=== PATIENT | female | born 1995 | race Caucasian/White ===

== ENCOUNTER → 2020-01-20 | Outpatient (CLI) | payer MEDICAID, SELFPAY ==
[2020-01-24 12:31] LABS: HPV Reflexed? NOT INDICATED
--- OUTSIDE RECORDS SUMMARY | 2020-06-03 08:46 | XMS RPT_ITS | CCD ---
:1995 External Reference #:[id number] Author Organization [facility] Care Team Providers Name Role Phone FILMOENA MOTLEY DO Admitting Unavailable DIDUR, DO Attending Unavailable DIDUR, DO Primary Care Unavailable NO, ON Consulting Unavailable NO, ON Referring Unavailable Results Result Name Value Range Unit Interpretation Flag Date Location emergency report on 2019-04-23 EMERGENCY REPORT [facility] Normal 04-23 [facility] EMERGENCY ROOM REPORT ([id number]) NAME ACCOUNT SEX AGE ADMIT DISCHARGE PT MED. RECORD# NUMBER DATE DATE TYPE SUZANNE [id number] F 04/20/19 04/20/19 Sina CHAMBERLAIN [id number] ROOM: ER DATE OF : 1995 DICTATING PHYSICIAN: Filomena Motley CHIEF COMPLAINT/HISTORY OF PRESENT ILLNESS: This is a 24-yea r-old white female complaining of some p ain and swelling to her right upper eyelid. It started some time throughout the middle o f the night because she states she did not have it when she went to bed last night. She denies any discharge or mattering from the right eye. She does wear contact lenses, bu t she did not put them in this morning. She denies any trauma to the eye. Presently rates her right eye pain as a 3 on a severity scale of 1 to 10. Described it as sharp in nature. Not worse with movement. Denies any blurry or double vision. PAST MEDICAL HISTORY: Denied. PAST SURGICAL HISTORY: Denied. ALLERGIES: No known drug allergies. SOCIAL HISTORY: The patient is not a smoker. She denies any illicit drug use. Does admit to occasoinal alcohol use. REVIEW OF SYSTEMS: Denies any chest pain, shortn ess of breath, cough, sputum, wheezing, abdominal pain, nausea, vomiting, diarrhea, cons tipation, melena, hematochezia, headache, numb ness, unsteady gait, weakness, neck or back pain, joint pain, skin rash, but does co mplain of pain and swelling to the right upper eyelid. Further review of systems negative. PHYSICAL EXAMINATION: Vital signs: Blood pressure 128/90, pulse 97, respiration rate is 12, temperature 98.6 , pulse oximetry 100%. Weight 150 pounds. She does not have a primary care provider . The patient is alert and oriented x3. She presently appears in no acute distress . She is pleasant and cooperative. HEENT: Head appears atraumatic. Pupils are equal and reactive to light. Red reflex intact bilaterally. Extraocular muscles intact. No conjunctival injection. The patient does have some swelling to the right upper eyelid. When I young the eyelid I do see a hordeolum forming along the leading edge of th e upper eyelid laterally. I do not see any discharge or mattering from the right eye and there is no subconjunctival hemorrhage. No hyphema. Globe is intact. Ears: TMs i ntact bilaterally. No erythema noted. No external auditory canal edema or bleeding. Nos e exhibits no rhinorrhea or epistaxis. Mouth: Mucous membranes are moist. I do no t some mild diffuse pharyngeal erythema. No exudates Page 1 of 2 [facility] Emergency Room Report Uvula is midline and elevate s. Neck is supple. Trachea is midline. She does have some mild left anterior cervical lymphadenopathy. No posterior cervical lymphadenopathy. No posterior cervical tendernes s. Lungs are clear to auscultation in all lung bull. No adventitious sounds are note d. No accessory muscle use noted. CVS: Heart rate and rhythm is regular without mu rmur. Abdomen is soft and nontender with normoactive bowel sounds x4 quadrants. No guarding or rigidity. No aida ound. No palpable abdominal masses. No hepatosplenomegaly. Extremities: No e paco or cyanosis. Peripheral pulses are intact . No motor or sensory deficits are noted. Hand internet retailer are strong and symmetric. Skin is warm and d ry. No diaphoresis or rash. Neurologic examination shows the patien t to be alert and oriented x4. No motor or sensory deficits are noted. Normal speech. EMERGENCY DEPARTMENT COURSE AND TREATMENT: Patient was place d on Keflex 500 mg 1 p.o. every 6 hours, dispense number 40 with no refill and Bleph-10 ophthalmic drops, 2 drops to the right eye every 2 to 3 hours while awake. Dispense 15 mL with no refill. The patie nt is to rest, encourage fluids, take the medication as prescribed. She does not hav e a primary care provider so I am going to refer her to [facility] f or followup in 3 to 5 days. If her symptoms become worse or any other problems jules pulido, return here to the emergency department. The patient was discharged in a clinically stable condition. Nurse notes reviewed. DIAGNOSIS: Hordeolum right eye. Dictated By: Filomena Motley DO 04/20/19 05:43 JOB #: [id number] Transcribed By: aleida 04/20/19 12:53 Electronically signed by: E-Sign: Dr. Filomena Motley D.O. 04/23/19 06:38 Page 2 of 2 [facility] PALACIOS Emergency Room Report Encounters Date Type Reason Provider Location 04-20-2019 - Emergency department FILOMENA Byrne [place] 04-20-2019 patient visit DO MOTLEY [facility] PURVI DOCTOR ON NO ([id number]) DOCTOR ON NO Payers Payer Name Policy Number Location [facility] [id number] [facility] ([id number]) [id number] [facility] ([id number]) Summary Purpose Family History No Family History Records Found Advance Directives No Advanced Directives Records Found Additional Source Comments FOR RECORDS PERTAINING TO PATIENTS WHO ARE OR HAVE BEEN ENROLLED IN A CHEMICAL DEPENDENCY/SUBSTANCE ABUSE PROGRAM, SOME INFORMATION MAY BE OMITTED. This clinical summary was aggregated from multiple sources. Caution should be exercised in using it in the provision of clinical care. This summary normalizes information from multiple sources, and as a consequence, information in this document may materially changethe coding, format and clinical context of patient data. In addition, data may be omittedin some cases. CLINICAL DECISIONS SHOULD BE BASED ON THE PRIMARY CLINICAL RECORDS. [facility] provides no warranty or guarantee of the accuracy or completeness of information in this document. UNRECOGNIZED CONTENT PROVIDED BELOW FOR UNRECOGNIZED SECTION INFORMATION SOURCE DATE CREATED AUTHOR AUTHOR'S LORE Garcia 05/21/[address] [facility]
== END | disposition home or self-care (01) ==
PROVIDERS: Referring Provider Obstetrics & Gynecology; Visit Provider Obstetrics & Gynecology
DX: R87.810 Cervical high risk human papillomavirus (HPV) DNA test positive (principal); R87.612 Low grade squamous intraepithelial lesion on cytologic smear of cervix (LGSIL)
CPT/HCPCS: 88175; G0145

== ENCOUNTER 2020-01-23 05:15 | Day surgery (SDC) | payer MEDICAID, SELFPAY ==
[2020-01-21 12:13] LABS: Probe Check PASS; Specimen Processing Control PASS
[2020-01-23] VITALS (7 sets, daily range): BP systolic 90–126; BP diastolic 63–85; PULSE 44–73; RESP 16–18; TEMP 36.4–36.9; O2SAT 99–100; BMI 26.6
--- NOTE | 2020-01-23 05:51 | PCM.HPOB.BLA ---
- Problem List (1) Mechanical complication of intrauterine contraceptive device Status: Acute Qualifiers: Mechanical complication type: mechanical breakdown Encounter type: subsequent encounter Qualified Code(s): T83.31XD - Breakdown (mechanical) of intrauterine contraceptive device, subsequent encounter Comment: mechanical and displacement History and Physical Date of Admission: 01/23/20 Surgical History and Physical Date: 01/22/2020 Name: ROCÍO PALACIOS Age: 25 Date of : 1995 Rocío Palacios, a 25 year old female 2 0 0 0 2, presents for Hysteroscopic IUD removal on Thursday01/23/20 at 7 :30. -- Has partially expulsed, fractured and embedded Mirena IUD. She had frequent vaginal bleeding and presented for IUD removal on 01/20/20 and office IUD removal failed due to embeddment despite US guidance. [facility] MEDICATIONS HISTORY: Current medications prescribed by our practice are: 1. doxycycline monohydrate 100 mg capsule, One capsule by mouth 2 x daily for 10 days ALLERGIES: No Known Allergies Infections - Vaccine Illnesses - no serious past illnesses Accidents - None Hospitalizations - see surgery Review of Systems: GENERAL - Denies fever, or chills SKIN - Denies skin changes EYES - Denies visual changes EARS - Denies difficulty hearing NOSE - Denies nasal congestion or bleeding MOUTH - Denies sore throat or difficulty swallowing NECK - Denies pain or swelling RESPIRATORY - Denies shortness of breath or wheezing CARDIOVASCULAR - Denies palpitations or chest pain GASTROINTESTINAL - Denies nausea, vomiting, diarrhea, constipation GENITOURINARY - Denies dysuria, frequency of urination, incontinence of urine MUSCULOSKELETAL - Denies joint or muscle pain NEUROLOGICAL - Denies localized numbness or weakness PSYCHIATRIC - Denies depression or anxiety ENDOCRINE - Denies heat or cold intolerance, weight loss or gain HEMATO-IMMUNOLOGIC - Denies excesive bleeding with cuts SOCIAL HISTORY: Alcohol Use - drinks occasionally not while Smoking - used to smoke but quit Diet - no special diet Lifestyle - moderate stress lifestyle and single Exercise - active Seat Belt Use - always Employer - [employer] 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 none ; - PHYSICAL EXAM BP- 140/70 Sitting, Right arm, regular cuff Weight- 167.76372 lbs Height- 66.00 inch BMI:27.01 CONSTITUTIONAL - NAD, well nourished, and well developed SKIN - No rash, lesions, or ulcers HEENT - normocephalic, atraumatic, sclerae anicteric LUNGS - normal respiratory rate and rhythm NEUROLOGICAL - normal gait, normal balance, normal motor PSYCHIATRIC - A and O to time, place, person, mood and affect External Genitial Vagina - non-tender without lesions Urethra/Urethral Meatus - non-tender Bladder - non-tender Vagina - vaginal hinson are pink and moist without loss of rugae and no evidence of atropy Cervix - inflammation with IUD stem partially expulsed Uterus - 5-6 cm in size, mobile and nontender Adnexa - clear without massess or tenderness ASSESSMENT/PLAN: 1. Breakdown (mechanical) Of Intrauterine Contraceptive Device, Initial Encounter and Surveillance Of Intrauterine Contraceptive Device Plan for hysteroscopic IUD removal. Procedural r/b/i reviewed US shows intrauterine embeddment NPO @ MN prior to procedure [id number] Procedure Criteria Procedure Type: Essential Procedure Essential: Yes Criteria Statement: On 11/01/2019 the [place] Department of Health ([facility]) Public Order signed by [facility] Director Mindi Nava M.D., regarding the Management of Non-Essential Surgeries and Procedures for the purpose of preserving Personal Protective Equipment (PPE) and critical hospital capacity and resources within [place] went into effect as of 11/02/2019 at 5:00PM. According to the [facility] Public Order: This action will remain in full force and effect until the State of Emergency declared by the Governor no longer exists or the Director of the [facility] rescinds or modifies this Order. This [facility] order stated all non-essential or elective surgeries and procedures that utilize PPE should be delayed unless there is undue risk to the current or future health of a patient. After reviewing the aforementioned [facility] Public Order and the patient's clinical case, I have determined that the scheduled procedure meets the criteria to go forward. Risk to Patient if Procedure Delayed: Threat of permanent dysfunction of an extremity or organ if delayed
[2020-01-23 06:51] LABS: Hematocrit 39.2 % (37-47); Hemoglobin 12.2 g/dL (12.0-15.0); Mean Corp Hgb Conc 31.1 g/dL (32-36); Mean Corpuscular Hgb 29.7 pg (27.0-32.0); Mean Corpuscular Volume 95.4 fL (81-99); Mean Platelet Vol. 11.4 fl (6.2-12.0); Platelet Count 172 K/mm3 (150-450); RBC Distribution Width CV 12.9 % (11.6-14.6); RBC Distribution Width SD 45.4 fl (35.1-43.9); Red Blood Count 4.11 M/mm3 (4.2-5.4); White Blood Count 5.5 K/mm3 (4.4-11.0)
[2020-01-23] MEDS: Lactated Ringers 1,000 ML 125 ML IV (07:00)
--- NOTE | 2020-01-23 08:27 | DCINST_ITS ---
- Discharge Diagnoses Current Active Problems: Current Active and Chronic Problems Mechanical complication of intrauterine contraceptive device (Acute) mechanical and displacement Reason(s) for Visit for Discharge Instructions: Hysteroscopy, IUD removal You will use the following diet at home:: No restrictions Your food should be the consistency of: Regular Discharge Activity: Return to Normal Activity, May Shower, - - No tub bath for 1-2 weeks, No driving for 24 hours, do not operate heavy machinery for 24 hours May resume sexual activity in: - - 2-4 weeks Call your doctor if you observe: Fever of 101 or Higher, Inability to urinate, Inability to have a bowel movement, Using more than one pad per hour, Shortness of breath, Chest pain, Calf discomfort, Uncontrolled pain Allergies/Adverse Reactions: Allergies No Known Allergies Allergy (Verified 01/23/20 06:51) Medications to take at Discharge Cider Vinegar [Apple Cider Vinegar] 600 mg PO DAILY 01/23/20 Doxycycline 100 mg PO BID 01/23/20 Primary Care Physician: Care Physician,No Primary [Primary Care Provider] - Test Results: Test results from this visit will be discussed in further detail at your follow- up appointment, if applicable. Please Follow Up With: Leandra Sellers MD When: 4 weeks
--- NOTE | 2020-01-23 08:28 | PCM.OPRPT ---
Problem List (1) Mechanical complication of intrauterine contraceptive device Status: Acute Qualifiers: Mechanical complication type: mechanical breakdown Encounter type: subsequent encounter Qualified Code(s): T83.31XD - Breakdown (mechanical) of intrauterine contraceptive device, subsequent encounter Comment: mechanical and displacement Report of Operation Date of Procedure: 01/23/20 Pre-Operative Diagnosis: 1. Retained IUD with uterine embeddment Post-Operative Diagnosis: 1. Retained IUD with cervical embeddment Surgery/Procedure Performed:: Hysteroscopy. Partial IUD removal Description of Surgical Findings:: IUD stem protruding through cervix with single arm embedded into left cervix, other IUD arm missing Type of Anesthesia:: Local MAC Anesthesiologist: Nirav Durant Specimen's removed: iud Estimated Blood Loss (mL): 10 Description of Procedure: 25-year-old 2 para 2-0-0-2 presents for scheduled hysteroscopic IUD removal for uterine embedment. The patient had presented last week after more than 3 weeks of abnormal bleeding and requested IUD removal. During attempted removal the IUD was already partially exposed. On attempt a single arm of the IUD fractured. A second arm appeared to be in bedded within the uterus. Bedside ultrasound suggested intrauterine embedment. The patient was advised to proceed with hysteroscopic IUD removal. Procedural risks, benefits, indications and alternatives were reviewed. Informed consent was obtained. Procedure: Patient was brought to the operating room and signed was performed. She is placed in the dorsal supine position and induced under anesthetic with MAC. She was repositioned to dorsolithotomy and examination under anesthesia was performed. The perineum was prepped and draped in sterile fashion. Straight catheterization of the bladder was performed. A bivalve speculum was placed into the vagina and the cervix grasped at the anterior cervical lip using a Singh tenaculum. A paracervical block was placed for a total of 20 cc of 1% lidocaine without epinephrine. The cervix was subsequently dilated and hysteroscopy performed demonstrating a normal-appearing uterine cavity and the single armed IUD appeared to be embedded in the distal cervix. Hysteroscopic removal was attempted using hysteroscopic grasper however unsuccessful. This portion of the procedure was aborted and thus I grasped the IUD using a Jessica clamp and perform gentle rotation however there was fracture of the IUD stem from the embedded arm. As the patient desired fertility I opted to leave the remaining arm of the IUD to prevent further complication. The procedure was complete. The tenaculum was removed from the cervix and speculum was removed from the vagina. The patient was placed into dorsal supine position, awakened and transferred to the recovery room without complication. Sponge counts were correct. - Complications Retained cervical IUD arm - Admit VTE Documentation VTE Present on Admission: No VTE Mechan Device Prophylaxis: SCD's VTE Pharm Prophylaxis ordered?: No
--- OUTSIDE RECORDS SUMMARY | 2020-06-03 09:23 | XMS RPT_ITS | CCD ---
:1995 External Reference #:[id number] Author Organization [facility] Care Team Providers Name Role Phone FILOMENA MOTLEY DO Admitting Unavailable DIDUR, DO Attending Unavailable DIDUR, DO Primary Care Unavailable NO, ON Consulting Unavailable NO, ON Referring Unavailable Results Result Name Value Range Unit Interpretation Flag Date Location emergency report on 2019-04-23 EMERGENCY REPORT [facility] Normal 04-23 [facility] EMERGENCY ROOM REPORT ([id number]) NAME ACCOUNT SEX AGE ADMIT DISCHARGE PT MED. RECORD# NUMBER DATE DATE TYPE SUZANNE [id number] F 04/20/19 04/20/19 Sina CHAMBERLAIN [id number] ROOM: ER DATE OF : 1995 DICTATING [...] erythema. No exudates Page 1 of 2 [facility] Emergency Room Report Uvula is [...] motor or sensory deficits are noted. Hand terrazzo finisher helper are strong and symmetric. Skin is warm [...] I am going to refer her to [facility] f or followup in 3 to 5 days. If her symptoms become worse or any other problems jules pulido, return here to the emergency department. The patient was discharged in a clinically stable condition. Nurse notes reviewed. DIAGNOSIS: Hordeolum right eye. Dictated By: Filomena Motley DO 04/20/19 05:43 JOB #: [id number] Transcribed By: aleida 04/20/19 12:53 Electronically signed by: E-Sign: Dr. Filomena Motley D.O. 04/23/19 06:38 Page 2 of 2 [facility] PALACI[facility] Emergency Room Report Encounters Date Type Reason Provider Location 04-20-2019 - Emergency department FILOMENA Byrne [place] 04-20-2019 patient visit DO MOTLEY [facility] PURVI DOCTOR ON NO ([id number]) DOCTOR ON NO Payers Payer Name Policy Number Location [facility] [id number] [facility] ([id number]) [id number] [facility] ([id number]) Summary Purpose Family History No Family History [...] BE BASED ON THE PRIMARY CLINICAL RECORDS. [employer] [facility] provides no warranty or guarantee of the accuracy or completeness of information in this document. UNRECOGNIZED CONTENT PROVIDED BELOW FOR UNRECOGNIZED SECTION INFORMATION SOURCE DATE CREATED AUTHOR AUTHOR'S LORE Garcia 05/21/2019 [facility]
== END 2020-01-23 09:24 | disposition home or self-care (01) ==
LOC: SDC 05:17 → AC 05:17
PROVIDERS: Referring Provider Obstetrics & Gynecology; Visit Provider Obstetrics & Gynecology
PROC: 0UDB8ZZ Extraction of Endometrium, Via Natural or Artificial Opening Endoscopic (ICD-10-PCS; CPT 58558; principal; 2020-01-23 07:20)
DX: Z30.432 Encounter for removal of intrauterine contraceptive device (principal); T83.31XA Breakdown (mechanical) of intrauterine contraceptive device, initial encounter; Z11.59 Encounter for screening for other viral diseases; Z87.891 Personal history of nicotine dependence
CPT/HCPCS: 58301; 36415; 85027; 86850; 86900; 86901; 87635; G2023; J7120; J2405; U0003

== ENCOUNTER → 2020-09-07 10:42 | Outpatient (CLI) | payer MEDICAID, SELFPAY ==
[2020-09-07 10:04] VITALS: BMI 24.1
[2020-09-07 11:03] LABS: Absolute Lymphocyte Count 1.34 X10^3/uL (0.83-4.51); Absolute Neutrophil Count 4.1 X10^3/uL (2.0-7.7); Basophil# 0.01 X10^3/uL; Basophil% 0.2 % (0-1); Eosinophil# 0.02 X10^3/uL; Eosinophils% 0.3 % (0-5); Hematocrit 39.6 % (37-47); Hemoglobin 12.7 g/dL (12.0-15.0); Lymphocyte # 1.34 X10^3/ul (4.0); Lymphocyte % 22.8 % (19-41); Mean Corp Hgb Conc 32.1 g/dL (32-36); Mean Corpuscular Hgb 29.3 pg (27.0-32.0); Mean Corpuscular Volume 91.5 fL (81-99); Monocyte# 0.46 X10^3/uL; Monocyte% 7.8 % (0-10); NRBC Flagged by Analyzer 0 % (0-5); Neutrophil # 4.05 X10^3/uL (2.7-7.7); Neutrophil % 68.7 % (47-70); Platelet Count 192 K/mm3 (150-450); RBC Distribution Width CV 12.6 % (11.6-14.6); RBC Distribution Width SD 42.4 fl (35.1-43.9); Red Blood Count 4.33 M/mm3 (4.2-5.4); White Blood Count 5.9 K/mm3 (4.4-11.0)
[2020-09-07 11:46] LABS: NATERA MAILED SPECIMEN
[2020-09-07 12:11] LABS: HIV - WCH Non-Reactive (Nonreactive); Hepatitis B Surface Antigen Non-Reactive (Nonreactive); Hepatitis C Antibody Non-Reactive (Nonreactive); Rubella IgG Reactive (Nonreactive)
[2020-09-07 13:31] LABS: Amphetamine Urine VISTA NEGATIVE (<1000 ng/mL); Barbiturate Urine VISTA NEGATIVE (< 200 ng/mL); Benzodiazepine Urine VISTA NEGATIVE (< 200 ng/mL); Cocaine Urine VISTA NEGATIVE (< 300 ng/mL); Ecstacy Urine VISTA NEGATIVE (< 500 ng/mL); Methadone Urine VISTA NEGATIVE (< 300 ng/mL); PCP Urine VISTA NEGATIVE (< 25 ng/mL); THC Urine VISTA POSITIVE (< 50 ng/mL); Vista UDS pH Range 6
[2020-09-13 01:40] LABS: Rapid Plasmin Reagin (RPR) NONREACTIVE (NONREACTIVE)
== END ==
PROVIDERS: Referring Provider Obstetrics & Gynecology; Visit Provider Obstetrics & Gynecology
DX: Z34.81 Encounter for supervision of other normal pregnancy, first trimester (principal); Z31.430 Encounter of female for testing for genetic disease carrier status for procreative management
CPT/HCPCS: 36415; 80307; 85025; 86592; 86703; 86762; 86803; 86850; 86900; 86901; 87086; 87088; 87340

== ENCOUNTER → 2020-11-08 | Outpatient (CLI) | payer MEDICAID, SELFPAY ==
[2020-11-08 09:52] VITALS: BMI 26.5
[2020-11-08 15:34] LABS: Amphetamine Urine VISTA NEGATIVE (<1000 ng/mL); Barbiturate Urine VISTA NEGATIVE (< 200 ng/mL); Benzodiazepine Urine VISTA NEGATIVE (< 200 ng/mL); Cocaine Urine VISTA NEGATIVE (< 300 ng/mL); Ecstacy Urine VISTA NEGATIVE (< 500 ng/mL); Methadone Urine VISTA NEGATIVE (< 300 ng/mL); PCP Urine VISTA NEGATIVE (< 25 ng/mL); THC Urine VISTA NEGATIVE (< 50 ng/mL); Vista UDS pH Range 7
== END | disposition home or self-care (01) ==
LOC: LABSPEC 13:26
PROVIDERS: Referring Provider Nurse Practitioner Women's Health; Visit Provider Nurse Practitioner Women's Health
DX: Z34.80 Encounter for supervision of other normal pregnancy, unspecified trimester (principal); F12.10 Cannabis abuse, uncomplicated
CPT/HCPCS: 80307

== ENCOUNTER → 2020-12-27 13:01 | Outpatient (CLI) | payer MEDICAID, SELFPAY ==
[2020-12-06 14:57] VITALS: BMI 28.2
[2020-12-27 13:13] LABS: Absolute Lymphocyte Count 1.75 X10^3/uL (0.83-4.51); Absolute Neutrophil Count 5.5 X10^3/uL (2.0-7.7); Basophil# 0.01 X10^3/uL; Basophil% 0.1 % (0-1); Eosinophil# 0.11 X10^3/uL; Eosinophils% 1.4 % (0-5); Hematocrit 36.8 % (37-47); Hemoglobin 11.6 g/dL (12.0-15.0); Lymphocyte # 1.75 X10^3/ul (0.83-4.51); Lymphocyte % 21.5 % (19-41); Mean Corp Hgb Conc 31.5 g/dL (32-36); Mean Corpuscular Hgb 29.9 pg (27.0-32.0); Mean Corpuscular Volume 94.8 fL (81-99); Mean Platelet Vol. 10.4 fl (6.2-12.0); Monocyte# 0.74 X10^3/uL; Monocyte% 9.1 % (0-10); NRBC Flagged by Analyzer 0 % (0-5); Neutrophil # 5.49 X10^3/uL (2.7-7.7); Neutrophil % 67.4 % (47-70); Platelet Count 276 K/mm3 (150-450); RBC Distribution Width CV 12.8 % (11.6-14.6); RBC Distribution Width SD 43.7 fl (35.1-43.9); Red Blood Count 3.88 M/mm3 (4.2-5.4); White Blood Count 8.1 K/mm3 (4.4-11.0)
[2020-12-27 13:31] LABS: Glucose Challenge Gest 1H 50g 90 mg/dL (70-140)
== END ==
PROVIDERS: Referring Provider Obstetrics & Gynecology; Visit Provider Obstetrics & Gynecology
DX: Z34.80 Encounter for supervision of other normal pregnancy, unspecified trimester (principal)
CPT/HCPCS: 36415; 82950; 85025

== ENCOUNTER → 2021-02-21 12:20 | Outpatient (CLI) | payer MEDICAID, SELFPAY ==
[2021-01-24 14:33] VITALS: BMI 29.3
[2021-02-07 15:47] VITALS: BMI 30.7
--- NOTE | 2021-02-21 12:22 | US_ITS ---
STUDY: SECOND AND THIRD TRIMESTER OBSTETRICAL ULTRASOUND - LIMITED REASON FOR EXAM: Female, 26 years old growth @ 36 weeks LMP: 06/14/2020 PRIOR ULTRASOUND: None. TECHNIQUE: Transabdominal TECHNICAL QUALITY: Adequate. FINDINGS: There is a single intrauterine fetus. The fetus is in a cephalic presentation. There is demonstrated cardiac activity with a heart rate of 157 bpm. There is a normal amniotic fluid volume. The largest amniotic fluid pocket measures 4.3 cm. The amniotic fluid index (SULEMAN) is 10.4 cm. The placenta is anterior in location and is not low lying. There are Grade 2 placental changes. The cervix measures 4.1 cm in length. BIOMETRY: BPD: 8.9 cm: 35 weeks, 5 days HC: 31.8 cm: 35 weeks, 5 days AC: 32.9 cm: 36 weeks, 5 days FL: 7.0 cm: 35 weeks, 6 days Age by LMP: 36 weeks, 0 days. GORDY by LMP: 03/21/2021. age by current US: 35 weeks, 6 days. GORDY by current US: 03/22/2021. Estimated weight: 2966 grams, +/- 445 grams, 66 percentile. US/OB Limited With Biometrics IMPRESSION: Single live intrauterine of 35 weeks, 6 days by current ultrasound with GORDY of 03/22/2021. Heart rate 157 bpm. No suspicious sonographic findings. Electronically Signed: Miguel Upton MD at 14:22 EDT , Service support ,
== END ==
PROVIDERS: Referring Provider Obstetrics & Gynecology; Visit Provider Obstetrics & Gynecology
DX: O09.299 Supervision of pregnancy with other poor reproductive or obstetric history, unspecified trimester (principal); Z3A.00 Weeks of gestation of pregnancy not specified
CPT/HCPCS: 76816; 87081

== ENCOUNTER 2021-03-14 13:15 | Inpatient (IN) | payer MEDICAID, SELFPAY ==
[2021-03-13 13:19] VITALS: BMI 31.5
[2021-03-14] VITALS (40 sets, daily range): BP systolic 101–146; BP diastolic 52–91; PULSE 68–123; TEMP 36.1–36.8; O2SAT 98–100; BMI 31.0
[2021-03-14 13:10] LABS: ROM Internal Control Test YES-OK TO RESULT pt. (Internal QC)
[2021-03-14 13:11] LABS: ROM Patient Test POSITIVE (Negative)
[2021-03-14] MEDS: Lactated Ringers 1,000 ML 50 ML IV (14:30)
[2021-03-14] MEDS: Oxytocin 30 units/NS 500 ml 30 UNITS/500 ML IV.SOLN IV (14:38)
[2021-03-14 14:54] LABS: Absolute Lymphocyte Count 1.55 X10^3/uL (0.83-4.51); Absolute Neutrophil Count 7.3 X10^3/uL (2.0-7.7); Basophil# 0.02 X10^3/uL; Basophil% 0.2 % (0-1); Eosinophil# 0.02 X10^3/uL; Eosinophils% 0.2 % (0-5); Hematocrit 34.3 % (37-47); Hemoglobin 10.8 g/dL (12.0-15.0); Lymphocyte # 1.55 X10^3/ul (0.83-4.51); Mean Corp Hgb Conc 31.5 g/dL (32-36); Mean Corpuscular Hgb 28.6 pg (27.0-32.0); Mean Platelet Vol. 10.8 fl (6.2-12.0); Monocyte# 0.74 X10^3/uL; Monocyte% 7.7 % (0-10); NRBC Flagged by Analyzer 0 % (0-5); Neutrophil # 7.29 X10^3/uL (2.7-7.7); Neutrophil % 75.4 % (47-70); Platelet Count 290 K/mm3 (150-450); RBC Distribution Width CV 13.8 % (11.6-14.6); RBC Distribution Width SD 45.2 fl (35.1-43.9); Red Blood Count 3.77 M/mm3 (4.2-5.4); White Blood Count 9.7 K/mm3 (4.4-11.0)
--- NOTE | 2021-03-14 15:37 | HP.PCM.OB_ITS ---
HPI - General General Date of Admission: 03/14/21 HPI Narrative BULMARO PALACIOS, is a 26 F at 39 weeks who presents for rupture of membranes Maternal Data Information GORDY Calculator Estimated Delivery Date Method Current WG Current Estimate 03/21/21 LMP (Certain) 39w 0d Other Estimates 03/22/21 Ultrasound #1 38w 6d PFSH PFSH Home Medications ondansetron HCl 8 mg tablet 8 mg PO Q8H #30 tab 09/07/20 [Rx Last Taken Unknown] famotidine [Pepcid] 20 mg PO QHS 03/14/21 [History Last Taken 03/12/21 20:00 20 mg] pediatric multivitamin no.49 [Flintstones Gummies] 2 tab PO DAILY 03/14/21 [History Last Taken 03/12/21 08:00 2 tabs] sennosides [Senokot] 8.6 mg PO DAILY 03/14/21 [History Last Taken Unknown] Allergy/AdvReac Type Severity Reaction Status Date / Time No Known Allergies Allergy Verified 03/14/21 12:39 Family History Grandfather Cancer Lung Surgical History H/O dilation and curettage Social History adopted: No household members: family housing: house current occupational status: employed current occupation: [employer] Smoking Status: Former smoker second hand exposure: Yes alcohol intake: never substance use type: does not use seatbelt use: always do you feel safe at home: Yes additional social history: BF: Kaz History 3 Elective abortions Hx Para 2 Spontaneous abortions Hx # Term Pregnancies Ectopic pregnancies Hx # Pregnancies Multiple births # of living children 2 Past Pregnancies Del. Date Name GA/Weeks Outcome Route Bth Weight Infant Gen Labor Lgth Anesthesia Del Locatn Provider FOB 02/14/12 Ginna 40 live - full term 7lbs 4oz Female 10 hours epidural WC SM 03/16/17 Manju 40 live - full term 7lbs 4oz Female 11 hours epidural [facility] Carleen Delivery Date: 02/14/12 IoL due to oligo Steffi Cortez Delivery Date: 03/16/17 elective IoL; normal 3V cord with True Knot; 1st degree laceration Steffi Cortez Visit Details Expected Delivery Route/Plan plan PPTL Labor Preferences- labor support person: Kaz labor intervention preferences: open to standard interventions pain management options preferred: epidural cut cord/dad catch: yes : yes PP control planned: PPTL discussed possible routes of delivery and associated risks: [] special requests: [] Plans flu vaccine: no tdap vaccine: declined rhogam: na LARC form signed: declined. title 19 signed movement and labor precautions reviewed. Problem list reviewed and updated with the most current plan of care details and appropriate orders placed. Relevant counseling for the gestational age provided. Continue routine care and follow up unless otherwise noted in visit notes/problem list details OB Flowsheet Initial Weight: 154 lb Date -?-?-?-?-?-?-?-?-?-?-?-?- EGA Weight BP Urine Prot -?-?-?-?-?-?-?-?-?-?-?-?- Glucose FHR FuHt Pres Dilation -?-?-?-?-?-?-?-?-?-?-?-?- Effaced St Visit Note 09/07/20 -?-?-?-?-?-?-?-?-?-?-?-?- 12w 1d 154 lb 4 oz (+4 oz) 110/84 -?-?-?-?-?-?-?-?-?-?-?-?- 168 -?-?-?-?-?-?-?-?-?-?-?-?- GP - CRL 53mm co nsistent with LMP. 10/04/20 -?-?-?-?-?-?-?-?-?-?-?-?- 16w 0d 160 lb (+6 lb) 124/86 Negative -?-?-?-?-?-?-?--?-?-?-?-?- Negative 152 -?-?-?-?-?-?-?-?-?-?-?-?- MH-No VB. Nause a improved. Order MFM US. 11/08/20 -?-?-?-?-?-?-?-?-?-?-?-?- 21w 0d 169 lb 6 oz (+15 lb 6 oz) 120/76 Negative -?-?-?-?-?-?-?-?-?-?-?-?- Negative 151 -?-?-?-?-?-?-?-?-?-?-?-?- MH-No VB, LOF. G ood FM. MFM US rpt today to complete views. 12/06/20 -?-?-?-?-?-?-?-?-?-?-?-?- 25w 0d 180 lb 6 oz (+26 lb 6 oz) 128/82 Negative -?-?--?-?-?-?-?-?-?-?-?-?- Negative 159 -?-?-?-?-?-?-?-?-?-?-?-?- MH- NO VB, LOF. Good [facility]. [facility] 12/27/20 -?-?-?-?-?-?-?-?-?-?-?-?- 28w 0d 187 lb 4 oz (+33 lb 4 oz) 120/80 Negative -?-?-?-?-?-?-?-?-?-?-?-?- Negative 155 28 -?-?-?-?-?-?-?-?-?-?-?-?- GP - no LOF, VB, DFM, ctx. 28w labs nl. 01/10/21 -?-?-?-?-?-?-?-?-?-?-?-?- 30w 0d 188 lb (+34 lb) 102/80 Negative -?-?-?-?-?-?-?-?-?-?-?-?- Negative 145 30 -?-?-?-?-?-?-?-?-?-?-?-?- SM- no vb lof go od fm no reuglar ctx SM- no vb lof good fm no reu glar ctx title 19 signed 01/24/21 -?-?-?-?-?-?-?-?-?-?-?-?- 32w 0d 193 lb (+39 lb) 120/82 Negative -?-?-?-?-?-?-?-?-?-?-?-?- Negative 145 32 -?-?-?-?-?-?-?-?-?-?-?-?- Sm- no vb lof go od fm no reuglar ctx check growth at 36 02/07/21 -?-?-?-?-?-?-?-?-?-?-?-?- 34w 0d 196 lb (+42 lb) 130/88 Negative -?-?-?-?-?-?-?-?-?-?-?-?- Negative 155 34 Cephalic -?-?-?-?-?-?-?-?-?-?-?-?- GP - no LOF, VB, DFM, ctx. Having severe leg pain due to varicose veins. Has failed thigh-high compression stockings. Plans to remain off of work until after delivery. LARC form signed. 02/21/21 -?-?-?-?-?-?-?-?-?-?-?-?- 36w 0d 196 lb 4 oz (+42 lb 4 oz) 120/80 Negative -?-?-?-?-?-?-?-?-?-?-?-?- Negative 150 36 Cephalic 1 -?-?-?-?-?-?-?-?-?-?-?-?- 50 -3 GP - no LO F, VB, DFM, ctx. Denies complaints. GBS today. 03/01/21 -?-?-?-?-?-?-?-?-?-?-?-?- 37w 1d 196 lb (+42 lb) 102/86 Negative -?-?-?-?-?-?-?-?-?-?-?-?- Negative 140 37 Cephalic 1 -?-?-?-?-?-?-?-?-?-?-?-?- SM- SM- no vb lof good fm no reg ular ctx 03/07/21 -?-?-?-?-?-?-?-?-?-?-?-?- 38w 0d 199 lb (+45 lb) 126/80 Negative -?-?-?-?-?-?-?-?-?-?-?-?- Negative 145 38 Cephalic 2 -?-?-?-?-?-?-?-?-?-?-?-?- 50 -2 GP - no LO F, VB, DFM, ctx. Membranes swept today. 03/13/21 -?-?-?-?-?-?-?-?-?-?-?-?- 38w 6d 201 lb 8 oz (+47 lb 8 oz) 128/88 Negative -?-?-?-?-?-?-?-?-?-?-?--?- Negative 150 39 Cephalic 3 -?-?-?-?-?-?-?-?-?-?-?-?- 70 -2 GP - no LO F, VB, DFM, regular ctx. Discussed severe leg and pelvic pain. Cervix favorable. Plan IOL. 03/14/21 -?-?-?-?-?-?-?-?-?-?-?-?- 39w 0d 197 lb 15.602 oz (+43 lb 15.602 oz) 113/76 127/76 -?-?-?-?-?-?-?-?-?-?-?-?- -?-?-?-?-?-?-?-?-?-?-?-?- NST FHR Rate Baby A Baseline: 140 Variability:: Moderate Accelerations:: 15 x 15 Decelerations:: None NST Reactive:: Yes FHR Category:: Category I Uterine Activity:: irregular ROS Eyes Eyes: Reports systems reviewed and no addt'l complaints, except as documented ENT HEENT: Reports systems reviewed and no addt'l complaints, except as documented Cardiovascular Cardiovascular: Reports systems reviewed and no addt'l complaints, except as documented Respiratory/Chest Respiratory/Chest: Reports systems reviewed and no addt'l complaints, except as documented Gastrointestinal Gastrointestinal: Reports systems reviewed and no addt'l complaints, except as documented Genitourinary Genitourinary: Reports systems reviewed and no addt'l complaints, except as documented Musculoskeletal Musculoskeletal: Reports systems reviewed and no addt'l complaints, except as documented Integumentary Integumentary: Reports systems reviewed and no addt'l complaints, except as documented Neurologic Neurologic: Reports systems reviewed and no addt'l complaints, except as documented Psychiatric Psychiatric: Reports systems reviewed and no addt'l complaints, except as documented Endocrine Endocrinology: Reports systems reviewed and no addt'l complaints, except as documented Hematologic/Lymphatic Hematologic/Lymphatic: Reports systems reviewed and no addt'l complaints, except as documented Allergic/Immunologic Allergic/Immunologic: Reports systems reviewed and no addt'l complaints, except as documented Vital Signs Vital Signs Vital Signs: 03/14/21 12:30 03/14/21 14:39 03/14/21 14:43 Temperature 97.5 F L 97.4 F L 97.3 F L Temperature Source Temporal Pulse Rate 89 82 Blood Pressure 113/76 127/76 H BP Systolic 113 127 BP Diastolic 76 76 Weight Weight: 197 lb 15.602 oz Body Mass Index (BMI) 31.0 Physical Exam Const alert, oriented x3, no apparent distress, average body habitus, healthy appearing and well nourished HEENT normocephalic and moist oral mucous membranes Head and Scalp: atraumatic Eyes PERRL and EOMs intact bilaterally Neck full ROM Resp normal respiratory effort, no retractions and no use of accessory muscles Cardio regular rate and regular rhythm GI soft to palpation, non-tender and non-distended Extremity normal to inspection and full ROM Skin no rashes or lesions noted Neuro no focal motor deficits and no sensory deficits noted Psych mental status grossly normal, affect normal, speech normal and activity/motor behavior normal Labs Labs Labs: Blood Type O POSITIVE Antibody Screen NEGATIVE Hct 34.3 % (37-47) L Hgb 10.8 g/dL (12.0-15.0) L Obstetrics US Rubella IgG Antibody Reactive (Nonreactive) Hep Bs Antigen Non-Reactive (Nonreactive) HIV 1&2 Antibody Non-Reactive (Nonreactive) C.trachomatis DNA (PCR) Negative (Negative) Glucose 1 Hr 50 gm 90 mg/dL (70-140) Group B Strep DNA Negative (Negative) Rhogam given: No Assessment & Plan (1) Marijuana abuse: COMMENT: needs random tox; 11/08 neg (2) History of oligohydramnios in prior , currently : (3) Supervision of other normal : COMMENT: PRR GORDY 03/21/2021 girl Sandie PC: Manju Chacko BF: Kaz (4) : QUALIFIERS: Weeks of gestation: 38 weeks Qualified Code(s): Z3A.38 - 38 weeks gestation of COMMENT: genetic- low risk, and carrier testing- neg ;neg ntd. NL anatomy, 02/21 nl growth. GBS neg (5) Full-term premature rupture of membranes: QUALIFIERS: PROM onset of labor timing: unspecified duration between rupture of membranes and onset of labor Qualified Code(s): O42.92 - Full-term premature rupture of membranes, unspecified as to length of time between rupture and onset of labor PLAN: Patient presents for augmentation of labor for ROM, plan management for with pitocin Pain management: plans epidural. GBS negative. Management of any complications: none I have reviewed the [facility] and made any clinically relevant updates.
[2021-03-14] MEDS: Lactated Ringers 500 ML 999 ML IV (16:54)
[2021-03-14 16:55] LABS: Chlamydia Trachomatis by PCR Negative (Negative); Neisserai gonorrhoeae by PCR Negative (Negative); Probe Check PASS; Sample Adequacy Control PASS; Specimen Processing Control PASS
[2021-03-14 17:19] LABS: Amphetamine Urine VISTA NEGATIVE (<1000 ng/mL); Barbiturate Urine VISTA NEGATIVE (< 200 ng/mL); Benzodiazepine Urine VISTA NEGATIVE (< 200 ng/mL); Cocaine Urine VISTA NEGATIVE (< 300 ng/mL); Ecstacy Urine VISTA NEGATIVE (< 500 ng/mL); Methadone Urine VISTA NEGATIVE (< 300 ng/mL); PCP Urine VISTA NEGATIVE (< 25 ng/mL); THC Urine VISTA NEGATIVE (< 50 ng/mL); Vista UDS pH Range 7
[2021-03-14] MEDS: fentaNYL-bupivacaine (epidural) 100 ML BAG EPIDURAL (17:45)
[2021-03-14] MEDS: Lactated Ringers 1,000 ML 200 ML IV (18:42)
[2021-03-14] MEDS: Ondansetron 4 MG/2 ML Vial IV (21:20)
[2021-03-14] MEDS: Oxytocin 30 units/NS 500 ml 30 UNITS/500 ML IV.SOLN 334 UNITS IV (21:44)
[2021-03-14] MEDS: Methylergonovine 0.2 MG/ML Ampul IM (21:46)
--- NOTE | 2021-03-14 21:49 | EX.PCM.OBRPT ---
Assessment & Plan (1) Full-term premature rupture of membranes: QUALIFIERS: PROM onset of labor timing: unspecified duration between rupture of membranes and onset of labor Qualified Code(s): O42.92 - Full-term premature rupture of membranes, unspecified as to length of time between rupture and onset of labor (2) Marijuana abuse: COMMENT: needs random tox; 11/08 neg (3) History of oligohydramnios in prior , currently : (4) Supervision of other normal : COMMENT: PRR OGRDY 03/21/2021 girl Sandie PC: Manju Chacko BF: Kaz (5) : QUALIFIERS: Weeks of gestation: 38 weeks Qualified Code(s): Z3A.38 - 38 weeks gestation of COMMENT: genetic- low risk, and carrier testing- neg ;neg ntd. NL anatomy, 02/21 nl growth. GBS neg Maternal Data Information GORDY Calculator Estimated Delivery Date Method Current WG Current Estimate 03/21/21 LMP (Certain) 39w 0d Other Estimates 03/22/21 Ultrasound #1 38w 6d Vaginal Delivery Maternal Presentation Maternal Presentation: Spontaneous Rupture of Membranes Maternal Presentation: 18-year-old G3, P2 at 39 weeks admitted for augmentation of labor for PROM. She was augmented with Pitocin. Type of Induction: Pitocin Medical Reason for Induction: Premature Rupture of Membranes Operative Information Date of Procedure: 03/14/21 Pre-Operative Diagnosis: Term , spontaneous rupture of membranes Post-Operative Diagnosis: Same Surgery / Procedure Performed: Spontaneous Vaginal Delivery Type of Anesthesia: Epidural Drain: Shen to straight drain Estimated Blood Loss: 150 Findings Description of Procedure: Patient began pushing and delivered the head in the COSTA presentation. The head was delivered atraumatically and a loose cord was noted around the body and delivered through. The anterior and posterior shoulders delivered without complication followed by the rest of the infant and the was placed on the maternal abdomen. Delayed cord clamping was employed for approximately 60 seconds. Cord was clamped and cut and gentle traction was applied to the cord and the placenta delivered spontaneously immediately following it was noted to be intact with three-vessel cord. The perineum and vagina were inspected and noted to have no laceration. EBL was 150 cc. Patient and infant tolerated delivery well. Presentation: Vertex and COSTA Amniotic Membrane Rupture Type: Spontaneous Amniotic Fluid Description: Clear Placental Delivery Description: Spontaneous Placenta Disposition: [facility] Cord Vessel Description: 3 Vessels Cord Entanglement: - (Around the body) A Gender: Female Delayed Cord Clamping: Yes Post Vaginal Delivery Medications Given After Delivery: IV Pitocin and IM Methergin Episiotomy Description: None Laceration: None Complication Complications: None Procedures Urinary/Genital 52xxx-59xxx: 30784 Vaginal Delivery+PP Care([facility])
--- NOTE | 2021-03-14 21:55 | PCM.DC ---
Discharge Instructions Diet Discharge Diet: No restrictions Activity Discharge Activity: Return to Normal Activity, May Not Drive (while taking narcotic pain medications.) and May Shower May resume sexual activity in: 4-6 weeks Dressing / Incision Call your doctor if your incision/area has: Continuous Slow Oozing, Sudden Increased Bleeding, Increased Pain/ Swelling, Increased Redness and Foul Smelling Discharge Follow Up Care When: Call to make an appointment with your doctor in 6 weeks. If you had elevated Blood Pressure or 4th degree laceration you will need to be seen in 2 weeks. Test Results: Test results from this visit will be discussed in further detail at your follow-up appointment, if applicable. Discharge Plan Admission Admit Date/Time: 03/14/21 13:15 Attending Provider: Maru Smith Primary Care Provider: Care Physician,Nieves Primary Discharge Orders/Prescriptions Prescriptions: New ibuprofen 800 mg tablet 800 mg PO Q8H PRN (Reason: pain) Qty: 30 RF: 1 Continued ondansetron HCl 8 mg tablet 8 mg PO Q8H Qty: 30 RF: 3 Flintstones Gummies Tablet,Chewable 2 tab PO DAILY RF: 0 sennosides [Senokot] 8.6 mg tablet 8.6 mg PO DAILY RF: 0 famotidine [Pepcid] 20 mg tablet 20 mg PO QHS RF: 0 Referrals / Follow Up: Care Physician,No Primary [Primary Care Provider] -
[2021-03-14] MEDS: Acetaminophen 500 MG Tablet 1000 MG PO (23:50)
[2021-03-15] VITALS (14 sets, daily range): BP systolic 101–136; BP diastolic 59–82; PULSE 62–106; RESP 16; TEMP 36.2–36.9; O2SAT 97–100
[2021-03-15] MEDS: 0.9% Saline Lock 10 ML Syringe IV (08:03)
--- NOTE | 2021-03-15 08:56 | PCM.PN.OB ---
Subjective Subjective Patient doing well without complaints. Tolerating PO. Ambulating and voiding without difficulty. Breast feeding well. Denies chest pain, shortness of breath, calf pain/swelling, fevers, chills, lightheadedness. Objective Data Objective Data Vital Signs: Vital Signs Temp Pulse Resp BP Pulse Ox 97.9 F 69 16 110/64 100 03/15/21 08:31 03/15/21 08:31 03/15/21 08:31 03/15/21 08:31 03/15/21 08:31 Oxygen Delivery Method Room Air Weight: 197 lb 15.602 oz Body Mass Index (BMI) 31.0 Intake & Output: Intake and Output for Last 24 Hours 03/13/21 03/14/21 03/15/21 23:59 23:59 23:59 Intake Total 1780.83 / 1780.83 333 / 333 Output Total 1600 / 1600 Balance 1780.83 / 1780.83 -1267 / -1267 Lab / Micro Data Result Diagrams: 03/14/21 14:31 Labs: Laboratory Results - last 24 hr 03/14/21 12:50: Vag Amniotic Fld Detect POSITIVE H 03/14/21 14:31: WBC 9.7, RBC 3.77 L, Hgb 10.8 L, Hct 34.3 L, MCV 91.0, MCH 28.6, MCHC 31.5 L, RDW Std Deviation 45.2 H, RDW Coeff of Yolanda 13.8, Plt Count 290, MPV 10.8, Immature Gran % (Auto) 0.500, Neut % (Auto) 75.4 H, Lymph % (Auto) 16.0 L, Kleberg % (Auto) 7.7, Eos % (Auto) 0.2, Baso % (Auto) 0.2, Absolute Neuts (auto) 7.3, Absolute Lymphs (auto) 1.55, Nucleated RBC % 0 03/14/21 14:31: Blood Type O POSITIVE, Antibody Screen NEGATIVE 03/14/21 14:45: Chlam trachomat DNA PCR Negative, N.gonorrhoeae DNA (PCR) Negative 03/14/21 16:40: Urine Opiates Screen NEGATIVE, Urine Methadone Screen NEGATIVE, Ur Barbiturates Screen NEGATIVE, Ur Phencyclidine Scrn NEGATIVE, Ur Amphetamines Screen NEGATIVE, U Methamphetamin-MDMA NEGATIVE, U Benzodiazepines Scrn NEGATIVE, Urine Cocaine Screen NEGATIVE, U Cannabinoids Screen NEGATIVE, Ur Drug Screen Comment Micro: Microbiology 03/14/21 14:00 Mucosa - Nose SARS-CoV-2 Antigen (Rapid) - Final ROS Constitutional Constitutional: Denies fever(s) Cardiovascular Cardiovascular: Denies chest pain, dyspnea or lightheadedness Gastrointestinal Gastrointestinal: Reports abdominal pain; Denies constipation or diarrhea Neurologic Neurologic: Denies dizziness or headache(s) Physical Exam Const alert, oriented x3, no apparent distress, average body habitus, healthy appearing and well nourished HEENT normocephalic Head and Scalp: atraumatic Eyes PERRL and EOMs intact bilaterally Neck full ROM Lymph Lymphatic: no lymphadenopathy noted Resp normal respiratory effort, no retractions and no use of accessory muscles Cardio regular rate GI soft to palpation, non-tender and non-distended Palpation: other Other Details: fundus firm Extremity normal to inspection and no clubbing, cyanosis or edema Skin no rashes or lesions noted Neuro no focal motor deficits and no sensory deficits noted Psych mental status grossly normal, affect normal and speech normal Assessment & Plan (1) Spontaneous vaginal delivery: PLAN: s/p PPD #1 1. routine post delivery care 2. breast feeding- support given 3. rh positive 4. rubella immune 5. PPBTL - scheduled this am. Risks, benefits, indications and alternatives to the procedure were discussed with the patient including bleeding, infections, and visceral or vascular injury. Patient voices understanding and agrees to proceed. Consent signed and witnessed.
[2021-03-15] MEDS: Lactated Ringers 1,000 ML 100 ML IV (09:15)
--- NOTE | 2021-03-15 09:40 | FALS_PTH ---
PATIENT: BULMARO PALACIOS LOC: [facility] U#:[id number] AGE/SX: 26/F ROOM: WP008 RE03/14/[address]: Dr. Maru Smith MD : 1995 BED: 1 DIS: 03/16/2021 SPEC #: [id number] RECD: 03/15/21 12:30 STATUS: DUKE KABAJules #: [id number] CHRISTOPHER: 03/15/21 09:[address]: Maru Smith DEPT: SURGICAL PATHOLOGY RECD BY: Anupama Gupta ENTERED: 03/18/21 08:42 SP TYPE: FALL TUBES OTHR DR: No Primary Care Phys Tissues: Fallopian tube Procedures: Surgery Specimen Level II HEADER OPERATION: bilateral tubal occlusion PRE-OP DIAGNOSIS: Sterilization TISSUE SUBMITTED: Bilateral fallopian tubes MICROSCOPIC DIAGNOSIS Bilateral fallopian tubes, salpingectomy: Bilateral fallopian tubes, no pathologic diagnosis. SJ:alan 03/19/2021 MICROSCOPIC DESCRIPTION Slides are reviewed. GROSS DESCRIPTION Received in fixative is one container labeled with the patient's name and designated bilateral fallopian tubes. The specimen consists of bilateral fallopian tubes including fimbrial ends measuring 6 cm in length and 1 cm in diameter and 6.5 cm in length and 0.5 cm in diameter. The fallopian tubes are not identified as right or left. Sections reveal unremarkable cut surfaces. Brewing Director sections are submitted in two cassettes with each cassette containing one fallopian tube. / HALIMA:alan 03/18/21 TC:4 CPT: 43484 x2
[2021-03-15] MEDS: Bupivacaine 0.25% 30 ML Vial (10:33)
--- NOTE | 2021-03-15 11:01 | OP.PCM_ITS ---
Problems Associated Problem List Diagnoses (1) Encounter for sterilization: Report of Operation Date of Procedure: 03/15/21 Pre-Operative Diagnosis: Multiparity, desires permanent sterilization Post-Operative Diagnosis: same Surgery/Procedure Performed:: bilateral salpingectomy Description of Surgical Findings:: Uterus hemorrhage consistent with state. Normal-appearing tubes and ovaries bilaterally Surgeon: Maru Smith library circulation assistant: Dianne Oneill Type of Anesthesia: General Estimated Blood Loss (mL): 10 Description of Procedure: Patient was seen in the operating room where general anesthesia was obtained without difficulty. She was prepped and draped in the supine position. 10 cc of 0.25% Marcaine were instilled directly inferior to the umbilicus. A 3 cm incision was made directly inferior to the umbilicus. Incision was carried down to the level of the fascia with the Bovie. The fascia was grasped and elevated. The fascia was incised using Joseph scissors. The incision was extended laterally with Joseph scissors. The peritoneum was grasped and elevated with special care taken to avoid any underlying bowel. The patient the peritoneum was entered sharply using Joseph scissors. [employer] retractors were used to visualize the uterus. The patient was air planed to the right. The bowel was packed out of the operative field. The left fallopian tube was grasped and elevated with a Noah clamp and visualized all the way to the fimbriae. The LigaSure device was used to grasp, cauterize, and transect the mesosalpinx to remove the entire fallopian tube. The tube was amputated using the LigaSure device. The operative field was inspected and hemostasis was noted. The procedure was repeated on the patient's right side in a similar fashion. All instruments were removed from the abdominal cavity. The fascia was closed in a running fashion using 0 Vicryl suture. The subcutaneous space was reapproximated in a running fashion using 3-0 Vicryl suture. The skin was closed in a running subcuticular fashion using 4-0 Monocryl suture. All counts were correct x2. The patient was awakened from anesthesia and taken to recovery in stable condition. Complications None apparent Admit VTE Documentation VTE Present on Admission: No VTE Mechan Device Prophylaxis: SCD's VTE Pharm Prophylaxis ordered?: No Procedures Urinary/Genital 52xxx-59xxx: 83123 PPTL
[2021-03-15] MEDS: Ibuprofen 600 MG Tablet PO ×2 (12:42→21:05)
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
[2021-03-16 03:11] VITALS: BP 108/59; PULSE 62; RESP 16; TEMP 36.6
[2021-03-16 07:43] VITALS: BP 113/71; PULSE 73; RESP 16; TEMP 36.9
--- NOTE | 2021-03-16 09:46 | PCM.PN.OB ---
Subjective Subjective Patient doing well without complaints. Tolerating PO. Ambulating and voiding without difficulty. feeding well. Denies chest pain, shortness of breath, calf pain/swelling, fevers, chills, lightheadedness. Objective Data Objective Data Vital Signs: Vital Signs Temp Pulse Resp BP Pulse Ox 98.5 F 73 16 113/71 97 03/16/21 07:43 03/16/21 07:43 03/16/21 07:43 03/16/21 07:43 03/15/21 16:20 Oxygen Delivery Method Room Air Weight: 197 lb 15.602 oz Body Mass Index (BMI) 31.0 Intake & Output: Intake and Output for Last 24 Hours 03/14/21 03/15/21 03/16/21 23:59 23:59 23:59 Intake Total 1780.83 / 1780.83 658 / 658 Output Total 2600 / 2600 Balance 1780.83 / 1780.83 -1942 / -1942 Lab / Micro Data Result Diagrams: 03/14/21 14:31 Micro: Microbiology 03/14/21 14:00 Mucosa - Nose SARS-CoV-2 Antigen (Rapid) - Final ROS Constitutional Constitutional: Reports systems reviewed and no addt'l complaints, except as documented Cardiovascular Cardiovascular: Reports systems reviewed and no addt'l complaints, except as documented Respiratory/Chest Respiratory/Chest: Reports systems reviewed and no addt'l complaints, except as documented Gastrointestinal Gastrointestinal: Reports systems reviewed and no addt'l complaints, except as documented Physical Exam Const alert, oriented x3 and no apparent distress HEENT Head and Scalp: atraumatic Resp normal respiratory effort GI soft to palpation and non-tender Bimanual Exam - Vag & Uterus: uterus non-tender Uterus Palpation: uterus fundus firm (below Umbilicus) Assessment & Plan (1) Vaginal delivery: PLAN: dc home fu in 6 weeks
--- NOTE | 2021-04-29 12:40 | CASEMGMT ---
Social Work Labor and Delivery 's meconium drug screen results are back and negative for drugs of abuse. No further interventions are required or indicated. -JEANE Eng, TAX CONSULTANT
== END 2021-03-16 09:50 | disposition home or self-care (01) | DRG 541 ==
LOC: WPOUT 13:17 → WP 13:17
PROVIDERS: Admitting Provider Obstetrics & Gynecology; Visit Provider Obstetrics & Gynecology
PROC: 0UL70ZZ Occlusion of Bilateral Fallopian Tubes, Open Approach (ICD-10-PCS; principal; 2021-03-15 09:25)
DX: O42.92 Full-term premature rupture of membranes, unspecified as to length of time between rupture and onset of labor (principal); Z3A.39 39 weeks gestation of pregnancy; Z37.0 Single live birth; Z87.891 Personal history of nicotine dependence; F12.10 Cannabis abuse, uncomplicated; Z30.2 Encounter for sterilization; O99.324 Drug use complicating childbirth; O69.82X0 Labor and delivery complicated by other cord entanglement, without compression, not applicable or unspecified
CPT/HCPCS: 59025; 59050; 80307; 84112; 85025; 86850; 86900; 86901; 87426; 87491; 87591; 88302; 99218; J7120; A4216; G0378; J2405

== ENCOUNTER → 2021-03-18 14:20 | Outpatient (CLI) | payer MEDICAID, SELFPAY ==
[2021-03-14 12:39] VITALS: BMI 31.0
--- NOTE | 2021-03-18 14:21 | VDLE_ITS ---
Reason For Study: PAIN RIGHT LEFT GSV is normal. GSV is normal. CFV is compressible, spontaneous, phasic, CFV is compressible, spontaneous, phasic, competent and demonstrates normal competent, and demonstrates normal augmentation. augmentation. FV is compressible, spontaneous, phasic, FV is compressible, spontaneous, phasic, competent and demonstrates normal competent and demonstrates normal augmentation. augmentation. POP V is compressible, spontaneous, phasic, POP V is compressible, spontaneous, phasic, competent and demonstrates normal competent and demonstrates normal augmentation. augmentation. T/P Trunk is compressible. T/P Trunk is compressible. PTV is compressible. PTV is compressible. RT PerV is compressible. LT PerV is compressible. Procedure Small segment of Varicose Vein just above This is a venous duplex using B-mode, color medial knee area is DILATED & NON- flow and spectral Doppler. COMPRESSIBLE. Exam performed in department. The exam was diagnostic. A preliminary report was called and/or faxed to Marielena @ Dr. Downs's office @ 2:45 pm. VL/Venous Duplex US - Bra[place]en Extrem Interpretation Summary No evidence for acute deep venous thrombosis bilateral lower extremities. Patent and compressible bilateral great saphenous veins Superficial thrombophlebitis varicose vein proximal left medial knee area Ordering Physician: Kristi Downs Referring Physician: NO PCP Performed By: Deann Reno, RDCS, RVT
== END ==
PROVIDERS: Referring Provider Obstetrics & Gynecology; Visit Provider Obstetrics & Gynecology
DX: M79.606 Pain in leg, unspecified (principal)
CPT/HCPCS: 93970

== ENCOUNTER 2024-05-18 09:14 | Emergency (ER) | payer MEDICAID, SELFPAY ==
[2024-05-18 09:15] VITALS: BP 136/86; PULSE 104; RESP 18; TEMP 36.9; O2SAT 100; BMI 23.1
--- NOTE | 2024-05-18 09:53 | EDS_ITS ---
HPI History of Present Illness Chief Complaint: General Illness Informant: patient Narrative Narrative: Patient is a 29-year-old female presenting with generalized malaise. She also is having increased anxiety. She states that her legs have been hurting her more recently. She states she has been having leg pains for years and her doctor recently did blood work. She was told she had high rheumatoid levels and another lab that was elevated. She was referred to a vascular surgeon as well as but sounds a rheumatoid specialist. She has not followed up yet. She states over the past few days her pain has been worse. She is also just been having some generalized abdominal discomfort and not feeling good. She has had decreased oral intake. She has had chills but denies any fever. Had a headache last night. Has had some very mild nausea but no vomiting. She tried have a bowel movement this morning and only small amount of stool came out. Denies any blood in her stool. Did take 200 mg of ibuprofen around 6 AM this morning with no relief of her symptoms. Denies any urinary symptoms. Her last menstrual period was 1 week ago and she is not concerned for . Has a history of a tubal ligation. Notes at 1 point she did have a complication of her Mirena and they did a surgery and remove part of it. Chart review shows that patient had retained IUD with cervical embedment with one of the arms missing. She underwent hysteroscopy for removal and one of the arms was left embedded in the distal cervix. [facility] Medical History Vaginal delivery Home Medications ?Medication ?Instructions ?Recorded ?Last Taken ?Type ondansetron 4 mg disintegrating 4 mg PO Q8H PRN PRN Nausea #10 tabs 05/18/24 Unknown Rx tablet promethazine 25 mg tablet 25 mg PO Q6H PRN nausea and 05/18/24 Unknown Rx vomiting #20 tabs Allergy/AdvReac Type Severity Reaction Status Date / Time No Known Allergies Allergy Verified 05/18/24 09:14 Family History Grandfather Cancer Lung Surgical History S/P tubal ligation H/O dilation and curettage Social History adopted: No household members: family housing: house current occupational status: employed current occupation: [employer] Smoking Status: Former smoker second hand exposure: Yes alcohol intake: never substance use type: does not use seatbelt use: always do you feel safe at home: Yes additional social history: BF: Kaz WHITNEY ROS ED Constitutional Constitutional ED: Reports chills and sweats; Denies fever(s) ENT ENT ED: Denies ear pain, rhinorrhea or sore throat Cardiovascular Cardiovascular: Denies chest pain or palpitations Respiratory/Chest Respiratory/Chest: Denies cough or dyspnea Gastrointestinal Gastrointestinal: Reports abdominal pain and nausea; Denies constipation, diarrhea or vomiting Musculoskeletal Musculoskeletal: Reports arthralgias and myalgias; Denies back pain Integumentary Denies rash Neurologic Neurologic: Reports headache(s); Denies paresthesias or weakness Psychiatric Psychiatric: Reports anxiety EXAM Physical Exam Const Vital Signs: 05/18/24 09:15 05/18/24 11:14 05/18/24 13:00 Temperature 98.5 F Temperature Source Oral Pulse Rate 104 H 81 64 Respiratory Rate 18 16 18 Blood Pressure 136/86 H 124/66 H 124/76 H Blood Pressure Mean 102 85 92 Pulse Ox 100 98 98 Oxygen Delivery Method Room Air Room Air Room Air 05/18/24 15:00 Temperature Temperature Source Pulse Rate 52 L Respiratory Rate 22 H Blood Pressure 131/85 H Blood Pressure Mean 100 Pulse Ox 99 Oxygen Delivery Method Room Air Positive well nourished and well developed Constitutional Narrative: mildly ill appearing General Appearance ED: well developed and NAD HEENT Reports TM's clear and moist mucous membranes HEENT Narrative: Normal oropharynx Tympanic Membrane ED: Yes TM's clear Eyes PERRL and EOMs intact bilaterally Neck supple Chest Wall inspection of chest normal and palpation of chest normal Resp normal respiratory effort and clear to auscultation bilaterally Cardio regular rate, regular rhythm and no murmurs GI normal to inspection, nondistended, normoactive bowel sounds and non-tender Auscultation: normoactive bowel sounds Palpation: soft; Negative for tender or guarding Back/Spine no CVA tenderness Extremity normal to inspection Extremity Narrative: No significant edema of the extremities appreciated. Mild diffuse tenderness of the lower extremities. Neuro oriented x3 Sensorium / Orientation: alert Motor Exam: general weakness Psych mental status grossly normal Mood & Affect: anxious Skin no rashes or lesions noted and no wounds MDM MDM MDM Narrative Medical decision making narrative: Patient's evaluated for generalized malaise and worsening leg pain. Vital signs significant for mild tachycardia however patient overall is well-appearing. Patient looks like she does not feel good but does not appear toxic by any means. Differential includes viral syndrome, COVID, rhabdomyolysis, dehydration and urinary tract infection. Will obtain labs including CBC, CMP, CPK, urinalysis and COVID/flu swab. Patient given IV fluids, Toradol and Zofran will reevaluate for symptoms Patient reevaluated. She continues to feel uncomfortable. Abdominal exam is still benign. Lab work largely normal. She does have 150 ketones in her urine. She is given a second liter of fluids. Attempted to p.o. challenge her however patient then started dry heaving. Repeat abdominal exam is still benign. She is questionable tender in her suprapubic region. She is deafly not distended. Added on a CT of the abdomen and pelvis. CT of the abdomen and pelvis given her continued nausea and vomiting after 8 of Zofran shows small amount of fluid in the right side of the cul-de-sac as well as questionable minimal fluid around the gallbladder. Right upper quadrant ultrasound as well as pelvic ultrasound is obtained. While there is some physiologic free fluid in the pelvis, and ultrasounds are normal. Patient is reevaluated. She is more anxious and feels like she is going to throw up again. test is negative and will suspicion for ectopic . I did ask her at this point if she uses any marijuana products as possibly cyclic vomiting syndrome/cannabis hyperemesis syndrome could be the cause of her symptoms. She tells me she has been using more lately because of her leg pain she is with dealing with. Will trial a dose of Haldol. Anticipate if she feels better with this can be discharged home with a prescription for Phenergan. Patient is agreeable with this plan of care. Discussed that at this time I do not see an obvious cause of her symptoms at this time I feel it is safe for her to continue outpatient follow-up. She has verbalized understanding of this. Lab Data Attestation: I reviewed the patient's lab results. Labs: Laboratory Results - last 24 hr 05/18/24 05/18/24 10:28 11:10 WBC 6.0 RBC 4.63 Hgb 13.4 Hct 42.9 MCV 92.7 MCH 28.9 MCHC 31.2 L RDW Std Deviation 43.2 RDW Coeff of Yolanda 12.7 Plt Count 197 MPV 11.8 Immature Gran % (Auto) 0.300 Neut % (Auto) 71.5 H Lymph % (Auto) 21.5 Grayson % (Auto) 6.5 Eos % (Auto) 0.0 Baso % (Auto) 0.2 Absolute Neuts (auto) 4.3 Absolute Lymphs (auto) 1.29 Nucleated RBC % 0 Sodium 141 Potassium 3.6 Chloride 111 H Carbon Dioxide 22.0 Anion Gap 8 BUN 12 Creatinine 0.74 Estim Creat Clear Calc 107.12 Est GFR (MDRD) Af Amer 118 Est GFR (MDRD) Non-Af 97 BUN/Creatinine Ratio 16.2 Glucose 97 Calcium 9.7 Total Bilirubin 0.80 AST 11 L ALT 16 Alkaline Phosphatase 36 L Total Creatine Kinase 50 Total Protein 8.6 H Albumin 4.5 Globulin 4.1 Albumin/Globulin Ratio 1.1 Urine Color Yellow Urine Clarity Clear Urine pH 7.0 Ur Specific [place] 1.015 Urine Protein 15 H Urine Glucose (UA) Normal Urine Ketones 150 A* Urine Occult Blood Negative Urine Nitrite Negative Urine Bilirubin Negative Urine Urobilinogen Normal Ur Leukocyte Esterase Negative Urine RBC 0 SEEN Urine WBC 0 SEEN Ur Squamous Epith Cells 0-5 SEEN Urine Bacteria 1+ Urine Mucus 1+ Radiography Diagnostic Testing: Clinical Impression(s) from Imaging Studies Abdomen/Pelvis CT 05/18/24 14:14 IMPRESSION: Small amount of fluid seen in the right side of the cul-de-sac. Small follicles are seen in the right ovary. Questionable minimal pericholecystic fluid. Electronically Signed: Jason Goldstein MD at 14:40 EDT , Gallbladder Ultrasound 05/18/24 15:19 IMPRESSION: Normal right upper quadrant ultrasound examination. Electronically Signed: Kenny Ware MD at 16:42 EDT , Transvaginal US 05/18/24 15:19 IMPRESSION: No definite acute or significant abnormality seen. Mild fluid in the cul-de-sac is likely physiologic. Electronically Signed: Kenny Ware MD at 16:47 EDT , Discharge Plan Triage Chief Complaint: General Illness ED Provider: Sharon Haji Dx/Rx/DC Orders Clinical Impression: Abdominal pain, Nausea & vomiting, Myalgia Instructions: ED Abdominal Pain Unkn Cause Fem, ED Pain, Acute, Uncertain Cause, ED Vomiting (Adult) Prescriptions: New promethazine 25 mg tablet 25 mg PO Q6H PRN (Reason: nausea and vomiting) Qty: 20 0RF ondansetron 4 mg tablet,disintegrating 4 mg PO Q8H PRN PRN (Reason: Nausea) Qty: 10 0RF Primary Care Provider: Yaneli Prince Referrals: Yaneli Prince NP-C [Primary Care Provider] - Activity Restrictions/Additional Instructions: Your workup was very reassuring today. There does not appear to be any acute intra-abdominal or pelvic process going on to explain her symptoms. At this time I would like you to continue to follow-up outpatient with your primary care team as well as rheumatology and vascular surgery which she was referred to. Try to eat a bland diet, push fluids. As we discussed is try taking a daily antiacid. You been prescribed 2 different types of nausea medicine. Return if you have a progression or worsening your symptoms. Print Language: Thai
[2024-05-18] MEDS: 0.9% Normal Saline (1000mL) 1,000 ML 1000 ML IV (10:30)
[2024-05-18 10:37] LABS: Absolute Lymphocyte Count 1.29 X10^3/uL (0.83-4.51); Absolute Neutrophil Count 4.3 X10^3/uL (2.0-7.7); Basophil# 0.01 X10^3/uL; Basophil% 0.2 % (0-1); Hematocrit 42.9 % (37-47); Hemoglobin 13.4 g/dL (12.0-15.0); Lymphocyte # 1.29 X10^3/ul (0.83-4.51); Lymphocyte % 21.5 % (19-41); Mean Corp Hgb Conc 31.2 g/dL (32-36); Mean Corpuscular Hgb 28.9 pg (27.0-32.0); Mean Corpuscular Volume 92.7 fL (81-99); Mean Platelet Vol. 11.8 fl (6.2-12.0); Monocyte# 0.39 X10^3/uL; Monocyte% 6.5 % (0-10); NRBC Flagged by Analyzer 0 % (0-5); Neutrophil % 71.5 % (47-70); Platelet Count 197 K/mm3 (150-450); RBC Distribution Width CV 12.7 % (11.6-14.6); RBC Distribution Width SD 43.2 fl (35.1-43.9); Red Blood Count 4.63 M/mm3 (4.2-5.4)
[2024-05-18] MEDS: Ketorolac 15 MG/ML Vial IV (10:51)
[2024-05-18] MEDS: Ondansetron 4 MG/2 ML Vial IV ×2 (10:51→13:42)
[2024-05-18 10:59] LABS: CPK Total, Creatine Kinase 50 U/L (26-192)
[2024-05-18 11:14] VITALS: BP 124/66; PULSE 81; RESP 16; O2SAT 98
[2024-05-18 11:16] LABS: Red Blood Cells-Urine 0 SEEN /hpf (0-5); White Blood Cells 0 SEEN /hpf (0-5)
[2024-05-18 11:43] LABS: Color, Urine Yellow (Yellow); Glucose, Dipstick Normal (Normal); Leukocyte Esterase-Dipstick Negative /ul (Negative); Nitrite-Dipstick Negative (Negative); Occult Blood-Urine Negative /ul (Negative); Protein-Dipstick 15 mg/dl (Negative); Specific Gravity, Urine 1.015 (1.002-1.030); Urine Bilirubin Dipstick Negative (Negative); Urine Clarity Clear (Clear); Urine Urobilinogen Normal (Normal)
[2024-05-18 11:44] LABS: Ketone-Dipstick 150 mg/dl (Negative)
[2024-05-18 11:56] LABS: Mucous, Urine 1+ /hpf (<or=2+); Squamous Epithelial Cells - UA 0-5 SEEN /hpf (5-10)
[2024-05-18 11:57] LABS: Bacteria 1+ /hpf (None Seen)
[2024-05-18] MEDS: 0.9% Normal Saline (1000mL) 1,000 ML 999 ML IV (12:22)
[2024-05-18 12:40] LABS: ALB/GLOB Ratio 1.1 RATIO (0.9-2.4); AST(SGOT) 11 U/L (15-37); Alanine Aminotransfer ALT/SGPT 16 U/L (13-56); Albumin, Serum 4.5 g/dL (3.2-5.0); Alkaline Phosphatase 36 U/L (45-117); Anion Gap 8 (5-15); BUN 12 mg/dL (7-18); BUN/Creat Ratio 16.2 RATIO (10-20); Calcium,Total 9.7 mg/dL (8.5-10.1); Chloride 111 mmol/L (98-107); Creatinine, Serum 0.74 mg/dL (0.55-1.02); EST Glomerular Filtration Rate 97 mL/min (>60); Est Glom Filt Rate - Afr Amer 118 mL/min (>60); Estimated Creatinine Clearance 107.12 ml/min; Globulin 4.1 g/dL (2.2-4.2); Glucose 97 mg/dL (74-106); Potassium 3.6 mmol/L (3.5-5.1); Protein, Total 8.6 g/dL (6.4-8.2); Sodium Level 141 mmol/L (136-145)
[2024-05-18 13:00] VITALS: BP 124/76; PULSE 64; RESP 18; O2SAT 98
--- NOTE | 2024-05-18 14:14 | CT_ITS ---
STUDY: CT ABDOMEN AND PELVIS WITH CONTRAST REASON FOR EXAM: Female, 29 years old. Nausea, vomting , abd pain diffuse RADIATION DOSAGE (If Supplied By Facility): CTDIvol = ( 10.87 ) mGy, DLP = ( 439.23 ) mGycm TECHNIQUE: Transaxial images were obtained from the dome of the diaphragm to the symphysis pubis without oral contrast. IV 75mL Isovue-300 was administered. Sagittal and coronal images were reconstructed. Individualized dose optimization techniques were used for this CT. COMPARISON: None. FINDINGS: The visualized lung bases are unremarkable. The visualized portions of the heart are within normal limits. Normal liver. Normal gallbladder and extrahepatic biliary system. Questionable minimal pericholecystic fluid. Normal spleen. Normal pancreas. Normal bilateral adrenal glands. Normal right kidney. Normal left kidney. Normal visualized stomach. Normal small intestine. There are scattered colonic diverticula consistent with diverticulosis. The appendix is visualized and appears normal. Normal abdominal aorta. Normal inferior vena cava. Normal retroperitoneum. Normal urinary bladder. Small amount of fluid is seen in the right cul-de-sac. Follicles are seen in the right ovary. Normal abdominal wall. Normal osseous structures. CT/Abdomen/Pelvis W IV Cont ONLY IMPRESSION: Small amount of fluid seen in the right side of the cul-de-sac. Small follicles are seen in the right ovary. Questionable minimal pericholecystic fluid. Electronically Signed: Jason Goldstein MD at 14:40 EDT ,
[2024-05-18 15:00] VITALS: BP 131/85; PULSE 52; RESP 22; O2SAT 99
--- NOTE | 2024-05-18 15:19 | US_ITS ---
STUDY: ABDOMINAL ULTRASOUND - RIGHT UPPER QUADRANT REASON FOR VISIT: Female, 29 years old Pain, n/v, free fluid on CT TECHNIQUE: Ultrasound evaluation of the right upper quadrant was performed with real-time and static rutledge-scale imaging. TECHNICAL QUALITY: Adequate. COMPARISON: CT scan of the same date. FINDINGS: Liver: The liver measures 17.5 cm. There is normal echogenicity of the liver. The bile ducts are within normal limits. There is hepatic color flow. The direction of portal flow is hepatopetal. There is no demonstrated mass lesion. Gallbladder: Normal distended gallbladder. The gallbladder wall measures 1.4 mm. There is a negative sonographic Calles''s sign. There is no pericholecystic fluid. There are no gallstones. Common Bile Duct (C.B.D.): The common bile duct measures 3 mm. Pancreas: Normal size of the head, body and tail of the pancreas. There is normal echogenicity of the pancreas. There is no demonstrated pancreatic mass or cyst. Right Kidney: Normal size of the right kidney. The right kidney measures 10.8 cm. Normal renal cortex. The right cortex measures 1.8 cm. There is no demonstrated renal mass or cyst. There is no right hydronephrosis. US/Gallbladder IMPRESSION: Normal right upper quadrant ultrasound examination. Electronically Signed: Kenny Ware MD at 16:42 EDT ,
--- NOTE | 2024-05-18 15:19 | US_ITS ---
STUDY: ULTRASOUND TRANSVAGINAL CLINICAL: Female, 29 years old. pelvic pain, + free fluid on CT TECHNIQUE: Transvaginal COMPARISON: CT scan of the same day. FINDINGS: Normal uterine size measuring 8.8 x 5.5 x 4.3 cm in maximal craniocaudal dimension. There are no myometrial masses. Normal endometrial thickness measuring 6 mm. There are no endometrial masses, and there is no fluid in the endometrial cavity. There is a nabothian cyst on the uterine cervix. Normal right ovary, measuring 2.9 x 2.4 x 1.9 cm. There are multiple follicles without a dominant cyst. Normal blood flow. Normal left ovary, measuring 3.2 x 2.2 x 1.9 cm. There are multiple follicles without a dominant cyst. Normal blood flow. There is mild free fluid in the pelvis. Polycystic ovary disease: No. US/Transvaginal Non- IMPRESSION: No definite acute or significant abnormality seen. Mild fluid in the cul-de-sac is likely physiologic. Electronically Signed: Kenny Ware MD at 16:47 EDT ,
[2024-05-18 17:00] VITALS: BP 151/90; PULSE 54; RESP 24; O2SAT 97
[2024-05-18 17:10] LABS: Internal QC Validated? YES +Cl - CLEAR BKGD; Pregnancy, Urine Negative Negative
[2024-05-18 17:11] LABS: Record Kit Lot#,Urine Preg 772476
[2024-05-18] MEDS: Haloperidol Lactate 5 MG/ML Vial 1 MG IV (17:21)
[2024-05-18 17:59] VITALS: BP 144/82; PULSE 56; RESP 18; TEMP 36.6; O2SAT 99
== END 2024-05-18 17:59 | disposition home or self-care (01) ==
LOC: ED 09:51
PROVIDERS: Emergency Provider Emergency Medicine; PCP Nurse Practitioner Family; Visit Provider Emergency Medicine
DX: R11.2 Nausea with vomiting, unspecified (principal); M79.10 Myalgia, unspecified site; Z87.891 Personal history of nicotine dependence; Z98.51 Tubal ligation status; R10.9 Unspecified abdominal pain
CPT/HCPCS: 74177; 76705; 76830; 80053; 81001; 81025; 82550; 85025; 87631; 96361; 96374; 96375; 96376; 99283; J7030; Q9967; A4216; J2405

== ENCOUNTER → 2024-11-16 | Outpatient (CLI) | payer MEDICAID, SELFPAY ==
[2024-11-18 07:07] LABS: Calprotectin, Stool 35 ug/g (0-120)
== END | disposition home or self-care (01) ==
LOC: LABSPEC 10:13
PROVIDERS: PCP Nurse Practitioner Family; Referring Provider Student in an Organized Health Care Education/Training Program; Visit Provider Student in an Organized Health Care Education/Training Program
DX: R19.15 Other abnormal bowel sounds (principal)
CPT/HCPCS: 36415; 83993

== ENCOUNTER → 2025-01-19 | Outpatient (CLI) | payer MEDICAID, SELFPAY | END | disposition home or self-care (01) | LOC: VSLAB 14:19 | PROVIDERS: PCP Nurse Practitioner Family; Visit Provider Nurse Practitioner Family | DX: Z12.4 Encounter for screening for malignant neoplasm of cervix (principal) | CPT/HCPCS: 88175; G0145 ==

== ENCOUNTER → 2025-02-10 | Outpatient (CLI) | payer MEDICAID, SELFPAY ==
--- NOTE | 2025-02-10 12:57 | VDLE_ITS ---
Reason For Study Reason For Study: Pain BLE RIGHT LEFT CFV is compressible, spontaneous, phasic, competent CFV is compressible, spontaneous, phasic, competent, and demonstrates normal augmentation. and demonstrates normal augmentation. FV is compressible, spontaneous, phasic, competent FV is compressible, spontaneous, phasic, competent and demonstrates normal augmentation. and demonstrates normal augmentation. POP V is compressible, spontaneous, phasic, competent POP V is compressible, spontaneous, phasic, competent and demonstrates normal augmentation. and demonstrates normal augmentation. T/P Trunk is compressible. T/P Trunk is compressible. PTV is compressible. PTV is compressible. RT PerV is compressible. LT PerV is compressible. SFJ is INCOMPETENT and measures 0.83cm x 1.10 cm. SFJ is competent and measures 0.44cm x 0.47 cm. GSV proximal thigh measures 0.52cm x 0.50 cm. GSV proximal thigh measures 0.50cm x 0.47 cm. GSV at knee measures 0.37cm x 0.38 cm. GSV at knee measures 0.49cm x 0.49 cm. GSV INCOMPETENT throughout for greater than 0.5 GSV INCOMPETENT throughout for greater than 0.5 seconds. seconds. SSV mid calf is INCOMPETENT for greater than 0.5 SSV mid calf is competent and measures 0.25cm x 0.25 seconds and measures 0.20cm x 0.20 cm. cm. ASV mid thigh is INCOMPETENT for greater than 0.5 ASV distal thigh is INCOMPETENT for greater than 0.5 seconds and measures 0.79cm x 0.98 cm. seconds and measures 0.46cm x 0.54 cm. ASV distal thigh is INCOMPETENT for greater than 0.5 ASV distal thigh 2 is INCOMPETENT for greater than seconds and measures 0.62cm x 0.65 cm. 0.5 seconds and measures 0.23cm x 0.26cm. ASV proximal calf is INCOMPETENT for greater than 0.5 seconds and measures 0.45cm x 0.54 cm. ASV mid calf is INCOMPETENT for greater than 0.5 seconds and measures 0.22cm x 0.25 cm. Procedure This is a venous duplex using B-mode, color flow and spectral Doppler. Exam performed in department. A preliminary report was called and/or faxed to [facility]. VL/Venous Duplex US - [place] Extrem Interpretation Summary Deep veins of the bilateral lower extremities are patent and compressible segme ntally. There is no evidence of bilateral lower extremity deep vein thrombosis. The bilateral great saphenous veins appea r patent and compressible segmentally. Positive for reflux in the right saphenofemoral junction, great saphenous vein throughout, small saphenous vein, accessory saphenous veins in the thigh, accessory saphenous veins in the calf. Positive for reflux in the left great saphenous vein throughout, accessory saph enous veins in the thigh. Ordering Physician: Noreen Cordova Referring Physician: So Reed Performed By: Josette Back, MARK, RVT
== END | disposition home or self-care (01) ==
LOC: CVS 12:53
PROVIDERS: PCP Nurse Practitioner Family; Referring Provider Physician Assistant; Visit Provider Physician Assistant
DX: I83.899 Varicose veins of unspecified lower extremity with other complications (principal); I87.2 Venous insufficiency (chronic) (peripheral)
CPT/HCPCS: 93970

== ENCOUNTER 2025-05-11 09:56 | Day surgery (SDC) | payer MEDICAID, SELFPAY ==
[2025-05-11] VITALS (10 sets, daily range): BP systolic 118–146; BP diastolic 75–88; PULSE 60–83; RESP 16–18; TEMP 36.6–37.2; O2SAT 99–100; BMI 25.0
[2025-05-11] MEDS: Lactated Ringers 1,000 ML 15 ML IV (10:34)
[2025-05-11 10:35] LABS: Hematocrit 39.4 % (37-47); Hemoglobin 13.3 g/dL (12.0-15.0); Mean Corp Hgb Conc 33.8 g/dL (32-36); Mean Corpuscular Volume 90.8 fL (81-99); Mean Platelet Vol. 10.7 fl (6.2-12.0); Platelet Count 203 K/mm3 (150-450); RBC Distribution Width CV 12.3 % (11.6-14.6); RBC Distribution Width SD 40.5 fl (35.1-43.9); Red Blood Count 4.34 M/mm3 (4.2-5.4); White Blood Count 3.6 K/mm3 (4.4-11.0)
--- NOTE | 2025-05-11 10:49 | PCM.PRE.AN2 ---
ASA Classification* ASA Classification ASA Classification: 1 Assessment & Plan Anesthesia* Anesthesia Assessment Anesthesia Assessment: Discussed sedation and/or anesthesia options, risks, benefits, and alternatives with patient/parents/legal guardian/POA. Questions invited. The patient/parents/legal guardian/POA seems to understand and agrees to proceed with anesthesia plan. Reviewed the physical assessment, medical history, allergy history and patient home medications list prior to surgery/procedure/anesthetic and documented any changes. Performed airway and anesthesia risk assessments. Anesthesia Type Anesthesia Type: General History Source History Obtained from:: Patient and Chart Anesthesia Focused Assessment* Temperature: 98.6 F Pulse Rate: 83 Blood Pressure: 123/87 Respiratory Rate: 18 Pulse Ox: 100 Oxygen Delivery Method: Room Air Airway Assessment Mouth opens: >3 cm Mallampati Score: III Teeth Condition: Missing (Patient has a couple missing teeth. Rest are tight.) Neck Range of motion (ROM): Full ROM Labs Anesthesia Preop lab: CBC WBC, (4.4-11.0) 3.6 K/mm3 L Today, 10:25 RBC, (4.2-5.4) 4.34 M/mm3 Today, 10:25 Hgb, (12.0-15.0) 13.3 g/dL Today, 10:25 Hct, (37-47) 39.4 % Today, 10:25 Plt Count, (150-450) 203 K/mm3 Today, 10:25 CHEMISTRY Potassium, (3.5-5.1) 3.6 mmol/L 05/18/24, 10: Sodium, (136-145) 141 mmol/L 05/18/24, 10: BUN, (7-18) 12 mg/dL 05/18/24, 10:28 Creatinine, (0.55-1.02) 0.74 mg/dL 05/18/24, 10: Glucose, (74-106) 97 mg/dL 05/18/24, 10: TSH, (0.358-3.74) 1.11 uIU/mL 09/24/16, 16:57 COAG Urine Test Negative Negative 05/18/24, 11:10 Pre-Assessment Diagnosis/Proposed Procedure Planned Operative Procedure(s): RIGHT SFJ LIGATION AND RIGHT SAPHENOUS VEIN ABLATION Anesthesia History Anesthesia History - desk interviewer: Anesthesia History - desk interviewer Hx Hospitalization No 05/02/25 09:14 Any Problems With Anesthesia No 05/02/25 09:14 Cholinesterase deficiency No 05/02/25 09:14 You/Your Family Experience No 05/02/25 09:14 fever (hyperthermia) with Relationship Recent Exposure to Contagious No 05/11/25 10:31 Disease Does patient have nerve No 05/02/25 09:14 stimulator Patient instructed to have device shut off --Does patient have Pacemaker No 05/11/25 10:31 or ICD? When Was Last Pacemaker Check QUESTION #4 FULL TEXT: You/Your Family Experience fever (hyperthermia) with Anesthesia Last Oral Intake Last Oral intake: Last Oral Intake NPO since 04:30 05/11/25 10:31 Meds taken in AM with sips of water? Meds patient instructed to take am of surgery Any additional information?: Yes NPO since: 05:30 (Patient water at 5:30 AM.) Meds taken in AM with sips of water?: No PONV PONV - desk interviewer: PONV - desk interviewer Female Yes 05/02/25 09:14 HX of Motion Sickness No 05/02/25 09:14 HX of N/V After Surgery No 05/02/25 09:14 Non-Smoker Yes 05/02/25 09:14 Duration of Surgery greater Yes 05/02/25 09:14 than 60 minutes Number of Risk Factors 3 05/02/25 09:14 PONV Score Moderate Risk 05/02/25 09:14 Height & Weight Height & Weight: Anesthesia: Height & Weight Height 5 ft 7 in 05/11/25 10:31 Weight: 72.6 kg 05/11/25 10:31 Body Mass Index (BMI) 25.0 05/11/25 10:31 Respiratory Assessment Respiratory Assessment - desk interviewer: Respiratory Tract Infection Hx - desk interviewer Hx Respiratory Tract Infection No 05/02/25 09:14 STOP Sleep Apnea STOP Sleep Apnea - desk interviewer: STOP Sleep Apnea - desk interviewer Hx Hypertension No 05/02/25 09:14 Hx Sleep Apnea No 05/02/25 09:14 CPAP BIPAP Do you snore loudly (louder Yes 05/02/25 09:14 than talking or can be heard Do you often feel tired/ No 05/02/25 09:14 fatigued/ sleepy during daytime? Has anyone observed you stop No 05/02/25 09:14 breathing during sleep? STOP Results Negative 05/02/25 09:14 QUESTION #5 FULL TEXT : Do you snore loudly (louder than talking or can be heard through closed doors)? 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 Specify any problems Hx of Preganancy in last 3 No 05/02/25 09:14 Months Nurse Filling Out Transfusion DSCHRIBER 05/02/25 09:14 & Questions: Date: 05/02/25 05/02/25 09:14 Time: 09:14 05/02/25 09:14 Patient unable to answer at this time (ie. confused, unrespo /Reproduction History /Reproductive History - desk interviewer: /Reproductive Hx- desk interviewer Hx Now No 05/02/25 09:14 Gestational Age (in weeks): EDC: Hx Hx Para Hx Section SAB No 05/02/25 09:14 Active Medications Active Medications: Current Medications Generic Name Dose Route Start Last Admin Trade Name Freq PRN Reason Stop Dose Admin Cefazolin Sodium 2 gm/ Sodium 110 mls @ 200 mls/hr 05/11/25 12:00 Chloride IV 05/11/25 12:32 INTRAOP ONE Lactated Ringer's 1,000 mls @ 15 mls/hr 05/11/25 10:15 05/11/25 10:34 IV 15 mls/hr .Q48H RUSSEL Administration PFSH Medical History Wears glasses Wears contact lenses Anxiety Alcohol use Former smoker Leg cramps Vaginal delivery Home Medications ?Medication ?Instructions ?Recorded ?Last Taken ?Type NK 02/01/25 Unknown History Allergy/AdvReac Type Severity Reaction Status Date / Time No Known Allergies Allergy Verified 05/11/25 10:30 Family History Grandfather Cancer Lung Other Heart disease Myocardial infarction Surgical History Hx of wisdom tooth extraction S/P tubal ligation H/O dilation and curettage Social History adopted: No household members: family housing: house current occupational status: employed current occupation: [employer] Smoking Status: Former smoker Tobacco: How many years used: 5 second hand exposure: Yes alcohol intake: never substance use type: does not use seatbelt use: always do you feel safe at home: Yes additional social history: BF: Kaz Review of Systems (Anesthesia) ROS Narrative System reviewed and no additional complaints, except as documented.
--- NOTE | 2025-05-11 10:49 | PCM.PRE.AN2 ---
ASA Classification* ASA Classification ASA Classification: 1 Assessment & Plan Anesthesia* Anesthesia Assessment Anesthesia Assessment: Discussed sedation and/or anesthesia options, risks, benefits, and alternatives with patient/parents/legal guardian/POA. Questions invited. The patient/parents/legal guardian/POA seems to understand and agrees to proceed with anesthesia plan. Reviewed the physical assessment, medical history, allergy history and patient home medications list prior to surgery/procedure/anesthetic and documented any changes. Performed airway and anesthesia risk assessments. Anesthesia Type Anesthesia Type: General History Source History Obtained from:: Patient and Chart Anesthesia Focused Assessment* Temperature: 98.6 F Pulse Rate: 83 Blood Pressure: 123/87 Respiratory Rate: 18 Pulse Ox: 100 Oxygen Delivery Method: Room Air Airway Assessment Mouth opens: >3 cm Mallampati Score: III Teeth Condition: Missing (Patient has a couple missing teeth. Rest are tight.) Neck Range of motion (ROM): Full ROM Labs Anesthesia Preop lab: CBC WBC, (4.4-11.0) 3.6 K/mm3 L Today, 10:25 RBC, (4.2-5.4) 4.34 M/mm3 Today, 10:25 Hgb, (12.0-15.0) 13.3 g/dL Today, 10:25 Hct, (37-47) 39.4 % Today, 10:25 Plt Count, (150-450) 203 K/mm3 Today, 10:25 CHEMISTRY Potassium, (3.5-5.1) 3.6 mmol/L 05/18/24, 10: Sodium, (136-145) 141 mmol/L 05/18/24, 10: BUN, (7-18) 12 mg/dL 05/18/24, 10:28 Creatinine, (0.55-1.02) 0.74 mg/dL 05/18/24, 10: Glucose, (74-106) 97 mg/dL 05/18/24, 10: TSH, (0.358-3.74) 1.11 uIU/mL 09/24/16, 16:57 COAG Urine Test Negative Negative 05/18/24, 11:10 Pre-Assessment Diagnosis/Proposed Procedure Planned Operative Procedure(s): RIGHT SFJ LIGATION AND RIGHT SAPHENOUS VEIN ABLATION Anesthesia History Anesthesia History - chain builder loom control: Anesthesia History - chain builder loom control Hx Hospitalization No 05/02/25 09:14 Any Problems With Anesthesia No 05/02/25 09:14 Cholinesterase deficiency No 05/02/25 09:14 You/Your Family Experience No 05/02/25 09:14 fever (hyperthermia) with Relationship Recent Exposure to Contagious No 05/11/25 10:31 Disease Does patient have nerve No 05/02/25 09:14 stimulator Patient instructed to have device shut off --Does patient have Pacemaker No 05/11/25 10:31 or ICD? When Was Last Pacemaker Check QUESTION #4 FULL TEXT: You/Your Family Experience fever (hyperthermia) with Anesthesia Last Oral Intake Last Oral intake: Last Oral Intake NPO since 04:30 05/11/25 10:31 Meds taken in AM with sips of water? Meds patient instructed to take am of surgery Any additional information?: Yes NPO since: 05:30 (Patient water at 5:30 AM.) Meds taken in AM with sips of water?: No PONV PONV - chain builder loom control: PONV - chain builder loom control Female Yes 05/02/25 09:14 HX of Motion Sickness No 05/02/25 09:14 HX of N/V After Surgery No 05/02/25 09:14 Non-Smoker Yes 05/02/25 09:14 Duration of Surgery greater Yes 05/02/25 09:14 than 60 minutes Number of Risk Factors 3 05/02/25 09:14 PONV Score Moderate Risk 05/02/25 09:14 Height & Weight Height & Weight: Anesthesia: Height & Weight Height 5 ft 7 in 05/11/25 10:31 Weight: 72.6 kg 05/11/25 10:31 Body Mass Index (BMI) 25.0 05/11/25 10:31 Respiratory Assessment Respiratory Assessment - chain builder loom control: Respiratory Tract Infection Hx - chain builder loom control Hx Respiratory Tract Infection No 05/02/25 09:14 STOP Sleep Apnea STOP Sleep Apnea - chain builder loom control: STOP Sleep Apnea - chain builder loom control Hx Hypertension No 05/02/25 09:14 Hx Sleep Apnea No 05/02/25 09:14 CPAP BIPAP Do you snore loudly (louder Yes 05/02/25 09:14 than talking or can be heard Do you often feel tired/ No 05/02/25 09:14 fatigued/ sleepy during daytime? Has anyone observed you stop No 05/02/25 09:14 breathing during sleep? STOP Results Negative 05/02/25 09:14 QUESTION #5 FULL TEXT : Do you snore loudly (louder than talking or can be heard through closed doors)? 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 Specify any problems Hx of Preganancy in last 3 No 05/02/25 09:14 Months Nurse Filling Out Transfusion DSCHRIBER 05/02/25 09:14 & Questions: Date: 05/02/25 05/02/25 09:14 Time: 09:14 05/02/25 09:14 Patient unable to answer at this time (ie. confused, unrespo /Reproduction History /Reproductive History - chain builder loom control: /Reproductive Hx- chain builder loom control Hx Now No 05/02/25 09:14 Gestational Age (in weeks): EDC: Hx Hx Para Hx Section SAB No 05/02/25 09:14 Active Medications Active Medications: Current Medications Generic Name Dose Route Start Last Admin Trade Name Freq PRN Reason Stop Dose Admin Cefazolin Sodium 2 gm/ Sodium 110 mls @ 200 mls/hr 05/11/25 12:00 Chloride IV 05/11/25 12:32 INTRAOP ONE Lactated Ringer's 1,000 mls @ 15 mls/hr 05/11/25 10:15 05/11/25 10:34 IV 15 mls/hr .Q48H RUSSEL Administration PFSH Medical History Wears glasses Wears contact lenses Anxiety Alcohol use Former smoker Leg cramps Vaginal delivery Home Medications ?Medication ?Instructions ?Recorded ?Last Taken ?Type NK 02/01/25 Unknown History Allergy/AdvReac Type Severity Reaction Status Date / Time No Known Allergies Allergy Verified 05/11/25 10:30 Family History Grandfather Cancer Lung Other Heart disease Myocardial infarction Surgical History Hx of wisdom tooth extraction S/P tubal ligation H/O dilation and curettage Social History adopted: No household members: family housing: house current occupational status: employed current occupation: [employer] Smoking Status: Former smoker Tobacco: How many years used: 5 second hand exposure: Yes alcohol intake: never substance use type: does not use seatbelt use: always do you feel safe at home: Yes additional social history: BF: Kaz Review of Systems (Anesthesia) ROS Narrative System reviewed and no additional complaints, except as documented.
[2025-05-11 10:57] LABS: Anion Gap 12 (5-15); BUN 9 mg/dL (4-19); BUN/Creat Ratio 11.8 RATIO (10-20); Calcium,Total 9.4 mg/dL (7.6-11.0); Carbon Dioxide 22.5 mmol/L (21.0-32.0); Chloride 107 mmol/L (98-108); Estimated Creatinine Clearance 104.72 ml/min (50-250); Glucose 88 mg/dL (70-99); Potassium 3.8 mmol/L (3.3-5.1)
[2025-05-11] MEDS: Midazolam 2 MG/2 ML Syringe IV (13:09)
[2025-05-11] MEDS: Cefazolin 1 GM/5 ML Vial 2 GM IV (13:09)
[2025-05-11] MEDS: Lidocaine 1% (5 ml sdv) 5 ML Vial 8 ML IV (13:14)
[2025-05-11] MEDS: fentaNYL 100 MCG/2 ML Ampul IV (13:35)
--- NOTE | 2025-05-11 13:59 | CHAPLAIN ---
Type of Pastoral Visit ___ Initial Visit ___ Follow-up Visit ___ On-call Visit ___ General Patient Visit ___ Spiritual Assessment ___ Family Conference ___ Bereavement ___ Rapid Response ___ Code Blue ___ Other (describe below) Pastoral Care Referral From ___ Patient ___ Family ___ Nurse ___ Physician ___ Director Educational Radio ___ Hotel Superintendent ___ Other (describe below) Sacrament/Intervention ___ Active listening ___ Anointing ___ Muslim ___ Bereavement ___ Communion ___ Joi exploration ___ ___ Life review ___ Prayer ___ Reconciliation ___ Sacrament of Sick ___ Supportive presence ___ Wedding ___ Other (describe below) Pastoral Comments patient was already in surgery when visit was attempted
--- NOTE | 2025-05-11 14:24 | EX.PCM.DISCH ---
Discharge Instructions Diet Discharge Diet: No restrictions Activity May shower in (days): 2 Lifting Restrictions: do not lift > 20 lbs for 14 days Additional Activity Instructions:: do not submerge incision for 14 days Dressing / Incision Call your doctor if your incision/area has: Sudden Increased Bleeding, Increased Pain/ Swelling, Increased Redness and Foul Smelling Discharge Remove Dressing in: 2 days Cleanse incision/area with: Soap & Water Additional Dressing/Incision Instructions:: re-apply karyn wrap during the day for 14 days Follow Up Care Test Results: Test results from this visit will be discussed in further detail at your follow-up appointment, if applicable. Discharge Plan Admission Attending Provider: Andres Valentin Primary Care Provider: So Reed Instructions Print Language: Citizen Of [place] Discharge Orders/Prescriptions Prescriptions: New oxycodone 5 mg tablet 5 mg PO Q8H PRN (Reason: pain) 1 Days Qty: 3 0RF Referrals / Follow Up: So Reed, ZANE-C [Primary Care Provider, Family Practice] Disposition Disposition (needs filled in before D/C Order can be placed): Home, Self Care
--- NOTE | 2025-05-11 14:27 | HP.PCM_ITS ---
HPI - General HPI Narrative BULMARO PALACIOS, is a 30 F who presents with painful varicose veins of the right lower extremity refractory to compression tx. She has GSV reflux throughout and a dilated SFJ. PFSH Medical History Wears glasses Wears contact lenses Anxiety Alcohol use Former smoker Leg cramps Vaginal delivery Home Medications ?Medication ?Instructions ?Recorded ?Last Taken ?Type oxycodone 5 mg tablet 5 mg PO Q8H PRN pain 1 day # 3 tabs 05/11/25 Unknown Rx Allergy/AdvReac Type Severity Reaction Status Date / Time No Known Allergies Allergy Verified 05/11/25 10:30 Family History Grandfather Cancer Lung Other Heart disease Myocardial infarction Surgical History Hx of wisdom tooth extraction S/P tubal ligation H/O dilation and curettage Social History adopted: No household members: family housing: house current occupational status: employed current occupation: [employer] Smoking Status: Former smoker Tobacco: How many years used: 5 second hand exposure: Yes alcohol intake: never substance use type: does not use seatbelt use: always do you feel safe at home: Yes additional social history: BF: Kaz ROS Constitutional Constitutional: Denies chills, fever(s), frequent falls, lethargy or weakness Eyes Eyes: Denies blind spots, change in vision or loss of vision ENT HEENT: Denies bleeding gums, hoarseness or sore throat Cardiovascular Cardiovascular: Denies abdominal pain, bluish discoloration of hand/feet, chest pain with activity, claudication, cold extremities, cyanosis, dyspnea on exertion, erythema on extremities, irregular heart rhythm, leg edema, leg ulcers, numbness in extremities or weakness in extremities Respiratory/Chest Respiratory/Chest: Denies cough, excessive phlegm production, shortness of breath at rest, shortness of breath with exertion or wheezing Gastrointestinal Gastrointestinal: Denies anorexia, change in stool character, constipation, diarrhea, melena or rectal bleeding Genitourinary Genitourinary: Denies dysuria or hematuria Musculoskeletal Musculoskeletal: Denies abnormal gait Integumentary Integumentary: Reports other Details: ; Denies erythema, non-healing lesions or wounds Neurologic Neurologic: Denies abnormal speech, focal weakness, headache(s), loss of vision, numbness, paresthesias or sensory deficit Hematologic/Lymphatic Hematologic/Lymphatic: Denies easy bleeding, easy bruising or lymphadenopathy Vital Signs Vital Signs Vital Signs: 05/11/25 10:31 05/11/25 10:31 05/11/25 10:55 Temperature 98.6 F 98.6 F Temperature Source Temporal Pulse Rate 83 83 Respiratory Rate 18 18 Respiratory Pattern Normal Blood Pressure 123/87 H 123/87 H Blood Pressure Mean 99 Blood Pressure Source Monitor Blood Pressure Position Semi-Fowlers Blood Pressure Location Left Arm Pulse Ox 100 100 Oxygen Delivery Method Room Air Room Air Weight Weight: 160 lb 0.889 oz Body Mass Index (BMI) 25.0 Physical Exam Const alert, oriented x3, no apparent distress and healthy appearing General Appearance: cooperative; Negative for combative or lethargic Orientation / Consciousness: awake Exam Limitations: no limitations HEENT Head and Scalp: normocephalic and atraumatic Eyes EOMs intact bilaterally General Eye: normal appearance of both eyes Neck full ROM General: trachea midline Resp normal respiratory effort and no use of accessory muscles Effort and Inspection: Negative for labored, stridor or audible wheezes Cardio regular rate and regular rhythm Back/Spine Cervical Spine: cervical ROM normal Extremity full ROM, normal capillary refill and no clubbing, cyanosis or edema Skin no rashes or lesions noted and no wounds Neuro oriented x3, CN's II-XII intact bilaterally, no focal motor deficits and no sensory deficits noted Psych thought process normal, cooperative, affect normal, speech normal and activity/motor behavior normal Results Lab / Micro Data 05/11/25 10:25 05/11/25 10:25 Labs: Laboratory Results - last 24 hr 05/11/25 10:25: WBC 3.6 L, RBC 4.34, Hgb 13.3, Hct 39.4, MCV 90.8, MCH 30.6, MCHC 33.8, RDW Std Deviation 40.5, RDW Coeff of Yolanda 12.3, Plt Count 203, MPV 10.7, Sodium 141, Potassium 3.8, Chloride 107, Carbon Dioxide 22.5, Anion Gap 12, BUN 9, Creatinine 0.75, Estim Creat Clear Calc 104.72, Est GFR (MDRD) Non-Af 108, BUN/Creatinine Ratio 11.8, Glucose 88, Calcium 9.4 Assessment & Plan Assessment/Plan (1) Symptomatic varicose veins: QUALIFIERS: Laterality: right Qualified Code(s): I83.891 - Varicose veins of right lower extremity with other complications PLAN: -with pain -SFJ ligation, GSV thermal ablation
--- NOTE | 2025-05-11 14:49 | PCM.POST.ANE ---
Anesthesia: Postop Eval I Current Vital Signs Temperature: 98.3 F Pulse Rate: 74 Blood Pressure: 134/88 Respiratory Rate: 16 Pulse Ox: 100 Assessment Airway patent: Yes Spontaneous unlabored respirations: Yes nausea: No Vomiting: No Anesthesia Complication: No Fluid Hydration Crystalloid volume administer (ml): 1,200 Total IV fluid infused: 1,200 Progress Note Anesthesia document: Postop Eval 1 completed: Yes
--- NOTE | 2025-05-11 16:08 | OP.PCM_ITS ---
Operative Report (Standard) Operative Information Date of Procedure: 05/11/25 Pre-Operative Diagnosis: Varicose veins with pain of the right lower extremity Post-Operative Diagnosis: Same Surgery/Procedure Performed: Ligation right saphenofemoral junction Radiofrequency ablation right great saphenous vein drafter directional survey: Yes Autism Motor Specialist: Adenike Bucio Tasks completed by waiter/waitress first class: Opening, Closing, Opening & closing and Retracting Type of Anesthesia: General RN Documented Start/Stop Times: Operation Date: 05/11/25 12:00 Case Time Into Pre-Op 05/11/25 10:06 Out of Pre-Op 05/11/25 12:39 Into Recovery 05/11/25 14:44 Into Phase II Recovery 05/11/25 15:48 Out of Recovery 05/11/25 15:48
--- NOTE | 2025-05-11 16:08 | OP.PCM_ITS ---
Operative Report (Standard) Operative Information Date of Procedure: 05/11/25 Pre-Operative Diagnosis: Varicose veins with pain of the right lower extremity Post-Operative Diagnosis: Same Surgery/Procedure Performed: Ligation right saphenofemoral junction Radiofrequency ablation right great saphenous vein buggy ladle tender: Yes Lead Accountant: Adenike Bucio Tasks completed by first aid trainer: Opening, Closing, Opening & closing and Retracting Type of Anesthesia: General RN Documented Start/Stop Times: Operation Date: 05/11/25 12:00 Case Time Into Pre-Op 05/11/25 10:06 Out of Pre-Op 05/11/25 12:39 Into Recovery 05/11/25 14:44 Into Phase II Recovery 05/11/25 15:48 Out of Recovery 05/11/25 15:48
--- NOTE | 2025-05-11 16:08 | PCM.OPRPT ---
Operative Report (Standard) Operative Information Date of Procedure: 05/11/25 Pre-Operative Diagnosis: Varicose veins with pain of the right lower extremity Post-Operative Diagnosis: Same Surgery/Procedure Performed: Ligation right saphenofemoral junction Radiofrequency ablation right great saphenous vein lead inspector: Yes Supervisor Beater Room: Adenike Bucio Tasks completed by welder first class: Opening, Closing, Opening & closing and Retracting Type of Anesthesia: General RN Documented Start/Stop Times: Operation Date: 05/11/25 12:00 Case Time Into Pre-Op 05/11/25 10:06 Out of Pre-Op 05/11/25 12:39 Into Recovery 05/11/25 14:44 Into Phase II Recovery 05/11/25 15:48 Out of Recovery 05/11/25 15:48 Procedure Start Time: 13:30 Procedure Stop Time: 14:15 Select all DRAINS/GRAFTS/IMPLANTS that apply: None Estimated Blood Loss: 4 Specimen collected: No Description of surgery: HPI: Patient is a 30-year-old female with painful varicose veins of the right lower extremity. These are refractory to compression garments and venous duplex revealed reflux throughout the great saphenous vein in addition to an enlarged saphenofemoral junction. She presents now for saphenofemoral ligation with radiofrequency ablation of the great saphenous vein to the knee. Description of procedure: Upon obtaining informed consent and verification correct patient procedure site the patient was taken to the Driver'S License Examiner where she was placed under general anesthesia. She was then positioned prepped and draped in usual sterile fashion time was performed. Ultrasound was used to evaluate the great saphenous vein from the proximal calf to the saphenofemoral junction. The vessel observed to be small caliber from the distal thigh to the proximal calf but with no significant tortuosity. There were 2 large caliber accessory saphenous veins that were dilated in the mid and distal thigh. Oblique incision was then made over the saphenofemoral junction and Bovie used to dissect down to the subcutaneous tissue then self-retaining retractors put in position. Further dissection was carried down to the foot the great saphenous vein was visualized and sharp dissection was then used to dissect free the vessel and adjacent branches. Sidebranches were ligated with silk ties and divided and a right angle used to this vessel loop around the saphenofemoral junction. Next under ultrasound guidance the great saphenous vein in the distal thigh was accessed with a micropuncture needle wire. This then exchanged for the 7 [place] ablation sheath which was advanced without resistance. The radiofrequency ablation probe was then advanced through the sheath under ultrasound guidance to the saphenofemoral junction. The saphenofemoral junction was then clamped at the confluence with the common femoral vein with an atraumatic clamp and distally with a vessel loop. The vessel was then divided and each and oversewn with 5-0 Prolene in running fashion. After pulling the suture line clamps were released and satisfactory hemostasis was observed. Next tumescent solution was infused in the soft tissue surrounding the great saphenous vein from the access site to the saphenofemoral junction. The ablation probe was then activated sequentially along the length of the treatment zone down to the access site. The sheath and ablation probe were then withdrawn manage pressure held at the access site until hemostasis was observed. Within the incision the tissue was inspected for hemostasis and then closed with 2-0 Vicryl, 3-0 Vicryl, 4 Monocryl and Dermabond for the skin. Dry sterile dressing and Kendall wrap were then applied the patient was taken to the recovery room with anticipated discharge to home. Surgical Findings: See above Complications Complications: No
--- NOTE | 2025-05-11 16:15 | POSTOPAN2_ITS ---
Anesthesia Postop Eval I Sum Postop Eval Completion status Anesthesia document: Postop Eval 1 completed: Yes Anesthesia Postop Eval I Summary Anesthesia Postop Eval I Summary: Anesthesia Postop Eval I: Assessment Summary Airway patent Yes 05/11/25 14:49 PROCESS IMPROVEMENT [email or web address].[email or web address] Spontaneous unlabored Yes 05/11/25 14:49 PROCESS IMPROVEMENT SPECIALIST.[email or web address] respirations Mental status nausea No 05/11/25 14:49 PROCESS IMPROVEMENT SPECIALIST.TNES Vomiting No 05/11/25 14:49 PROCESS IMPROVEMENT SPECIALIST.[email or web address] Anesthesia Postop Eval I: Fluid Summary Crystalloid volume administer 1,200 05/11/25 14:49 PROCESS IMPROVEMENT SPECIALIST.TNES (ml) Colloids volume administered ( ml) Blood Product volume administered (ml) Total IV fluid infused 1,200 05/11/25 14:49 PROCESS IMPROVEMENT SPECIALIST.TNES Anesthesia Postop Eval I: Summary Notes Anesthesia Complication No 05/11/25 14:49 PROCESS [email or web address] [email or web address].[email or web address] Anesthesia Complication Comment: Post-operative progress note Anesthesia: Postop Eval II Evaluation Mental status: Awake and Calm Pain Level: 0 nausea: No Vomiting: No Complications Anesthesia Complication: No
--- NOTE | 2025-05-11 16:15 | POSTOPAN2_ITS ---
Anesthesia Postop Eval I Sum Postop Eval Completion status Anesthesia document: Postop Eval 1 completed: Yes Anesthesia Postop Eval I Summary Anesthesia Postop Eval I Summary: Anesthesia Postop Eval I: Assessment Summary Airway patent Yes 05/11/25 14:49 DIRECTOR [email or web address] Spontaneous unlabored Yes 05/11/25 14:49 DIRECTOR [email or web address] respirations Mental status nausea No 05/11/25 14:49 DIRECTOR [email or web address] Vomiting No 05/11/25 14:49 DIRECTOR [email or web address] Anesthesia Postop Eval I: Fluid Summary Crystalloid volume administer 1,200 05/11/25 14:49 DIRECTOR [email or web address] (ml) Colloids volume administered ( ml) Blood Product volume administered (ml) Total IV fluid infused 1,200 05/11/25 14:49 DIRECTOR [email or web address] Anesthesia Postop Eval I: Summary Notes Anesthesia Complication No 05/11/25 14:49 DIRECTOR [email or web address] Anesthesia Complication Comment: Post-operative progress note Anesthesia: Postop Eval II Evaluation Mental status: Awake and Calm Pain Level: 0 nausea: No Vomiting: No Complications Anesthesia Complication: No
--- NOTE | 2025-05-11 16:15 | PCM.POSTANE2 ---
Anesthesia Postop Eval I Sum Postop Eval Completion status Anesthesia document: Postop Eval 1 completed: Yes Anesthesia Postop Eval I Summary Anesthesia Postop Eval I Summary: Anesthesia Postop Eval I: Assessment Summary Airway patent Yes 05/11/25 14:49 [email or web address] Spontaneous unlabored Yes 05/11/25 14:49 [email or web address] [email or web address] respirations Mental status nausea No 05/11/25 14:49 [email or web address] [email or web address] Vomiting No 05/11/25 14:49 [email or web address] [email or web address] Anesthesia Postop Eval I: Fluid Summary Crystalloid volume administer 1,200 05/11/25 14:49 [email or web address] [email or web address] (ml) Colloids volume administered ( ml) Blood Product volume administered (ml) Total IV fluid infused 1,200 05/11/25 14:49 [email or web address] [email or web address] Anesthesia Postop Eval I: Summary Notes Anesthesia Complication No 05/11/25 14:49 [email or web address] [email or web address] Anesthesia Complication Comment: Post-operative progress note Anesthesia: Postop Eval II Evaluation Mental status: Awake and Calm Pain Level: 0 nausea: No Vomiting: No Complications Anesthesia Complication: No
--- NOTE | 2025-05-11 16:15 | PCM.POSTANE2 ---
Anesthesia Postop Eval I Sum Postop Eval Completion status Anesthesia document: Postop Eval 1 completed: Yes Anesthesia Postop Eval I Summary Anesthesia Postop Eval I Summary: Anesthesia Postop Eval I: Assessment Summary Airway patent Yes 05/11/25 14:49 SYSTEM ADMINISTRATION [email or web address].[email or web address] Spontaneous unlabored Yes 05/11/25 14:49 SYSTEM ADMINISTRATION ADVISOR.TNES respirations Mental status nausea No 05/11/25 14:49 SYSTEM ADMINISTRATION ADVISOR.[email or web address] Vomiting No 05/11/25 14:49 SYSTEM ADMINISTRATION ADVISOR.[email or web address] Anesthesia Postop Eval I: Fluid Summary Crystalloid volume administer 1,200 05/11/25 14:49 SYSTEM ADMINISTRATION ADVISOR.TNES (ml) Colloids volume administered ( ml) Blood Product volume administered (ml) Total IV fluid infused 1,200 05/11/25 14:49 SYSTEM ADMINISTRATION ADVISOR.[email or web address] Anesthesia Postop Eval I: Summary Notes Anesthesia Complication No 05/11/25 14:49 SYSTEM ADMINISTRATION ADVISOR.[email or web address] Anesthesia Complication Comment: Post-operative progress note Anesthesia: Postop Eval II Evaluation Mental status: Awake and Calm Pain Level: 0 nausea: No Vomiting: No Complications Anesthesia Complication: No
== END 2025-05-11 16:51 | disposition home or self-care (01) ==
LOC: SDC 09:56 → AC 09:58
PROVIDERS: PCP Nurse Practitioner Family; Referring Provider Surgery Trauma Surgery; Visit Provider Surgery Trauma Surgery
PROC: (CPT 36478; principal; 2025-05-11 11:45)
DX: I83.811 Varicose veins of right lower extremity with pain (principal); Z87.891 Personal history of nicotine dependence
CPT/HCPCS: 36475; 37700; 80048; 85027; A4648; C1888; C1894; J2405

== ENCOUNTER → 2025-05-15 | Outpatient (CLI) | payer MEDICAID, SELFPAY ==
--- OUTSIDE RECORDS SUMMARY | 2024-12-15 07:43 | XMS RPT_ITS ---
Author Name Auto Generated Organization OH[facility] Care Team Providers Care Analytical Laboratory Technician Name Role Phone NJ HODGE Attending Unavailable UNGERER, RHINA DATA WAREHOUSE MANAGER Consulting Unavailable UNGERER, RHINA DATA WAREHOUSE MANAGER Referring Unavailable NJ HODGE Admitting Unavailable NJ HODGE Primary Care Unavailable PROVIDER, UNKNOWN Consulting Unavailable UNGERER, RHINA DATA WAREHOUSE MANAGER Admitting Unavailable UNGERER, RHINA DATA WAREHOUSE MANAGER Primary Care Unavailable UNGERER, RHINA DATA WAREHOUSE MANAGER Consulting Unavailable UNGERER, RHINA DATA WAREHOUSE MANAGER Attending Unavailable PROVIDER, UNKNOWN Consulting Unavailable UNGERER, RHINA Primary Care Unavailable UNGERER, RHINA Referring Unavailable FALLS, MELISA PERES Attending Unavailabl e UNGERER, RHINA Admitting Unavailable FALLS, MELISA PERES Attending Unavailabl e UNGERER, RHINA Primary Care Unavailable UNGERER, RHINA D Primary Care Unavailable UNGERER, RHINA D Primary Care Unavailable PROBLEMS DATE TYPE CONDITION / CODE ATTENDING STATUS [facility] 10/05/2024 Admitting diagnosis Other specified abnormal immunological findings in serum / R76.8(ICD-10) [facility], [facility] Active [facility] 10/05/2024 Admitting diagnosis Raynaud's syndrome without gangrene / I73.00(ICD-10) [facility], [facility] Active [facility] 10/05/2024 Admitting diagnosis Decreased white blood cell count, unspecified / D72.819(ICD-10) [facility], [facility] Active [facility] 05/24/2024 Principle Diagnosis Nausea with vomiting, unspecified / R112(ICD-10) RHINA PRINCE DATA WAREHOUSE MANAGER Active [facility] 05/24/2024 Secondary Diagnosis Diarrhea, unspecified / R197(ICD-10) RHINA PRINCE DATA WAREHOUSE MANAGER Active [facility] PROCEDURES No Procedure Records Found RESULTS PROGRESS Observed: 12/15/2024 8:01 AM Status: COMPLETED Source: [facility] HNO ID: [id number] Author: LILLIAN SANDERS APRN.BLANCA Service: ? Author Type: Nurse Practitioner Type: Progress Notes Filed: 12/15/2024 08:06 Note Text: [facility] Subjective Rocío Blair is a 29 year old female. Patient presents with: Eye Problem: Left eye issue, pain and drainage, x last night R eye starting HPI Nontoxic-appearing 29-year-old female presents urgent care chief complaint left eye redness and drainage. Duration of symptoms upon arising. Associated symptoms listed above. OTC medications none. Risk factors contact lens use. No foreign body sensation eye trauma flashlight floaters visual acuity changes. No fevers. Overall feels well. Past medical history prescription medications allergies reviewed Review of Systems Constitutional: Negative for chills, diaphoresis, fatigue and fever. HENT: Negative for congestion, drooling, ear discharge, ear pain, rhinorrhea, sinus pressure, sinus pain, sneezing, sore throat and trouble swallowing. Eyes: Positive for discharge, redness and itching. Negative for photophobia, pain and visual disturbance. Respiratory: Negative for cough, chest tightness, shortness of breath and wheezing. Cardiovascular: Negative for chest pain. Gastrointestinal: Negative for abdominal distention, abdominal pain, blood in stool, constipation, diarrhea, nausea and vomiting. Genitourinary: Negative for difficulty urinating and dysuria. Musculoskeletal: Negative for arthralgias, joint swelling, neck pain and neck stiffness. Skin: Negative for rash. Neurological: Negative for dizziness, weakness, numbness and headaches. Objective BP 129/86 Pulse 74 Temp 36.3 ?C (97.3 ?F) Resp 18 Wt 69 kg (152 lb 1.9 oz) LMP 12/07/2024 (Approximate) SpO2 100% No BMI 24.74 kg/m? Physical Exam Constitutional: Appearance: Normal appearance. HENT: Head: Normocephalic. Jaw: No trismus, tenderness, swelling or pain on movement. Nose: No congestion. Mouth/Throat: Mouth: Mucous membranes are moist. Pharynx: Oropharynx is clear. Uvula midline. No oropharyngeal exudate or posterior oropharyngeal erythema. Eyes: General: Lids are normal. Vision grossly intact. Left eye: Discharge present.No foreign body or hordeolum. Conjunctiva/sclera: Left eye: Left conjunctiva is injected. No chemosis, exudate or hemorrhage. Comments: Visual acuity unchanged. Limbus clear. No evidence of orbital periorbital cellulitis. Cardiovascular: Rate and Rhythm: Normal rate. Pulmonary: Effort: Pulmonary effort is normal. Breath sounds: Normal breath sounds. No wheezing, rhonchi or rales. Abdominal: Palpations: Abdomen is soft. Tenderness: There is no abdominal tenderness. There is no guarding or rebound. Musculoskeletal: General: Normal range of motion. Cervical back: Normal range of motion and neck supple. No edema or erythema. No pain with movement. Normal range of motion. Lymphadenopathy: Cervical: No cervical adenopathy. Skin: General: Skin is warm. Findings: No rash. Neurological: General: No focal deficit present. Mental Status: She is alert and oriented to person, place, and time. Mental status is at baseline. {ASSESSMENT/PLAN: 1. Bacterial conjunctivitis - ICD9: 372.39, 041.9, ICD10: H10.9 - see medication orders - course and contagiousness issues discussed, including hand washing. - Instructed to call if high fever, development of periorbital redness or swelling, eye pain, visual changes, concerns or if symptoms persist. We discussed viral versus bacterial conjunctivitis versus allergy induced conjunctivitis. We discussed possible contact lens acute red eye syndrome. Will treat with her with some lidocaine ophthalmic. If symptoms are not improving or red flag symptoms to develop will contact ophthalmology. Patient was educated on supportive therapies. Patient will follow up with primary care provider as needed. Patient was instructed to immediately proceed to emergency room for any new, worsening, or symptoms lasting longer than anticipated. The patient's clinical presentation is otherwise unremarkable at this time. Based on exam and clinical finding, the patient is stable for discharge. Plan of care was discussed with patient. Patient verbalizes understanding and agrees to plan of care. This note was generated using [employer] software. It may contain errors in wording, punctuation, or spelling. Lillian Sanders APRN.AIRBRUSH ARTIST History and Record Review Clinical information obtained from an independent historian. History obtained from or confirmed by: parent. External record(s) reviewed: prior outpatient record. Disposition The patient was discharged. OTC Medications were advised: Procedures CNOV Observed: 12/15/2024 7:45 AM Status: COMPLETED Source: [facility] Office Visit (WSTR) ROCÍO BLAIR ([id number]) 1995 F Date Time Provider Department 12/15/24 7:[address] [facility] [facility] During your visit today, we recorded the following information about you: Temperature Pulse Respiration Blood pressure 97.3 degrees 74/minute 18/minute 129/86 Weight Last Period 69 kg 12/07/24 Lillian Sanders, THANH.AIRBRUSH ARTIST 12/15/2024 8:06 AM Signed [facility] Subjective Rocío Blair is a 29 year old female. Patient presents with: Eye Problem: Left eye issue, pain and drainage, x last night R eye starting HPI Nontoxic-appearing 29-year-old female presents urgent care chief complaint left eye redness and drainage. Duration of symptoms upon arising. Associated symptoms listed above. OTC medications none. Risk factors contact lens use. No foreign body sensation eye trauma flashlight floaters visual acuity changes. No fevers. Overall feels well. Past medical history prescription medications allergies reviewed Review of Systems Constitutional: Negative for chills, diaphoresis, fatigue and fever. HENT: Negative for congestion, drooling, ear discharge, ear pain, rhinorrhea, sinus pressure, sinus pain, sneezing, sore throat and trouble swallowing. Eyes: Positive for discharge, redness and itching. Negative for photophobia, pain and visual disturbance. Respiratory: Negative for cough, chest tightness, shortness of breath and wheezing. Cardiovascular: Negative for chest pain. Gastrointestinal: Negative for abdominal distention, abdominal pain, blood in stool, constipation, diarrhea, nausea and vomiting. Genitourinary: Negative for difficulty urinating and dysuria. Musculoskeletal: Negative for arthralgias, joint swelling, neck pain and neck stiffness. Skin: Negative for rash. Neurological: Negative for dizziness, weakness, numbness and headaches. Objective BP 129/86 Pulse 74 Temp 36.3 ?C (97.3 ?F) Resp 18 Wt 69 kg (152 lb 1.9 oz) LMP 12/07/2024 (Approximate) SpO2 100% No BMI 24.74 kg/m? Physical Exam Constitutional: Appearance: Normal appearance. HENT: Head: Normocephalic. Jaw: No trismus, tenderness, swelling or pain on movement. Nose: No congestion. Mouth/Throat: Mouth: Mucous membranes are moist. Pharynx: Oropharynx is clear. Uvula midline. No oropharyngeal exudate or posterior oropharyngeal erythema. Eyes: General: Lids are normal. Vision grossly intact. Left eye: Discharge present.No foreign body or hordeolum. Conjunctiva/sclera: Left eye: Left conjunctiva is injected. No chemosis, exudate or hemorrhage. Comments: Visual acuity unchanged. Limbus clear. No evidence of orbital periorbital cellulitis. Cardiovascular: Rate and Rhythm: Normal rate. Pulmonary: Effort: Pulmonary effort is normal. Breath sounds: Normal breath sounds. No wheezing, rhonchi or rales. Abdominal: Palpations: Abdomen is soft. Tenderness: There is no abdominal tenderness. There is no guarding or rebound. Musculoskeletal: General: Normal range of motion. Cervical back: Normal range of motion and neck supple. No edema or erythema. No pain with movement. Normal range of motion. Lymphadenopathy: Cervical: No cervical adenopathy. Skin: General: Skin is warm. Findings: No rash. Neurological: General: No focal deficit present. Mental Status: She is alert and oriented to person, place, and time. Mental status is at baseline. {ASSESSMENT/PLAN: 1. Bacterial conjunctivitis - ICD9: 372.39, 041.9, ICD10: H10.9 - see medication orders - course and contagiousness issues discussed, including hand washing. - Instructed to call if high fever, development of periorbital redness or swelling, eye pain, visual changes, concerns or if symptoms persist. We discussed viral versus bacterial conjunctivitis versus allergy induced conjunctivitis. We discussed possible contact lens acute red eye syndrome. Will treat with her with some lidocaine ophthalmic. If symptoms are not improving or red flag symptoms to develop will contact ophthalmology. Patient was educated on supportive therapies. Patient will follow up with primary care provider as needed. Patient was instructed to immediately proceed to emergency room for any new, worsening, or symptoms lasting longer than anticipated. The patient's clinical presentation is otherwise unremarkable at this time. Based on exam and clinical finding, the patient is stable for discharge. Plan of care was discussed with patient. Patient verbalizes understanding and agrees to plan of care. This note was generated using [employer] software. It may contain errors in wording, punctuation, or spelling. Lillian Sanders APRN.AIRBRUSH ARTIST History and Record Review Clinical information obtained from an independent historian. History obtained from or confirmed by: parent. External record(s) reviewed: prior outpatient record. Disposition The patient was discharged. OTC Medications were advised: Procedures Allergies As of Date: 12/15/2024 (No Known Allergies) Date Reviewed: 12/15/2024 Reviewed by: Lillian Sanders APRN.AIRBRUSH ARTIST - Fully Assessed Reason for Visit: Eye Problem [43] Cmt: Left eye issue, pain and drainage, x last night R eye starting Primary Visit Diagnosis:Bacterial conjunctivitis [H10.9] Order(s):erythromycin (ROMYCIN) 5 mg/gram (0.5 %) ophthalmic ointmentUse 1 application in the right eye four times daily for 7 days.Disp: 3.5 gRfl: 0 Prescriptions as of 12/15/2024 - erythromycin (ROMYCIN) 5 mg/gram (0.5 %) ophthalmic ointment Use 1 application in the right eye four times daily for 7 days. - busPIRone (BUSPAR) 5 mg tablet Take 5 mg by mouth three times a day as needed. - NIFEdipine ER (PROCARDIA XL) 30 mg 24 hr tablet Take 1 tablet by mouth every afternoon. - pantoprazole DR (PROTONIX) 40 mg tablet Take 1 tablet by mouth every afternoon. - KLOR-CON 20 mEq packet DISSOLVE CONTENTS OF 1 PACKET WITH 4 OUNCES OF WATER OR OTHER BEVERAGE TWO TIMES DAILY - albuterol HFA (PROVENTIL HFA, VENTOLIN HFA) 90 mcg/actuation inhaler Inhale 2 Puffs as instructed every 4 hours as needed for wheezing/shortness of breath. - metoclopramide HCl (REGLAN) 10 mg tablet Take 1 tablet by mouth four times daily as needed (nausea). - promethazine (PHENERGAN) 12.5 mg tablet Take 1 tablet by mouth every 6 hours as needed for Nausea/Vomiting. - norgestimate 0.25 mg-ethinyl estradiol 35 mcg (SPRINTEC) 0.25-35 mg-mcg per tablet Take 1 tablet by mouth once daily. 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] 10/15/2009 Raynaud's Phenomenon [I73.00] 10/15/2009 Teen [IJE7094] 09/26/2011 08/13/2015 Supervision of other high-risk (V23.89*10/24/2011 08/13/2015 Anemia in [O99.019] 12/15/2011 08/13/2015 Marijuana use [F12.90] 12/15/2011 SGA (small for gestational age) [P05.10] 01/29/2012 08/13/2015 Encounter for supervision of normal first pregn*08/06/2015 11/06/2016 Moderate smoker (20 or less per day) [F17.210] 08/06/2015 UTI (urinary tract infection) in , ant*08/13/2015 11/06/2016 Prescriptions ordered this encounter Disp Refills Start End ERYTHROMYCIN 5 MG/GRAM (0.5 %) EYE O* 3.5 g 0 12/15/2024 12/22/2024 Route: RIGHT EYE Sig: Use 1 application in the right eye four times daily for 7 days. Level of Service: OFFICE/OUTPATIENT ESTABLISHED MOD MDM 30 MIN [28979] Encounter Status:Closed by LILLIAN SANDERS on 12/15/24 URINALYSIS, COMPLETE Collected: 025 2:42 PM Status: F Source: [email or web address] Order Comment: FASTING:NO FASTING: NO TYPE CODE TESTS RESULT OUT OF RANGE REFERENCE UNITS LAB [id number] COLOR YELLOW Normal YELLOW LAB [id number] APPEARANCE CLEAR Normal CLEAR LAB [id number] SPECIFIC GRAVITY 1.016 Normal 1.001-1.035 LAB [id number] PH 7.0 Normal 5.0-8.0 LAB [id number] GLUCOSE NEGATIVE Normal NEGATIVE LAB [id number] BILIRUBIN NEGATIVE Normal NEGATIVE LAB [id number] KETONES NEGATIVE Normal NEGATIVE LAB [id number] OCCULT BLOOD 3+ Abnormal NEGATIVE LAB [id number] PROTEIN TRACE Abnormal NEGATIVE LAB [id number] NITRITE NEGATIVE Normal NEGATIVE LAB [id number] LEUKOCYTE ESTERASE TRACE Abnormal NEGATIVE LAB [id number] WBC 0-5 Normal < OR = 5 /HPF LAB [id number] RBC > OR = 60 Abnormal < OR = 2 /HPF LAB [id number] SQUAMOUS EPITHELIAL CELLS 0-5 < OR = 5 /HPF LAB [id number] BACTERIA NONE SEEN Normal NONE SEEN /HPF LAB [id number] HYALINE CAST NONE SEEN Normal NONE SEEN /LPF LAB [id number] NOTE Result Comment: This urine w as analyzed for the presence of WBC, RBC, bacteria, casts, and other formed elements. Only those elements seen were reported. Performed By: #### 5463, 171 5 #### [facility] [address], [address] [place] [address] Wool Washer Feeder: Earnest Russell MD PROTEIN, TOTAL W/CREAT, RANDOM URINE Collected: 10/05/2024 2:42 PM Status: F Source: [facility] TYPE CODE TESTS RESULT OUT OF RANGE REFERENCE UNITS LAB [id number] CREATININE, RANDOM URINE 76 Normal 20-275 mg/dL LAB [id number] PROTEIN/CRE ATININE RATIO 145 Normal 24-184 mg/g creat LAB [id number] PROTEIN/CRE ATININE RATIO 0.145 Normal 0.024-0.184 mg/mg creat LAB [id number] PROTEIN, TOTAL, RANDOM UR 11 Normal 5-24 mg/dL Performed By: #### 5463, 171 5 #### [email or web address] [address], [address] [place] [address] Wool Washer Feeder: Earnest Russell MD SYSTEMIC SCLEROSIS 12 AB PANEL 2 Collected: 2:41 PM Status: F Source: [email or web address] Order Comment: FASTING:NO FASTING: NO TYPE CODE TESTS RESULT OUT OF RANGE REFERENCE UNITS LAB [id number] SCL 70 <11 <11 SI LAB [id number] CENP A <11 <11 SI LAB [id number] CENP B <11 <11 SI LAB [id number] RP11 <11 <11 SI LAB [id number] RP155 <11 <11 SI LAB [id number] U1 SNRNP SPRINKLER FITTER HELPER A <11 <11 SI LAB [id number] U1 SNRNP SPRINKLER FITTER HELPER C <11 <11 SI LAB [id number] U1 SNRNP SPRINKLER FITTER HELPER 70KD <11 <11 SI LAB [id number] FIBRILLARIN <11 <11 SI LAB [id number] TH/TO <11 <11 SI LAB [id number] PM/SCL 100 <11 <11 SI LAB [id number] PM/SCL 75 <11 <11 SI Result Comment: The [place] [employer] (ACR) considers anti-Scl-70 (also known as anti-topoisomerase I), anti-centromere and/or anti-RNA polymerase III antibodies part of the classification criteria for Systemic Sclerosis(SSc) given that the antibodies are present in 30%-60% of patients with SSc. Centromere protein B (CENP B) antibody positivity is found in 64-95% of patients with a limited form of cutaneous systemic sclerosis i.e. CREST syndrome. The addition of centromere protein A (CENP A) antibody to CENP B antibody improves specificity for diagnosis of SSc. Patients presenting with diffuse cutaneous systemic sclerosis (dcSSc) and features of CREST may have both centromere (A & B) antibodies and Scl-70 antibodies. RNA polymerase III antibodies target RNAP III epitopes 11 (RP11) and 155 (RP155). Anti-RP11 antibody occurs in about 10% of scleroderma patients and anti-RP155 antibodies in about 8%. Zzyr-H5-bcCAW antibodies are associated with SSc and inflammatory myopathy overlap syndromes. Three major components of U1-snRNP are tested: U1-snRNP SPRINKLER FITTER HELPER A, U1-snRNP SPRINKLER FITTER HELPER C, U1-snRNP [id number]. The presence of U1-snRNP antibodies occur in 14% and 26% of Caucasians and Americans, respectively, in [place]. Anti-fibrillarin (anti-U3RNP) antibodies are specific for SSc, but are mutually exclusive from Scl-70, CENP, and RNAP III antibodies. Anti-U3RNP antibodies are detected in 4-10% of SSc patients, and when present are associated with dcSSc and frequently visceral renal and cardiac involvement. Fibrillarin antibodies are found more frequently in -[place] patients and when seen in this population, the antibodies are associated with severe pulmonary disease, pulmonary hypertension, severe small bowel involvement, and a poorer prognosis. Anti-Th/To antibodies are present in 1-13% of SSc patients, and are rarely found in other autoimmune diseases. Anti-Th/To antibodies are primarily associated with localized cutaneous systemic sclerosis (lcSSc). Anti-Th/To antibodies are also associated with pericarditis, interstitial lung disease and a high frequency of intrinsic pulmonary hypertension, and hence, a poorer prognosis. Autoantibodies to PM/Scl, the human exosome complex, are found in 4-11% of patients with SSc. PM/Scl antibodies have also been observed in polymyositis/SSc overlap syndromes and other autoimmune diseases. The majority of anti-PM/Scl reactivity is directed to one of two proteins: PM/Fim346 and/or PM/Scl75. More information can be found at [email or web address] [email or web address] This test was developed and its analytical performance characteristics have been determined by [facility]. It has not been cleared or approved by FDA. This assay has been validated pursuant to the CLIA regulations and is used for clinical purposes. Performed By: #### 33532, 44 18, 5810, 37366, 7832, 4420, 35131, 351, 6399, 353, 809 #### [email or web address] [address], [address] [place] [address] Wool Washer Feeder: Earnest Russell MD #### [id number] #### [email or web address], [address] [place] [address] Wool Washer Feeder: Mindy Krueger MD,PhD,NAPOLEON SED RATE BY MODIFIED WESTERGREN Collected: 10/05/2024 2:41 PM Status: F Source: [facility] TYPE CODE TESTS RESULT OUT OF RANGE REFERENCE UNITS LAB [id number] SED RATE BY MODIFIED WESTERGREN 11 Normal < OR = 20 mm/h Performed By: #### 07265, 44 18, 5810, 99449, 7832, 4420, 19999, 351, 6399, 353, 809 #### [facility] [address], [address] [place], [place] [address] Wool Washer Feeder: Earnest Russell MD #### [id number] #### [facility], [address] [place] [address] Wool Washer Feeder: Mindy Krueger MD,PhD,NAPOLEON CBC (INCLUDES DIFF/PLT) Collected: 09/17 2:41 PM Status: F Source: [facility] TYPE CODE TESTS RESULT OUT OF RANGE REFERENCE UNITS LAB [id number] WHITE BLOOD CELL COUNT 4.2 Normal 3.8-10.8 Thousand /uL LAB [id number] RED BLOOD CELL COUNT 4.29 Normal 3.80-5.10 Million/ uL LAB [id number] HEMOGLOBIN 12.8 Normal 11.7-15.5 g/dL LAB [id number] HEMATOCRIT 38.3 Normal 35.0-45.0 % LAB [id number] MCV 89.3 Normal 80.0-100.0 fL LAB [id number] MCH 29.8 Normal 27.0-33.0 pg LAB [id number] MCHC 33.4 Normal 32.0-36.0 g/dL Result Comment: For adults, a slight decrease in the calculated MCHC value (in the range of 30 to 32 g/dL) is most likely not clinically significant; however, it should be interpreted with caution in correlation with other red cell parameters and the patient's clinical condition. LAB [id number] RDW 12.7 Normal 11.0-15.0 % LAB [id number] PLATELET COUNT 202 Normal 140-400 Thousand /uL LAB 73150583 MPV 12.5 Normal 7.5-12.5 fL LAB [id number] ABSOLUTE NEUTROPHILS 2083 Normal 0590-6169 cells/uL LAB [id number] ABSOLUTE LYMPHOCYTES 1684 Normal 850-3900 cells/uL LAB [id number] ABSOLUTE MONOCYTES 403 Normal 200-950 cells/uL LAB [id number] ABSOLUTE EOSINOPHILS 8 Low 15-500 cells/uL LAB [id number] ABSOLUTE BASOPHILS 21 Normal 0-200 cells/uL LAB [id number] NEUTROPHILS 49.6 Normal % LAB [id number] LYMPHOCYTES 40.1 Normal % LAB [id number] MONOCYTES 9.6 Normal % LAB [id number] EOSINOPHILS 0.2 Normal % LAB [id number] BASOPHILS 0.5 Normal % Performed By: #### 65674, 44 18, 5810, 73735, 7832, 4420, 11763, 351, 7882, 487, 805 #### [facility] [address] [facility], [address] [place] [address] Wool Washer Feeder: Earnest Russell MD #### [id number] #### [facility], [address] [place] [address] Wool Washer Feeder: Mindy Krueger MD,PhD,NAPOLEON COMPLEMENT COMPONENT C3C Collected: 2:41 PM Status: F Source: [facility] TYPE CODE TESTS RESULT OUT OF RANGE REFERENCE UNITS LAB [id number] COMPLEMENT COMPONENT C3C 104 Normal 83-193 mg/dL Performed By: #### 20420, 44 18, 5810, 94456, 7832, 4420, 77606, 351, 6399, 353, 809 #### [facility] [address], [address] [place] [address] Wool Washer Feeder: Earnest Russell MD #### [id number] #### [facility], [address] [place] [address] Wool Washer Feeder: Mindy Krueger MD,PhD,NAPOLEON COMPLEMENT COMPONENT C4C Collected: 2:41 PM Status: F Source: [facility] TYPE CODE TESTS RESULT OUT OF RANGE REFERENCE UNITS LAB [id number] COMPLEMENT COMPONENT C4C 17 Normal 15-57 mg/dL Performed By: #### 55096, 44 18, 5810, 62431, 7832, 4420, 12185, 351, 6399, 353, 809 #### [facility] [address], [address] [place] [address] Wool Washer Feeder: Earnest Russell MD #### [id number] #### [facility], [address] [place] [address] Wool Washer Feeder: Mindy Krueger MD,PhD,NAPOLEON RHEUMATOID FACTOR Collected: 10/05/2024 2:41 PM Stat us: F Source: [facility] TYPE CODE TESTS RESULT OUT OF RANGE REFERENCE UNITS LAB [id number] RHEUMATOID FACTOR 50 High <14 IU/mL Performed By: #### 56090, 44 18, 5810, 82677, 7832, 4420, 29477, 351, 6399, 353, 809 #### [facility] [address], [address] [place] [address] Wool Washer Feeder: Earnest Russell MD #### [id number] #### [facility], [address] [place] [address] Wool Washer Feeder: Mindy Krueger MD,PhD,NAPOLEON C-REACTIVE PROTEIN Collected: 2:41 PM Status: F Source: [facility] TYPE CODE TESTS RESULT OUT OF RANGE REFERENCE UNITS LAB [id number] C-REACTIVE PROTEIN <3.0 Normal <8.0 mg/L Performed By: #### 94186, 44 18, 5810, 35380, 7832, 4420, 04723, 351, 6399, 353, 809 #### [facility] [address], [address] [place] [address] Wool Washer Feeder: Earnest Russell MD #### [id number] #### [facility], [address] [place] [address] Wool Washer Feeder: Mindy Krueger MD,PhD,NAPOLEON DEBRA-1 ANTIBODY Collected: 2:41 PM Status: F Source: [facility] TYPE CODE TESTS RESULT OUT OF RANGE REFERENCE UNITS LAB [id number] DEBRA-1 ANTIBODY <1.0 NEG Normal <1.0 NEG AI Performed By: #### 06606, 44 18, 5810, 59115, 7832, 4420, 46705, 351, 6399, 353, 809 #### [facility] [address], [address] [place] [address] Wool Washer Feeder: Earnest Russell MD #### [id number] #### [facility], [address] [place] [address] Wool Washer Feeder: Mindy Krueger MD,PhD,NAPOLEON SJOGREN'S ANTIBODIES (SS-A,SS-B) Collected: 10/05/2024 2:41 PM Status: F Source: [facility] TYPE CODE TESTS RESULT OUT OF RANGE REFERENCE UNITS LAB [id number] SJOGREN'S ANTIBODY (SS-A) >8.0 POS Abnormal <1.0 NEG AI LAB [id number] SJOGREN'S ANTIBODY (SS-B) <1.0 NEG Normal <1.0 NEG AI Performed By: #### 47169, 44 18, 5810, 93044, 7832, 4420, 03644, 351, 6399, 353, 809 #### [facility] [address], [address] [place] [address] Wool Washer Feeder: Earnest Russell MD #### [id number] #### [email or web address], [address] [place] [address] Wool Washer Feeder: Mindy Krueger MD,PhD,NAPOLEON CYCLIC CITRULLINATED PEPTIDE (CCP) AB (IGG) Collected: 10/05/2024 2:41 PM Status: F Source: [facility] TYPE CODE TESTS RESULT OUT OF RANGE REFERENCE UNITS LAB [id number] CYCLIC CITRULLINATED PEPTIDE (CCP) AB (IGG) <16 Normal UNITS Result Comment: Reference Ra nge Negative: <20 Weak Positive: 20-39 Moderate Positive: 40-59 Strong Positive: >59 Performed By: #### 17844, 44 18, 5810, 41084, 7832, 4420, 38197, 351, 6399, 353, 809 #### [email or web address] [address], [address] [place] [address] Wool Washer Feeder: Earnest Russell MD #### [id number] #### [email or web address], [address] [place] [address] Wool Washer Feeder: Mindy Krueger MD,PhD,NAPOLEON CHROMATIN (NUCLEOSOMAL) ANTIBODY Collected: 10/05/2024 2:41 PM Status: F Source: [email or web address] TYPE CODE TESTS RESULT OUT OF RANGE REFERENCE UNITS LAB [id number] CHROMATIN (NUCLEOSOMAL) ANTIBODY <1.0 NEG Normal <1.0 NEG AI Performed By: #### 34242, 44 18, 5810, 32882, 7832, 4420, 49385, 351, 6399, 353, 809 #### [facility] [address], [address] [place] [address] Wool Washer Feeder: Earnest Russell MD #### [id number] #### [facility], [address] [place] [address] Wool Washer Feeder: Mindy Krueger MD,PhD,NAPOLEON SM/SPRINKLER FITTER HELPER ANTIBODY Collected: 2:41 PM Status: F Source: [employer] TYPE CODE TESTS RESULT OUT OF RANGE REFERENCE UNITS LAB [id number] SM/SPRINKLER FITTER HELPER ANTIBODY <1.0 NEG Normal <1.0 NEG AI Performed By: #### 80974, 44 18, 5810, 50051, 7832, 4420, 39933, 351, 6399, 353, 809 #### [facility] [address], [address] [place] [address] Wool Washer Feeder: Earnest Russell MD #### [id number] #### [facility], [address] [place] [address] Wool Washer Feeder: Mindy Krueger MD,PhD,NAPOLEON PROGRESS Observed: 10/05/2024 2:00 PM Status: COMPLETED Source: [facility] RHEUMATOLOGY NEW PATIENT [facility] Patient Name: Rocío Blair : 1995 Medical Record: [id number] PCP: Rhina Prince, AIRBRUSH ARTIST Referring provider: Rhina Prince REASON FOR REFERRAL Raynaud's, positive ANAHI, positive rheumatoid factor ASSESSMENT AND PLAN Rocío Blair is a 29 y.o. female who is being seen for evaluation of Raynaud's, positive ANAHI, positive rheumatoid factor. Raynaud's Positive ANAHI (1: 640-no pattern reported) Positive rheumatoid factor I suspect that her Raynaud's is likely primary as a started when she was a teenager. Aside from Raynaud's, she is relatively asymptomatic. She has very mild leukopenia noted on her referral labs. She denies recurrent rashes, denies arthralgias, denies history of psoriasis, denies dry eye, dry mouth, no history of miscarriages, no history of blood clots. On exam, she has no evidence of sclerodactyly or synovitis. Discussed positive ANAHI with patient as well as positive rheumatoid factor. Discussed that there is a chance that these are positive in the absence of underlying connective tissue disease, but we can continue to monitor over time. Will complete workup given that she did have leukopenia present. Repeat CBC, check YARI panel, C3/C4, chromatin antibodies, UA, UPC (creatinine was within normal limits on referral labs, so we will hold off on rechecking this), ESR, CRP, and scleroderma panel. Will also repeat rheumatoid factor and check CCP antibodies. Further plan pending results, but if overall unrevealing, will continue to monitor for patient development of underlying connective tissue disease or inflammatory arthritis. She will continue conservative measures for Raynaud's at this time. We did discuss the possibility of pharmacologic treatment in the future if needed. Return to clinic in 3 to 4 months. Will contact patient with lab results in the interim and schedule sooner follow-up if needed. Please do not hesitate to contact me with any questions or concerns. Melisa Steward DO [facility] Rheumatology [address] [place] [address] O: [phone] F: [phone] The above recommendations were discussed with the patient who understands and agrees with the plan. Portions of this note were created with [employer]. Every effort was made to proofread, but sound-alike errors may occasionally occur. Please contact me for any clarification of note contents. My ongoing relationship with Rocío Blair requires continued responsibility and cognitive effort of being the focal point for all services related to chronic condition(s). HPI/ROS Rocío Blair is a 29 y.o. female with who was referred by Rhina Prince for evaluation of Raynaud's, positive ANAHI, positive rheumatoid factor. I reviewed the nursing intake form. Any corrections needed have been updated in the HPI. Initial visit: Patient referred by primary care provider for Raynaud's, elevated rheumatoid factor, positive ANAHI. Patient reports that she developed color changes in her fingers at least in middle school. Is been going on since that time. She notes that because she had Raynaud's, her PCP checked additional blood work. She denies any joint pain. She denies any recurrent rashes. She does not have history of psoriasis. She denies blood clots. She denies recurrent miscarriages. Had 3 healthy pregnancies. Does have history of varicose veins, but otherwise no major vascular issues. No cardiac issues and kids after pregnancies. Feels well overall. No dry eyes/dry mouth. Has not particularly noticed issues with Raynaud's and air conditioning. Serologies/pertinent imaging and pathology Rheumatoid factor positive at 43. ANAHI positive at 1: 640. Mild leukopenia to 4.2 (reference range 4.5-10.8 (May 2024) PHYSICAL EXAM Vitals: 10/05/24 1347 BP: 134/88 BP Location: Left arm Patient Position: Sitting Pulse: 78 Weight: 66.9 kg (147 lb 6.4 oz) Constitutional: ?No acute distress. Normal appearance. Not?ill-appearing. HENT: Head normocephalic?and atraumatic. No oral ulcers detected. Good salivary pooling. Eyes: No discharge.??? Pulmonary: Pulmonary effort is normal. No?respiratory distress. CTAB. CV: RRR. Skin: Warm?and dry. No rash over exposed surfaces. Neurological: Alert. Psychiatric: ???Mood, affect, thought content normal. Musculoskeletal: No synovitis detected in hands. Dusky appearance to finger digits/active Raynaud's AUTHENTICATED BY MELISA STEWARD ON 10/05/2024 15:05:58 PROGRESS Observed: 07/07/2024 12:15 PM Status: COMPLETED Source: [facility] HNO ID: [id number] Author: RHINA WINTER APRN.AIRBRUSH ARTIST Service: ? Author Type: Nurse Practitioner Type: Progress Notes Filed: 07/07/2024 15:24 Note Text: This note was created using [employer]. Dickson Rocío Blair is a 29 year old female. 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 No language translator was used. Cough This is a new problem. The current episode started more than 2 days ago. The problem occurs constantly. The problem has been gradually worsening. The cough is Productive of sputum. There has been no fever. Associated symptoms include chills, ear congestion, headaches, shortness of breath and wheezing. Pertinent negatives include no chest pain, no sweats, no weight loss, no ear pain, no rhinorrhea, no sore throat, no myalgias and no eye redness. Treatments tried: OTC medicines. The treatment provided no relief. She is not a smoker. Her past medical history does not include bronchitis, pneumonia, bronchiectasis, COPD, emphysema or asthma. PAST MEDICAL HISTORY Diagnosis Date Acrocyanosis (HCC) Anemia Raynaud's phenomenon Tobacco abuse PAST SURGICAL HISTORY Procedure Laterality Date NONE ALLERGIES Patient has no known allergies. MEDICATIONS busPIRone (BUSPAR) 5 mg tablet Take 5 mg by mouth three times a day as needed. pantoprazole DR (PROTONIX) 40 mg tablet Take 1 tablet by mouth every afternoon. NIFEdipine ER (PROCARDIA XL) 30 mg 24 hr tablet Take 1 tablet by mouth every afternoon. (Patient not taking: Reported on 07/07/2024) KLOR-CON 20 mEq packet DISSOLVE CONTENTS OF 1 PACKET WITH 4 OUNCES OF WATER OR OTHER BEVERAGE TWO TIMES DAILY (Patient not taking: Reported on 07/07/2024) azithromycin (ZITHROMAX Z-GABBY) 250 mg tablet Take 2 tablets day one, then, 1 tablet daily until gone. albuterol HFA (PROVENTIL HFA, VENTOLIN HFA) 90 mcg/actuation inhaler Inhale 2 Puffs as instructed every 4 hours as needed for wheezing/shortness of breath. Inhalational Spacing Device 1 Device one time only for 1 dose. metoclopramide HCl (REGLAN) 10 mg tablet Take 1 tablet by mouth four times daily as needed (nausea). (Patient not taking: Reported on 07/07/2024) promethazine (PHENERGAN) 12.5 mg tablet Take 1 tablet by mouth every 6 hours as needed for Nausea/Vomiting. (Patient not taking: Reported on 07/07/2024) norgestimate 0.25 mg-ethinyl estradiol 35 mcg (SPRINTEC) 0.25-35 mg-mcg per tablet Take 1 tablet by mouth once daily. (Patient not taking: Reported on 07/07/2024) FAMILY HISTORY Problem Relation Age of Onset Stroke Maternal Grandmother age 60 Hypertension Maternal Grandmother Diabetes Paternal Grandfather Heart Maternal Aunt AR at 33 Social History Tobacco Use Smoking status: Every Day Current packs/day: 0.00 Types: Cigarettes Start date: 06/12/2010 Last attempt to quit: 06/12/2011 Years since quittin.0 Smokeless tobacco: Never Substance Use Topics Alcohol use: No Drug use: Yes Types: Marijuana Review of Systems Constitutional: Positive for chills. Negative for fatigue, fever and weight loss. HENT: Positive for congestion. Negative for ear pain, rhinorrhea and sore throat. Eyes: Negative for discharge, redness and itching. Respiratory: Positive for cough, shortness of breath and wheezing. Negative for apnea, choking and chest tightness. Cardiovascular: Negative for chest pain. Gastrointestinal: Negative for abdominal pain, diarrhea, nausea and vomiting. Musculoskeletal: Negative for myalgias. Skin: Negative for color change, pallor, rash and wound. Allergic/Immunologic: Negative for environmental allergies, food allergies and immunocompromised state. Neurological: Positive for headaches. Negative for dizziness and facial asymmetry. Hematological: Negative for adenopathy. Does not bruise/bleed easily. Psychiatric/Behavioral: Negative for agitation and behavioral problems. Objective BP 147/97 Pulse 77 Temp 36.7 ?C (98.1 ?F) Resp 18 Wt 64.7 kg (142 lb 10.2 oz) LMP 05/30/2015 SpO2 98% BMI 23.20 kg/m? Physical Exam Vitals and nursing note reviewed. Constitutional: General: She is not in acute distress. Appearance: Normal appearance. She is normal weight. She is not ill-appearing, toxic-appearing or diaphoretic. HENT: Head: Normocephalic and atraumatic. Right Ear: Ear canal and external ear normal. Left Ear: Ear canal and external ear normal. Nose: Nose normal. No congestion or rhinorrhea. Mouth/Throat: Mouth: Mucous membranes are moist. Pharynx: No oropharyngeal exudate or posterior oropharyngeal erythema. Eyes: General: Right eye: No discharge. Left eye: No discharge. Extraocular Movements: Extraocular movements intact. Conjunctiva/sclera: Conjunctivae normal. Pupils: Pupils are equal, round, and reactive to light. Cardiovascular: Rate and Rhythm: Normal rate and regular rhythm. Pulses: Normal pulses. Heart sounds: Normal heart sounds. No murmur heard. No friction rub. Pulmonary: Effort: Pulmonary effort is normal. No respiratory distress. Breath sounds: Normal breath sounds. No stridor. No wheezing, rhonchi or rales. Chest: Chest wall: No tenderness. Abdominal: General: Abdomen is flat. There is no distension. Palpations: Abdomen is soft. There is no mass. Tenderness: There is no abdominal tenderness. There is no right CVA tenderness, left CVA tenderness, guarding or rebound. Hernia: No hernia is present. Musculoskeletal: General: No swelling, tenderness, deformity or signs of injury. Normal range of motion. Cervical back: Normal range of motion and neck supple. No rigidity. Right lower leg: No edema. Left lower leg: No edema. Lymphadenopathy: Cervical: No cervical adenopathy. Skin: General: Skin is warm and dry. Coloration: Skin is not jaundiced or pale. Findings: No bruising, erythema, lesion or rash. Neurological: General: No focal deficit present. Mental Status: She is alert and oriented to person, place, and time. Cranial Nerves: No cranial nerve deficit. Sensory: No sensory deficit. Motor: No weakness. Coordination: Coordination normal. Gait: Gait normal. Psychiatric: Mood and Affect: Mood normal. Behavior: Behavior normal. Thought Content: Thought content normal. Judgment: Judgment normal. Assessment and Plan ASSESSMENT/PLAN: 1. URI, acute - ICD9: 465.9, ICD10: J06.9 (primary diagnosis) X 3 days - Symptomatic treatment with prn analgesia - Supportive care with fluids and rest - The patient may also use OTC cough and cold meds as needed, warm salt water gargles, throat lozenges and/or OTC throat spray as needed, and nasal saline gtts and suction prn. - Follow up in 3-5 days if symptoms persist or sooner if worsening of symptoms 2. Exposure to pneumonia - ICD9: V01.89, ICD10: Z20.89 Daughter tested POSITIVE for pneumonia Declines CXR Will cover with Zithromax 3. Acute cough - ICD9: 786.2, ICD10: R05.1 X 3 days Continuously worsening Discussed CXR, declines at this time Will cover with Zithromax F/u with PCP for continued sx Rhina Winter APRN.BLANCA CNOV Observed: 07/07/2024 11:45 AM Status: COMPLETED Source: [facility] Office Visit (WSTR) ROCÍO BLAIR ([id number]) 1995 F Date Time Provider Department 07/07/24 11:45 AM [facility] During your visit today, we recorded the following information about you: Temperature Pulse Respiration Blood pressure 98.1 degrees 77/minute 18/minute 147/97 Weight 64.7 kg Rhina Winter APRN.CNP 07/07/2024 3:24 PM Signed This note was created using [employer]. Subjective Rocío Blair is a 29 year old female. 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 No language translator was used. Cough This is a new problem. The current episode started more than 2 days ago. The problem occurs constantly. The problem has been gradually worsening. The cough is Productive of sputum. There has been no fever. Associated symptoms include chills, ear congestion, headaches, shortness of breath and wheezing. Pertinent negatives include no chest pain, no sweats, no weight loss, no ear pain, no rhinorrhea, no sore throat, no myalgias and no eye redness. Treatments tried: OTC medicines. The treatment provided no relief. She is not a smoker. Her past medical history does not include bronchitis, pneumonia, bronchiectasis, COPD, emphysema or asthma. PAST MEDICAL HISTORY Diagnosis Date Acrocyanosis (HCC) Anemia Raynaud's phenomenon Tobacco abuse PAST SURGICAL HISTORY Procedure Laterality Date NONE ALLERGIES Patient has no known allergies. MEDICATIONS busPIRone (BUSPAR) 5 mg tablet Take 5 mg by mouth three times a day as needed. pantoprazole DR (PROTONIX) 40 mg tablet Take 1 tablet by mouth every afternoon. NIFEdipine ER (PROCARDIA XL) 30 mg 24 hr tablet Take 1 tablet by mouth every afternoon. (Patient not taking: Reported on 07/07/2024) KLOR-CON 20 mEq packet DISSOLVE CONTENTS OF 1 PACKET WITH 4 OUNCES OF WATER OR OTHER BEVERAGE TWO TIMES DAILY (Patient not taking: Reported on 07/07/2024) azithromycin (ZITHROMAX Z-GABBY) 250 mg tablet Take 2 tablets day one, then, 1 tablet daily until gone. albuterol HFA (PROVENTIL HFA, VENTOLIN HFA) 90 mcg/actuation inhaler Inhale 2 Puffs as instructed every 4 hours as needed for wheezing/shortness of breath. Inhalational Spacing Device 1 Device one time only for 1 dose. metoclopramide HCl (REGLAN) 10 mg tablet Take 1 tablet by mouth four times daily as needed (nausea). (Patient not taking: Reported on 07/07/2024) promethazine (PHENERGAN) 12.5 mg tablet Take 1 tablet by mouth every 6 hours as needed for Nausea/Vomiting. (Patient not taking: Reported on 07/07/2024) norgestimate 0.25 mg-ethinyl estradiol 35 mcg (SPRINTEC) 0.25-35 mg-mcg per tablet Take 1 tablet by mouth once daily. (Patient not taking: Reported on 07/07/2024) FAMILY HISTORY Problem Relation Age of Onset Stroke Maternal Grandmother age 60 Hypertension Maternal Grandmother Diabetes Paternal Grandfather Heart Maternal Aunt AR at 33 Social History Tobacco Use Smoking status: Every Day Current packs/day: 0.00 Types: Cigarettes Start date: 06/12/2010 Last attempt to quit: 06/12/2011 Years since quittin.0 Smokeless tobacco: Never Substance Use Topics Alcohol use: No Drug use: Yes Types: Marijuana Review of Systems Constitutional: Positive for chills. Negative for fatigue, fever and weight loss. HENT: Positive for congestion. Negative for ear pain, rhinorrhea and sore throat. Eyes: Negative for discharge, redness and itching. Respiratory: Positive for cough, shortness of breath and wheezing. Negative for apnea, choking and chest tightness. Cardiovascular: Negative for chest pain. Gastrointestinal: Negative for abdominal pain, diarrhea, nausea and vomiting. Musculoskeletal: Negative for myalgias. Skin: Negative for color change, pallor, rash and wound. Allergic/Immunologic: Negative for environmental allergies, food allergies and immunocompromised state. Neurological: Positive for headaches. Negative for dizziness and facial asymmetry. Hematological: Negative for adenopathy. Does not bruise/bleed easily. Psychiatric/Behavioral: Negative for agitation and behavioral problems. Objective BP 147/97 Pulse 77 Temp 36.7 ?C (98.1 ?F) Resp 18 Wt 64.7 kg (142 lb 10.2 oz) LMP 05/30/2015 SpO2 98% BMI 23.20 kg/m? Physical Exam Vitals and nursing note reviewed. Constitutional: General: She is not in acute distress. Appearance: Normal appearance. She is normal weight. She is not ill-appearing, toxic-appearing or diaphoretic. HENT: Head: Normocephalic and atraumatic. Right Ear: Ear canal and external ear normal. Left Ear: Ear canal and external ear normal. Nose: Nose normal. No congestion or rhinorrhea. Mouth/Throat: Mouth: Mucous membranes are moist. Pharynx: No oropharyngeal exudate or posterior oropharyngeal erythema. Eyes: General: Right eye: No discharge. Left eye: No discharge. Extraocular Movements: Extraocular movements intact. Conjunctiva/sclera: Conjunctivae normal. Pupils: Pupils are equal, round, and reactive to light. Cardiovascular: Rate and Rhythm: Normal rate and regular rhythm. Pulses: Normal pulses. Heart sounds: Normal heart sounds. No murmur heard. No friction rub. Pulmonary: Effort: Pulmonary effort is normal. No respiratory distress. Breath sounds: Normal breath sounds. No stridor. No wheezing, rhonchi or rales. Chest: Chest wall: No tenderness. Abdominal: General: Abdomen is flat. There is no distension. Palpations: Abdomen is soft. There is no mass. Tenderness: There is no abdominal tenderness. There is no right CVA tenderness, left CVA tenderness, guarding or rebound. Hernia: No hernia is present. Musculoskeletal: General: No swelling, tenderness, deformity or signs of injury. Normal range of motion. Cervical back: Normal range of motion and neck supple. No rigidity. Right lower leg: No edema. Left lower leg: No edema. Lymphadenopathy: Cervical: No cervical adenopathy. Skin: General: Skin is warm and dry. Coloration: Skin is not jaundiced or pale. Findings: No bruising, erythema, lesion or rash. Neurological: General: No focal deficit present. Mental Status: She is alert and oriented to person, place, and time. Cranial Nerves: No cranial nerve deficit. Sensory: No sensory deficit. Motor: No weakness. Coordination: Coordination normal. Gait: Gait normal. Psychiatric: Mood and Affect: Mood normal. Behavior: Behavior normal. Thought Content: Thought content normal. Judgment: Judgment normal. Assessment and Plan ASSESSMENT/PLAN: 1. URI, acute - ICD9: 465.9, ICD10: J06.9 (primary diagnosis) X 3 days - Symptomatic treatment with prn analgesia - Supportive care with fluids and rest - The patient may also use OTC cough and cold meds as needed, warm salt water gargles, throat lozenges and/or OTC throat spray as needed, and nasal saline gtts and suction prn. - Follow up in 3-5 days if symptoms persist or sooner if worsening of symptoms 2. Exposure to pneumonia - ICD9: V01.89, ICD10: Z20.89 Daughter tested POSITIVE for pneumonia Declines CXR Will cover with Zithromax 3. Acute cough - ICD9: 786.2, ICD10: R05.1 X 3 days Continuously worsening Discussed CXR, declines at this time Will cover with Zithromax F/u with PCP for continued sx Rhina Winter APRN.AIRBRUSH ARTIST Allergies As of Date: 07/07/2024 (No Known Allergies) Date Reviewed: 07/07/2024 Reviewed by: Niharika Hussein MA - Fully Assessed Reason for Visit: Cough [28] Cmt: Chest congestion, bodyaches, fatigue x3 days, pneumonia exposure Primary Visit Diagnosis:URI, acute [J06.9] Other Visit Diagnoses:Exposure to pneumonia [Z20.89] Acute cough [R05.1] Order(s):azithromycin (ZITHROMAX Z-GABBY) 250 mg tabletTake 2 tablets day one, then, 1 tablet daily until gone.Disp: 6 tabletRfl: 0 albuterol HFA (PROVENTIL HFA, VENTOLIN HFA) 90 mcg/actuation inhalerInhale 2 Puffs as instructed every 4 hours as needed for wheezing/shortness of breath.Disp: 8 gRfl: 0 Inhalational Spacing Device1 Device one time only for 1 dose.Disp: 1 EachRfl: 0 Prescriptions as of 07/07/2024 - busPIRone (BUSPAR) 5 mg tablet Take 5 mg by mouth three times a day as needed. - NIFEdipine ER (PROCARDIA XL) 30 mg 24 hr tablet Take 1 tablet by mouth every afternoon. - pantoprazole DR (PROTONIX) 40 mg tablet Take 1 tablet by mouth every afternoon. - KLOR-CON 20 mEq packet DISSOLVE CONTENTS OF 1 PACKET WITH 4 OUNCES OF WATER OR OTHER BEVERAGE TWO TIMES DAILY - azithromycin (ZITHROMAX Z-GABBY) 250 mg tablet Take 2 tablets day one, then, 1 tablet daily until gone. - albuterol HFA (PROVENTIL HFA, VENTOLIN HFA) 90 mcg/actuation inhaler Inhale 2 Puffs as instructed every 4 hours as needed for wheezing/shortness of breath. - Inhalational Spacing Device 1 Device one time only for 1 dose. - metoclopramide HCl (REGLAN) 10 mg tablet Take 1 tablet by mouth four times daily as needed (nausea). - promethazine (PHENERGAN) 12.5 mg tablet Take 1 tablet by mouth every 6 hours as needed for Nausea/Vomiting. - norgestimate 0.25 mg-ethinyl estradiol 35 mcg (SPRINTEC) 0.25-35 mg-mcg per tablet Take 1 tablet by mouth once daily. Medication notes this encounter NORGESTIMATE 0.25 MG-ETHINYL ESTRADIOL 35 MCG TABLET >> Niharika Hussein MA 07/07/2024 12:11 PM >> NIHARIKA HUSSEIN [facility] Jul 07, 2024 12:11 PM Problem List As Of Date 07/07/2024 Noted Resolved Acrocyanosis [I73.89] 10/15/2009 Raynaud's Phenomenon [I73.00] 10/15/2009 Teen [HIC2332] 09/26/2011 08/13/2015 Supervision of other high-risk (V23.89*10/24/2011 08/13/2015 Anemia in [O99.019] 12/15/2011 08/13/2015 Marijuana use [F12.90] 12/15/2011 SGA (small for gestational age) [P05.10] 01/29/2012 08/13/2015 Encounter for supervision of normal first pregn*08/06/2015 11/06/2016 Moderate smoker (20 or less per day) [F17.210] 08/06/2015 UTI (urinary tract infection) in , ant*08/13/2015 11/06/2016 Prescriptions ordered this encounter Disp Refills Start End AZITHROMYCIN 250 MG TABLET 6 ta* 0 07/07/2024 07/12/2024 Sig: Take 2 tablets day one, then, 1 tablet daily until gone. ALBUTEROL SULFATE HFA 90 MCG/ACTUATI* 8 g 0 07/07/2024 Cmt: Generic or brand: dispense inhaler preferred by patient/insurance unless SHER flag is selected. Route: INHALATION Sig: Inhale 2 Puffs as instructed every 4 hours as needed for wheezing/shortness of breath. INHALATIONAL SPACING DEVICE 1 Ea* 0 07/07/2024 07/07/2024 Route: Misc Si Device one time only for 1 dose. Encounter Status:Closed by RHINA WINTER on 07/07/24 CT ABDOMEN/PELVIS W Observed: 06/06/2024 11:20 AM Status: F Source: [place] [id number] Patient: ROCÍO BLAIR Phone#: : 1995 Age: 29 Gender: F Pt. Type: ER Account: [id number] Location: 052 Ordering: [place] HODGE Exam Date: 06/06/2024/10:46 Family Phys: RHINA PRINCE Charge Code: [id number] Physician: [place] Order #: [id number] Dose#: [id number] PROCEDURE: CT ABDOMEN/PELVIS WITH CONTRAST COMPARISON: None. INDICATIONS: Diarrhea. TECHNIQUE: After obtaining the patient's consent, CT images were created with non-ionic intravenous contrast material. All CT scans at this facility use dose modulation, iterative reconstruction, and/or weight based dosing when appropriate to reduce radiation dose to as low as reasonably achievable. IV CONTRAST: Omnipaque 350,80ml TOTAL DOSE: 9.6 CTDIvol(mGy) FINDINGS: LIVER: Normal. No enlargement, atrophy, abnormal density, or significant focal lesion. BILIARY: Gallbladder is present PANCREAS: Normal. No lesion, fluid collection, ductal dilatation, or atrophy. SPLEEN: Normal. No enlargement or focal lesion. KIDNEYS: Kidneys enhance and excrete contrast symmetrically. No hydronephrosis. ADRENALS: Normal. No mass or enlargement. AORTA/VASCULAR: No aortic aneurysm. RETROPERITONEUM: Normal. No mass or adenopathy. BOWEL/MESENTERY: No bowel obstruction or dilatation. No significant stool burden. Appendix is unremarkable in size and contains air. ABDOMINAL WALL: Small fat containing umbilical hernia URINARY BLADDER: Normal. No visible focal wall thickening, lesion, or calculus. PELVIC NODES: Normal. No adenopathy. PELVIC ORGANS: Uterus is present. No adnexal mass. Corpus luteal cyst in the left ovary. Nonspecific calcification in the right hemipelvis, appears to medial to be within the ureter. Likely representing a phlebolith. BONES: Normal. No bony lesion or fracture. Continued Report - Page 2 of 2 Patient: ROCÍO BLAIR Phone#: : 1995 Age: 29 Gender: F Pt. Type: ER Account: [id number] Location: 052 Ordering: [place] HODGE Exam Date: 06/06/2024/10:46 Family Phys: RHINA ESCALONAPhoenix Charge Code: [id number] Physician: [place] Order #: [id number] Dose#: 9.6 LUNG BASES: Visualized portion of the lower thorax demonstrates decreased AP to mediolateral ratio, a Taran index of 3.8, this would indicate severe pectus excavatum; however partially imaged. OTHER: Negative. CONCLUSION: 1. Limited visualization of the lower thorax appears to show pectus excavatum, however partially imaged. 2. No acute intra-abdominal or pelvic abnormality. Dictated by: Concepcion Driver MD on 06/06/2024 at 11:04 Approved by: Concepcion Driver MD on 06/06/2024 at 11:20 C-REACTIVE PROTEIN Collected: 10:34 AM Status: F Source: [facility] TYPE CODE TESTS RESULT OUT OF RANGE REFERENCE UNITS LAB CRP(LOINC) CRP <0.50 0.00 - 0.90 mg/dl Performed By: #### [id number] ## ## [facility],[address] [place], [place] [id number] CMP WITH EGFR Collected: 4 10:34 AM Status: F Source: [facility] TYPE CODE TESTS RESULT OUT OF RANGE REFERENCE UNITS LAB CMP with eGFR(LOINC) CMP with eGFR Result Comment: COMPREHENSIV E METABOLIC PANEL LAB SODIUM(LOINC) SODIUM 143 136 - 145 mmol/l LAB POTASSIUM(LOIN C) POTASSIUM 4.2 3.5 - 5.1 mmol/L LAB CHLORIDE(LOINC ) CHLORIDE 106 98 - 107 mmol/L LAB CO2(LOINC) CO2 27.3 21.0 - 32.0 mmol/L LAB GLUCOSE(LOINC) GLUCOSE 97 74 - 106 mg/dl LAB BUN(LOINC) BUN 13 7 - 18 mg/dl LAB CREATININE(MARILEE NC) CREATININE 0.77 0.55 - 1.02 mg/dl LAB AST/SGOT(LOINC ) AST/SGOT 11 Low 13 - 39 U/L LAB ALK PHOS(LOINC) ALK PHOS 49 46 - 116 U/L LAB CALCIUM(LOINC) CALCIUM 9.5 8.5 - 10.1 mg/dl LAB TOTAL PROTEIN(LOINC) TOTAL PROTEIN 7.8 6.4 - 8.2 g/dl LAB ALBUMIN(LOINC) ALBUMIN 4.4 3.4 - 5.0 g/dL LAB GLOBULIN(LOINC ) GLOBULIN 3.4 1.5 - 3.8 G/DL LAB A/G RATIO(LOINC) A/G RATIO 1.3 0.9 - 1.6 LAB TOTAL BILI(LOINC) TOTAL BILI 1.0 0.2 - 1.0 mg/dl LAB B/C RATIO(LOINC) B/C RATIO 17 0 - 30 ratio LAB ALT/SGPT(LOINC ) ALT/SGPT 19 16 - 63 U/L LAB ANION GAP(LOINC) ANION GAP 14 10 - 20 mmol/L LAB AGE(LOINC) AGE 29 years LAB eGFR(LOINC) eGFR >60 60 - 999 ML/MINUT E LAB eGFR(AA)(LOINC ) eGFR(AA) >60 60 - 999 ML/MINUT E Result Comment: ACCORDING TO THE NATIONAL KIDNEY DISEASE EDUCATION PROGRAM(NKDE), A NORMAL eGFR IS A VALUE GREATER THAN OR EQUAL TO 60 ML/MIN/1.73 SQ METERS. CHRONIC KIDNEY DISEASE: <60mL/MIN/1.73 SQ METERS KIDNEY FAILURE: <15mL/MIN/1.73 SQ METERS THIS TEST SHOULD ONLY BE USED FOR PATIENTS 18 YEARS OF AGE AND OLDER. Performed By: #### [id number] ## ## [place] [id number] URINALYSIS Collected: 10:34 AM Status: F Source: [facility] TYPE CODE TESTS RESULT OUT OF RANGE REFERENCE UNITS LAB URINALYSIS(MARILEE NC) URINALYSIS Result Comment: URINALYSIS LAB Specimen Type(LOINC) Specimen Type R LAB Color(LOINC) Color yellow NORMAL: YELLOW LAB Clarity(LOINC) Clarity sl.cloudy RISSA L: CLEAR LAB ph(LOINC) ph 7 NORMAL: 5.0-8.0 LAB Protein(LOINC) Protein 15 Abnormal RISSA L: NEGATIVE LAB Glucose(LOINC) Glucose NORM RISSA L: NORMAL LAB Ketone(LOINC) Ketone NEG NORMAL : NEGATIVE LAB Bilirubin(LOIN C) Bilirubin NEG NORMAL: NEGATIVE LAB Blood(LOINC) Blood NEG NORMAL: NEGATIVE LAB Urobilinog(MARILEE NC) Urobilinog 1 Abnormal NORMAL: NORMAL LAB Sp [place](LOINC) Sp [place] 1.015 NORMAL: 1.010-1.030 LAB Nitrite(LOINC) Nitrite NEG RISSA L: NEGATIVE LAB Leukocytes(MARILEE NC) Leukocytes NEG NORMAL: NEGATIVE LAB Microscopic(LO INC) Microscopic NOT INDICATED Performed By: #### [id number] ## ## [place] [id number] LACTATE Collected: 10:34 AM Status: F Source: [facility] TYPE CODE TESTS RESULT OUT OF RANGE REFERENCE UNITS LAB LACTATE(LOINC) LACTATE 1.0 0.4 - 2.0 mmol/L Performed By: #### [id number] ## ## [place] [id number] CBC + DIFF Collected: 10/21/202 4 10:34 AM Status: F Source: [facility] TYPE CODE TESTS RESULT OUT OF RANGE REFERENCE UNITS LAB CBC + DIFF(LOINC) CBC + DIFF Result Comment: CBC-COMPLETE BLOOD COUNT LAB WBC(LOINC) WBC 4.8 4.5 - 10.8 x 10EE3/UL LAB RBC(LOINC) RBC 4.63 4.10 - 5.30 x 10EE6/UL LAB HEMOGLOBIN(MARILEE NC) HEMOGLOBIN 13.6 12.0 - 16.0 g/dl LAB HEMATOCRIT(MARILEE NC) HEMATOCRIT 42.0 34.0 - 46.0 % LAB MCV(LOINC) MCV 91 80 - 99 fl LAB MCH(LOINC) MCH 29 27 - 33 pg LAB MCHC(LOINC) MCHC 33 32 - 36 X10 3 LAB RDW/CV(LOINC) RDW/CV 14.0 12.0 - 15.6 % LAB PLATELET(LOINC ) PLATELET 155 150 - 450 x10EE3/UL LAB MPV(LOINC) MPV 9.2 6.6 - 10.5 fl Result Comment: AUTOMATED DI FFERENTIAL LAB NEUT %(LOINC) NEUT % 69.0 46.0 - 76.0 % LAB LYMPH %(LOINC) LYMPH % 21.9 20.0 - 45.0 % LAB MONOS %(LOINC) MONOS % 8.4 0.0 - 10.0 % LAB EO %(LOINC) EO % 0.6 0.0 - 7.0 % LAB BASO %(LOINC) BASO % 0.2 0.0 - 2.0 % LAB Lymph #(LOINC) Lymph # 1.04 0.80 - 2.80 x10EE 3/UL LAB Neut #(LOINC) Neut # 3.29 1.50 - 7.10 x10EE3 /UL LAB [place] #(LOINC) [place] # 0.40 0.20 - 1.00 x10EE3 /UL LAB EO #(LOINC) EO # 0.03 0.00 - 0.50 x10EE3/U L LAB Baso #(LOINC) Baso # 0.01 0.00 - 0.10 x10EE3 /UL LAB MANUAL DIFF(LOINC) MANUAL DIFF N/A LAB MORPHOLOGY(MARILEE NC) MORPHOLOGY N/A Performed By: #### [id number] ## ## [facility],[address] [place] [id number] ED PHYSICIAN DISCHARGE REPORT Observed: 06/06/2024 9:54 AM Status: F Source: [facility] Discharge Instructions Discharge Summary [address] [address] [id number] 06/06/2024 Patient: ROCÍO BLAIR Sex: Female : 1995 Age: 29y Thank you for visiting . You have been evaluated today by Nj Hodge M.D. for the following condition(s): Principal Diagnosis Vomiting with nausea. Diarrhea INSTRUCTIONS Prescription Medications: Medications prescribed: Protonix, Ondansetron ODT. OTC Medications: Take Imodium AD according to label instructions. Available over the counter. Follow-up: Follow up with your healthcare provider in two days. Call for an appointment. Sabi Prince. You have been given the following additional information: Diarrhea with Uncertain Cause (Adult) Patient Signature 1 of 7 Discharge Instructions Facility Jewel Lathe Operator Date/Time General Instructions with ExitWriter [address] [address] [phone] 06/06/2024 Patient: ROCÍO BLAIR Sex: Female : 1995 Age: 29y Thank you for visiting . You have been evaluated today by Nj Hodge M.D. for the following condition(s): Principal Diagnosis Vomiting with nausea. Diarrhea INSTRUCTIONS Prescription Medications: Medications prescribed: Protonix, Ondansetron ODT. OTC Medications: Take Imodium AD according to label instructions. Available over the counter. Follow-up: Follow up with your healthcare provider in two days. Call for an appointment. Sabi Landis ADDITIONAL INFORMATION 2 of 7 Discharge Instructions Diarrhea with Uncertain Cause (Adult) Diarrhea is when stools are loose and watery. This can be caused by: Viral infections Bacterial infections Food poisoning Parasites Irritable bowel syndrome (IBS) Inflammatory bowel diseases such as ulcerative colitis, Crohn's disease, and celiac disease Food intolerance, such as to lactose, the sugar found in milk and milk products Reaction to medicines like antibiotics, laxatives, cancer drugs, and antacids Along with diarrhea, you may also have: Abdominal pain and cramping Nausea and vomiting Loss of bowel control Fever and chills Bloody stools 3 of 7 Discharge Instructions In some cases, antibiotics may help to treat diarrhea. You may have a stool sample test. This is done to see what is causing your diarrhea, and if antibiotics will help treat it. The results of a stool sample test may take up to 2 days. The healthcare provider may not give you antibiotics until he or she has the stool test results. Diarrhea can cause dehydration. This is the loss of too much water and other fluids from the body. When this occurs, body fluid must be replaced. This can be done with oral rehydration solutions. Oral rehydration solutions are available at drugstores and grocery stores without a prescription. Sports drinks are not the best choice if you are very dehydrated. They have too much sugar and not enough electrolytes. Home care Follow all instructions given by your healthcare provider. Rest at home for the next 24 hours, or until you feel better. Avoid caffeine, tobacco, and alcohol. These can make diarrhea, cramping, and pain worse. If taking medicines: Gvav-arq-mpcntbz nausea and diarrhea medicines are generally OK unless you experience fever or blood stool. Check with your doctor first in those circumstances. You may use acetaminophen or NSAID medicines like ibuprofen or naproxen to reduce pain and fever. Don't use these if you have chronic liver or kidney disease, or ever had a stomach ulcer or gastrointestinal bleeding. Don't use NSAID medicines if you are already taking one for another condition (like arthritis) or are on daily aspirin therapy (such as for heart disease or after a stroke). Talk with your healthcare provider first. If antibiotics were prescribed, be sure you take them until they are finished. Don't stop taking them even when you feel better. Antibiotics must be taken as a full course. To prevent the spread of illness: Remember that washing with soap and water and using alcohol-based tennis ball coverer hand is the best way to prevent the spread of infection. Dry your hands with a single use towel (like a paper towel). Clean the toilet after each use. Wash your hands before eating. Wash your hands before and after preparing food. Keep in mind that people with diarrhea or vomiting should not prepare food for others. Wash your hands after using cutting boards, countertops, and knives that have been in contact with raw foods. Wash and then peel fruits and vegetables. Keep uncooked meats away from cooked and okewf-qv-koz foods. 4 of 7 Discharge Instructions Use a food thermometer when cooking. Cook poultry to at least 165F (74C). Cook ground meat (beef, veal, pork, snyder) to at least 160F (71C). Cook fresh beef, veal, snyder, and pork to at least 145F (63C). Don't eat raw or undercooked eggs (poached or alea side up), poultry, meat, or unpasteurized milk and juices. Food and drinks The main goal while treating vomiting or diarrhea is to prevent dehydration. This is done by taking small amounts of liquids often. Keep in mind that liquids are more important than food right now. Drink only small amounts of liquids at a time. Don't force yourself to eat, especially if you are having cramping, vomiting, or diarrhea. Don't eat large amounts at a time, even if you are hungry. If you eat, avoid fatty, greasy, spicy, or fried foods. Don't eat dairy foods or drink milk if you have diarrhea. These can make diarrhea worse. During the first 24 hours you can try: Oral rehydration solutions. Sports drinks may be used if you are not too dehydrated and are otherwise healthy. Soft drinks without caffeine Jayleen jorge Water (plain or flavored) Decaf tea or coffee Clear broth, consomm, or bouillon Gelatin, popsicles, or frozen fruit juice bars The second 24 hours, if you are feeling better, you can add: Hot cereal, plain toast, bread, rolls, or crackers Plain noodles, rice, mashed potatoes, chicken noodle soup, or rice soup Unsweetened canned fruit (no pineapple) Bananas As you recover: Limit fat intake to less than 15 grams per day. Don't eat margarine, butter, oils, mayonnaise, sauces, gravies, fried foods, peanut butter, meat, poultry, or fish. 5 of 7 Discharge Instructions Limit fiber. Don't eat raw or cooked vegetables, fresh fruits except bananas, or bran cereals. Limit caffeine and chocolate. Limit dairy. Don't use spices or seasonings except salt. Go back to your normal diet over time, as you feel better and your symptoms improve. If the symptoms come back, go back to a simple diet or clear liquids. Follow-up care Follow up with your healthcare provider, or as advised. If a stool sample was taken or cultures were done, call the healthcare provider for the results as instructed. Call 911 Call 911 if you have any of these symptoms: Trouble breathing Confusion Extreme drowsiness or trouble walking Loss of consciousness Rapid heart rate Chest pain Stiff neck Seizure When to seek medical advice Call your healthcare provider right away if any of these occur: Abdominal pain that gets worse Constant lower right abdominal pain Continued vomiting and inability to keep liquids down Diarrhea more than 5 times a day Blood in vomit or stool Dark urine or no urine for 8 hours, dry mouth and tongue, tiredness, weakness, or dizziness Drowsiness New rash 6 of 7 Discharge Instructions You don't get better in 2 to 3 days Fever of 100.4F (38C) or higher, or as directed by your healthcare provider 7 of 7 ED SUPER BILL Observed: 06/06/2024 9:54 AM Status: F Source: [address] [place] [address] [phone] 06/06/2024 Patient: ROCÍO BLAIR Sex: Female : 1995 Age: 29y Facility Professional Category Item Description Code Code Quantity Fee Total Nurse/E/M EMERGENCY 450966 1 $0.00 $0.00 DEPT VISIT HIGH SEVERITYFUNCJ (26907-40) Nurse/IV/IM/Infusions Hydration 571855 1 $0.00 $0.00 additional hour (59486) Nurse/IV/IM/Infusions IVP additional 769321 1 $0.00 $0.00 push (68741) Nurse/IV/IM/Infusions IVP initial (71586) 987111 1 $0.00 $0.00 Grand $0.00 Total Providers Nj Hodge M.D. Chief Complaint VOMITING and DIARRHEA. 1 of 2 [facility] Principal Diagnosis Vomiting with nausea. Diarrhea ICD-10 Codes R19.7: Diarrhea, unspecified R11.2: Nausea with vomiting, unspecified 2 of 2 ED VISIT SUMMARY Observed: 06/06/2024 9:54 AM Status: F Source: [facility] Visit Overview Visit Overview [place] [address] [place] [address] [phone] 06/06/2024 Patient: ROCÍO BLAIR Sex: Female : 1995 Age: 29y 06/06/2024 03:59 PM EDT ED Arrival:09:54 06/06/2024 EDT Status:not Recent Travel:no Language:eng Adv Directive: Isolation Status: Ethnicity:N Fall Risk:no risk Infectious Disease Exposure:no Measurements:5'7 / 170.2 Self-Harm Status:risk Sepsis Screen:negative cm 140.0 lb / 63.5 kg Chief Complaint:ABDOMINAL PAIN, DIARRHEA, NAUSEA, VOMITING, and (3 weeks) ALLERGIES No Known Drug Allergies HOME MEDICATIONS busPIRone 5 mg tablet: 5 mg once a day . PAST MEDICAL HISTORY / PROBLEMS Anxiety disorder Last normal menstrual period was 3 weeks ago 1 of 3 Visit Overview See nurses notes PAST SURGICAL HISTORY Tubal Ligation SOCIAL HISTORY Smoking status: No Alcohol use: Yes Drug use: No ED COURSE MEDICATIONS GIVEN IN EMERGENCY DEPARTMENT 10:37 06/06/24 IV NS 0.9 % 1000 mL 999 mL/hr 11:09 06/06/24 Ondansetron IVP 4 mg 11:09 06/06/24 Protonix (Pantoprazole) IVP 40 mg over 4 minute(s) IV SITE INFORMATION INTAKE OUTPUT REASSESMENT (most recent) 10:04 06/06/24. Ambulatory to room. GENERAL / NEURO / PSYCH: Alert. Oriented X 4. Appears anxious. RESPIRATORY: Respirations not labored. GI / : The patient has had nausea. Abdomen soft. Guarding present in the epigastric area and left upper quadrant. Hyperactive bowel sounds in all quadrants. SKIN: Skin is warm and dry. VITAL SIGNS First Vitals Last Vitals Temp 10:04 06/06/24 98.4 F Temp 13:21 06/06/24 97.9 F BP 10:04 06/06/24 151/108 BP 13:06/06/24 136/79 HR 10:04 06/06/24 95 HR 13:21 06/06/24 71 RR 10:04 06/06/24 16 RR 13:21 06/06/24 16 O2 Sat 10:04 06/06/24 100% RA O2 Sat 13:21 06/06/24 100% 2 of 3 Visit Overview First Vitals Last Vitals Pain 10:04 06/06/24 4 Pain 13:21 06/06/24 0 ETCO2 10:04 06/06/24 ETCO2 13:21 06/06/24 GCS 10:04 06/06/24 GCS 13:21 06/06/24 RTS 10:04 06/06/24 RTS 13:21 06/06/24 PROCEDURES NURSING INTERVENTIONS LABS / STUDIES LABS / STUDIES ORDERED CBC w Diff CMP CRP CT ABD/PEL w IV Cont Lactate, Serum Urinalysis CLINICAL IMPRESSION DIARRHEA VOMITING WITH NAUSEA 3 of 3 ED ORDER SHEET (CPOE ONLY) Observed: 9:54 AM Status: F Source: [facility] Order Sheet Order Sheet [address] [address] [id number] 06/06/2024 Patient: ROCÍO BLAIR Sex: Female : 1995 Age: 29y MEASUREMENTS: Wt: 63.5 kg, Ht/Stevan: 67.0 in, BMI: 21.93 ALLERGIES: No known drug allergies MEDICATION/IV/DRIP/FLUID ORDERS Order Description Priority Entered Acknowledged Completed IV NS 0.9 %1000 mL at 999 10:23 06/06/2024 10:37 10:39 mL/hr (warm saline) Nj Hodge M.D. 06/06/2024 06/06/2024 Gómez Leyva, R.N. R.N. Ondansetron IVP4 mg (NOW x1) 10:55 06/06/2024 11:05 11:14 Nj Hodge M.D. 06/06/2024 06/06/2024 Gómez Leyva R.N. R.N. Protonix (Pantoprazole) IVP40 10:55 06/06/2024 11:05 11:13 mg (NOW x1) Nj Hodge M.D. 06/06/2024 06/06/2024 Gómez Leyva R.N. RGiovannaNGiovanna LAB ORDERS Order Description Priority Entered Acknowledged Collected Completed CBC w Diff Stat Stat 10:23 06/06/2024 10:32 06/06/2024 10:43 06/06/2024 Rylan Jacobs R.N. Nathan Hall, R.N. 1 of 2 Order Sheet CMP Stat Stat 10:23 06/06/2024 10:32 06/06/2024 10:43 06/06/2024 Rylan Jacobs R.N. Nathan Hall, R.N. Lactate, Serum Stat Stat 10:23 06/06/2024 10:32 06/06/2024 10:43 06/06/2024 Rylan Jacobs R.N. Nathan Hall, R.N. Urinalysis Stat Stat 10:23 06/06/2024 10:32 06/06/2024 10:43 06/06/2024 Rylan Jacobs R.N. Nathan Hall, R.N. CRP Stat Stat 10:23 06/06/2024 10:32 06/06/2024 10:43 06/06/2024 Rylan aJcobs R.N. Nathan Hall, R.N. DIAGNOSTIC STUDY ORDERS Order Description Priority Entered Acknowledged Completed CT ABD/PEL w IV Cont Stat Stat 10:23 06/06/2024 10:32 10:43 Nj Hodge M.D. 06/06/2024 06/06/2024 Gómez Leyva R.N. R.N. Reason for Study: Diarrhea STAFF ORDERS Order Description Priority Entered Acknowledged Collected Completed [Electronically signed by Nj Hodge M.D. (06/06/2024 15:15 EDT)] 2 of 2 ED NURSES CLINICAL NOTE Observed: 2023 9:54 AM Status: F Source: [facility] Nurse Narrative Nurse Clinical [address] [address] [phone] 06/06/2024 [id number] Sex: Female : 1995 Age: 29y Disposition: Discharge to Home Disposition Decision Time: 13:19 06/06/2024 Departure Time: 13:30 06/06/2024 TRIAGE Arrived by private vehicle. Historian: patient. Triage time: 09:57 06/06/2024. Chief Complaint: ABDOMINAL PAIN, NAUSEA, VOMITING and DIARRHEA. 09:57 06/06/24. Onset. (3 weeks). 09:57 06/06/24. SEPSIS SCREEN: NEGATIVE. SIRS criteria negative. No possible sources of infection. -- 10:06 06/06/24 EDT Gómez Holland R.N. 10:04 06/06/24. BP: 151/108 taken on left arm, while sitting. MAP: 122. HR: 95. RR: 16. O2 saturation: 100% on room air. Temperature: 98.4 F. Pain level now 4/10. -- 10:04 06/06/24 ABEBA Holland R.N. Acuity: LEVEL 3. 10:08 06/06/24. -- 10:08 06/06/24 EDGuy Holland R.N. Measurements: 10:10 06/06/24 Wt: 63.5 kg, Ht/Stevan: 67.0 in, BMI: 21.93 -- 10:10 06/06/24 ABEBA Holland R.N. Medications: 1 of 4 Nurse Narrative busPIRone 5 mg tablet: 5 mg once a day . -- 10:00 06/06/24 ABEBA Holland R.N. Allergies: no known drug allergies -- 10:01 06/06/24 ABEBA Holland R.N. Problems: Anxiety disorder -- 10:01 06/06/24 ABEBA Holland R.N. ADDITIONAL SURGERIES: Tubal Ligation -- 10:06/06/24 ABEBA Holland R.N. History 09:57 06/06/24. PAST MEDICAL HX: Last normal menstrual period was 3 weeks ago. Denies current . SOCIAL HX: Never smoker. Occasional alcohol use. No drug use. The patient has not traveled outside the [place] Infectious disease exposure: No infectious disease exposure. ABUSE ASSESSMENT: The patient answered yes to the question(s) Do you feel safe in your home? and no to the question(s) Are you afraid to go home?. SELF HARM ASSESSMENT: Self harm assessment was performed. The patient answered no to the question(s) Have you recently felt down, depressed, or hopeless? and Do you have thoughts of harming or killing yourself?. FALL RISK ASSESSMENT: Fall risk assessment completed. No risk factors identified. -- 10:06 06/06/24 ABEBA Holland R.N. Interventions 09:57 06/06/24. Identification band on patient. -- 10:06 06/06/24 ABEBA Holland R.N. PHYSICAL ASSESSMENT 2 of 4 Nurse Narrative 10:04 06/06/24. Ambulatory to room. GENERAL / NEURO / PSYCH: Alert. Oriented X 4. Appears anxious. RESPIRATORY: Respirations not labored. GI / : The patient has had nausea. Abdomen soft. Guarding present in the epigastric area and left upper quadrant. Hyperactive bowel sounds in all quadrants. SKIN: Skin is warm and dry. -- 10:09 06/06/24 ABEBA Holland R.N. NURSING PROGRESS NOTES 10:34 06/06/24. Site #1 started via IV in the right antecubital space with a 20g angiocath; 1 attempt. Blood drawn: rainbow set and rutledge tube(s). Sent to the lab. Saline lock flushed with 5 mL saline. -- 10:39 06/06/24 ABEBA Holland R.N. 10:37 06/06/24. IV NS 0.9 % 1000 mL started in bag#1 1000 mL at 999 mL/hr via Site# 1. IV patency established. IV site checked: no pain, redness, or swelling. IV flushed thoroughly pre-medication administration. -- 10:39 06/06/24 ABEBA Holland R.N. 10:43 06/06/24. Patient transported to [place] by stretcher with tech. -- 10:43 06/06/24 ABEBA Holland R.N. 11:09 06/06/24. Ondansetron IVP 4 mg given via Site# 1. Confirmed 5 rights. IV patency established. IV site checked: no pain, redness, or swelling. IV flushed thoroughly pre-medication administration. IVP given by nurse. -- 11:14 06/06/24 ABEBA Holland R.N. 11:09 06/06/24. Protonix (Pantoprazole) IVP 40 mg given over 4 minute(s) via Site# 1. Confirmed 5 rights. IV patency established. IV site checked: no pain, redness, or swelling. IV flushed thoroughly pre-medication administration. IVP given by nurse. -- 11:13 06/06/24 ABEBA Holland R.N. 11:15 06/06/24. Care transferred and report given (Breanna WINSTON). -- 11:15 06/06/24 ABEBA Holland R.N. 11:58 06/06/24. IV NS 0.9 %: Medication Discontinued. bag #1 completed. Total amount infused: 1000 mL. IV patency established. IV site checked: no pain, redness, or swelling. IV flushed thoroughly post-medication administration. -- 11:58 06/06/24 ABEBA Pool R.N. 11:58 06/06/24. Ondansetron IVP: Medication Response. No adverse reaction. The patient feels better. -- 11:58 06/06/24 ABEBA Pool R.N. DISPOSITION / DISCHARGE 13:06/06/24. BP: 136/79 MAP: 98. HR: 71. RR: 16. O2 saturation: 100% Temperature: 97.9 F. Pain level now 0/10. -- 13:31 06/06/24 ABEBA Pool R.N. 13:29 06/06/24. Site #1 removed upon discharge. Bandage applied. -- 13:29 06/06/24 ABEBA Pool R.N. 13:30 06/06/24. Condition at departure: stable. No learning barriers present. Discharge instructions provided and reviewed with the patient. Reviewed referral to a primary care physician for followup. Patient verbalized understanding. Written instructions provided in Cymraes. The patient was discharged home. The patient left ambulatory and via private vehicle. Patient driving. -- 13:30 06/06/24 ABEBA Pool R.N. Departure time: 13:30 06/06/2024. -- 13:30 06/06/24 EDT Breanna Pool R.N. 3 of 4 Nurse Narrative (Electronically signed by Breanna Pool R.N. 06/06/24 15:59:49 EDT) Generated by [facility] 4 of 4 ED FACILITY CODING SUMMARY Observed: 9:54 AM Status: F Source: [facility] Facility Coding Facility Coding Summary [address] [place] [address] [id number] 06/06/2024 Patient: ROCÍO BLAIR Sex: Female : 1995 Age: 29y Providers: Nj Hodge M.D. DIAGNOSTIC WORKUP Chief Complaint VOMITING and DIARRHEA. -- Nj Hodge M.D. Principal Diagnosis Diarrhea -- Nj Hodge M.D. Vomiting with nausea. -- Nj Hodge M.D. ICD-10 Codes R11.2: Nausea with vomiting, unspecified R19.7: Diarrhea, unspecified PROCEDURES Procedures from Providers: Procedures from Nurses/Facility: IV Hydration (CPT: 94571) IV Push Protonix (Pantoprazole) IVP (CPT: 33573) IV Push Ondansetron IVP (CPT: 70699) SUPPLIES 1 of 2 Facility Coding ELEVEL 46855-00 This is a partial abstract of information documented in the full record. [employer] must use independent judgment in selecting codes. CPT copyright 2022 [employer]. All Rights Reserved. 2 of 2 ED PHYS CODING ABST SUMMARY Observed: 9:54 AM Status: F Source: [facility] Coding Summary Coding Summary [address] [address] [place] [address] [id number] 06/06/2024 Patient: ROCÍO BLAIR Sex: Female : 1995 Age: 29y ICD-10 Codes R19.7: Diarrhea, unspecified R11.2: Nausea with vomiting, unspecified This is a partial abstract of information documented in the full record. [employer] must use independent judgment in selecting codes. CPT copyright 2022 [employer]. All Rights Reserved. 1 of 1 ED PHYSICIAN CLINICAL REPORT Observed: 1 9:54 AM Status: F Source: [facility] Narrative Physician Clinical Narrative [address] [place] [address] [phone] 06/06/2024 Patient: ROCÍO BLAIR Sex: Female : 1995 Age: 29y Disposition: Discharge to Home Disposition Decision Time: 13:19 06/06/2024 Departure Time: 13:30 06/06/2024 Measurements Wt: 63.5 kg, Ht/Stevan: 67.0 in, BMI: 21.93 Initial Vital Sign Measured Time BP MAP HR RR O2Sat ETCO2 Temp Pain GCS RTS 10:04 06/06/2024 151/108 122 95 16 100% RA 98.4 F 4 Time Seen: 10:05 06/06/2024. Arrived- By private vehicle. Historian- patient. HISTORY OF PRESENT ILLNESS Chief Complaint: VOMITING and DIARRHEA. No recent travel. The patient has had nausea, bloody stools. They have occurred only once and have been associated with bright red blood on the paper and mild, intermittent abdominal pain. The pain is described as located in the upper abdomen and associated with nausea. The patient has had moderate diarrhea (worse in morning). It has been watery and blood- tinged. No black stools, flank pain, history of possible bad food exposure or known contact with a sick individual. Has not recently been camping or on antibiotics. This started about 3 weeks ago and is still present. The illness is described as moderate. Similar symptoms previously. None. 1 of 11 Narrative Recent medical care: The patient was seen recently in the office. ( seen by primary provider last week. She was given medications for anxiety which she states has not helped). REVIEW OF SYSTEMS CVS: No chest pain. NEUROLOGICAL: No headache or dizziness. : No difficulty with urination, dark urine or excessive urination. Denies current . CONSTITUTIONAL: No fever or muscle aches. RESPIRATORY: No cough or difficulty breathing. PAST HISTORY See nurses notes. has had tubes tied. Anxiety disorder Surgeries: Tubal Ligation Medications: busPIRone 5 mg tablet: 5 mg once a day . Allergies: no known drug allergies ADDITIONAL NOTES The nursing notes have been reviewed. PHYSICAL EXAM Vital Signs: Have been reviewed. Appearance: Alert. Oriented X3. No acute distress. Eyes: Pupils equal, round and reactive to light. Eyes normal inspection. ENT: Ears normal. Nose normal. Neck: Normal inspection. Neck supple. CVS: Normal heart rate. Heart sounds normal. Pulses normal. Respiratory: No respiratory distress. Painless inspiration. Breath sounds normal. Abdomen: Soft and nontender. Mild tenderness in the upper abdomen. Bowel sounds normal. No organomegaly. No mass. No rebound tenderness or guarding. 2 of 11 Narrative Skin: Normal skin color. No rash. Slightly cool skin (peripherally). Extremities: Extremities exhibit normal ROM. No lower extremity edema. Neuro: Oriented X 3. LABS, X-RAYS, AND EKG Laboratory Tests: C-REACTIVE PROTEIN Final CHRISTOPHER: 06/06/2024 10:34:00 EDT MsgRcvd: 06/06/2024 11:26 EDT Lab Test Result Reference Status Received Comments 06/06/2024 11:26 CRP <0.50 mg/dl 0.00 - 0.90 Final EDT CBC + DIFF Final CHRISTOPHER: 06/06/2024 10:34:00 EDT MsgRcvd: 06/06/2024 11:19 EDT Lab Test Result Reference Status Received Comments 06/06/2024 11:19 CBC-COMPLETE CBC + DIFF Final EDT BLOOD COUNT 06/06/2024 11:19 WBC 4.8 x 10/UL 4.5 - 10.8 Final EDT 06/06/2024 11:19 RBC 4.63 x 10/UL 4.10 - 5.30 Final EDT 06/06/2024 11:19 HEMOGLOBIN 13.6 g/dl 12.0 - 16.0 Final EDT 06/06/2024 11:19 HEMATOCRIT 42.0 % 34.0 - 46.0 Final EDT 06/06/2024 11:19 MCV 91 fl 80 - 99 Final EDT 3 of 11 Narrative 06/06/2024 11:19 MCH 29 pg 27 - 33 Final EDT 06/06/2024 11:19 MCHC 33 X10 3 32 - 36 Final EDT 06/06/2024 11:19 RDW/CV 14.0 % 12.0 - 15.6 Final EDT 06/06/2024 11:19 PLATELET 155 x10/UL 150 - 450 Final EDT 06/06/2024 11:19 AUTOMATED MPV 9.2 fl 6.6 - 10.5 Final EDT DIFFERENTIAL 06/06/2024 11:19 NEUT % 69.0 % 46.0 - 76.0 Final EDT 06/06/2024 11:19 LYMPH % 21.9 % 20.0 - 45.0 Final EDT 06/06/2024 11:19 MONOS % 8.4 % 0.0 - 10.0 Final EDT 06/06/2024 11:19 EO % 0.6 % 0.0 - 7.0 Final EDT 06/06/2024 11:19 BASO % 0.2 % 0.0 - 2.0 Final EDT 06/06/2024 11:19 Lymph # 1.04 x10/UL 0.80 - 2.80 Final EDT 06/06/2024 11:19 Neut # 3.29 x10/UL 1.50 - 7.10 Final EDT 06/06/2024 11:19 [place] # 0.40 x10/UL 0.20 - 1.00 Final EDT 06/06/2024 11:19 EO # 0.03 x10/UL 0.00 - 0.50 Final EDT 4 of 11 Narrative 06/06/2024 11:19 Baso # 0.01 x10/UL 0.00 - 0.10 Final EDT 06/06/2024 11:19 MANUAL DIFF N/A New Order EDT 06/06/2024 11:19 MORPHOLOGY N/A New Order EDT CMP with eGFR Final CHRISTOPHER: 06/06/2024 10:34:00 EDT MsgRcvd: 06/06/2024 11:17 EDT Lab Test Result Reference Status Received Comments COMPREHENSIVE 06/06/2024 CMP with eGFR Final METABOLIC 11:17 EDT PANEL 06/06/2024 SODIUM 143 mmol/l 136 - 145 Final 11:17 EDT 06/06/2024 POTASSIUM 4.2 mmol/L 3.5 - 5.1 Final 11:17 EDT 06/06/2024 CHLORIDE 106 mmol/L 98 - 107 Final 11:17 EDT 06/06/2024 CO2 27.3 mmol/L 21.0 - 32.0 Final 11:17 EDT 06/06/2024 GLUCOSE 97 mg/dl 74 - 106 Final 11:17 EDT 06/06/2024 BUN 13 mg/dl 7 - 18 Final 11:17 EDT 06/06/2024 CREATININE 0.77 mg/dl 0.55 - 1.02 Final 11:17 EDT 5 of 11 Narrative 11 U/L 06/06/2024 AST/SGOT 13 - 39 Final Below low normal 11:17 EDT 06/06/2024 ALK PHOS 49 U/L 46 - 116 Final 11:17 EDT 06/06/2024 CALCIUM 9.5 mg/dl 8.5 - 10.1 Final 11:17 EDT TOTAL 06/06/2024 7.8 g/dl 6.4 - 8.2 Final PROTEIN 11:17 EDT 06/06/2024 ALBUMIN 4.4 g/dL 3.4 - 5.0 Final 11:17 EDT 06/06/2024 GLOBULIN 3.4 G/DL 1.5 - 3.8 Final 11:17 EDT 06/06/2024 A/G RATIO 1.3 0.9 - 1.6 Final 11:17 EDT 06/06/2024 TOTAL BILI 1.0 mg/dl 0.2 - 1.0 Final 11:17 EDT 06/06/2024 B/C RATIO 17 ratio 0 - 30 Final 11:17 EDT 06/06/2024 ALT/SGPT 19 U/L 16 - 63 Final 11:17 EDT 06/06/2024 ANION GAP 14 mmol/L 10 - 20 Final 11:17 EDT 06/06/2024 AGE 29 years Final 11:17 EDT 06/06/2024 eGFR >60 ML/MINUTE 60 - 999 Final 11:17 EDT 6 of 11 Narrative ACCORDING TO THE NATIONAL KIDNEY DISEASE EDUCATION PROGRAM(NKDE), A NORMAL eGFR IS A VALUE GREATER THAN OR EQUAL TO 60 ML/MIN/1.73 SQ METERS. 06/06/2024 CHRONIC KIDNEY eGFR(AA) >60 ML/MINUTE 60 - 999 Final 11:17 EDT DISEASE: <60mL/MIN/1.73 SQ METERS KIDNEY FAILURE: <15mL/MIN/1.73 SQ METERS THIS TEST SHOULD ONLY BE USED FOR PATIENTS 18 YEARS OF AGE AND OLDER. LACTATE Final CHRISTOPHER: 06/06/2024 10:34:00 EDT MsgRcvd: 06/06/2024 11:24 EDT Lab Test Result Reference Status Received Comments 06/06/2024 11:24 LACTATE 1.0 mmol/L 0.4 - 2.0 Final EDT URINALYSIS 7 of 11 Narrative Final CHRISTOPHER: 06/06/2024 10:34:00 EDT MsgRcvd: 06/06/2024 11:09 EDT Lab Test Result Reference Status Received Comments 06/06/2024 11:09 URINALYSIS Final URINALYSIS EDT 06/06/2024 11:09 Specimen Type R New Order EDT NORMAL: 06/06/2024 11:09 Color yellow Final YELLOW EDT NORMAL: 06/06/2024 11:09 Clarity [email or web address] Final CLEAR EDT NORMAL: 06/06/2024 11:09 ph 7 Final 5.0-8.0 EDT 15 NORMAL: 06/06/2024 11:09 Protein Final Abnormal NEGATIVE EDT NORMAL: 06/06/2024 11:09 Glucose NORM Final NORMAL EDT NORMAL: 06/06/2024 11:09 Ketone NEG Final NEGATIVE EDT NORMAL: 06/06/2024 11:09 Bilirubin NEG Final NEGATIVE EDT NORMAL: 06/06/2024 11:09 Blood NEG Final NEGATIVE EDT 1 NORMAL: 06/06/2024 11:09 Urobilinog Final Abnormal NORMAL EDT NORMAL: 06/06/2024 11:09 Sp [place] 1.015 Final 1.010-1.030 EDT 8 Narrative NORMAL: 06/06/2024 11:09 Nitrite NEG Final NEGATIVE EDT NORMAL: 06/06/2024 11:09 Leukocytes NEG Final NEGATIVE EDT 06/06/2024 11:09 Microscopic NOT INDICATED Final EDT Diagnostic Study Tests: CT ABDOMEN/PELVIS W Final EXAM Date: 06/06/2024 11:20:00 EDT MsgRcvd: 06/06/2024 11:23 EDT [address] [address] Patient: ROCÍO BLAIR Phone#: : 1995 Age: 29 Gender: F Pt. Type: ER Account: [id number] Location: 052 Ordering: [place] HODGE Exam Date: 06/06/2024/10:46 Family Phys: RHINA ESCALONAR Charge Code: 300220 Physician: [place] Order #: [id number] Dose#: [id number] PROCEDURE: CT ABDOMEN/PELVIS WITH CONTRAST COMPARISON: None. INDICATIONS: Diarrhea. TECHNIQUE: After obtaining the patient's consent, CT images were created with non-ionic intravenous contrast material. All CT scans at this facility use dose modulation, iterative reconstruction, and/or weight based dosing when appropriate to reduce radiation dose to as low as reasonably achievable. IV CONTRAST: Omnipaque 350,80ml TOTAL DOSE: 9.6 CTDIvol(mGy) FINDINGS: LIVER: Normal. No enlargement, atrophy, abnormal density, or significant focal 9 of 11 Narrative lesion. BILIARY: Gallbladder is present PANCREAS: Normal. No lesion, fluid collection, ductal dilatation, or atrophy. SPLEEN: Normal. No enlargement or focal lesion. KIDNEYS: Kidneys enhance and excrete contrast symmetrically. No hydronephrosis. ADRENALS: Normal. No mass or enlargement. AORTA/VASCULAR: No aortic aneurysm. RETROPERITONEUM: Normal. No mass or adenopathy. BOWEL/MESENTERY: No bowel obstruction or dilatation. No significant stool burden. Appendix is unremarkable in size and contains air. ABDOMINAL WALL: Small fat containing umbilical hernia URINARY BLADDER: Normal. No visible focal wall thickening, lesion, or calculus. PELVIC NODES: Normal. No adenopathy. PELVIC ORGANS: Uterus is present. No adnexal mass. Corpus luteal cyst in the left ovary. Nonspecific calcification in the right hemipelvis, appears to medial to be within the ureter. Likely representing a phlebolith. BONES: Normal. No bony lesion or fracture. Continued Report - Page 2 of 2 Patient: ROCÍO BLAIR Phone#: : 1995 Age: 29 Gender: F Pt. Type: ER Account: [id number] Location: 052 Ordering: [place] HODGE Exam Date: 06/06/2024/10:46 Family Phys: RHINA PRINCE Charge Code: 946325 Physician: [place] Order #: [id number] Dose#: [id number] LUNG BASES: Visualized portion of the lower thorax demonstrates decreased AP to mediolateral ratio, a Taran index of 3.8, this would indicate severe pectus excavatum; however partially imaged. OTHER: Negative. CONCLUSION: 1. Limited visualization of the lower thorax appears to show pectus excavatum, however partially imaged. 2. No acute intra-abdominal or pelvic abnormality. Dictated by: Concepcion Driver MD on 06/06/2024 at 11:04 Approved by: Concepcion Driver MD on 06/06/2024 at 11:20 PROGRESS AND PROCEDURES 10 of 11 Narrative Differential Diagnosis: I considered gastritis and gastroenteritis as a possible cause of vomiting in this patient. This is a partial list of diagnoses considered. I considered viral gastroenteritis, parasitic infection and irritable bowel syndrome as a possible cause of diarrhea in this patient. This is a partial list of diagnoses considered. MEDICAL DECISION MAKING: Pertinent clinical findings include the acute presentation. The exam revealed no vital signs that were significantly abnormal. Serious conditions are unlikely to be a cause for the patient's findings. The diagnosis appears to be benign. Disposition: Condition: good. Discharged in fair condition. Discharge decision based on the following: patient's condition is stable; patient's exam is stable; no seriously abnormal test results. CLINICAL IMPRESSION Vomiting with nausea. Diarrhea DISCHARGE INSTRUCTIONS Prescription Medications: Medications prescribed: Protonix, Ondansetron ODT. OTC Medications: Take Imodium AD according to label instructions. Available over the counter. Follow-up: Follow up with your healthcare provider in two days. Call for an appointment. Sabi Landis (Electronically signed by Nj Hodge M.D. 06/06/24 15:15:14 EDT) Generated by [facility] of ED MED ADMINISTRATION DETAIL Observed: 1 9:54 AM Status: F Source: [facility] Poultry Raiser Medication Administration Record [address] [address] [id number] 06/06/2024 Patient: ROCÍO BLAIR Sex: Female : 1995 Age: 29y MEASUREMENTS: Wt: 63.5 kg, Ht/Stevan: 67.0 in, BMI: 21.93 ALLERGIES: No known drug allergies Medication Ordered Medication Administration Date/Time IV NS 0.9 % 1000 10:37 06/06 IV NS 0.9 % 1000 mL started in bag#1 1000 mL at Started mL at 999 mL/hr 999 mL/hr via Site# 1. IV patency established. IV site checked: no 10:37 06/06/2024 (warm saline) pain, redness, or swelling. IV flushed thoroughly pre-medication Gómez Holland R.N. administration. - 10:39 Gómez Holland R.N. Stopped 11:58 06/06/2024 11:58 06/06 Medication Discontinued: bag #1 completed. Total Breanna Pool R.N. amount infused: 1000 mL. IV patency established. IV site checked: Scanned no pain, redness, or swelling. IV flushed thoroughly post-medication administration. - 11:58 Breanna Pool R.N. Ondansetron IVP 4 11:09 06/06 Ondansetron IVP 4 mg given via Site# 1. Confirmed 5 Given mg (NOW x1) rights. IV patency established. IV site checked: no pain, redness, or 11:09 06/06/2024 swelling. IV flushed thoroughly pre-medication administration. IVP Gómez Holland R.N. given by nurse. - 11:14 Gómez Holland R.N. Scanned 11:58 06/06 Medication Response: No adverse reaction. The patient feels better. - 11:58 Breanna Pool R.N. Protonix 11:09 06/06 Protonix (Pantoprazole) IVP 40 mg given over 4 Given (Pantoprazole) IVP minute(s) via Site# 1. Confirmed 5 rights. IV patency established. IV 11:09 06/06/2024 40 mg (NOW x1) site checked: no pain, redness, or swelling. IV flushed thoroughly Gómez Holland R.N. pre-medication administration. IVP given by nurse. - 11:13 Gómez Holland R.N. 1 of 2 Poultry Raiser 2 of 2 CMP WITH EGFR Collected: 4 7:15 PM Status: F Source: [facility] TYPE CODE TESTS RESULT OUT OF RANGE REFERENCE UNITS LAB CMP with eGFR(LOINC) CMP with eGFR Result Comment: COMPREHENSIV E METABOLIC PANEL LAB SODIUM(LOINC) SODIUM 143 136 - 145 mmol/l LAB POTASSIUM(LOIN C) POTASSIUM 2.8 Low Alert 3.5 - 5.1 mmol/L Result Comment: REPEATED FOR VERIFICATION { CALLED TO PAGED DR. PRINCE { READ BACK BY DR. PRINCE TO AE 2027 LAB CHLORIDE(LOINC ) CHLORIDE 103 98 - 107 mmol/L LAB CO2(LOINC) CO2 28.6 21.0 - 32.0 mmol/L LAB GLUCOSE(LOINC) GLUCOSE 101 74 - 106 mg/dl LAB BUN(LOINC) BUN 6 Low 7 - 18 mg/dl LAB CREATININE(MARILEE NC) CREATININE 0.74 0.55 - 1.02 mg/dl LAB AST/SGOT(LOINC ) AST/SGOT 15 13 - 39 U/L LAB ALK PHOS(LOINC) ALK PHOS 39 Low 46 - 116 U/L LAB CALCIUM(LOINC) CALCIUM 9.3 8.5 - 10.1 mg/dl LAB TOTAL PROTEIN(LOINC) TOTAL PROTEIN 8.4 High 6.4 - 8.2 g/dl LAB ALBUMIN(LOINC) ALBUMIN 4.4 3.4 - 5.0 g/dL LAB GLOBULIN(LOINC ) GLOBULIN 4.0 High 1.5 - 3.8 G/DL LAB A/G RATIO(LOINC) A/G RATIO 1.1 0.9 - 1.6 LAB TOTAL BILI(LOINC) TOTAL BILI 0.9 0.2 - 1.0 mg/dl LAB B/C RATIO(LOINC) B/C RATIO 8 0 - 30 ratio LAB ALT/SGPT(LOINC ) ALT/SGPT 21 16 - 63 U/L LAB ANION GAP(LOINC) ANION GAP 14 10 - 20 mmol/L LAB AGE(LOINC) AGE 29 years LAB eGFR(LOINC) eGFR 92 60 - 999 ML/MINUT E LAB eGFR(AA)(LOINC ) eGFR(AA) 111 60 - 999 ML/MINUT E Result Comment: ACCORDING TO THE NATIONAL KIDNEY DISEASE EDUCATION PROGRAM(NKDE), A NORMAL eGFR IS A VALUE GREATER THAN OR EQUAL TO 60 ML/MIN/1.73 SQ METERS. CHRONIC KIDNEY DISEASE: <60mL/MIN/1.73 SQ METERS KIDNEY FAILURE: <15mL/MIN/1.73 SQ METERS THIS TEST SHOULD ONLY BE USED FOR PATIENTS 18 YEARS OF AGE AND OLDER. Performed By: #### [id number] ## ## [facility] [place] [address] CBC + DIFF Collected: 4 7:15 PM Status: F Source: [facility] TYPE CODE TESTS RESULT OUT OF RANGE REFERENCE UNITS LAB CBC + DIFF(LOINC) CBC + DIFF Result Comment: CBC-COMPLETE BLOOD COUNT LAB WBC(LOINC) WBC 6.4 4.5 - 10.8 x 10EE3/UL LAB RBC(LOINC) RBC 4.43 4.10 - 5.30 x 10EE6/UL LAB HEMOGLOBIN(MARILEE NC) HEMOGLOBIN 13.0 12.0 - 16.0 g/dl LAB HEMATOCRIT(MARILEE NC) HEMATOCRIT 40.1 34.0 - 46.0 % LAB MCV(LOINC) MCV 91 80 - 99 fl LAB MCH(LOINC) MCH 29 27 - 33 pg LAB MCHC(LOINC) MCHC 32 32 - 36 X10 3 LAB RDW/CV(LOINC) RDW/CV 14.1 12.0 - 15.6 % LAB PLATELET(LOINC ) PLATELET 186 150 - 450 x10EE3/UL LAB MPV(LOINC) MPV 9.8 6.6 - 10.5 fl Result Comment: AUTOMATED DI FFERENTIAL LAB NEUT %(LOINC) NEUT % 58.2 46.0 - 76.0 % LAB LYMPH %(LOINC) LYMPH % 33.0 20.0 - 45.0 % LAB MONOS %(LOINC) MONOS % 8.1 0.0 - 10.0 % LAB EO %(LOINC) EO % 0.3 0.0 - 7.0 % LAB BASO %(LOINC) BASO % 0.4 0.0 - 2.0 % LAB Lymph #(LOINC) Lymph # 2.10 0.80 - 2.80 x10EE 3/UL LAB Neut #(LOINC) Neut # 3.70 1.50 - 7.10 x10EE3 /UL LAB [place] #(LOINC) [place] # 0.51 0.20 - 1.00 x10EE3 /UL LAB EO #(LOINC) EO # 0.02 0.00 - 0.50 x10EE3/U L LAB Baso #(LOINC) Baso # 0.02 0.00 - 0.10 x10EE3 /UL LAB MANUAL DIFF(LOINC) MANUAL DIFF N/A LAB MORPHOLOGY(MARILEE NC) MORPHOLOGY N/A Performed By: #### [id number] ## ## [facility],[address] [place] [address] ALLERGIES DATE TYPE / CODE NAME / CODE REACTION SEVERITY SOURCE Miscellaneous Allergy/[id number](SNO MED CT) NO KNOWN ALLERGIES [facility] Drug Class/669257265(SNOME D CT) NO KNOWN ALLERGIES [facility] Miscellaneous Allergy/[id number](SNO MED CT) No Known Drug Allergies Moderate (Severity Modifier) (Qualifier Value) [facility] ENCOUNTERS ADMIT/DISCHARGE ACCOUNT NUMBER ADMITTING ENCOUNTER CLASS LOCATION SOURCE 12/15/2024 [id number] Ambulatory [facility] ding:[facility] 10/10/2024 [id number] [facility]10/05/19 [id number] RHINA PRINCE Ambulatory Building:[facility] 07/07/2024/07/07/20 [id number] Ambulatory [facility] ding:[facility] 06/06/2024/06/06/20 [id number] [place] HODGE Emergency Buildin Room: ERBed: [address] [place] [address] 05/24/2024/05/24/20 [id number] RHINA PRINCE NP Ambulatory Building:[facility] PAYERS ENCOUNTER GUARANTOR PAYER SUBSCRIBER SOURCE 12/15/2024 Primary Insurance:[facility] MEDICAIDPolicy Number: [id number] Date:1974-13-36Gwkm Name:Kevin CUELLAR: [id number] [place] [address] [facility] 10/10/2024 ROCÍO LEYB: [id number] [place], [place] [address]Wku: () Primary Insurance:[employer] MEDICAIDPolicy Number: [id number] Date:[id number] [address] [place] [address]WR: ROCÍO BENAVIDEZ SUZANNEDOB: [id number] [place] [address]Sri: (HP) [facility] 10/05/2024 ROCÍO BENAVIDEZ SUZANNEDOB: [place] [address]Bzh: (HP) Primary Insurance:[facility] MEDICAIDPolicy Number: [id number] Date:[id number] [address] [address]YX: ROCÍO BENAVIDEZ TOMTHOMASDOB: [id number] [place] [address]Mfc: () [facility] 07/07/2024 Primary Insurance:[facility] MEDICAIDPolicy Number: [id number] Date:4851-02-96Atem Name:X ROCÍO SUZANNEDOB: [id number] [place] [address] [facility] 06/06/2024 ROCÍO Garcia TOMShivamKINSDOB: [place] [address]Jas: () Primary Insurance:[facility] OUTPATIENTPolicy Number: [id number] Date:Plan Name:X3 ROCÍO N SUZANNEDOB: [id number] [place] [address] [facility] 05/24/2024 ROCÍO N NICOLEKINSDOB: [place] [address]Jhr: (HP) [facility]Policy Number: [id number] Date:Plan Name:X3 ROCÍO BLAIRDOB: [id number] [place] [address] [facility]
--- NOTE | 2025-05-15 09:23 | VDLE_ITS ---
Reason For Study Reason For Study: S/P Ablation RIGHT LEFT S/P Rt GSV Ligation and RF Ablation. CFV is compressible, spontaneous, phasic, competent, No flow visualized in GSV at SFJ to Knee. Vessel and demonstrates normal augmentation. appears dilated and NONCOMPRESSIBLE. Finding is consistent with ablation procedure. GSV prox calf to ankle appears compressible. CFV is compressible, spontaneous, phasic, competent and demonstrates normal augmentation. FV is compressible, spontaneous, phasic, competent and demonstrates normal augmentation. POP V is compressible, spontaneous, phasic, competent and demonstrates normal augmentation. T/P Trunk is compressible. PTV is compressible. RT PerV is compressible. Procedure This is a venous duplex using B-mode, color flow and spectral Doppler. Exam performed in department. The exam was diagnostic. VL/Venous Duplex US, Unilateral Interpretation Summary Deep veins of the right lower extremity are patent and compressible segmentally . There is no evidence of right lower extremity deep vein thrombosis. Right great saphenous vein occluded consistent with recent ablation. Ordering Physician: Noreen Cordova Referring Physician: So Reed Performed By: Jakob Leonard RVT
== END | disposition home or self-care (01) ==
LOC: CVS 09:21
PROVIDERS: PCP Nurse Practitioner Family; Referring Provider Physician Assistant; Visit Provider Physician Assistant
DX: Z48.812 Encounter for surgical aftercare following surgery on the circulatory system (principal); I87.2 Venous insufficiency (chronic) (peripheral)
CPT/HCPCS: 93971

== ENCOUNTER → 2025-06-08 | Outpatient (CLI) | payer MEDICAID, SELFPAY ==
--- NOTE | 2025-06-08 14:26 | VDLE_ITS ---
Reason For Study Reason For Study: RLE Pain RIGHT LEFT S/P Rt GSV Ligation and RF Ablation. CFV is compressible, spontaneous, phasic, competent, No flow visualized in GSV at SFJ to Knee. Vessel and demonstrates normal augmentation. appears dilated and NONCOMPRESSIBLE. Finding is consistent with ablation procedure. Vessel is compressible knee to ankle. CFV is compressible, spontaneous, phasic, competent and demonstrates normal augmentation. FV is compressible, spontaneous, phasic, competent and demonstrates normal augmentation. POP V is compressible, spontaneous, phasic, competent and demonstrates normal augmentation. T/P Trunk is compressible. PTV is compressible. RT PerV is compressible. Procedure This is a venous duplex using B-mode, color flow and spectral Doppler. Exam performed in department. The exam was diagnostic. VL/Venous Duplex US, Unilateral Interpretation Summary Deep veins of the right lower extremity are patent and compressible segmentally . There is no evidence of right lower extremity deep vein thrombosis. Right great saphenous vein occluded consistent with recent ablation. Ordering Physician: Andres Valentin Referring Physician: So Reed Performed By: Jakob Leonard RVT and Student
--- OUTSIDE RECORDS SUMMARY | 2025-06-08 17:09 | XMS RPT_ITS | CCD ---
Author Organization [facility] Care Team Providers Care Canadian Bacon Tier Name Role Phone NJ HODGE Attending Unavailable UNGERER, YANELI PRODUCTION GEAR CUTTER Referring Unavailable NJ HODGE Admitting Unavailable NJ HODGE Primary Care Unavailable UNGERER, YANELI PRODUCTION GEAR CUTTER Consulting Unavailable PROVIDER, UNKNOWN Consulting Unavailable UNGERER, YANELI PRODUCTION GEAR CUTTER Attending Unavailable UNGERER, YANELI PRODUCTION GEAR CUTTER Admitting Unavailable UNGERER, YANELI PRODUCTION GEAR CUTTER Primary Care Unavailable UNGERER, YANELI PRODUCTION GEAR CUTTER Consulting Unavailable PROVIDER, UNKNOWN Consulting Unavailable UNGERER, YANELI PRODUCTION GEAR CUTTER Admitting Unavailable UNGERER, YANELI PRODUCTION GEAR CUTTER Primary Care Unavailable UNGERER, YANELI PRODUCTION GEAR CUTTER Consulting Unavailable UNGERER, YANELI PRODUCTION GEAR CUTTER Attending Unavailable PROVIDER, UNKNOWN Consulting Unavailable Ungerer LINEN FOLDER, Yaneli D Primary Care Provider [phone] Ungerer Shelbie RIOSica Primary Care Provider [phone] UNGERER, YANELI Referring Unavailable UNGERER, YANELI Primary Care Unavailable UNGERER, YANELI Admitting Unavailable FALLS, MELISA PERES Attending Unavailabl e FALLS, MELISA PERES Attending Unavailabl e UNGERER, YANELI Primary Care Unavailable Ungerer PRODUCTION GEAR CUTTER-C, PRODUCTION GEAR CUTTER. Yaneli Primary Care Provider Ungerer PRODUCTION GEAR CUTTER-C, PRODUCTION GEAR CUTTER. Yaneli Referring Provider Noreen Glynn Attending Provider Erna Bess Attending Provider Erna Bess Referring Provider UNGERER, YANELI D Primary Care Unavailable UNGERER, YANELI D Primary Care Unavailable Ungerer PRODUCTION GEAR CUTTER-C, Yaneli Primary Care Provider Ungerer PRODUCTION GEAR CUTTER-C, Yaneli Referring Provider Tannhof PRODUCTION GEAR CUTTER-C, So Attending Provider Tannhof PRODUCTION GEAR CUTTER-C, So Primary Care Provider Tannhof PRODUCTION GEAR CUTTER-C, So Referring Provider Cordova PA, Noreen Referring Provider Homero MONREAL, Dr. Campos Attending Provider Ungerer PRODUCTION GEAR CUTTER-C, Yaneli Primary Care Physician Tannhof PRODUCTION GEAR CUTTER-C, So Attending Physician Cordova PA, Noreen Attending Physician Tannhof PRODUCTION GEAR CUTTER-C, [place]art Primary Care Physician Homero MONREAL, Dr. Campos Attending Physician Homero MONREAL, Dr. Campos Referring Provider Homero MONREAL, Dr. Campos Nurse Practitioner Cordova, Noreen Referring Unavailable Tannhof, So Primary Care Unavailable Cordova, Noreen Attending Unavailable Ungerer, Yaneli Primary Care Unavailable Atanasov, Erna Referring Unavailable Atanasov, Erna Attending Unavailable Tannhof, So Attending Unavailable Ungerer, Yaneli Primary Care Unavailable Tannhof, So Primary Care Unavailable Cordova, Noreen Attending Unavailable Cordova, Noreen Referring Unavailable Homero, Andres Attending Unavailable Cordova, Noreen Referring Unavailable Tannhof, So Primary Care Unavailable Cordova, Noreen Referring Unavailable Tannhof, So Primary Care Unavailable [place], Andres Attending Unavailable Ungerer, Yaneli Referring Unavailable Ungerer, Yaneli Primary Care Unavailable Cordova, Noreen Attending Unavailable Ungerer, Yaneli Primary Care Unavailable Ungerer, Yaneli Referring Unavailable Cordova, Noreen Attending Unavailable Tannhof, So Primary Care Unavailable Cordova, Noreen Attending Unavailable Tannhof, So Referring Unavailable Ungerer, Yaneli Primary Care Unavailable Ungerer, Yaneli Referring Unavailable Atanasov, Erna Attending Unavailable Tannhof, So Referring Unavailable Tannhof, So Primary Care Unavailable Noreen Cordova Attending Unavailable [facility] Referring Unavailable [facility] Primary Care Unavailable Noreen Cordova Attending Unavailable Andres Valentin Referring Unavailable Andres Valentin Attending Unavailable [facility] Care Unavailable Homero, Andres Consulting Unavailable Ungerer, Yaneli Referring Unavailable Ungerer, Yaneli Primary Care Unavailable Katia Spencer Attending Unavailable [facility] Care Unavailable Ungerer, Yaneli Referring Unavailable Erna Garcia Attending Unavailable [place], Andres Referring Unavailable Andres Valentin Attending Unavailable [facility] Unavailable Medications Current Medications Medication Drug Class(es) Dates Sig (Normalized) Sig (Original) [id number] 200 actuat albuterol 0.09 mg/actuat metered dose inhaler (2 sources) beta2-Adrenergic Agonist Start: 07-07-2024 take 2 puff(s) by inhalation every four hours as needed for wheezing albuterol HFA (PROVENTIL HFA, VENTOLIN HFA) 90 mcg/actuation inhaler Inhale 2 Puffs as instructed every 4 hours as needed for wheezing/shortness of breath. 8 g 07/07/2024 Active azithromycin 250 mg oral tablet (1 source) Macrolide Antimicrobial Start: 07-07-2024 End: 07-12-2024 azithromycin (ZITHROMAX Z-GABBY) 250 mg tablet Take 2 tablets day one, then, 1 tablet daily until gone. 6 tablet 07/07/2024 07/12/2024 Active busPIRone hydrochloride 5 mg oral tablet (2 sources) Start: 05-25-2024 take 1 tablet by mouth every eight hours as needed busPIRone (BUSPAR) 5 mg tablet Take 5 mg by mouth three times a day as needed. 05/25/2024 Active erythromycin 0.005 mg/mg ophthalmic ointment (1 source) Macrolide, Macrolide Antimicrobial Start: 12-15-2024 End: 12-22-2024 erythromycin (ROMYCIN) 5 mg/gram (0.5 %) ophthalmic ointment Use 1 application in the right eye four times daily for 7 days. 3.5 g 12/15/2024 12/22/2024 Active Ethinyl Estradiol / norgestimate (2 sources) Progestin, Estrogen Start: 11-29-2012 take 1 tablet by mouth once daily norgestimate 0.25 mg-ethinyl estradiol 35 mcg (SPRINTEC) 0.25-35 mg-mcg per tablet Indications: General counseling for prescription of oral contraceptives Take 1 tablet by mouth once daily. 1 Package 5 11/29/2012 Active Inhalational Spacing Device (1 source) Start: 07-07-2024 End: 07-07-2024 Inhalational Spacing Device 1 Device one time only for 1 dose. 1 Each 07/07/2024 07/07/2024 Active metoclopramide 10 mg oral tablet (2 sources) Dopamine-2 Receptor Antagonist Start: 08-06-2015 take 1 tablet by mouth every six hours as needed metoclopramide HCl (REGLAN) 10 mg tablet Take 1 tablet by mouth four times daily as needed (nausea). 60 tablet 2 08/06/2015 Active NIFEdipine 30 mg osmotic 24 hr extended release oral tablet (2 sources) Dihydropyridine Calcium Channel Elia Start: 05-12-2024 take 1 tablet by mouth every hour NIFEdipine ER (PROCARDIA XL) 30 mg 24 hr tablet Take 1 tablet by mouth every afternoon. 05/12/2024 Active Carrizo Hill (Nk) (3 sources) Start: 02-01-2025 Carrizo [place] (Nk) Active February 01, 2025 12:00am Start: 02-01-2025 Car[place]zo [place] (Nk) D iscontinued February 01, 2025 12:00am oxyCODONE hydrochloride 5 mg oral tablet (7 sources) Opioid Agonist Start: 05-11-2025 take 1 tablet by mouth every eight hours as needed for pain Start: 03-15-2021 End: 04-24-2021 take 1 capsule by mouth every six hours as needed for pain Oxycodone 5 mg capsule Discontinued 5 mg PO EVERY 6 HOURS as needed for pain 10 4 0 March 15, 2021 April 24, 2021 10:12am Postoperative pain Other acute postprocedural pain pantoprazole 40 mg delayed release oral tablet (2 sources) Proton Pump Inhibitor Start: 06-06-2024 take 1 tablet by mouth once pantoprazole DR (PROTONIX) 40 mg tablet Take 1 tablet by mouth every afternoon. 06/06/2024 Active potassium chloride 20 meq powder for oral solution (2 sources) Start: 05-25-2024 KLOR-CON 20 mE q packet DISSOLVE CONTENTS OF 1 PACKET WITH 4 OUNCES OF WATER OR OTHER BEVERAGE TWO TIMES DAILY 05/25/2024 Active Completed/Discontinued Medications Medication Drug Class(es) Dates Sig (Normalized) Sig (Original) amoxicillin 500 mg oral capsule (6 sources) Penicillin-class Antibacterial Start: 07-27-2022 End: 10-12-2022 take 1 capsule by mouth three times daily Amoxicillin 500 mg capsule Discontinued 500 mg PO THREE TIMES A DAY 21 0 July 27, 2022 1:00am October 12, 2022 11:31am Upper respiratory tract infection Acute upper respiratory infection, unspecified amoxicillin 500 mg / clavulanate 125 mg oral tablet (6 sources) Penicillin-class Antibacterial Start: 10-12-2022 End: 10-22-2022 Amoxicillin-Pot Clavulanate (Augmentin) 500-125 mg tablet Discontinued 1 {tbl} PO TWICE A DAY 20 10 0 October 12, 2022 1:00am October 21, 2022 1:00am October 22, 2022 1:04am apple cider vinegar 600 mg oral capsule (6 sources) Start: 01-23-2020 End: 08-27-2020 take 1 capsule by mouth once daily Apple Cider Vinegar 600 MG capsule Discontinued 600 mg PO DAILY January 23, 2020 12:00am August 27, 2020 3:03pm doxycycline monohydrate 100 mg oral capsule (6 sources) Tetracycline-class Drug Start: 01-23-2020 End: 08-27-2020 take 1 capsule by mouth twice daily Doxycycline Monohydrate 100 MG capsule Discontinued 100 mg PO TWICE A DAY January 23, 2020 12:00am August 27, 2020 3:03pm FOR 10 DAYS, STARTED 01/20/2020 famotidine 20 mg oral tablet (12 sources) Histamine-2 Receptor Antagonist Start: 02-07-2021 End: 04-24-2021 take 1 tablet by mouth at bedtime Famotidine (Pepcid) 20 mg tablet Discontinued 20 mg PO AT BEDTIME March 14, 2021 12:42pm April 24, 2021 10:11am heartburn fluticasone propionate 0.05 mg/actuat metered dose nasal spray (6 sources) Corticosteroid Start: 10-12-2022 End: 05-18-2024 take 50 ug nasal route every twelve hours Fluticasone Propionate (Flonase Allergy Relief) 50 mcg/actuation spray,suspension Discontinued 1 NMA INTRANASAL Q12H 16 October 12, 2022 1:00am May 18, 2024 9:20am administer into each nostril ibuprofen 800 mg oral tablet (6 sources) Nonsteroidal Anti-inflammatory Drug Start: 03-14-2021 End: 04-24-2021 take 1 tablet by mouth every eight hours as needed for pain Ibuprofen 800 mg tablet Discontinued 800 mg PO Q8H as needed for pain 30 1 March 14, 2021 12:00am April 24, 2021 10:11am ondansetron 4 mg disintegrating oral tablet (18 sources) Serotonin-3 Receptor Antagonist Start: 05-18-2024 End: 11-09-2024 take 1 tablet by mouth every eight hours as needed for nausea Ondansetron 4 mg tablet,disintegra ting Discontinued 4 mg PO EVERY 8 HOURS NEEDED as needed for Nausea 10 0 May 18, 2024 12:00am November 09, 2024 10:14am Start: 08-27-2020 End: 04-24-2021 take 1 tablet by mouth every eight hours Ondansetron Hcl 8 mg tablet Discontinued 8 mg PO Q8H 30 3 September 07, 2020 11:31am April 24, 2021 10:12am Pediatric Multivitamin No.49 (Flintstones Gummies) Tablet,Chewable (6 sources) Start: 03-14-2021 End: 04-24-2021 Pediatric Multivitamin No.49 (Flintstones Gummies) Tablet,Chewable Discontinued 2 {tbl} PO DAILY March 14, 2021 12:00am April 24, 2021 10:12am supplement Start: 03-14-2021 End: 04-24-2021 Pediatric Multivitamin No.49 (Flintstones Gummies) Tablet,Chewable Discontinued 2 {tbl} PO DAILY March 14, 2021 12:00am April 24, 2021 10:12am predniSONE 10 mg oral tablet (6 sources) Start: 10-12-2022 End: 05-18-2024 Prednisone 10 mg tablet Discontinued 10 mg PO .COMPLEX 30 0 October 12, 2022 1:00am May 18, 2024 9:20am Take 4 pills for 3 days, 3 pills for 3 days, 2 pills for 3 days, take 1 pill for 3 days promethazine hydrochloride 25 mg oral tablet (8 sources) Phenothiazine Start: 05-18-2024 End: 11-09-2024 take 1 tablet by mouth every six hours as needed for nausea and vomiting Promethazine 25 mg tablet Discontinued 25 mg PO EVERY 6 HOURS as needed for nausea and vomiting 20 0 May 18, 2024 12:00am November 09, 2024 10:14am Start: 08-06-2015 take 1 tablet by lissa th every six hours as needed promethazine (PHENERGAN) 12.5 mg tablet Take 1 tablet by mouth every 6 hours as needed for Nausea/Vomiting. 30 tablet 3 08/06/2015 Active sennosides, alf 8.6 mg oral tablet (20 sources) Start: 08-27-2020 End: 10-12-2022 take 1 tablet by mouth once daily Sennosides (Senokot) 8.6 mg tablet Discontinued 8.6 mg PO DAILY 13 02May 13, 2022 12:30pm October 12, 2022 11:42am stool softener Problems Active Problems Problem Classification Problem Date Documented Da te Episodic/Chronic Abdominal pain (6 sources) Abdominal pain; Translations: [Unspecified abdominal pain] 05-26-2024 Episodic Complication of device; implant or graft (6 sources) Disorder of intrauterine contraceptive device; Translations: [Other mechanical complication of intrauterine contraceptive device, initial encounter] 08-27-2020 Episodic Comment on above: mechanical and displ acement Diseases of white blood cells (3 sources) Leukopenia; Translations: [Decreased white blood cell count, unspecified] Onset: 10-05-2024 10-05-2024 Chronic Immunizations and screening for infectious disease (5 sources) Contact with and (suspected) exposure to other communicable diseases; Translations: [Contact with or exposure to other communicable diseases] Onset: 10-05-2024 07-07-2024 Episodic Inflammation; infection of eye (except that caused by tuberculosis or sexually transmitteddisease) (1 source) Bacterial conjunctivitis; Translations: [Unspecified conjunctivitis] 12-15-2024 Episodic Nausea and vomiting (7 sources) Nausea with vomiting, unspecified; Translations: [Nausea and vomiting] Onset: 05-24-2024 05-26-2024 Episodic Other aftercare (1 source) Encounter for surgical aftercare following surgery on the circulatory system; Translations: [Encounter for surgical aftercare following surgery on the circulatory system] Onset: 05-28-2025 Episodic Other circulatory disease (5 sources) Raynaud's syndrome without gangrene; Translations: [Raynaud's syndrome without gangrene] Onset: 05-12-2024 Chronic Other circulatory disease (2 sources) Acrocyanosis; Translations: [Other specified peripheral vascular diseases] Onset: 10-15-2009 10-15-2009 Chronic Other circulatory disease (2 sources) Raynaud's phenomenon; Translations: [Raynaud's syndrome without gangrene] Onset: 10-15-2009 10-15-2009 Chronic Other circulatory disease (7 sources) Raynaud's disease; Translations: [Raynaud's syndrome without gangrene] 10-05-2024 Chronic Other complications of (6 sources) H/O: ; Translations: [Supervision of with other poor reproductive or obstetric history, unspecified trimester] 03-15-2021 Episodic Other connective tissue disease (6 sources) Muscle pain; Translations: [Myalgia, unspecified site] 05-26-2024 Episodic Other diseases of veins and lymphatics (4 sources) Vascular insufficiency; Translations: [Venous insufficiency (chronic) (peripheral)] 02-01-2025 Episodic Other gastrointestinal disorders (1 source) Diarrhea, unspecified; Translations: [Diarrhea, unspecified] Onset: 05-24-2024 Episodic Other gastrointestinal disorders (11 sources) Abnormal bowel sounds; Translations: [Other abnormal bowel sounds] 11-16-2024 Episodic Other lower respiratory disease (1 source) Cough; Translations: [Acute cough] 07-07-2024 Episodic Other and delivery including normal (20 sources) Normal ; Translations: [Encounter for supervision of normal first , first trimester] Onset: 08-06-2015 Resolved: 11-06-2016 11-06-2016 Episodic Comment on above: PRR GORDY 1 girl Sandie PC: Manju Chacko BF: Kaz genetic- low risk, a nd carrier testing- neg ;neg ntd. NL anatomy, 02/21 nl growth. GBS neg Other upper respiratory infections (13 sources) Acute upper respiratory infection; Translations: [Acute upper respiratory infection, unspecified] 07-07-2024 Episodic Polyhydramnios and other problems of amniotic cavity (6 sources) Premature rupture of membranes; Translations: [Full-term premature rupture of membranes, unspecified as to length of time between rupture and onset of labor] 03-15-2021 Episodic Substance-related disorders (8 sources) Moderate smoker (20 or less per day) ; Translations: [Nicotine dependence, cigarettes, uncomplicated] Onset: 08-06-2015 08-06-2015 Chronic Comment on above: needs random tox; neg Urinary tract infections (6 sources) Acute lower urinary tract infection; Translations: [Urinary tract infection, site not specified] 07-27-2022 Episodic Varicose veins of lower extremity (20 sources) Venous varices; Translations: [Varicose veins of unspecified lower extremity with other complications] Onset: 02-15-2025 06-22-2024 Episodic Past or Other Problems Problem Classification Problem Date Documented Da te Episodic/Chronic Other complications of ; puerperium affecting management of mother (2 sources) Teenage ; Translations: [Teen ] Onset: 09-26-2011 Resolved: 08-13-2015 08-13-2015 Episodic Other complications of (2 sources) Anemia of ; Translations: [Anemia complicating , unspecified trimester] Onset: 12-15-2011 Resolved: 08-13-2015 08-13-2015 Chronic Other complications of (2 sources) Supervision of other high risk pregnancies, unspecified trimester; Translations: [Supervision of other high-risk ] Onset: 10-24-2011 Resolved: 08-13-2015 08-12-2021 Episodic Other complications of (2 sources) Urinary tract infection in ; Translations: [Unspecified infection of urinary tract in , unspecified trimester] Onset: 08-13-2015 Resolved: 11-06-2016 11-06-2016 Episodic Other gastrointestinal disorders (1 source) Other abnormal bowel sounds; Translations: [Other abnormal bowel sounds] Onset: 11-22-2024 Episodic Other screening for suspected conditions (not mental disorders or infectious disease) (1 source) Encounter for screening for malignant neoplasm of cervix; Translations: [Encounter for screening for malignant neoplasm of cervix] Onset: 06-17-2025 Episodic Short gestation; low weight; and growth retardation (2 sources) [id number] baby; Translations: [ small for gestational age, unspecified weight] Onset: 01-29-2012 Resolved: 08-13-2015 08-12-2021 Episodic Substance-related disorders (2 sources) Marijuana user; Translations: [Cannabis use, unspecified, uncomplicated] Onset: 12-15-2011 08-12-2021 Episodic Results Test Name Value Interpretation Reference Range Facility MR/Juan Manuel 06-01-2025 [facility] [address] [place] [address] OFFICE VISIT Date of Service: 06/01/25 MR#: [id number] Acct: [id number] Name: BULMARO BLAIR Rep #: [id number] : 1995 Provider: LAURYN Whatley Age/Sex: 30/F Location: [facility] Status: Signed Intake Vital Signs 05/18/24 09:15 05/11/25 10:31 06/01/25 09:38 Height 5 ft 7 in 5 ft 7 in Weight: 163 lb BP 122/59 H Blood Pressure Location Lt brachial Position Sitting Respiration 14 Pulse 60 Pulse Source Monitor Temp 98 F Temp Source Temporal Pulse Oximetry (%) 100 Oxygen Delivery Method room air Intake Visit Reasons: 2-4 WK F/U - R SFJ Ligation R Saphenous Is patient in pain?: No Allergies No Known Allergies Allergy (Verified 06/01/25 09:39) Medications ???Medication ???Instructions ???Recorded ???Confirmed ???Type oxycodone 5 mg tablet 5 mg PO Q8H PRN pain 1 day #3 tabs 05/11/25 06/01/25 Rx Is last menstrual period known: Yes Post menopausal: No Patient : No Have you fallen in the past year?: No PFSH Medical History Wears glasses Wears contact lenses Anxiety Alcohol use Former smoker Leg cramps Vaginal delivery Surgical History Hx of wisdom tooth extraction S/P tubal ligation H/O dilation and curettage Family History Grandfather Cancer Lung Other Heart disease Myocardial infarction Social History adopted: No household members: family housing: house current occupational status: employed current occupation: [employer] Smoking Status: Former smoker Tobacco: How many years used: 5 second hand exposure: Yes alcohol intake: never substance use type: does not use seatbelt use: always do you feel safe at home: Yes additional social history: BF: Kaz HPI HPI HPI: BULMARO BLAIR, is a 30 F who presents to the office today for follow-up s/p R SFJ ligation and R GSV RFA on 05/11/25. She still has some tenderness along the RF course but this is improving. She has noticed overall reduce tenderness along her R medial leg, she used to not be able to lie on her side and have her legs touching and now she can. She reports the R proximal thigh incision site has healed well. ROS General General: No weight change, appetite, fatigue, colon cancer, breast cancer or weakness HEENT HEENT: No difficulty swallowing, eye injury, eye surgery, swollen glands or hoarseness Endo Endocrine: No thyroid disease, diabetes mellitus, thyroid cancer, Hair loss, heat intolerance or cold intolerance Skin Skin: No rash or changing moles Musc Musculoskeletal: Yes back problems; No arthritis, rheumatoid arthritis, gout or joint pain Cardio Cardiovascular: No murmur, pacemaker, heart disease, atrial fibrillation, high blood pressure, heart attack, heart stent, palpitations, shortness of breath with exertion or chest pain Psych Psychiatric: Yes anxiety; No depression or hearing voices Resp Respiratory: No shortness of breath, No sleep apnea, No cough, No COPD, No asthma, No emphysema and No wheezing Gastro Gastrointestinal: No abdominal pain, No nausea or vomiting, No diarrhea, No constipation, No blood in stool, No acid reflux, No hemorrhoids, No ulcers, No gallbladder problem and No black,tarry stools Nick Hematologic: No blood thinners, No blood disorders, No bleeding, No anemia and No blood clots Neuro Neurologic: No system reviewed and no additional complaints, except as documented, No as per HPI, No abnormal gait, No abnormal hearing, No abnormal movements, No abnormal speech, No behavioral almonte ges, No burning sensations, No confusion, No convulsions, No disequilibrium, No dizziness, No localized weakness, No frequent falls, No headache(s), No lack of coordination, No loss of vision, No memory loss, No numbness, No other visual disturbances, No radicular pain, No restless legs, No sensory deficit, No syncope, No tingling, No tremor(s), No weakness and No other Exam Const General: cooperative, comfortable and no acute distress Orientation: alert, awake and oriented x3 HENMT Head: normal to inspection and normocephalic Ears: hearing grossly normal bilaterally and external ears normal Nose: external nose normal Eyes General: appearance normal, both eyes and all related structures EOM: EOM intact bilaterally Neck Neck: normal visual inspection and trachea midline Resp Effort Inspection: normal respiratory effort, able to speak in complete sentences, no grunting, not labored, no respiratory distress and no retractions Auscultation: clear to auscultati (more content not included)... Normal [facility] Venous Duplex US, Unilateral on 05-15-2025 Venous Duplex US, Unilateral [facility] [address] [place] [address] Venous Duplex US, Unilateral 05/15/25 0954 MR#: [id number] Acct: [id number] Name: BULMARO BLAIR Rep #: [id number] : 1995 30 From: Andres Valentin MD Attending Dr: LAURYN Whatley Status: REG CLI Ordering Dr: Noreen Cordova Date: 05/15/25 Location: [facility] Sex: F C Admitted: Reason For Study Reason For Study: S/P Ablation RIGHT LEFT S/P Rt GSV Ligation and RF Ablation. CFV is compressible, spontaneous, phasic, competent, No flow visualized in GSV at SFJ to Knee. Vessel and demonstrates normal augmentation. appears dilated and NONCOMPRESSIBLE. Finding is consistent with ablation procedure. GSV prox calf to ankle appears compressible. CFV is compressible, spontaneous, phasic, competent and demonstrates normal augmentation. FV is compressible, spontaneous, phasic, competent and demonstrates normal augmentation. POP V is compressible, spontaneous, phasic, competent and demonstrates normal augmentation. T/P Trunk is compressible. PTV is compressible. RT PerV is compressible. Procedure This is a venous duplex using B-mode, color flow and spectral Doppler. Exam performed in department. The exam was diagnostic. VL/Venous Duplex US, Unilateral Interpretation Summary Deep veins of the right lower extremity are patent and compressible segmentally. There is no evidence of right lower extremity deep vein thrombosis. Right great saphenous vein occluded consistent with recent ablation. Ordering Physician: Noreen Cordova Referring Physician: So Reed Performed By: Jakob Leonard, RICKY 05/15/251712 Date Andres Valentin MD CC: SHANKAR Reed; LAURYN Whatley Date Dictated: 05/15/[id number] Date Transcribed: 05/15/251712 Research Technician: Signed Normal [facility] Anion gap in Serum or Plasma Ordered By: Andres Valentin on 05-11-2025 Anion gap [Moles/Vol] 12 mmol/L - [facility] BUN/creatinine ratioOrdered By: Andres Valentin on 05-11-2025 Urea nitrogen/Creatinine [Mass ratio] 11.8 mg/mg - [facility] Basic Metabolic Profile (BMP )on 05-11-2025 BUN/CRE 11.8 RATIO Normal 06-05 [facility] Comment on above: Performed By: #### L 7400.0290, L3410.9992 #### [facility] [address] [place], [address] Calcium [Mass/Vol] 9.4 mg/dL Normal 7.6-11.0 [facility] Comment on above: Performed By: #### L 7400.0290, L3410.9992 #### [facility] [address] [place], [address] Chloride [Moles/Vol] 107 mmol/L Normal 98-108 [facility] Comment on above: Performed By: #### L 7400.0290, L3410.9992 #### [facility] [address] [place], [address] CO2 [Moles/Vol] 22.5 mmol/L Normal 21.0-32.0 [facility] Comment on above: Performed By: #### L 7400.0290, L3410.9992 #### [facility] [address] [place], [address] Creatinine [Mass/Vol] 0.75 mg/dL Normal 0.70-1.20 [facility] Comment on above: Performed By: #### L 7400.0290, L3410.9992 #### [facility] [address] [place], [address] ECRCL 104.72 ml/min Normal 50-250 [facility] Comment on above: Performed By: #### L 7400.0290, L3410.9992 #### [facility] [address] [place], [address] GAP 12 Normal 5-15 [facility] Comment on above: Performed By: #### L 7400.0290, L3410.9992 #### [facility] [address] [place], [address] GFR/1.73 sq M.predicted among non-blacks MDRD (S/P/Bld) [Vol rate/Area] 108 mL/min/{1.73_m2} Normal >60 [facility] Comment on above: Result Comment: mL/m in/1.73m2 CKD-EPI Creatinine Equation (2020) Performed By: #### L 7400.0290, L3410.9992 #### [facility] [address] [place], [address] Glucose [Mass/Vol] 88 mg/dL Normal 70-99 [facility] Comment on above: Performed By: #### L 7400.0290, L3410.9992 #### [facility] [address] [place], [address] Potassium [Moles/Vol] 3.8 mmol/L Normal 3.3-5.1 [facility] Comment on above: Performed By: #### L 7400.0290, L3410.9992 #### [facility] [address] [place], [address] Sodium [Moles/Vol] 141 mmol/L Normal 133-145 [facility] Comment on above: Performed By: #### L 7400.0290, L3410.9992 #### [facility] [address] [place], [address] Urea nitrogen [Mass/Vol] 9 mg/dL Normal 4-19 [facility] Comment on above: Performed By: #### L 7400.0290, L3410.9992 #### [facility] [address] [place], [address] CBC-Complete Blood Cnt No Di ffon 05-11-2025 Erythrocyte distribution width (RBC) [Ratio] 12.3 % Normal 11.6-14.6 [facility] Comment on above: Performed By: #### L 7400.0290, L3410.9992 #### [facility] [address] [place], [address] Hematocrit (Bld) [Volume fraction] 39.4 % Normal 37-47 [facility] Comment on above: Performed By: #### L 7400.0290, L3410.9992 #### [facility] [address] [place], [address] Hemoglobin (Bld) [Mass/Vol] 13.3 g/dL Normal 12.0-15.0 [facility] Comment on above: Performed By: #### L 7400.0290, L3410.9992 #### [facility] [address] [place], [address] MCH (RBC) [Entitic mass] 30.6 pg Normal 27.0-32.0 [facility] Comment on above: Performed By: #### L 7400.0290, L3410.9992 #### [facility] [address] [place], [address] MCHC (RBC) [Mass/Vol] 33.8 g/dL Normal 32-36 [facility] Comment on above: Performed By: #### L 7400.0290, L3410.9992 #### [facility] [address] [place], [address] MCV (RBC) [Entitic vol] 90.8 fL Normal 81-99 [facility] Comment on above: Performed By: #### L 7400.0290, L3410.9992 #### [facility] [address] [place], [address] Platelet mean volume (Bld) [Entitic vol] 10.7 fL Normal 6.2-12.0 [facility] Comment on above: Performed By: #### L 7400.0290, L3410.9992 #### [facility] [address] [place], [address] Platelets (Bld) [#/Vol] 203 10*3/uL Normal 150-450 [facility] Comment on above: Performed By: #### L 7400.0290, L3410.9992 #### [facility] [address] [place], [address] RBC (Bld) [#/Vol] 4.34 10*6/uL Normal 4.2-5.4 [facility] Comment on above: Performed By: #### L 7400.0290, L3410.9992 #### [facility] [address] [place], [address] RDW SD 40.5 fl Normal 35.1-43.9 [facility] Comment on above: Performed By: #### L 7400.0290, L3410.9992 #### [facility] [address] [place], [address] WBC (Bld) [#/Vol] 3.6 10*3/uL Low 4.4-11.0 [facility] Comment on above: Performed By: #### L 7400.0290, L3410.9992 #### [facility] [address] [place], [address] Carbon dioxide, total [Moles /volume] in Central venous bloodOrdered By: Andres Valentin on 05-11-2025 CO2 [Moles/Vol] 22.5 mmol/L 21.0-32.0 [facility] Chloride assayOrdered By: Raza Valentin on 05-11-2025 Chloride [Moles/Vol] 107 mmol/L 98-108 [facility] Discharge Instructionon 04-18 Discharge Instruction [facility] Medical Records Department [address] [place] [address] Instructions for Home/Discharge Instructions 05/11/25 1424 MR#: [id number] Acct: [id number] Name: BULMARO BLAIR Rep #: [id number] : 1995 30 From: Andres Valentin MD PCP: SHANKAR Plummer Status:REG [facility] Discharge Instructions Diet Discharge Diet: No restrictions Activity May shower in (days): 2 Lifting Restrictions: do not lift > 20 lbs for 14 days Additional Activity Instructions:: do not submerge incision for 14 days Dressing / Incision Call your doctor if your incision/area has: Sudden Increased Bleeding, Increased Pain/ Swelling, Increased Redness and Foul Smelling Discharge Remove Dressing in: 2 days Cleanse incision/area with: Soap Water Additional Dressing/Incision Instructions:: re-apply karyn wrap during the day for 14 days Follow Up Care Test Results: Test results from this visit will be discussed in further detail at your follow-up appointment, if applicable. Discharge Plan Admission Attending Provider: Andres Valentin Primary Care Provider: So Reed Instructions Print Language: Citizen Of [place] Discharge Orders/Prescriptions Prescriptions: New oxycodone 5 mg tablet 5 mg PO Q8H PRN (Reason: pain) 1 Days Qty: 3 0RF Referrals / Follow Up: So Reed NP-C [Primary Care Provider, Family Practice] Disposition Disposition (needs filled in before D/C Order can be placed): Home, Self Care 05/11/25 3877 Andres Valentin MD CC: [employer]ODUCTION [employer] CUTTER-C So Reed Signed Normal [facility] Erythrocyte distribution wid th ratioOrdered By: Andres Valentin on 05-11-2025 Erythrocyte distribution width (RBC) [Ratio] 12.3 % 11.6-14.6 [facility] Erythrocyte distribution wid th standard deviationOrdered By: Andres Valentin on 05-11-2025 Erythrocyte distribution width (RBC) [Ratio] 40.5 fl 35.1-43.9 [facility] Glomerular filtration rate ( GFR) estimation/1.73 sq m using serum, plasma, or whole bOrdered By: Andres Valentin on 05-11-2025 GFR/1.73 sq M.predicted among non-blacks MDRD (S/P/Bld) [Vol rate/Area] 108 mL/min/{1.73_m2} >60 [facility] Comment on above: mL/min/1.73m2 CKD-EP I Creatinine Equation (2020) Hematocrit Auto (Bld) [Volum e fraction]Ordered By: Andres Valentin on 05-11-2025 Hematocrit (Bld) [Volume fraction] 39.4 % 37-47 [facility] Hemoglobin measurementOrdere d By: Andres Valentin on 09-25-2025 Hemoglobin (Bld) [Mass/Vol] 13.3 g/dL 12.0-15.0 [facility] MCV (mean corpuscular volume ) determinationOrdered By: Andres Valentin on 05-11-2025 MCV (RBC) [Entitic vol] 90.8 fL 81-99 [facility] MR/POSTOP.ANEon 05-11-2025 MR/POSTOP.ANE [facility] Medical Records Department [address] [place] [address] Anesthesia Postop Eval I 05/11/25 1449 MR#: [id number] Acct: [id number] Name: BULMARO BLAIR Rep #: [id number] : 1995 30 From: Rubén Cline CRNA PCP: SHANKAR Plummer Status:REG [facility] Y Race: C Location: [place] [address] Anesthesia: Postop Eval I Current Vital Signs Temperature: 98.3 F Pulse Rate: 74 Blood Pressure: 134/88 Respiratory Rate: 16 Pulse Ox: 100 Assessment Airway patent: Yes Spontaneous unlabored respirations: Yes nausea: No Vomiting: No Anesthesia Complication: No Fluid Hydration Crystalloid volume administer (ml): 1,200 Total IV fluid infused: 1,200 Progress Note Anesthesia document: Postop Eval 1 completed: Yes 05/11/251448 Date Rubén Cline SENIOR MERCHANDISER Cosigner Signature: Date CC: Signed Normal [facility] [id number] 05-11-2025 MR/POSTOPAN2 [facility] Medical Records Department [address] [place] [address] Anesthesia Postop Eval II 05/11/25 1615 MR#: [id number] Acct: [id number] Name: BULMARO BLAIR Rep #: [id number] : 1995 30 From: Sara Carson SENIOR MERCHANDISER PCP: SHANKAR Plummer Status:REG [facility] Y Race: C Location: [place] [address] Anesthesia Postop Eval I Sum Postop Eval Completion status Anesthesia document: Postop Eval 1 completed: Yes Anesthesia Postop Eval I Summary Anesthesia Postop Eval I Summary: Anesthesia Postop Eval I: Assessment Summary Airway patent Yes 05/11/25 14:49 SENIOR [email or web address] Spontaneous unlabored Yes 05/11/25 14:49 SENIOR [email or web address].TNES respirations Mental status nausea No 05/11/25 14:49 SENIOR [email or web address].TNES Vomiting No 05/11/25 14:49 SENIOR [email or web address].TNES Anesthesia Postop Eval I: Fluid Summary Crystalloid volume administer 1,200 05/11/25 14:49 SENIOR [email or web address].TNES (ml) Colloids volume administered ( ml) Blood Product volume administered (ml) Total IV fluid infused 1,200 05/11/25 14:49 SENIOR [email or web address].TNES Anesthesia Postop Eval I: Summary Notes Anesthesia Complication No 05/11/25 14:49 SENIOR [email or web address].TNES Anesthesia Complication Comment: Post-operative progress note Anesthesia: Postop Eval II Evaluation Mental status: Awake and Calm Pain Level: 0 nausea: No Vomiting: No Complications Anesthesia Complication: No 05/11/25 1616 Date Sara Carson SENIOR MERCHANDISER Cosigner Signature: Date CC: Signed Normal [facility] Mean corpuscular hemoglobin (MCH) determinationOrdered By: Andres Valentin on 05-11-2025 MCH (RBC) [Entitic mass] 30.6 pg 27.0-32.0 [facility] Mean corpuscular hemoglobin concentration (MCHC) determinationOrdered By: Andres Valentin on 05-11-2025 MCHC (RBC) [Mass/Vol] 33.8 g/dL 32-36 [facility] Mean platelet volume determi nationOrdered By: Andres Valentin on 05-11-2025 Platelet mean volume (Bld) [Entitic vol] 10.7 fL 6.2-12.0 [facility] Operative Reporton Operative Report [facility] Medical Records Department [address] [place] [address] Operative Report 05/11/25 1608 MR#: [id number] Acct: [id number] Name: BULMARO BLAIR Rep #: [id number] : 1995 30 From: Andres Valentin MD PCP: SHANKAR Plummer Status:[facility] Location: [place] [address] Operative Report (Standard) Operative Information Date of Procedure: 05/11/25 Pre-Operative Diagnosis: Varicose veins with pain of the right lower extremity Post-Operative Diagnosis: Same Surgery/Procedure Performed: Ligation right saphenofemoral junction Radiofrequency ablation right great saphenous vein ham marker: Yes Inhalation Therapy Teacher: Adenike Bucio Tasks completed by registered nurse first assistant: Opening, Closing, Opening closing and Retracting Type of Anesthesia: General RN Documented Start/Stop Times: Operation Date: 05/11/25 12:00 Case Time Into Pre-Op 05/11/25 10:06 Out of Pre-Op 05/11/25 12:39 Into Recovery 05/11/25 14:44 Into Phase II Recovery 05/11/25 15:48 Out of Recovery 05/11/25 15:48 Procedure Start Time: 13:30 Procedure Stop Time: 14:15 Select all DRAINS/GRAFTS/IMPLANT S that apply: None Estimated Blood Loss: 4 Specimen collected: No Description of surgery: HPI: Patient is a 30-year-old female with painful varicose veins of the right lower extremity. These are refractory to compression garments and venous duplex revealed reflux throughout the great saphenous vein in addition to an enlarged saphenofemoral junction. She presents now for saphenofemoral ligation with radiofrequency ablation of the great saphenous vein to the knee. Description of procedure: Upon obtaining informed consent and verification correct patient procedure site the patient was taken to the [facility] where she was placed under general anesthesia. She was then positioned prepped and draped in usual sterile fashion time was performed. Ultrasound was used to evaluate the great saphenous vein from the proximal calf to the saphenofemoral junction. The vessel observed to be small caliber from the distal thigh to the proximal calf but with no significant tortuosity. There were 2 large caliber accessory saphenous veins that were dilated in the mid and distal thigh. Oblique incision was then made over the saphenofemoral junction and Bovie used to dissect down to the subcutaneous tissue then self-retaining retractors put in position. Further dissection was carried down to the foot the great saphenous vein was visualized and sharp dissection was then used to dissect free the vessel and adjacent branches. Sidebranches were ligated with silk ties and divided and a right angle used to this vessel loop around the saphenofemoral junction. Next under ultrasound guidance the great saphenous vein in the distal thigh was accessed with a micropuncture needle wire. This then exchanged for the 7 Divehi ablation sheath which was advanced without resistance. The radiofrequency ablation probe was then advanced through the sheath under ultrasound guidance to the saphenofemoral junction. The saphenofemoral junction was then clamped at the confluence with the common femoral vein with an atraumatic clamp and distally with a vessel loop. The vessel was then divided and each and oversewn with 5-0 Prolene in running fashion. After pulling the suture line clamps were released and satisfactory hemostasis was observed. Next tumescent solution was infused in the soft tissue surrounding the great saphenous vein from the access site to the saphenofemoral junction. The ablation probe was then activated sequentially along the length of the treatment zone down to the access site. The sheath and ablation probe were then withdrawn manage pressure held at the access site until hemostasis was observed. Within the incision the tissue was inspected for hemostasis and then closed with 2-0 Vicryl, 3-0 Vicryl, 4 Monocryl and Dermabond for the skin. Dry sterile dressing and Karyn wrap were then applied the patient was taken to the recovery room with anticipated discharge to home. Surgical Findings: See above Complications Complications: No 05/11/25 1614 Cosigner Signature (if applicable): CC: SHANKAR Reed; Dr. Andres Valentin MD Signed Normal [facility] Platelet countOrdered By: Raza Valentin on 05-11-2025 Platelets (Bld) [#/Vol] 203 10*3/uL 150-450 [facility] Potassium measurement (mass/ volume)Ordered By: Andres Valentin on 05-11-2025 Potassium (Unsp spec) [Mass/Vol] 3.8 mmol/L 3.3-5.1 [facility] RBC Auto (Bld) [#/Vol]Ordere d By: Andres [place] on 05-11-2025 RBC (Bld) [#/Vol] 4.34 10*6/uL 4.2-5.4 [facility] Serum creatinine measurement (mass/volume)Ordered By: Andres Valentin on 05-11-2025 Creatinine [Mass/Vol] 0.75 mg/dL 0.70-1.20 [facility] Serum glucose measurement (m ass/volume)Ordered By: Andres Valentin on 05-11-2025 Glucose [Mass/Vol] 88 mg/dL 70-99 [facility] Serum or plasma calcium dom urement (mass/volume)Ordered By: Andres Valentin on 05-11-2025 Calcium [Mass/Vol] 9.4 mg/dL 7.6-11.0 [facility] Serum or plasma urea nitroge n measurement (mass/volume)Ordered By: Andres Valentin on 05-11-2025 Urea nitrogen [Mass/Vol] 9 mg/dL 4-19 [facility] Sodium levelOrdered By: Andres Valentin on 05-11-2025 Sodium [Moles/Vol] 141 mmol/L 133-145 [facility] White blood cell (WBC) count Ordered By: Andres Valentin on 05-11-2025 WBC (Bld) [#/Vol] 3.6 10*3/uL Low 4.4-11.0 [facility] MR/BMS.BVSon 03-08-2025 MR/BMS.BVS [facility] Vascular Surgery [address] [place], [place] [address] OFFICE VISIT Date of Service: 03/08/25 MR#: [id number] Acct: [id number] Name: BULMARO BLAIR Rep #: [id number] : 1995 Provider: LAURYN Whatley Age/Sex: 30/F Location: BMS.BVS Status: Signed Intake Vital Signs 05/18/24 09:15 03/08/25 14:17 Height 5 ft 7 in Weight: 156 lb BP 117/83 H Blood Pressure Location Lt brachial Position Sitting Respiration 14 Pulse 69 Pulse Source Monitor Temp 98.2 F Temp Source Temporal Pulse Oximetry (%) 100 Oxygen Delivery Method room air Intake Visit Reasons: Discuss Results Is patient in pain?: No Allergies No Known Allergies Allergy (Verified 03/08/25 14:18) Medications ???Medication ???Instructions ???Recorded ???Confirmed ???Type NK 02/01/25 03/08/25 History Is last menstrual period known: Yes Post menopausal: No Patient : No Have you fallen in the past year?: No PFSH Medical History Vaginal delivery Surgical History S/P tubal ligation H/O dilation and curettage Family History (Updated 03/08/25 @ 14:16 by Chanda Funes) Grandfather Cancer Lung Other Heart disease Myocardial infarction Social History adopted: No household members: family housing: house current occupational status: employed current occupation: [employer] Smoking Status: Former smoker Tobacco: How many years used: 5 second hand exposure: Yes alcohol intake: never substance use type: does not use seatbelt use: always do you feel safe at home: Yes additional social history: BF: Kaz HPI HPI HPI: BULMARO BLAIR, is a 30 F who presents to the office today to discuss the results of her venous reflux study and to discuss possible intervention for her symptomatic varicose veins. She continues to have aching pain and tenderness in her RLE varicosities, particularly in the thigh, despite over 6 months of conservative efforts. She had venous reflux study on 02/10/25 which demonstrated R SFJ enlargement to 1.1cm with reflux, GSV and ASV reflux throughout; L GSV and thigh ASV reflux. ROS General General: No weight change, appetite, fatigue, colon cancer, breast cancer or weakness HEENT HEENT: No difficulty swallowing, eye injury, eye surgery, swollen glands or hoarseness Endo Endocrine: No thyroid disease, diabetes mellitus, thyroid cancer, Hair loss, heat intolerance or cold intolerance Skin Skin: No rash or changing moles Musc Musculoskeletal: Yes back problems; No arthritis, rheumatoid arthritis, gout or joint pain Cardio Cardiovascular: No murmur, pacemaker, heart disease, atrial fibrillation, high blood pressure, heart attack, heart stent, palpitations, shortness of breath with exertion or chest pain Psych Psychiatric: Yes anxiety; No depression or hearing voices Resp Respiratory: No shortness of breath, No sleep apnea, No cough, No COPD, No asthma, No emphysema and No wheezing Gastro Gastrointestinal: No abdominal pain, No nausea or vomiting, No diarrhea, No constipation, No blood in stool, No acid reflux, No hemorrhoids, No ulcers, No gallbladder problem and No black,tarry stools Nick Hematologic: No blood thinners, No blood disorders, No bleeding, No anemia and No blood clots Neuro Neurologic: No system reviewed and no additional complaints, except as documented, No as per HPI, No abnormal gait, No abnormal hearing, No abnormal movements, No abnormal speech, No behavioral changes, No burning sensations, No confusion, No convulsions, No disequilibrium, No dizziness, No localized weakness, No frequent falls, No headache(s), No lack of coordination, No loss of vision, No memory loss, No numbness, No other visual disturbances, No radicular pain, No restless legs, No sensory deficit, No syncope, No tingling, No tremor(s), No weakness and No other Exam Const General: cooperative, comfortable and no acute distress Orientation: alert, awake and oriented x3 HENMT Head: normal to inspection and normocephalic Ears: hearing grossly normal bilaterally and external ears normal Nose: external nose normal Eyes General: appearance normal, both eyes and all related structures EOM: EOM intact bilaterally Neck Neck: normal visual inspection and trachea midline Resp Effort Inspection: normal respiratory effort, able to speak in complete sentences, no grunting, not labored, no respiratory distress and no retractions Auscultation: clear to auscultation bilaterally Cardio Rate: regular rate Rhythm: regular rhythm Pulses: brachial pulses present and radial pulses present Skin General: (more content not included)... Normal [facility] Venous duplex ultrasound rep ortOrdered By: Andres Valentin on 02-13-2025 Vein [facility] Cardi[facility] Services [address] [place] [address] Venous Duplex US - [facility] Extrem 02/10/25 1314 MR#: [id number] Acct: [id number] Name: BULMARO BLAIR Rep #:[id number] : 1995 30 From: Andres Rey Attending Dr: LAURYN Whatley Stat us: REG CLI Ordering Dr: Noreen Cordova Date: Location: [facility] Sex: F C Admitted: Reason For Study Reason For Study: Pain BLE RIGHT LEFT CFV is compressible, spontaneous, phasic, competent CFV is compressible, spontaneous, phasic, competent, and demonstrates normal augmentation. and demonstrates normal augmentation. FV is compressible, spontaneous, phasic, competent FV is compressible, spontaneous, phasic, competent and demonstrates normal augmentation. and demonstrates normal augmentation. POP V is compressible, spontaneous, phasic, competent POP V is compressible, spontaneous, phasic, competent and demonstrates normal augmentation. and demonstrates normal augmentation. T/P Trunk is compressible. T/P Trunk is compressible. PTV is compressible. PTV is compressible. RT PerV is compressible. LT PerV is compressible. SFJ is INCOMPETENT and measures 0.83cm x 1.10 cm. SFJ is competent and measures 0.44cm x 0.47 cm. GSV proximal thigh measures 0.52cm x 0.50 cm. GSV proximal thigh measures 0.50cm x 0.47 cm. GSV at knee measures 0.37cm x 0.38 cm. GSV at knee measures 0.49cm x 0.49 cm. GSV INCOMPETENT throughout for greater than 0.5 GSV INCOMPETENT throughout for greater than 0.5 seconds. seconds. SSV mid calf is INCOMPETENT for greater than 0.5 SSV mid calf is competent and measures 0.25cm x 0.25 seconds and measures 0.20cm x 0.20 cm. cm. ASV mid thigh is INCOMPETENT for greater than 0.5 ASV distal thigh is INCOMPETENT for greater than 0.5 seconds and measures 0.79cm x 0.98 cm. seconds and measures 0.46cm x 0.54 cm. ASV distal thigh is INCOMPETENT for greater than 0.5 ASV distal thigh 2 is INCOMPETENT for greater than seconds and measures 0.62cm x 0.65 cm. 0.5 seconds and measures 0.23cm x 0.26cm. ASV proximal calf is INCOMPETENT for greater than 0.5 seconds and measures 0.45cm x 0.54 cm. ASV mid calf is INCOMPETENT for greater than 0.5 seconds and measures 0.22cm x 0.25 cm. Procedure This is a venous duplex using B-mode, color flow and spectral Doppler. Exam performed in department. A preliminary report was called and/or faxed to [facility]. VL/Venous Duplex US - [place] Extrem Interpretation Summary Deep veins of the bilateral lower extremities are patent and compressible segmentally. There is no evidence of bilateral lower extremity deep vein thrombosis. The bilateral great saphenous veins appearpatent and compressible segmentally. Positive for reflux in the right saphenofemoral junction, great saphenous vein throughout, small saphenous vein, accessory saphenous veins in the thigh, accessory saphenous veins in the calf. Positive for reflux in the left great saphenous vein throughout, accessory saphenous veins in the thigh. Ordering Physician: Noreen Cordova Referring Physician: So Reed Performed By: Josette Back, MARK, RVT 02/13/25 1341 Date _ Andres Valentin MD CC: SHANKAR Reed; LAURYN Whatley ~ Date Dictated: 02/10/25 1314 Date Transcribed: 02/13/25 1341 Research Technician: Signed [facility] Work Phone: Venous Duplex US - [place] [facility] 02-10-2025 Venous Duplex US - [place] [facility] Cardiovascular Services [address] [place] [address] Venous Duplex US - [place] [facility] 02/10/25 1314 MR#: [id number] Acct: [id number] Name: BULMARO BLAIR Rep #: [id number] : 1995 30 From: Andres Valentin MD Attending Dr: LAURYN Whatley Status: REG CLI Ordering Dr: Noreen Cordova Date: 02/10/25 Location: [facility] Sex: F C Admitted: Reason For Study Reason For Study: Pain BLE RIGHT LEFT CFV is compressible, spontaneous, phasic, competent CFV is compressible, spontaneous, phasic, competent, and demonstrates normal augmentation. and demonstrates normal augmentation. FV is compressible, spontaneous, phasic, competent FV is compressible, spontaneous, phasic, competent and demonstrates normal augmentation. and demonstrates normal augmentation. POP V is compressible, spontaneous, phasic, competent POP V is compressible, spontaneous, phasic, competent and demonstrates normal augmentation. and demonstrates normal augmentation. T/P Trunk is compressible. T/P Trunk is compressible. PTV is compressible. PTV is compressible. RT PerV is compressible. LT PerV is compressible. SFJ is INCOMPETENT and measures 0.83cm x 1.10 cm. SFJ is competent and measures 0.44cm x 0.47 cm. GSV proximal thigh measures 0.52cm x 0.50 cm. GSV proximal thigh measures 0.50cm x 0.47 cm. GSV at knee measures 0.37cm x 0.38 cm. GSV at knee measures 0.49cm x 0.49 cm. GSV INCOMPETENT throughout for greater than 0.5 GSV INCOMPETENT throughout for greater than 0.5 seconds. seconds. SSV mid calf is INCOMPETENT for greater than 0.5 SSV mid calf is competent and measures 0.25cm x 0.25 seconds and measures 0.20cm x 0.20 cm. cm. ASV mid thigh is INCOMPETENT for greater than 0.5 ASV distal thigh is INCOMPETENT for greater than 0.5 seconds and measures 0.79cm x 0.98 cm. seconds and measures 0.46cm x 0.54 cm. ASV distal thigh is INCOMPETENT for greater than 0.5 ASV distal thigh 2 is INCOMPETENT for greater than seconds and measures 0.62cm x 0.65 cm. 0.5 seconds and measures 0.23cm x 0.26cm. ASV proximal calf is INCOMPETENT for greater than 0.5 seconds and measures 0.45cm x 0.54 cm. ASV mid calf is INCOMPETENT for greater than 0.5 seconds and measures 0.22cm x 0.25 cm. Procedure This is a venous duplex using B-mode, color flow and spectral Doppler. Exam performed in department. A preliminary report was called and/or faxed to [facility]. VL/Venous Duplex US - [place] Extrem Interpretation Summary Deep veins of the bilateral lower extremities are patent and compressible segmentally. There is no evidence of bilateral lower extremity deep vein thrombosis. The bilateral great saphenous veins appear patent and compressible segmentally. Positive for reflux in the right saphenofemoral junction, great saphenous vein throughout, small saphenous vein, accessory saphenous veins in the thigh, accessory saphenous veins in the calf. Positive for reflux in the left great saphenous vein throughout, accessory saphenous veins in the thigh. Ordering Physician: Noreen Cordova Referring Physician: So Reed Performed By: Josette Back, MARK, RVT 02/13/25 1341 Date Andres Valentin MD CC: SHANKAR Reed; LAURYN Whatley Date Dictated: 02/10/25 1314 Date Transcribed: 02/13/25 1341 Research Technician: Signed [facility] MR/BMS.BVSon 02-01-2025 MR/BMS.BVS [facility] Vascular Surgery [address] [place] [address] OFFICE VISIT Date of Service: 02/01/25 MR#: [id number] Acct: [id number] Name: BULMARO BLAIR Rep #: [id number] : 1995 Provider: LAURYN Whatley Age/Sex: 30/F Location: [facility] Status: Signed Intake Vital Signs 05/18/24 09:15 02/01/25 12:40 Height 5 ft 7 in Weight: 154 lb BP 131/87 H Blood Pressure Location Lt brachial Position Sitting Respiration 14 Pulse 69 Pulse Source Monitor Temp 98.4 F Temp Source Temporal Pulse Oximetry (%) 99 Oxygen Delivery Method room air Intake Visit Reasons: Discuss surgery Is patient in pain?: No Allergies No Known Allergies Allergy (Verified 02/01/25 12:41) Medications ???Medication ???Instructions ???Recorded ???Confirmed ???Type NK 02/01/25 02/01/25 History Is last menstrual period known: Yes Post menopausal: No Patient : No Have you fallen in the past year?: No PFSH Medical History Vaginal delivery Surgical History S/P tubal ligation H/O dilation and curettage Family History Grandfather Cancer Lung Social History adopted: No household members: family housing: house current occupational status: employed current occupation: [employer] Smoking Status: Former smoker Tobacco: How many years used: 5 second hand exposure: Yes alcohol intake: never substance use type: does not use seatbelt use: always do you feel safe at home: Yes additional social history: BF: Kaz HPI HPI HPI: BULMARO BLAIR, is a 30 F who presents to the office today for follow-up regarding her symptomatic bilateral lower extremity varicose veins. She has been managing these conservatively with use of measured compression stockings, leg elevation, avoidance of prolonged idle sitting/standing, and routine exercise to this point for the last 6 months. She has not yet had a reflux study. She reports that her R thigh varicosities continue to have aching pain and tenderness despite these conservative efforts and she is ready to consider intervention. ROS General General: No weight change, appetite, fatigue, colon cancer, breast cancer or weakness HEENT HEENT: No difficulty swallowing, eye injury, eye surgery, swollen glands or hoarseness Endo Endocrine: No thyroid disease, diabetes mellitus, thyroid cancer, Hair loss, heat intolerance or cold intolerance Skin Skin: No rash or changing moles Musc Musculoskeletal: Yes back problems; No arthritis, rheumatoid arthritis, gout or joint pain Cardio Cardiovascular: No murmur, pacemaker, heart disease, atrial fibrillation, high blood pressure, heart attack, heart stent, palpitations, shortness of breath with exertion or chest pain Psych Psychiatric: Yes anxiety; No depression or hearing voices Resp Respiratory: No shortness of breath, No sleep apnea, No cough, No COPD, No asthma, No emphysema and No wheezing Gastro Gastrointestinal: No abdominal pain, No nausea or vomiting, No diarrhea, No constipation, No blood in stool, No acid reflux, No hemorrhoids, No ulcers, No gallbladder problem and No black,tarry stools Nick Hematologic: No blood thinners, No blood disorders, No bleeding, No anemia and No blood clots Neuro Neurologic: No system reviewed and no additional complaints, except as documented, No as per HPI, No abnormal gait, No abnormal hearing, No abnormal movements, No abnormal speech, No behavioral changes, No burning sensations, No confusion, No convulsions, No disequilibrium, No dizziness, No localized weakness, No frequent falls, No headache(s), No lack of coordination, No loss of vision, No memory loss, No numbness, No other visual disturbances, No radicular pain, No restless legs, No sensory deficit, No syncope, No tingling, No tremor(s), No weakness and No other Exam Const General: cooperative, comfortable and no acute distress Orientation: alert, awake and oriented x3 HENMT Head: normal to inspection and normocephalic Ears: hearing grossly normal bilaterally and external ears normal Nose: external nose normal Eyes General: appearance normal, both eyes and all related structures EOM: EOM intact bilaterally Neck Neck: normal visual inspection and trachea midline Resp Effort Inspection: normal respiratory effort, able to speak in complete sentences, no grunting, not labored, no respiratory distress and no retractions Auscultation: clear to auscultation bilaterally Cardio Rate: regular rate Rhythm: regular rhythm Pulses: brachial pulses present and radial pulses present (more content not included)... Normal [facility] PAP IG w/Reflex HPV GDLNon 0 01-24-2025 ADEQ Comment Normal . [facility] Comment on above: Order Comment: Speci men Comment: [id number] Specimen Comment: No. of containers..01 ThinPrep Vial Result Comment: Sati sfactory for evaluation. Endocervical and/or squamous metaplastic cells (endocervical component) are present. Performed By: #### L 7400.0290, L3410.9992 #### [facility] [address] [place], [place], [id number] Age Gdln ACOG T 30-65 Normal . [facility] Comment on above: Order Comment: Speci men Comment: [id number] Specimen Comment: No. of containers..01 ThinPrep Vial Performed By: #### L 7400.0290, L3410.9992 #### [facility] [address] [place], [address] COMM . Normal . [facility] Comment on above: Order Comment: Speci men Comment: [id number] Specimen Comment: No. of containers..01 ThinPrep Vial Performed By: #### L 7400.0290, L3410.9992 #### [facility] [address] [place], [address] COMMENT Comment Normal . [facility] Comment on above: Order Comment: Speci men Comment: [id number] Specimen Comment: No. of containers..01 ThinPrep Vial Result Comment: This liquid based ThinPrep(R) pap test was screened with the use of an image guided system. Performed By: #### L 7400.0290, L3410.9992 #### [facility] [address] [place], [place], [address] DIAG Comment Normal . [facility] Comment on above: Order Comment: Speci men Comment: [id number] Specimen Comment: No. of containers..01 ThinPrep Vial Result Comment: NEGA TIVE FOR INTRAEPITHELIAL LESION OR MALIGNANCY. REACTIVE CELLULAR CHANGES AND/OR REPAIR ARE PRESENT. Performed By: #### L 7400.0290, L3410.9992 #### [facility] [address] [place], [address] HPV APTIMA, HR Negative Normal Negative [facility] Comment on above: Order Comment: Speci men Comment: [id number] Specimen Comment: No. of containers..01 ThinPrep Vial Result Comment: This nucleic acid amplification test detects fourteen high- risk HPV types (16,18,31,33,35,39,45,51,52,56,58,59,66,68) without differentiation. Performed By: #### L 7400.0290, L3410.9992 #### [facility] [address] [place], [place], [address] HPV Daija Rfx Comment Normal . [facility] Comment on above: Order Comment: Speci men Comment: [id number] Specimen Comment: No. of containers..01 ThinPrep Vial Result Comment: Crit eria not met, HPV Genotype not performed. Performed at: = - [facility] [id number] [employer] [facility] [employer] Cole[facility]: Velia Babcock MD, Phone: [phone] Performed at: - [facility] [id number] [employer]: Velia Babcock MD, Phone: [phone] Performed By: #### L 7400.0290, L3410.9992 #### [facility] [address] [place], [place], [address] PAPSMR Comment Normal . [facility] Comment on above: Order Comment: Speci men Comment: [id number] Specimen Comment: No. of containers..01 ThinPrep Vial Result Comment: The Pap smear is a screening test designed to aid in the detection of premalignant and malignant conditions of the uterine cervix. It is not a diagnostic procedure and should not be used as the sole means of detecting cervical cancer. Both false-positive and false-negative reports do occur. Performed By: #### L 7400.0290, L3410.9992 #### [facility] [address] [place], [place], [id number] PERFORM Comment Normal . [facility] Comment on above: Order Comment: Speci men Comment: [id number] Specimen Comment: No. of containers..01 ThinPrep Vial Result Comment: Jf Yi, Executive Admin (ASCP) Performed By: #### Tammie 7400.0290, L3410.9992 #### [facility] [address] [place], [place], [address] SIGN Comment Normal . [facility] Comment on above: Order Comment: Speci men Comment: [id number] Specimen Comment: No. of containers..01 ThinPrep Vial Result Comment: Chanda Cohen MD, Pathologist Performed By: #### L 7400.0290, L3410.9992 #### [facility] [address] [place], [address] L3410.9992on 01-23-2025 [facility] Misc. COMMENT Normal . [facility] Comment on above: Order Comment: THONG SMILEYIMA RMT [id number] NUAB VG+ Result Comment: Test Ordered: [id number] NuSwab Vaginitis Plus (VG+) Test(s) 18000115- Atopobium vaginae; 18000116- BVAB 2; 18000117- Megasphaera 1 was developed and its performance characteristics determined by [facility]. It has not been cleared or approved by the Food and Drug Administration. Test(s) 686097-Creavja albicans, WILMA; 883508- Gena glabrata, WILMA was developed and its performance characteristics determined by [facility]. It has not been cleared or approved by the Food and Drug Administration. Atopobium vaginae Low - 0 Score =G Reference Range: . BVAB 2 Low - 0 Score =G Reference Range: . Megasphaera 1 Low - 0 Score =G Reference Range: . Calculate total score by adding the 3 individual bacterial vaginosis (BV) marker scores together. Total score is interpreted as follows: Total score 0-1: Indicates the absence of BV. Total score 2: Indeterminate for BV. Additional clinical data should be evaluated to establish a diagnosis. Total score 3-6: Indicates the presence of BV. Gena albicans, WILMA Negative =G Reference Range: Negative Gena glabrata, WILMA Negative =G Reference Range: Negative Trich vag by WILMA Negative =G Reference Range: Negative Chlamydia trachomatis, WILMA Negative =G Reference Range: Negative Neisseria gonorrhoeae, WILMA Negative =G Reference Range: Negative Performed at: =[address] [id number] [employer]: Velia Babcock MD, Phone: [phone] Performed at: [place] [id number] [employer]: Caio Mosley PhD, Phone: [phone] Performed By: #### L 7400.0290, L3410.9992 #### [facility] [address] [place] [address]. [place], [address] Cervical or vaginal specimen microscopic examination by liquid based cytology (reportOrdered By: So Reed on 01-19-2025 Cytology report Cyto stain.thin prep Doc (Cvx/Vag) Comment . [facility] Comment on above: Criteria not met, HP V Genotype not performed.Performed at: =[address] [id number] Director: Velia Babcock MD, Phone: [phone] at: [address] [id number] Director: Velia Babcock MD, Phone: [phone] Cervical or vagninal specime n microscopic examination by cytology stain (reported asOrdered By: So Reed on 01-19-2025 Cytology report Cyto stain Doc (Cvx/Vag) Comment . [facility] Comment on above: The Pap smear is a s creening test designed to aid in thedetection of premalignant and malignant conditions of theuterine cervix. It is not a diagnostic procedure andshould not be used as the sole means of detecting cervicalcancer. Both false-positive and false-negative reports dooccur. Laboratory - CytologyOrdered By: So Reed on 01-19-2025 Executive Admin Cyto stain Nom (Cvx/Vag) [ID] Comment . [facility] Comment on above: Bailey Red logist (ASCP) Pathologist Cyto stain Nom (Cvx/Vag) [ID] Comment . [facility] Comment on above: Ottoniel Cohen MD, [place] thologist Laboratory - Miscellaneous t estsOrdered By: So Reed on 01-19-2025 Service comment (Unsp spec) [Interp] . . [facility] No Panel InformationOrdered By: So Reed on 01-19-2025 Pap Smear Additional Comments 30-65 . [facility] Pap Smear Specimen Adequacy Comment . [facility] Comment on above: Satisfactory for esperanza luation. Endocervical and/or squamous metaplasticcells (endocervical component) are present. CNOVon 12-15-2024 CNOV Office Visit (UCWSTR ) BULMARO BLAIR ([id number]) 1995 F Date Time Provider Department 12/15/24 7:45 AM PEDRITO SANDERS [facility] During your visit today, we recorded the following information about you: Temperature Pulse Respiration Blood pressure 97.3 degrees 74/minute 18/minute 129/86 Weight Last Period 69 kg 12/07/24 Pedrito Sanders APRN.LINEN FOLDER 12/15/2024 8:06 AM Signed [facility] Subjective Bulmaro Blair is a 29 year old female. [...] of care. This note was generated using [employer] software. It may contain errors in wording, punctuation, or spelling. Pedrito Sanders APRN.LINEN FOLDER History and Record Review Clinical information obtained from an independent historian. History obtained from or confirmed by: parent. External record(s) rev (more content not included)... Normal [facility] Calprotectin, Stoolon [address] 35 ug/g Normal 0-120 [facility] Comment on above: Result Comment: Conc entration Interpretation Follow-Up < 5 - 50 ug/g Normal None >50 -120 ug/g Borderline Re-evaluate in 4-6 weeks >120 ug/g Abnormal Repeat as clinically indicated Performed at: [facility] [address] [id number] [employer]: Turner Duffy MD, Phone: [phone] Performed By: #### L 7400.0290, L3410.9992 #### [facility] [address] [place], [place], [address] Calprotectin stoolOrdered By : Erna Garcia on 11-16-2024 Calprotectin stool 35 ug/g 0-120 [facility] Comment on above: Concentration Interp retation Follow-Up< 5 - 50 ug/g Normal None>50 -120 ug/g Borderline Re-evaluate in 4-6 weeks >120 ug/g Abnormal Repeat as clinically indicatedPerformed at: [facility] [address] [id number] Director: Turner Duffy MD, Phone: [phone] Stool Calprotectin 35 ug/g 0-120 [facility] Comment on above: Concentration Interp retation Follow-Up< 5 - 50 ug/g Normal None>50 -120 ug/g Borderline Re-evaluate in 4-6 weeks >120 ug/g Abnormal Repeat as clinically indicatedPerformed at: [facility] [address] [id number] Director: Turner Duffy MD, Phone: [phone] Gastroenterology Visit Repor ton 11-16-2024 Gastroenterology Visit Report [facility] Gastroenterology [address] [place] [address] OFFICE VISIT Date of Service: 11/16/24 MR#: [id number] Acct: [id number] Name: BULMARO BLAIR Rep #: [id number] : 1995 Provider: LAURYN Tinoco Age/Sex: 29/F Location[place] [facility] Status: Signed Intake Vital Signs 05/18/24 09:15 Height 5 ft 7 in Intake Visit Reasons: Bowel sounds Chief Complaint: abnormal bowel sounds Allergies No Known Allergies Allergy (Verified 11/09/24 10:20) Patient : No Have you fallen in the past year?: No Nurse's Note: OV 11.16.24 Pt here to establish care with [facility]. Pt reports she feels her stomach makes loud "gurgling" noises, and gas, bloating and abdominal pain. Pt reports formed bm daily. Denies n/v/d/c, and bloody stools. [facility] Medical History Vaginal delivery Surgical History S/P tubal ligation H/O dilation and curettage Family History Grandfather Cancer Lung Social History adopted: No household members: family housing: house current occupational status: employed current occupation: [employer] Smoking Status: Former smoker Tobacco: How many years used: 5 second hand exposure: Yes alcohol intake: never substance use type: does not use seatbelt use: always do you feel safe at home: Yes additional social history: BF: Kaz BARNES HPI Chief Complaint: abnormal bowel sounds Details: BULMARO BLAIR, is a 29 F who presents to the office today for establishment with [facility]. Pt here today for complaints of loud bowel sounds. This started in 2023 with one months of nausea, vomiting and diarrhea. Eventually her symptoms resolved and she was left with gurgling noises in her stomach. Prior to this she has had constipation but now she has frequent bowel movements. She denies family hx of colon cancer and has never had a colonoscopy. She has a PMHx of Raynaud and sees Rheumatology for this. ROS Const Constitutional: Positive for fatigue; No fever(s) or weight change ENT ENT: No difficulty swallowing Gastro GI: Positive for abdominal pain, bloating and change in bowel habits; No belching, change in stool character, coffee ground emesis, constipation, cramping, diarrhea, heartburn, difficulty swallowing, feeling full early, excessive flatus, incontinent of stools, Vomiting blood/hematemesis, Blood in stool, loose stools, Black,tarry stools, nausea/dyspepsia, pain with swallowing, vomiting or other Musc Musculoskeletal: Positive for back pain; No joint pain Skin Skin: No yellowing of the eye or itchy eyes Psych Psychiatric: Positive for anxiety and No depression Endo Endocrine: Positive for fatigue; No weight change Aller/Imm Allergy/Immunologic: No itchy eyes Nick/Lymp Hematologic/Lymphatic : No easy bleeding or easy bruising Exam Const General: cooperative and comfortable Nutritional Appearance: average body habitus and well nourished HENMT Head: normal to inspection Ears: hearing grossly normal bilaterally Nose: external nose normal Face and sinus: normal facial exam Mouth: oral mucosae normal Throat: posterior oropharynx normal Eyes General: appearance normal, both eyes and all related structures Neck Neck: normal visual inspection Chest Chest palpation inspection: normal inspection of the chest and normal palpation of entire chest wall Resp Effort Inspection: normal respiratory effort Auscultation: Bilateral: Clear to Auscultation Cardio Palpation: normal PMI Rate: regular rate Rhythm: regular rhythm GI Inspection: normal to inspection Auscultation: normal bowel sounds Percussion: normal to percussion Palpation: no hepatosplenomegaly Skin General: no rashes or lesions noted Neuro General: patient alert Extrem General: normal to inspection Psych Affect: normal affect Assessment and Plan Assessment and Plan (1) Abnormal bowel sounds: Status: Acute Plan: This is a 29 yo female pt here today for evaluation of abnormal bowel sounds x6 months. This started after one month of diarrhea, nausea and vomiting in May 2024. She has had increased stool frequency which is new to her as she typically has constipation. 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 I recommend she start a daily fiber supplement and probiotics. I will order fecal calprotectin to rule out any inflammation. Will consider further work up pending response to supplement and stool results. -Calprotectin -Start fiber and probiotic -f/u in 3 months Orders: Orders Calprotectin, Stool Today R19.15 - Other abnormal bowel sounds Coding Level of Care C (more content not included)... Normal [facility] MR/Juan Manuel 11-09-2024 MR/BMS.YARELY [facility] Vascular Surgery [address] [place] [address] OFFICE VISIT Date of Service: 11/09/24 MR#: [id number] Acct: [id number] Name: BULMARO BLAIR Rep #: [id number] : 1995 Provider: LAURYN Whatley Age/Sex: 29/F Location: [facility] Status: Signed Intake Vital Signs 05/18/24 09:15 11/09/24 10:18 Height 5 ft 7 in Weight: 153 lb BP 118/81 H Blood Pressure Location Rt brachial Position Sitting Respiration 16 Pulse 85 Pulse Source Monitor Temp 98.4 F Temp Source Temporal Pulse Oximetry (%) 100 Oxygen Delivery Method room air Intake Visit Reasons: 3-4 M FU Is patient in pain?: No Allergies No Known Allergies Allergy (Verified 11/09/24 10:20) Is last menstrual period known: Yes Post menopausal: No Patient : No Have you fallen in the past year?: No PFSH Medical History Vaginal delivery Surgical History S/P tubal ligation H/O dilation and curettage Family History Grandfather Cancer Lung Social History adopted: No household members: family housing: house current occupational status: employed current occupation: [employer] Smoking Status: Former smoker Tobacco: How many years used: 5 second hand exposure: Yes alcohol intake: never substance use type: does not use seatbelt use: always do you feel safe at home: Yes additional social history: BF: Kaz HPI HPI HPI: BULMARO BLAIR, is a 29 F who presents to the office today for follow-up regarding her symptomatic bilateral lower extremity varicose veins. At last OV, initiated conservative management measures with compression stockings, leg elevation, and regular exercise. She has been compliant with these efforts. She still does have aching along her varicosities, especially in the thighs and she notices this mostly around her period and she thinks less so at other times of the month. ROS General General: No weight change, appetite, fatigue, colon cancer, breast cancer or weakness HEENT HEENT: No difficulty swallowing, eye injury, eye surgery, swollen glands or hoarseness Endo Endocrine: No thyroid disease, diabetes mellitus, thyroid cancer, Hair loss, heat intolerance or cold intolerance Skin Skin: No rash or changing moles Musc Musculoskeletal: No back problems, arthritis, rheumatoid arthritis, gout or joint pain Cardio Cardiovascular: No murmur, pacemaker, heart disease, atrial fibrillation, high blood pressure, heart attack, heart stent, palpitations, shortness of breath with exertion or chest pain Psych Psychiatric: Yes anxiety; No depression or hearing voices Resp Respiratory: No shortness of breath, No sleep apnea, No cough, No COPD, No asthma, No emphysema and No wheezing Gastro Gastrointestinal: No abdominal pain, No nausea or vomiting, No diarrhea, No constipation, No blood in stool, No acid reflux, No hemorrhoids, No ulcers, No gallbladder problem and No black,tarry stools Nick Hematologic: No blood thinners, No blood disorders, No bleeding, No anemia and No blood clots Neuro Neurologic: No system reviewed and no additional complaints, except as documented, No as per HPI, No abnormal gait, No abnormal hearing, No abnormal movements, No abnormal speech, No behavioral changes, No burning sensations, No confusion, No convulsions, No disequilibrium, No dizziness, No localized weakness, No frequent falls, No headache(s), No lack of coordination, No loss of vision, No memory loss, No numbness, No other visual disturbances, No radicular pain, No restless legs, No sensory deficit, No syncope, No tingling, No tremor(s), No weakness and No other Exam Const General: cooperative, comfortable and no acute distress Orientation: alert, awake and oriented x3 HENMT Head: normal to inspection and normocephalic Ears: hearing grossly normal bilaterally and external ears normal Nose: external nose normal Eyes General: appearance normal, both eyes and all related structures EOM: EOM intact bilaterally Neck Neck: normal visual inspection and trachea midline Resp Effort Inspection: normal respiratory effort, able to speak in complete sentences, no grunting, not labored, no respiratory distress and no retractions Auscultation: clear to auscultation bilaterally Cardio Rate: regular rate Rhythm: regular rhythm Pulses: brachial pulses present and radial pulses present Skin General: no rashes or lesions noted Trauma: no lacerations or abrasions Wounds: no wounds Neuro General: gait normal, moves all extremities, no focal motor deficits and CN's II-XI intact bilaterall (more content not included)... Normal [facility] C-REACTIVE PROTEINon 025 CRP [Mass/Vol] mg/L Normal <8.0 [facility] Comment on above: Performed By: #### 3 8567, 4418, 5810, 30733, 7832, 4420, 58769, 351, 6399, 353, 809 #### [facility] [place] [address] [place] , [address] [place] [address] Craft Demonstrator: Earnest Russell MD #### [id number] #### [facility], [address] [place] [address] Craft Demonstrator: Mindy Krueger MD,PhD,[place] CBC (INCLUDES DIFF/PLT)on Basophils (Bld) [#/Vol] 0.021 10*3/uL Normal 0-200 [facility] Comment on above: Performed By: #### 3 8567, 4418, 5810, 16253, 7832, 4420, 80193, 351, 6399, 353, 809 #### [facility] [place] [address] [place] , [address] [place] [address] Craft Demonstrator: Earnest Russell MD #### [id number] #### [facility], [address] [place] [address] Craft Demonstrator: Mindy Krueger MD,PhD,[place] Basophils/100 WBC (Bld) 0.5 % Normal [facility] Comment on above: Performed By: #### 3 8567, 4418, 5810, 48684, 7832, 4420, 29066, 351, 6399, 353, 809 #### [facility] [place] [address] [place] , [address] [place] [address] Craft Demonstrator: Earnest Russell MD #### [id number] #### [facility], [address] [place] [address] Craft Demonstrator: Mindy Krueger MD,PhD,[place] Eosinophils (Bld) [#/Vol] 0.008 10*3/uL Low 15-500 [facility] Comment on above: Performed By: #### 3 8567, 4418, 5810, 10540, 7832, 4420, 94789, 351, 6399, 353, 809 #### [facility] [place] [address] [place] , [address] [place] [address] Craft Demonstrator: Earnest Russell MD #### [id number] #### [facility], [address] [place], [place] [phone] Craft Demonstrator: Mindy Krueger MD,PhD,[place] Eosinophils/100 WBC (Bld) 0.2 % Normal [facility] Comment on above: Performed By: #### 3 8567, 4418, 5810, 97638, 7832, 4420, 68503, 351, 6399, 353, 809 #### [facility] [address] , [address] [place] [address] Craft Demonstrator: Earnest Russell MD #### [id number] #### [facility], [address] [place], [place] [address] Craft Demonstrator: Mindy Krueger MD,PhD,[place] Erythrocyte distribution width (RBC) [Ratio] 12.7 % Normal 11.0-15.0 [facility] Comment on above: Performed By: #### 3 8567, 4418, 5810, 25871, 7832, 4420, 93185, 351, 6399, 353, 809 #### [facility] [place] [address] [place] [address] Craft Demonstrator: Earnest Russell MD #### [id number] #### [facility], [address] [place] [id number] Craft Demonstrator: Mindy Krueger MD,PhD,[place] Hematocrit (Bld) [Volume fraction] 38.3 % Normal 35.0-45.0 [facility] Comment on above: Performed By: #### 3 8567, 4418, 5810, 27211, 7832, 4420, 66900, 351, 6399, 353, 809 #### [facility] of [address], [address] [place] [address] Craft Demonstrator: Earnest Russell MD #### [id number] #### [facility], [address] [place] [address] Craft Demonstrator: Mindy Krueger MD,PhD,[place] Hemoglobin (Bld) [Mass/Vol] 12.8 g/dL Normal 11.7-15.5 [facility] Comment on above: Performed By: #### 3 8567, 4418, 5810, 61886, 7832, 4420, 09166, 351, 6399, 353, 809 #### [facility] of [address], [address] [place] [address] Craft Demonstrator: Earnest Russell MD #### [id number] #### [facility], [address] [place] [address] Craft Demonstrator: Mindy Krueger MD,PhD,[place] Lymphocytes (Bld) [#/Vol] 1.684 10*3/uL Normal 850-3900 [facility] Comment on above: Performed By: #### 3 8567, 4418, 5810, 81935, 7832, 4420, 54052, 351, 6399, 353, 809 #### [facility] [address], [address] [place] [address] Craft Demonstrator: Earnest Russell MD #### [id number] #### [facility], [address] [place] [address] Craft Demonstrator: Mindy Krueger MD,PhD,[place] Lymphocytes/100 WBC (Bld) 40.1 % Normal [facility] Comment on above: Performed By: #### 3 8567, 4418, 5810, 29088, 7832, 4420, 25585, 351, 6399, 353, 809 #### [facility] [address], [address] [place] [address] Craft Demonstrator: Earnest Russell MD #### [id number] #### [facility], [address] [place] [address] Craft Demonstrator: Mindy Krueger MD,PhD,[place] MCH (RBC) [Entitic mass] 29.8 pg Normal 27.0-33.0 [facility] Comment on above: Performed By: #### 3 8567, 4418, 5810, 09166, 7832, 4420, 15467, 351, 6399, 353, 809 #### [facility] [place] [address] Craft Demonstrator: Earnest Russell MD #### [id number] #### [facility], [address] [place] [address] Craft Demonstrator: Mindy Krueger MD,PhD,[place] MCHC (RBC) [Mass/Vol] 33.4 g/dL Normal 32.0-36.[address] [facility] Comment on above: Result Comment: For adults, a slight decrease in the calculated MCHC value (in the range of 30 to 32 g/dL) is most likely not clinically significant; however, it should be interpreted with caution in correlation with other red cell parameters and the patient's clinical condition. Performed By: #### 3 8567, 4418, 5810, 28071, 7832, 4420, 66945, 351, 6399, 353, 809 #### [facility] [place] [address] Craft Demonstrator: Earnest Russell MD #### [id number] #### [facility], [address] [place] [address] Craft Demonstrator: Mindy Krueger MD,PhD,[place] MCV (RBC) [Entitic vol] 89.3 fL Normal 80.0-100.0 [facility] Comment on above: Performed By: #### 3 8567, 4418, 5810, 23775, 7832, 4420, 38247, 351, 6399, 353, 809 #### [facility] [address], [address] [place] [address] Craft Demonstrator: Earnest Russell MD #### [id number] #### [facility], [address] [place] [address] Craft Demonstrator: Mindy Krueger MD,PhD,[place] Monocytes (Bld) [#/Vol] 0.403 10*3/uL Normal 200-950 [facility] Comment on above: Performed By: #### 3 8567, 4418, 5810, 26336, 7832, 4420, 58588, 351, 6399, 353, 809 #### [facility] [place] [address] Craft Demonstrator: Earnest Russell MD #### [id number] #### [facility], [address] [place], [place] [phone] Craft Demonstrator: Mindy Krueger MD,PhD,[place] Monocytes/100 WBC (Bld) 9.6 % Normal [facility] Comment on above: Performed By: #### 3 8567, 4418, 5810, 37345, 7832, 4420, 91706, 351, 6399, 353, 809 #### [facility] [place] [address] [place] [address] Craft Demonstrator: Earnest Russell MD #### [id number] #### [facility], [address] [place] [address] Craft Demonstrator: Mindy Krueger MD,PhD,[place] Neutrophils (Bld) [#/Vol] 2.083 10*3/uL Normal 9663-1993 [facility] Comment on above: Performed By: #### 3 8567, 4418, 5810, 60109, 7832, 4420, 11931, 351, 6399, 353, 809 #### [facility] of [place] [address] [place] , [address] [place] [address] Craft Demonstrator: Earnest Russell MD #### [id number] #### [facility], [address] [place], [place] [phone] Craft Demonstrator: Mindy Krueger MD,PhD,[place] Neutrophils/100 WBC (Bld) 49.6 % Normal [facility] Comment on above: Performed By: #### 3 8567, 4418, 5810, 64003, 7832, 4420, 66978, 351, 6399, 353, 809 #### [facility] of [address] , [address] [place] [address] Craft Demonstrator: Earnest Russell MD #### [id number] #### [facility], [address] [place], [place] [phone] Craft Demonstrator: Mindy Krueger MD,PhD,[place] Platelet mean volume (Bld) [Entitic vol] 12.5 fL Normal 7.5-12.5 [facility] Comment on above: Performed By: #### 3 8567, 4418, 5810, 40412, 7832, 4420, 02804, 351, 6399, 353, 809 #### [facility] of [place] [address] [place] , [address] [place] [address] Craft Demonstrator: Earnest Russell MD #### [id number] #### [facility], [address] [place] [phone] Craft Demonstrator: Mindy Krueger MD,PhD,[place] Platelets (Bld) [#/Vol] 202 10*3/uL Normal 140-400 [facility] Comment on above: Performed By: #### 3 8567, 4418, 5810, 56698, 7832, 4420, 24872, 351, 6399, 353, 809 #### [facility] of [place] [address], [address] [place] [address] Craft Demonstrator: Earnest Russell MD #### [id number] #### [facility], [address] [place] [phone] Craft Demonstrator: Mindy Krueger MD,PhD,[place] RBC (Bld) [#/Vol] 4.29 10*6/uL Normal 3.80-5.10 [facility] Comment on above: Performed By: #### 3 8567, 4418, 5810, 26648, 7832, 4420, 38011, 351, 6399, 353, 809 #### [facility] of [place] [address] [place] , [address] [place] [address] Craft Demonstrator: Earnest Russell MD #### [id number] #### [facility], [address] [place] [phone] Craft Demonstrator: Mindy Krueger MD,PhD,[place] WBC (Bld) [#/Vol] 4.2 10*3/uL Normal 3.8-10.8 [facility] Comment on above: Performed By: #### 3 8567, 4418, 5810, 38990, 7832, 4420, 47011, 351, 6399, 353, 809 #### [facility] of [facility] [address], [address] [place] [address] Craft Demonstrator: Earnest Russell MD #### [id number] #### [facility], [address] [place] Craft Demonstrator: Mindy Krueger MD,PhD,[place] CHROMATIN (NUCLEOSOMAL) ANTI BODYon 10-11-2024 CHROMATIN (NUCLEOSOMAL) ANTIBODY <1.0 NEG Normal <1.0 NEG [facility] Comment on above: Performed By: #### 5 463, 1715 #### [facility] [place] [address] Craft Demonstrator: Earnest Russell MD COMPLEMENT COMPONENT C3Con 0 10-11-2024 COMPLEMENT COMPONENT C3C 104 mg/dL Normal 83-193 [facility] Comment on above: Performed By: #### 3 8567, 4418, 5810, 54284, 7832, 4420, 33752, 351, 6399, 353, 809 #### [facility] [address], [address] [place] [address] Craft Demonstrator: Earnest Russell MD #### [id number] #### [facility], [address] [place] [phone] Craft Demonstrator: Mindy Krueger MD,PhD,[place] COMPLEMENT COMPONENT C4Con 0 10-11-2024 COMPLEMENT COMPONENT C4C 17 mg/dL Normal 15-57 [facility] Comment on above: Performed By: #### 3 8567, 4418, 5810, 21019, 7832, 4420, 09717, 351, 6399, 353, 809 #### [facility] [place] [address] Craft Demonstrator: Earnest Russell MD #### [id number] #### [facility], [address] [place], [place] Craft Demonstrator: Mindy Krueger MD,PhD,[place] CYCLIC CITRULLINATED PEPTIDE (CCP) AB (IGG)on 10-11-2024 CYCLIC CITRULLINATED PEPTIDE (CCP) AB (IGG) <16 Normal [facility] Comment on above: Result Comment: Refe rence Range Negative: <20 Weak Positive: 20-39 Moderate Positive: 40-59 Strong Positive: >59 Performed By: #### 5 463, 1715 #### [facility] [place] [address] Craft Demonstrator: Earnest Russell MD DEBRA-1 ANTIBODYon 10-11-2024 DEBRA-1 ANTIBODY <1.0 NEG Normal <1.0 NEG [facility] Comment on above: Performed By: #### 3 8567, 4418, 5810, 49067, 7832, 4420, 13409, 351, 6399, 353, 809 #### [facility] [place] [address] Craft Demonstrator: Earnest Russell MD #### [id number] #### [facility], [address] [place] [address] Craft Demonstrator: Mindy Krueger MD,PhD,[place] RHEUMATOID FACTORon 10-11-19 25 RHEUMATOID FACTOR 50 IU/mL High <14 [facility] Comment on above: Performed By: #### 3 8567, 4418, 5810, 05058, 7832, 4420, 03290, 351, 6399, 353, 809 #### [facility] [place] [address] Craft Demonstrator: Earnest Russell MD #### [id number] #### [facility], [address] [place] [address] Craft Demonstrator: Mindy Krueger MD,PhD,[place] SED RATE BY MODIFIED WESTERG RENon 10-11-2024 SED RATE BY MODIFIED WESTERGREN 11 mm/h Normal < OR = 20 [facility] Comment on above: Performed By: #### 3 8567, 4418, 5810, 74640, 7832, 4420, 85818, 351, 6399, 353, 809 #### [facility] [place] [address] Craft Demonstrator: Earnest Russell MD #### [id number] #### [facility], [address] [place] [address] Craft Demonstrator: Mindy Krueger MD,PhD,[place] SJOGREN'S ANTIBODIES (SS-A,S S-B)on 10-11-2024 SJOGREN'S ANTIBODY (SS-A) >8.0 POS Abnormal <1.0 NEG [facility] Comment on above: Performed By: #### 5 463, 1715 #### [facility] [address], [address] [place] [address] Craft Demonstrator: Earnest Russell MD SJOGREN'S ANTIBODY (SS-B) <1.0 NEG Normal <1.0 NEG [facility] Comment on above: Performed By: #### 5 463, 1715 #### [facility] [address], [address] [place] [address] Craft Demonstrator: Earnest Russell MD SM/TECHNOLOGIST INFECTIOUS DISEASE ANTIBODYon 10-11-2024 SM/TECHNOLOGIST INFECTIOUS DISEASE ANTIBODY <1.0 NEG Normal <1.0 NEG [facility] Comment on above: Performed By: #### 5 463, 1715 #### [facility] [place] [address] Craft Demonstrator: Earnest Russell MD SYSTEMIC SCLEROSIS 12 AB MORLEY EL 2on 10-11-2024 CENP A <11 Normal <11 [facility] Comment on above: Order Comment: FASTI NG:NO FASTING: NO Performed By: #### 3 8567, 4418, 5810, 24765, 7832, 4420, 19021, 351, 6399, 353, 809 #### [facility] [place] [address] Craft Demonstrator: Earnest Russell MD #### [id number] #### [facility], [address] [place] [address] Craft Demonstrator: Mindy Krueger MD,PhD,[place] CENP B <11 Normal <11 [facility] Comment on above: Order Comment: FASTI NG:NO FASTING: NO Performed By: #### 3 8567, 4418, 5810, 41642, 7832, 4420, 99023, 351, 6399, 353, 809 #### [facility] [place] [address] [place] , [address] [place] [address] Craft Demonstrator: Earnest Russell MD #### 68525 #### [facility], [address] [place] [address] Craft Demonstrator: Mindy Krueger MD,PhD,[place] FIBRILLARIN <11 Normal <11 [facility] Comment on above: Order Comment: FASTI NG:NO FASTING: NO Performed By: #### 3 8567, 4418, 5810, 55615, 7832, 4420, 81683, 351, 6399, 353, 809 #### [facility] [address] , [address] [place] [address] Craft Demonstrator: Earnest Russell MD #### [id number] #### [facility], [address] [place] [phone] Craft Demonstrator: Mindy Krueger MD,PhD,[place] PM/SCL 100 <11 Normal <11 [facility] Comment on above: Order Comment: FASTI NG:NO FASTING: NO Performed By: #### 3 8567, 4418, 5810, 46492, 7832, 4420, 96994, 351, 6399, 353, 809 #### [facility] [address] , [address] [place] [address] Craft Demonstrator: Earnest Russell MD #### [id number] #### [facility], [address] [place] [address] Craft Demonstrator: Mindy Krueger MD,PhD,[place] PM/SCL 75 <11 Normal <11 [facility] Comment on above: Order Comment: FASTI NG:NO FASTING: NO Result Comment: The [place] [employer] (ACR) considers anti-Scl-70 (also known as anti-topoisomerase I), anti-centromere and/or anti-RNA polymerase III antibodies part of the classification criteria for Systemic Sclerosis(SSc) given that the antibodies are present in 30%-60% of patients with SSc. Centromere protein B (CENP B) antibody positivity is found in 64-95% of patients with a limited form of cutaneous systemic sclerosis i.e. "CREST" syndrome. The addition of centromere protein A [...] patients and anti-RP155 antibodies in about 8%. [id number] antibodies are associated with SSc and inflammatory myopathy overlap syndromes. Three major components of U1-snRNP are tested: U1-snRNP TECHNOLOGIST INFECTIOUS DISEASE A, U1-snRNP TECHNOLOGIST INFECTIOUS DISEASE C, U1-snRNP BRX70cm. The presence of U1-snRNP antibodies occur in 14% and 26% of Caucasians and Americans, respectively, in [place]. Anti-fibrillarin (anti-U3RNP) antibodies are specific for SSc, but are mutually exclusive from Scl-70, CENP, and RNAP III antibodies. Anti-U3RNP antibodies are detected in 4-10% of SSc patients, and when present are associated with dcSSc and frequently visceral renal and cardiac involvement. Fibrillarin antibodies are found more frequently in -[place] patients and when seen in this population, [...] lung disease and a high frequency of "intrinsic" pulmonary hypertension, and hence, a poorer prognosis. Autoantibodies to PM/Scl, the human exosome complex, are found in 4-11% of patients with SSc. PM/Scl antibodies have also been observed in polymyositis/SSc overlap syndromes and other autoimmune diseases. The majority of anti-PM/Scl reactivity is directed to one of two proteins: PM/Wnu106 and/or PM/Scl75. More information can be found at [email or web address] ?[email or web address]-SystScler This test was developed and its analytical performance characteristics have been determined by [employer]. It has not been cleared or approved by FDA. This assay has been validated pursuant to the CLIA regulations and is used for clinical purposes. Performed By: #### 3 8567, 4418, 5810, 89472, 7832, 4420, 76743, 351, 6399, 353, 809 #### [facility] [place] [address] Craft Demonstrator: Earnest Russell MD #### [id number] #### [facility], [address] [place] [address] Craft Demonstrator: Mindy Krueger MD,PhD,[place] RP11 <11 Normal <11 [facility] Comment on above: Order Comment: FASTI NG:NO FASTING: NO Performed By: #### 3 8567, 4418, 5810, 52658, 7832, 4420, 48013, 351, 6399, 353, 809 #### [facility] [address], [address] [place] [address] Craft Demonstrator: Earnest Russell MD #### [id number] #### [facility], [address] [place] [address] Craft Demonstrator: Mindy Krueger MD,PhD,[place] RP155 <11 Normal <11 [facility] Comment on above: Order Comment: FASTI NG:NO FASTING: NO Performed By: #### 3 8567, 4418, 5810, 59023, 7832, 4420, 89032, 351, 6399, 353, 809 #### [facility] [address], [address] [place] [address] Craft Demonstrator: Earnest Russell MD #### [id number] #### [facility], [facility] [place] [address] Craft Demonstrator: Mindy Krueger MD,PhD,[place] SCL 70 <11 Normal <11 [facility] Comment on above: Order Comment: FASTI NG:NO FASTING: NO Performed By: #### 3 8567, 4418, 5810, 32006, 7832, 4420, 46293, 351, 6399, 353, 809 #### [facility] [address], [address] [place] [address] Craft Demonstrator: Earnest Russell MD #### [id number] #### [facility], [facility] [place] [address] Craft Demonstrator: Mindy Krueger MD,PhD,[place] TH/TO <11 Normal <11 [facility] Comment on above: Order Comment: FASTI NG:NO FASTING: NO Performed By: #### 3 8567, 4418, 5810, 33767, 7832, 4420, 53832, 351, 6399, 353, 809 #### [facility] [place] [address] Craft Demonstrator: Earnest Russell MD #### [id number] #### [facility], [address] [place] [address] Craft Demonstrator: Mindy Krueger MD,PhD,[place] U1 SNRNP TECHNOLOGIST INFECTIOUS DISEASE 70KD <11 Normal <11 [facility] Comment on above: Order Comment: FASTI NG:NO FASTING: NO Performed By: #### 3 8567, 4418, 5810, 57158, 7832, 4420, 45868, 351, 6399, 353, 809 #### [facility] [address], [address] [place] [address] Craft Demonstrator: Earnest Russell MD #### [id number] #### [facility], [address] [place] [id number] Craft Demonstrator: Mindy Krueger MD,PhD,NAPOLEON U1 SNRNP TECHNOLOGIST INFECTIOUS DISEASE A <11 Normal <11 [facility] Comment on above: Order Comment: FASTI NG:NO FASTING: NO Performed By: #### 3 8567, 4418, 5810, 13018, 7832, 4420, 92618, 351, 6399, 353, 809 #### [facility] [address], [address] [place] [address] Craft Demonstrator: Earnest Russell MD #### 10047 #### [facility], [address] [place] [address] Craft Demonstrator: Mindy Krueger MD,PhD,NAPOLEON U1 SNRNP TECHNOLOGIST INFECTIOUS DISEASE C <11 Normal <11 [facility] Comment on above: Order Comment: FASTI NG:NO FASTING: NO Performed By: #### 3 8567, 4418, 5810, 89062, 7832, 4420, 54044, 351, 6399, 353, 809 #### [facility] [address], [address] [place] [address] Craft Demonstrator: Earnest Russell MD #### 62747 #### [facility], [address] [place] [address] Craft Demonstrator: Mindy Krueger MD,PhD,NAPOLEON PROTEIN, TOTAL W/CREAT, RAND OM URINEon 10-06-2024 Creatinine (U) [Mass/Vol] 76 mg/dL Normal 20-275 [facility] Comment on above: Performed By: #### 5 463, 1715 #### [facility] [address], [address] [place] [address] Craft Demonstrator: Earnest Russell MD Protein (U) [Mass/Vol] 11 mg/dL Normal 5-24 [facility] Comment on above: Performed By: #### 5 463, 1715 #### [facility] of [place] [address] Craft Demonstrator: Earnest Russell MD PROTEIN/CREATININE RATIO 145 mg/g creat Normal 24-184 [facility] Comment on above: Performed By: #### 5 463, 1715 #### [facility] of [address], [address] [place] [address] Craft Demonstrator: Earnest Russell MD PROTEIN/CREATININE RATIO 0.145 mg/mg creat Normal 0.024-0.184 [facility] Comment on above: Performed By: #### 5 463, 1715 #### [facility] [place] [address] Craft Demonstrator: Earnest Russell MD URINALYSIS, COMPLETEon 10-06 Appearance (U) CLEAR Normal CLEAR [facility] Comment on above: Order Comment: FASTI NG:NO FASTING: NO Performed By: #### 5 463, 1715 #### [facility] [place] [address] Craft Demonstrator: Earnest Russell MD BACTERIA NONE SEEN Normal NONE SEEN [facility] Comment on above: Order Comment: FASTI NG:NO FASTING: NO Performed By: #### 5 463, 1715 #### [facility] [place] [address] Craft Demonstrator: Earnest Russell MD Bilirubin Ql (U) Negative Normal NEGATIVE [facility] Comment on above: Order Comment: FASTI NG:NO FASTING: NO Performed By: #### 5 463, 1715 #### [facility] [place] [address] Craft Demonstrator: Earnest Russell MD Color (U) YELLOW Normal YELLOW [facility] Comment on above: Order Comment: FASTI NG:NO FASTING: NO Performed By: #### 5 463, 1715 #### [facility] [address], [address] [place] [address] Craft Demonstrator: Earnest Russell MD Glucose Ql (U) Negative Normal NEGATIVE [facility] Comment on above: Order Comment: FASTI NG:NO FASTING: NO Performed By: #### 5 463, 1715 #### [facility] [place] [address] Craft Demonstrator: Earnest Russell MD HYALINE CAST NONE SEEN Normal NONE SEEN [facility] Comment on above: Order Comment: FASTI NG:NO FASTING: NO Performed By: #### 5 463, 1715 #### [facility] [place] [address] Craft Demonstrator: Earnest Russell MD Ketones Ql (U) Negative Normal NEGATIVE [facility] Comment on above: Order Comment: FASTI NG:NO FASTING: NO Performed By: #### 5 463, 1715 #### [facility] [address], [address] [place] [address] Craft Demonstrator: Earnest Russell MD Leukocyte esterase Test strip Ql (U) TRACE Abnormal NEGATIVE [facility] Comment on above: Order Comment: FASTI NG:NO FASTING: NO Performed By: #### 5 463, 1715 #### [facility] [place] [address] Craft Demonstrator: Earnest Russell MD Nitrite Ql (U) Negative Normal NEGATIVE [facility] Comment on above: Order Comment: FASTI NG:NO FASTING: NO Performed By: #### 5 463, 1715 #### [facility] [place] [address] Craft Demonstrator: Earnest Russell MD NOTE Normal [facility] Comment on above: Order Comment: FASTI NG:NO FASTING: NO Result Comment: This urine was analyzed for the presence of WBC, RBC, bacteria, casts, and other formed elements. Only those elements seen were reported. Performed By: #### 5 463, 1715 #### [facility] of [place] [address] [place] [address] Craft Demonstrator: Earnest Rusesll MD OCCULT BLOOD 3+ Abnormal NEGATIVE [facility] Comment on above: Order Comment: FASTI NG:NO FASTING: NO Performed By: #### 5 463, 1715 #### [facility] [address], [address] [place] [address] Craft Demonstrator: Earnest Russell MD pH (U) 7.0 [pH] Normal 5.0-8.0 [facility] Comment on above: Order Comment: FASTI NG:NO FASTING: NO Performed By: #### 5 463, 1715 #### [facility] [place] [address] Craft Demonstrator: Earnest Russell MD Protein Ql (U) TRACE Abnormal NEGATIVE [facility] Comment on above: Order Comment: FASTI NG:NO FASTING: NO Performed By: #### 5 463, 1715 #### [facility] [place] [address] Craft Demonstrator: Earnest Russell MD RBC (U) [#/Vol] /uL Abnormal < OR = 2 [facility] Comment on above: Order Comment: FASTI NG:NO FASTING: NO Performed By: #### 5 463, 1715 #### [facility] [place] [address] Craft Demonstrator: Earnest Russell MD Specific gravity (U) [Rel density] 1.016 Normal 1.001-1.035 [facility] Comment on above: Order Comment: FASTI NG:NO FASTING: NO Performed By: #### 5 463, 1715 #### [facility] [place] [address] Craft Demonstrator: Earnest Russell MD SQUAMOUS EPITHELIAL CELLS 0-5 Normal < OR = 5 [facility] Comment on above: Order Comment: FASTI NG:NO FASTING: NO Performed By: #### 5 463, 1715 #### [facility] of [address], [address] [place] [address] Craft Demonstrator: Earnest Russell MD WBC 0-5 Normal < OR = 5 [facility] Comment on above: Order Comment: FASTI NG:NO FASTING: NO Performed By: #### 5 933, 0871 #### [facility] [address], [address] [place] [address] Craft Demonstrator: Earnest Russell MD CNOVon 07-07-2024 CNOV Office Visit (UCWSTR ) BULMARO BLAIR ([id number]) 1995 F Date Time Provider Department 07/07/24 11:45 AM YANELI WINTER [facility] During your visit today, we recorded the following information about you: Temperature Pulse Respiration Blood pressure 98.1 degrees 77/minute 18/minute 147/97 Weight 64.7 kg Yaneli Winter APRN.LINEN FOLDER 07/07/2024 3:24 PM Signed This note was created using [employer]. Subjective Bulmaro Blair is a 29 year old female. 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 No specialized language instructor was used. Cough This is a new [...] Grandmother Diabetes Paternal Grandfather Heart Maternal Aunt GA at 33 Social History Tobacco Use Smoking [...] Negative for adenopathy. Does not bruise/bleed easily. Psychiatric/Behaviora l: Negative for agitation and behavioral problems. Objective [...] and external ear normal. Left Ear: Ear (more content not included)... Normal [facility] MR/BMS.Otto 06-22-2024 MR/BMS.YARELY [facility] [address] [place] [address]. [address] [place] [id number] OFFICE VISIT Date of Service: 06/22/24 MR#: [id number] Acct: [id number] Name: BULMARO BLAIR Rep #: [id number] : 1995 Provider: LAURYN Whatley Age/Sex: 29/F Location: [facility] Status: Signed Intake Vital Signs 05/18/24 09:15 06/22/24 10:07 Height 5 ft 7 in Weight: 142 lb BP 123/84 H Blood Pressure Location Rt brachial Position Sitting Respiration 16 Pulse 77 Pulse Source Monitor Temp 98.2 F Temp Source Temporal Pulse Oximetry (%) 100 Oxygen Delivery Method room air Intake Visit Reasons: PAINFUL VARICOSE VEINS Chief Complaint: establish care Is patient in pain?: No Allergies No Known Allergies Allergy (Verified 06/22/24 10:08) Medications ???Medication ???Instructions ???Recorded ???Confirmed ???Type ondansetron 4 mg disintegrating 4 mg PO Q8H PRN PRN Nausea #10 tabs 05/18/24 06/22/24 Rx tablet promethazine 25 mg tablet 25 mg PO Q6H PRN nausea and 05/18/24 06/22/24 Rx vomiting #20 tabs Is last menstrual period known: Yes Post menopausal: No Patient : No Have you fallen in the past year?: No PFS Medical History Vaginal delivery Surgical History S/P tubal ligation H/O dilation and curettage Family History Grandfather Cancer Lung Social History (Updated 06/22/24 @ 10:07 by Chanda Funes) adopted: No household members: family housing: house current occupational status: employed current occupation: [employer] Smoking Status: Former smoker Tobacco: How many years used: 5 second hand exposure: Yes alcohol intake: never substance use type: does not use seatbelt use: always do you feel safe at home: Yes additional social history: BF: Kaz HPI HPI HPI: BULMARO BLAIR, is a 29 F who presents to the office today for evaluation of symptomatic varicose veins and Raynaud's syndrome as referred by her PCP. With respect to the Raynaud's syndrome, she reports her symptoms include pallor and numbness/tingling of her fingers and toes with cold exposure. She reports she has had the symptoms since childhood. She reports that overall, she is able to manage the symptoms well by avoiding cold exposure when possible and the symptoms resolve quickly with the rewarming. She has never had any wounds. At this time, she does not feel these symptoms limit her quality of life for daily activities. 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 She was referred to rheumatology due to PCP workup showing positive ANAHI and rheumatoid factor and she has an appointment with them in September. She has bilateral lower extremity varicosities. Her most bothersome varicosity is along her medial right calf and thigh. In this varicosity she experiences aching and tenderness to palpation. The symptoms are worse with prolonged sitting/standing, at the end of the day, and worse with menstruation. These varicosities and associated pain developed during her first and worsened with her subsequent to pregnancies. She noticed some improvement after delivery, but has persistent symptoms as noted above. She does not typically notice any associated edema. She has a history of prior superficial thrombophlebitis during , but no other SVT, VTE, or PE. She admits to 1 vulvar varicosity but this is asymptomatic. She denies any persistent pelvic, flank, abdominal pain. She denies hematuria or dyspareunia. ROS General General: No weight change, appetite, fatigue, colon cancer, breast cancer or weakness HEENT HEENT: No difficulty swallowing, eye injury, eye surgery, swollen glands or hoarseness Endo Endocrine: No thyroid disease, diabetes mellitus, thyroid cancer, Hair loss, heat intolerance or cold intolerance Skin Skin: No rash or changing moles Musc Musculoskeletal: No back problems, arthritis, rheumatoid arthritis, gout or joint pain Cardio Cardiovascular: No murmur, pacemaker, heart disease, atrial fibrillation, high blood pressure, heart attack, heart stent, palpitations, shortness of breat with exertion or chest pain Psych Psychiatric: Yes anxiety; No depression or hearing voices Resp Respiratory: No shortness of breath, No sleep apnea, No cough, No COPD, No asthma, No emphysema and No wheezing Gastro Gastrointestinal: No abdominal pain, Yes nausea or vomiting, Yes diarrhea, No constipation, No blood in stool, No acid reflux, No hemorrhoids, No ulcers, No gallbladder probl (more content not included)... Normal [facility] C-REACTIVE PROTEINon 024 CRP [Mass/Vol] mg/L Normal 0.00 - 0.90 [facility] Comment on above: Performed By: #### 2 28288 #### [facility],[address] [place] [address] CBC + DIFFon 06-06-2024 Baso # 0.01 x10EE3/UL Normal 0.00 - 0.10 [facility] Comment on above: Performed By: #### 2 95144 #### [facility],[address] [place] [address] 43269 Basophils/100 WBC (Bld) 0.2 % Normal 0.0 - 2.0 [facility] Comment on above: Performed By: #### 2 85339 #### [facility],[address] [place] [address] CBC + DIFF Normal [facility] Comment on above: Result Comment: CBC- COMPLETE BLOOD COUNT Performed By: #### 2 94784 #### [facility],[address] [place] [address] EO # 0.03 x10EE3/UL Normal 0.00 - 0.50 [facility] Comment on above: Performed By: #### 2 36134 #### [facility],[address] [place], [place] [id number] Eosinophils/100 WBC (Bld) 0.6 % Normal 0.0 - 7.0 [facility] Comment on above: Performed By: #### 2 86362 #### [facility],[address] [place] [address] Erythrocyte distribution width (RBC) [Ratio] 14.0 % Normal 12.0 - 15.6 [facility] Comment on above: Performed By: #### 2 45333 #### [facility],[address] [place] [address] Hematocrit (Bld) [Volume fraction] 42.0 % Normal 34.0 - 46.0 [facility] Comment on above: Performed By: #### 2 43169 #### [facility],[address] [place] [address]456 Hemoglobin (Bld) [Mass/Vol] 13.6 g/dL Normal 12.0 - 16.0 [facility] Comment on above: Performed By: #### 2 64369 #### [facility],[address] [place] [address] 42820 Lymph # 1.04 x10EE3/UL Normal 0.80 - 2.80 [facility] Comment on above: Performed By: #### 2 65316 #### [facility],[address] [place] [address] 80051 Lymphocytes/100 WBC (Bld) 21.9 % Normal 20.0 - 45.0 [facility] Comment on above: Performed By: #### 2 74215 #### [facility],[address] [place] [address] 83772 MANUAL DIFF N/A Normal [facility] Comment on above: Performed By: #### 2 17997 #### [facility],[address] [place] [address] MCH (RBC) [Entitic mass] 29 pg Normal 27 - 33 [facility] Comment on above: Performed By: #### 2 86802 #### [facility],[address] [place] [address] 80388 MCHC 33 X10 3 Normal 32 - 36 [facility] Comment on above: Performed By: #### 2 91024 #### [facility],[address] [place] [address] 77805 MCV (RBC) [Entitic vol] 91 fL Normal 80 - 99 [facility] Comment on above: Performed By: #### 2 99081 #### [facility],[address] [place] [address] 48418 Drew # 0.40 x10EE3/UL Normal 0.20 - 1.00 [facility] Comment on above: Performed By: #### 2 53391 #### [facility],[address] [place] [address] 38552 MONOS % 8.4 % Normal 0.0 - 10.0 [facility] Comment on above: Performed By: #### 2 02118 #### [facility],[address] [place] [address] 80751 Morphology Jeff (Bld) [Interp] N/A Normal [facility] Comment on above: Performed By: #### 2 93094 #### [facility],[address] [place] [address] 68678 Neut # 3.29 x10EE3/UL Normal 1.50 - 7.10 [facility] Comment on above: Performed By: #### 2 69008 #### [facility],[address] [place] [address] 69813 Neutrophils/100 WBC (Bld) 69.0 % Normal 46.0 - 76.0 [facility] Comment on above: Performed By: #### 2 33282 #### [facility],[address] [place] [address] 27917 PLATELET 155 x10EE3/UL Normal 150 - 450 [facility] Comment on above: Performed By: #### 2 71793 #### [facility],[address] [place] [address] 32508 Platelet mean volume (Bld) [Entitic vol] 9.2 fL Normal 6.6 - 10.5 [facility] Comment on above: Result Comment: AUTO MATED DIFFERENTIAL Performed By: #### 2 60467 #### [facility],[address] [place] [address] 58729 RBC 4.63 x 10EE6/UL Normal 4.10 - 5.30 [facility] Comment on above: Performed By: #### 2 37058 #### [facility],[address] [place] [address] 29459 WBC 4.8 x 10EE3/UL Normal 4.5 - 10.8 [facility] Comment on above: Performed By: #### 2 12403 #### [facility],[address] [place] [address] 64213 CMP with eGFRon 10-21-2024 AGE 29 years Normal [facility] Comment on above: Performed By: #### 2 40126 #### [facility],[address] [place] [address] 21947 Albumin [Mass/Vol] 4.4 g/dL Normal 3.4 - 5.0 [facility] Comment on above: Performed By: #### 2 15876 #### [facility],[address] [place] [address] 31607 Albumin/Globulin [Mass ratio] 1.3 {ratio} Normal 0.9 - 1.6 [facility] Comment on above: Performed By: #### 2 14177 #### [facility],[address] [place] [address] 39094 ALK PHOS 49 U/L Normal 46 - 116 [facility] Comment on above: Performed By: #### 2 35320 #### [facility],[address] [place] [address] 14659 ALT [Catalytic activity/Vol] 19 U/L Normal 16 - 63 [facility] Comment on above: Performed By: #### 2 46768 #### [facility],[address] [place] [address] 91208 Anion gap [Moles/Vol] 14 mmol/L Normal 10 - 20 [facility] Comment on above: Performed By: #### 2 88752 #### [facility],[address] [place] [address] 65033 AST [Catalytic activity/Vol] 11 U/L Low 13 - 39 [facility] Comment on above: Performed By: #### 2 48329 #### [facility],[address] [place] [address] 87838 B/C RATIO 17 ratio Normal 0 - 30 [facility] Comment on above: Performed By: #### 2 31660 #### [facility],[address] [place] [address] 37855 Bilirubin [Mass/Vol] 1.0 mg/dL Normal 0.2 - 1.0 [facility] Comment on above: Performed By: #### 2 79403 #### [facility],[address] [place] [address] 73288 Calcium [Mass/Vol] 9.5 mg/dL Normal 8.5 - 10.1 [facility] Comment on above: Performed By: #### 2 99441 #### [facility],[address] [place] [address] 55230 Chloride [Moles/Vol] 106 mmol/L Normal 98 - 107 [facility] Comment on above: Performed By: #### 2 20719 #### [facility],[address] [place] [address] 48130 CMP with eGFR Normal [facility] Comment on above: Result Comment: COMP REHENSIVE METABOLIC PANEL Performed By: #### 2 02344 #### [facility],[address] [place] [address] 87073 CO2 [Moles/Vol] 27.3 mmol/L Normal 21.0 - 32.0 [facility] Comment on above: Performed By: #### 2 45140 #### [facility],[address] [place] [address] 52692 Creatinine [Mass/Vol] 0.77 mg/dL Normal 0.55 - 1.02 [facility] Comment on above: Performed By: #### 2 86850 #### [facility],[address] [place] [address] 85058 GFR/1.73 sq M.predicted among non-blacks MDRD (S/P/Bld) [Vol rate/Area] mL/min/{1.73_m2} Normal 60 - 999 [facility] Comment on above: Performed By: #### 2 23970 #### [facility],[address] [place] [address] 70290 Result Comment: ACCO RDING TO THE NATIONAL KIDNEY DISEASE EDUCATION PROGRAM(NKDE), A NORMAL eGFR IS A VALUE GREATER THAN OR EQUAL TO 60 ML/MIN/1.73 SQ METERS. CHRONIC KIDNEY DISEASE: <60mL/MIN/1.73 SQ METERS KIDNEY FAILURE: <15mL/MIN/1.73 SQ METERS THIS TEST SHOULD ONLY BE USED FOR PATIENTS 18 YEARS OF AGE AND OLDER. Globulin (S) [Mass/Vol] 3.4 g/dL Normal 1.5 - 3.8 [facility] Comment on above: Performed By: #### 2 15119 #### [facility],[address] [place] [address] 83636 Glucose [Mass/Vol] 97 mg/dL Normal 74 - 106 [facility] Comment on above: Performed By: #### 2 57437 #### [facility],[address] [place] [address] 09489 Potassium [Moles/Vol] 4.2 mmol/L Normal 3.5 - 5.1 [facility] Comment on above: Performed By: #### 2 37978 #### [facility],[address] [place] [address] 54076 Protein [Mass/Vol] 7.8 g/dL Normal 6.4 - 8.2 [facility] Comment on above: Performed By: #### 2 61378 #### [facility],[address] [place] [address] 55783 Sodium [Moles/Vol] 143 mmol/L Normal 136 - 145 [facility] Comment on above: Performed By: #### 2 22982 #### [facility],[address] [place] [address] 03633 Urea nitrogen [Mass/Vol] 13 mg/dL Normal 7 - 18 [facility] Comment on above: Performed By: #### 2 84093 #### [facility],[address] [place] [address] ABDOMEN/PELVIS [facility] 2023 CT ABDOMEN/PELVIS [place] [address] Patient: BULMARO BLAIR Phone#: : 1995 Age: 29 Gender: F Pt. Type: ER Account: [id number] Location: 052 Ordering: NJ HODGE Exam Date: 06/06/2024/10:46 Family Phys: YANELI UNGERER Charge Code: [id number] Physician: [place] Order #: [id number] Dose#: 9.6 PROCEDURE: CT ABDOMEN/PELVIS WITH CONTRAST [...] Report - Page 2 of 2 Patient: BULMARO BLAIR Phone#: : 1995 Age: 29 Gender: F Pt. Type: ER Account: [id number] Location: 052 Ordering: NJ HODGE Exam Date: 06/06/2024/10:46 Family Phys: YANELI UNGERER Charge Code: [id number] Physician: [place] Order #: [id number] Dose#: 9.6 LUNG BASES: Visualized portion of the lower thorax demonstrates decreased AP to mediolateral ratio, a Taran index of 3.8, this would indicate severe pectus excavatum; however partially imaged. OTHER: Negative. CONCLUSION: 1. Limited visualization of the lower thorax appears to show pectus excavatum, however partially imaged. 2. No acute intra-abdominal or pelvic abnormality. Dictated by: Esperanza Driver MD on 06/06/2024 at 11:04 Approved by: Esperanza Driver MD on 06/06/2024 at 11:20 Normal [facility] ED FACILITY CODING SUMMARYon 06-06-2024 ED FACILITY CODING SUMMARY Facility Coding Facility Coding Summary [address] [address] [id number] 06/06/2024 Patient: BULMARO BLAIR Sex: Female : 1995 Age: 29y Providers: Nj Hodge M.D. DIAGNOSTIC WORKUP Chief Complaint VOMITING and DIARRHEA. -- Nj Hodge M.D. Principal Diagnosis Diarrhea -- Nj Hodge M.D. Vomiting with nausea. -- Nj Hodge M.D. ICD-10 Codes R11.2: Nausea with vomiting, unspecified R19.7: Diarrhea, unspecified PROCEDURES Procedures from Providers: Procedures from Nurses/Facility: IV Hydration (CPT: 83751) IV Push Protonix (Pantoprazole) IVP (CPT: 34799) IV Push Ondansetron IVP (CPT: 22772) SUPPLIES 1 of 2 [facility] [id number] This is a partial abstract of information documented in the full record. Channel Layer must use independent judgment in selecting codes. CPT copyright 2022 [employer]. All Rights Reserved. 2 of 2 Normal [facility] ED MED ADMINISTRATION DETAIL on 06-06-2024 ED MED ADMINISTRATION DETAIL Put In Beat Adjuster Medication Administration Record [address] [address] [address] [id number] 06/06/2024 Patient: BULMARO BLAIR Sex: Female : 1995 Age: 29y [...] 11:58 Breanna Pool R.N. Ondansetron IVP 4 11:06/06 Ondansetron IVP 4 mg given via Site# 1. Confirmed 5 Given mg (NOW x1) rights. IV patency established. IV site checked: no pain, redness, or 11:09 06/06/2024 swelling. IV flushed thoroughly pre-medication administration. IVP Gómez Holland R.N. given by nurse. - 11:14 Gómez Holland R.N. Scanned 11:06/06 Medication Response: No adverse reaction. The patient feels better. - 11:58 Breanna Pool R.N. Protonix 11:06/06 Protonix (Pantoprazole) IVP 40 mg given over 4 Given (Pantoprazole) IVP minute(s) via Site# 1. Confirmed 5 rights. IV patency established. IV 11:06/06/2024 40 mg (NOW x1) site checked: no pain, redness, or swelling. IV flushed thoroughly Gómez Holland R.N. pre-medication administration. IVP given by nurse. - 11:13 Gómez Holland R.N. 1 of 2 Put In Beat Adjuster 2 of 2 [facility] ED NURSES CLINICAL NOTEon ED NURSES CLINICAL NOTE Nurse Narrative Nurse Clinical Narrative [facility] [address] [place] [address] [phone] 06/06/2024 Patient: BULMARO BLAIR Sex: Female : 1995 Age: 29y [...] Pain level now 4/10. -- 10:04 06/06/24 EDT Gómez Holland R.N. Acuity: LEVEL 3. 10:08 06/06/24. -- 10:08 06/06/24 EDT Gómez Holland R.N. Measurements: 10:10 06/06/24 Wt: 63.5 kg, Ht/Stevan: 67.0 in, BMI: 21.93 -- 10:10 06/06/24 EDT Gómez Holland R.N. Medications: 1 of 4 Nurse Narrative busPIRone 5 mg tablet: 5 mg once a day . -- 10:00 06/06/24 EDT Gómez Holland R.N. Allergies: no known drug allergies -- 10:01 06/06/24 IVETTET Gómez Holland R.N. Problems: Anxiety disorder -- 10:01 06/06/24 EDT Gómez Holland R.N. ADDITIONAL SURGERIES: Tubal Ligation -- 10:01 06/06/24 IVETTET Gómez Holland R.N. History 09:57 06/06/24. PAST MEDICAL HX: Last normal menstrual period was 3 weeks ago. Denies current . SOCIAL HX: Never smoker. Occasional alcohol use. No drug use. The patient has not traveled outside the [place] Infectious disease exposure: No infectious disease exposure. ABUSE ASSESSMENT: The patient answered "yes" to the question(s) "Do you feel safe in your home?" and "no" to the question(s) "Are you afraid to go home?". SELF HARM ASSESSMENT: Self harm assessment was performed. The patient answered "no" to the question(s) "Have you recently felt down, depressed, or hopeless?" and "Do you have thoughts of harming or killing yourself?". FALL RISK ASSESSMENT: Fall risk assessment completed. [...] Holland R.N. 10:43 06/06/24. Patient transported to [place] by stretcher with tech. -- 10:43 06/06/24 EDT Gómez Holland R.N. 11:09 06/06/24. Ondansetron IVP 4 mg given via Site# 1. Confirmed 5 rights. IV patency established. IV site checked: no pain, redness, or swelling. IV flushed thoroughly pre-medication administration. IVP given by nurse. -- 11:14 06/06/24 EDT Gómez Holland R.N. 11:09 06/06/24. Protonix (Pantoprazole) IVP 40 mg given over 4 minute(s) via Site# 1. Confirmed 5 rights. IV patency established. IV site checked: no pain, redness, or swelling. IV flushed thoroughly pre-medication administration. IVP given by nurse. -- 11:13 06/06/24 EDT Gómez Holland R.N. 11:15 06/06/24. Care transferred and report given (Breanna WINSTON). -- 11:15 06/06/24 EDT Gómez Holland R.N. 11:58 06/06/24. IV NS 0.9 %: Medication Discontinued. bag #1 completed. Total amount infused: 1000 mL. IV patency established. IV site checked: no pain, redness, or swelling. IV flushed thoroughly post-medication administration. -- 11:58 06/06/24 EDT Breanna Pool R.N. 11:58 06/06/24. Ondansetron IVP: Medication Response. No adverse reaction. The patient feels better. -- 11:58 06/06/24 EDT Breanna Pool R.N. DISPOSITION / DISCHARGE 13:21 06/06/24. BP: 136/79 MAP: 98. HR: 71. RR: 16. O2 saturation: 100% Temperature: 97.9 F. Pain level now 0/10. -- 13:31 06/06/24 ABEBA Pool R.N. 13:29 06/06/24. Site #1 removed upon discharge. Bandage applied. -- 13:29 06/06/24 ABEBA Pool R.N. 13:30 06/06/24. Condition at departure: stable. No learning barriers present. Discharge instru (more content not included)... Normal [facility] ED ORDER SHEET (CPOE ONLY)on 06-06-2024 ED ORDER SHEET (CPOE ONLY) Order Sheet Order Sheet [place] [address] [place] [address] [id number] 06/06/2024 Patient: BULMARO BLAIR Sex: Female : 1995 Age: 29y MEASUREMENTS: Wt: 63.5 kg, Ht/Stevan: 67.0 in, BMI: 21.93 ALLERGIES: No known drug allergies MEDICATION/IV/DRIP/FL UID ORDERS Order Description Priority Entered Acknowledged Completed IV NS 0.9 %1000 mL at 999 10:23 06/06/2024 10:37 10:39 mL/hr (warm saline) Nj Hodge M.D. 06/06/2024 06/06/2024 Gómez Leyva R.N. R.N. Ondansetron IVP4 mg (NOW x1) 10:55 06/06/2024 11:05 11:14 Nj Hodge M.D. 06/06/2024 06/06/2024 Gómez Leyva R.N. R.N. Protonix (Pantoprazole) IVP40 10:55 06/06/2024 11:05 11:13 mg (NOW x1) Nj Hodge M.D. 06/06/2024 06/06/2024 Gómez Leyva R.N. R.N. LAB ORDERS Order Description Priority Entered Acknowledged [...] 06/06/2024 Rylan Jacobs R.N. Nathan Hall, R.N. DIAGNOSTIC STUDY ORDERS Order Description Priority Entered Acknowledged Completed CT ABD/PEL w IV Cont Stat Stat 10:23 06/06/2024 10:32 10:43 jN Hodge M.D. 06/06/2024 06/06/2024 Gómez Leyva R.N. RPeter Reason for Study: Diarrhea STAFF ORDERS Order Description Priority Entered Acknowledged Collected Completed [Electronically signed by Nj Hodge M.D. (06/06/2024 15:15 EDT)] 2 of 2 Normal [facility] ED PHYS CODING ABST SUMMARYo n 06-06-2024 ED PHYS CODING ABST SUMMARY Coding Summary Coding Summary [address] [address] [id number] 06/06/2024 Patient: BULMARO BLAIR Sex: Female : 1995 Age: 29y ICD-10 Codes R19.7: Diarrhea, unspecified R11.2: Nausea with vomiting, unspecified This is a partial abstract of information documented in the full record. Channel Layer must use independent judgment in selecting codes. CPT copyright 2022 [employer]. All Rights Reserved. 1 of 1 Normal [facility] ED PHYSICIAN CLINICAL REPORT on 06-06-2024 ED PHYSICIAN CLINICAL REPORT Narrative Physician Clinical Narrative [address] [address] [id number] 06/06/2024 Patient: BULMARO BLAIR Sex: Female : 1995 Age: 29y [...] in morning). It has been watery and blood-tinged. No black stools, flank pain, history of [...] 1.50 - 7.10 Final EDT 06/06/2024 11:19 Drew # 0.40 x10/UL 0.20 - 1.00 Final [...] Comments COMPREHENSIVE 06/06/2024 CMP with eGFR Final ME (more content not included)... Normal [facility] ED [facility] BILL 06-06-2024 ED [place] [id number] [facility] [place] [address] [id number] 06/06/2024 Patient: BULMARO BLAIR Sex: Female : 1995 Age: 29y Facility Professional Category Item Description Code Code Quantity Fee Total Nurse/E/M EMERGENCY 564996 1 $0.00 $0.00 DEPT VISIT HIGH SEVERITYFUNCJ (06748-01) Nurse/IV/IM/Infusions Hydration 773068 1 $0.00 $0.00 additional hour (00450) Nurse/IV/IM/Infusions IVP additional 666191 1 $0.00 $0.00 push (56806) Nurse/IV/IM/Infusions IVP initial (93969) 683466 1 $0.00 $0.00 Grand $0.00 Total Providers Nj Hodge M.D. Chief Complaint VOMITING and DIARRHEA. 1 of 2 Superbill Principal Diagnosis Vomiting with nausea. Diarrhea ICD-10 Codes R19.7: Diarrhea, unspecified R11.2: Nausea with vomiting, unspecified 2 of 2 Normal [facility] ED VISIT SUMMARYon ED VISIT SUMMARY Visit Overview Visit Overview [facility] [address] [place] [address] [phone] 06/06/2024 Patient: BULMARO BLAIR Sex: Female : 1995 Age: 29y 06/06/2024 03:59 PM EDT ED Arrival:09:54 06/06/2024 EDT Status:not Recent Travel:no Language:eng Adv Directive: Isolation Status: Ethnicity:N Fall Risk:no risk Infectious Disease Exposure:no Measurements:5'7" / 170.2 Self-Harm Status:risk Sepsis Screen:negative cm [...] 97.9 F BP 10:04 06/06/24 151/108 BP 13:21 06/06/24 136/79 HR 10:04 06/06/24 95 HR 13:21 06/06/24 71 RR 10:04 06/06/24 16 RR 13:21 06/06/24 16 O2 Sat 10:04 06/06/24 100% RA O2 Sat 13:06/06/24 100% 2 of 3 Visit Overview First Vitals Last Vitals Pain 10:04 06/06/24 4 Pain 13:06/06/24 0 ETCO2 10:04 06/06/24 ETCO2 13:06/06/24 GCS 10:04 06/06/24 GCS 13:21 06/06/24 RTS 10:04 06/06/24 RTS 13:21 06/06/24 PROCEDURES NURSING INTERVENTIONS LABS / STUDIES LABS / STUDIES ORDERED CBC w Diff CMP CRP CT ABD/PEL w IV Cont Lactate, Serum Urinalysis CLINICAL IMPRESSION DIARRHEA VOMITING WITH NAUSEA 3 of 3 Normal [facility] LACTATEon 06-06-2024 Lactate [Moles/Vol] 1.0 mmol/L Normal 0.4 - 2.0 [facility] Comment on above: Performed By: #### 2 03730 #### [facility],[address] [place] [address] URINALYSISon 06-06-2024 Bilirubin Ql (U) Negative Normal NORMAL: NEGATIVE [facility] Comment on above: Performed By: #### 2 53136 #### [facility],[address] [place] [address] Clarity (U) sl.cloudy Normal NORMAL: CLEAR [facility] Comment on above: Performed By: #### 2 72407 #### [facility],[address] [place] [address] Color (U) yellow Normal NORMAL: YELLOW [facility] Comment on above: Performed By: #### 2 59176 #### [facility],[address] [place] [address]374 Glucose Ql (U) NORM Normal NORMAL: NORMAL [facility] Comment on above: Performed By: #### 2 73827 #### [facility],[address] [place] [address]341 Hemoglobin Ql (U) Negative Normal NORMAL: NEGATIVE [facility] Comment on above: Performed By: #### 2 94246 #### [facility],[address] [place] [address] 60187 Ketone Negative Normal NORMAL: NEGATIVE [facility] Comment on above: Performed By: #### 2 21594 #### [facility],[address] [place] [address] 08371 Leukocytes Negative Normal NORMAL: NEGATIVE [facility] Comment on above: Performed By: #### 2 97162 #### [facility],[address] [place] [address] Nitrite Ql (U) Negative Normal NORMAL: NEGATIVE [facility] Comment on above: Performed By: #### 2 00076 #### [facility],[address] [place] [address] 14753 pH (U) 7 [pH] Normal NORMAL: 5.0-8.0 [facility] Comment on above: Performed By: #### 2 43500 #### [facility],[address] [place] [address] 18815 Protein Ql (U) 15 Abnormal NORMAL: NEGATIVE [facility] Comment on above: Performed By: #### 2 55041 #### [facility],[address] [place] [address]0593 Sp [place] 1.015 Normal NORMAL: 1.010-1.030 [facility] Comment on above: Performed By: #### 2 54480 #### [facility],[address] [place] [address] 79873 Specimen Type R Normal [facility] Comment on above: Performed By: #### 2 80452 #### [facility],[address] [place] [address] 98223 Urinalysis dipstick W Reflex Microscopic panel (U) NOT INDICATED Normal [facility] Comment on above: Performed By: #### 2 16747 #### [facility],[address] [place] [address] 25696 Urobilinog 1 Abnormal NORMAL: NORMAL [facility] Comment on above: Performed By: #### 2 47504 #### [facility],[address] [place] [address]8592 CBC + DIFFon 05-24-2024 Baso # 0.02 x10EE3/UL Normal 0.00 - 0.10 [facility] Comment on above: Performed By: #### 2 55760 #### [facility],[address] [place] [address] 82000 Basophils/100 WBC (Bld) 0.4 % Normal 0.0 - 2.0 [facility] Comment on above: Performed By: #### 2 39323 #### [facility],[address] [place] [address] 07896 CBC + DIFF Normal [facility] Comment on above: Result Comment: CBC- COMPLETE BLOOD COUNT Performed By: #### 2 82441 #### [facility],[address] [place] [address] 62237 EO # 0.02 x10EE3/UL Normal 0.00 - 0.50 [facility] Comment on above: Performed By: #### 2 17618 #### [facility],[address] [place] [address]23[address] Eosinophils/100 WBC (Bld) 0.3 % Normal 0.0 - 7.0 [facility] Comment on above: Performed By: #### 2 84022 #### [facility],[address] [place] [address] 81090 Erythrocyte distribution width (RBC) [Ratio] 14.1 % Normal 12.0 - 15.6 [facility] Comment on above: Performed By: #### 2 24978 #### [facility],[address] [place] [address] Hematocrit (Bld) [Volume fraction] 40.1 % Normal 34.0 - 46.0 [facility] Comment on above: Performed By: #### 2 06846 #### [facility],[address] [place] [address] Hemoglobin (Bld) [Mass/Vol] 13.0 g/dL Normal 12.0 - 16.0 [facility] Comment on above: Performed By: #### 2 30307 #### [place] [address] Lymph # 2.10 x10EE3/UL Normal 0.80 - 2.80 [facility] Comment on above: Performed By: #### 2 28781 #### [facility],[address] [place] [address] Lymphocytes/100 WBC (Bld) 33.0 % Normal 20.0 - 45.0 [facility] Comment on above: Performed By: #### 2 71221 #### [facility],[address] [place] [address] MANUAL DIFF N/A Normal [facility] Comment on above: Performed By: #### 2 84462 #### [facility],[address] [place] [address] MCH (RBC) [Entitic mass] 29 pg Normal 27 - 33 [facility] Comment on above: Performed By: #### 2 70598 #### [place] [address] MCHC 32 X10 3 Normal 32 - 36 [facility] Comment on above: Performed By: #### 2 35718 #### [place] [address] MCV (RBC) [Entitic vol] 91 fL Normal 80 - 99 [facility] Comment on above: Performed By: #### 2 46267 #### [facility],[address] [place] [address] Drew # 0.51 x10EE3/UL Normal 0.20 - 1.00 [facility] Comment on above: Performed By: #### 2 62655 #### [facility],[address] [place] [address] MONOS % 8.1 % Normal 0.0 - 10.0 [facility] Comment on above: Performed By: #### 2 82430 #### [facility],[address] [place], [place] [address] Morphology Jeff (Bld) [Interp] N/A Normal [facility] Comment on above: Performed By: #### 2 58519 #### [facility],[address] [place] [address] Neut # 3.70 x10EE3/UL Normal 1.50 - 7.10 [facility] Comment on above: Performed By: #### 2 92679 #### [place] [address] Neutrophils/100 WBC (Bld) 58.2 % Normal 46.0 - 76.0 [facility] Comment on above: Performed By: #### 2 76815 #### [facility],[address] [place] [address] PLATELET 186 x10EE3/UL Normal 150 - 450 [facility] Comment on above: Performed By: #### 2 71813 #### [address] [address] Platelet mean volume (Bld) [Entitic vol] 9.8 fL Normal 6.6 - 10.5 [facility] Comment on above: Result Comment: AUTO MATED DIFFERENTIAL Performed By: #### 2 49319 #### [address],[place] [address] RBC 4.43 x 10EE6/UL Normal 4.10 - 5.30 [facility] Comment on above: Performed By: #### 2 80809 #### [facility],[address] [place] [address] 727[address] WBC 6.4 x 10EE3/UL Normal 4.5 - 10.8 [facility] Comment on above: Performed By: #### 2 44878 #### [facility],[address] [place] [address] 10180 CMP with eGFRon 05-24-2024 AGE 29 years Normal [facility] Comment on above: Performed By: #### 2 77182 #### [facility],[address] [place] [address] 24919 Albumin [Mass/Vol] 4.4 g/dL Normal 3.4 - 5.0 [facility] Comment on above: Performed By: #### 2 38037 #### [facility],[address] [place] [address] 40843 Albumin/Globulin [Mass ratio] 1.1 {ratio} Normal 0.9 - 1.6 [facility] Comment on above: Performed By: #### 2 21811 #### [facility],[address] [place] [address] 75267 ALK PHOS 39 U/L Low 46 - 116 [facility] Comment on above: Performed By: #### 2 18028 #### [facility],[address] [place] [address] 43759 ALT [Catalytic activity/Vol] 21 U/L Normal 16 - 63 [facility] Comment on above: Performed By: #### 2 42028 #### [facility],[address] [place] [address] 89928 Anion gap [Moles/Vol] 14 mmol/L Normal 10 - 20 [facility] Comment on above: Performed By: #### 2 70820 #### [facility],[address] [place] [address] 43622 AST [Catalytic activity/Vol] 15 U/L Normal 13 - 39 [facility] Comment on above: Performed By: #### 2 19356 #### [facility],[address] [place] [address] 31838 B/C RATIO 8 ratio Normal 0 - 30 [facility] Comment on above: Performed By: #### 2 75741 #### [facility],[address] [place] [address] 06859 Bilirubin [Mass/Vol] 0.9 mg/dL Normal 0.2 - 1.0 [facility] Comment on above: Performed By: #### 2 88030 #### [facility],[address] [place] [address] 13615 Calcium [Mass/Vol] 9.3 mg/dL Normal 8.5 - 10.1 [facility] Comment on above: Performed By: #### 2 90822 #### [facility],[address] [place] [address] 50837 Chloride [Moles/Vol] 103 mmol/L Normal 98 - 107 [facility] Comment on above: Performed By: #### 2 39301 #### [facility],[address] [place] [address] 24782 CMP with eGFR Normal [facility] Comment on above: Result Comment: COMP REHENSIVE METABOLIC PANEL Performed By: #### 2 88126 #### [facility],[address] [place] [address] 76195 CO2 [Moles/Vol] 28.6 mmol/L Normal 21.0 - 32.0 [facility] Comment on above: Performed By: #### 2 74448 #### [facility],[address] [place] [address] 89585 Creatinine [Mass/Vol] 0.74 mg/dL Normal 0.55 - 1.02 [facility] Comment on above: Performed By: #### 2 16004 #### [facility],[address] [place] [address] 79742 eGFR 92 ML/MINUTE Normal 60 - 999 [facility] Comment on above: Performed By: #### 2 57334 #### [facility],[address] [place] [address] 61232 eGFR(AA) 111 ML/MINUTE Normal 60 - 999 [facility] Comment on above: Result Comment: ACCO RDING TO THE NATIONAL KIDNEY DISEASE EDUCATION PROGRAM(NKDE), A NORMAL eGFR IS A VALUE GREATER THAN OR EQUAL TO 60 ML/MIN/1.73 SQ METERS. CHRONIC KIDNEY DISEASE: <60mL/MIN/1.73 SQ METERS KIDNEY FAILURE: <15mL/MIN/1.73 SQ METERS THIS TEST SHOULD ONLY BE USED FOR PATIENTS 18 YEARS OF AGE AND OLDER. Performed By: #### 2 72820 #### [facility],[address] [place] [address] 16323 Globulin (S) [Mass/Vol] 4.0 g/dL High 1.5 - 3.8 [facility] Comment on above: Performed By: #### 2 65593 #### [address] [address] Glucose [Mass/Vol] 101 mg/dL Normal 74 - 106 [facility] Comment on above: Performed By: #### 2 88789 #### [address] [address] Potassium [Moles/Vol] 2.8 mmol/L Critically low 3.5 - 5.1 [facility] Comment on above: Result Comment: REPE ATED FOR VERIFICATION { CALLED TO PAGED DR. BOWERS { READ BACK BY DR. BOWERS TO AE 2027 Performed By: #### 2 30473 #### [address] [address] Protein [Mass/Vol] 8.4 g/dL High 6.4 - 8.2 [facility] Comment on above: Performed By: #### 2 20119 #### [facility],[address] [place] [address] 74727 Sodium [Moles/Vol] 143 mmol/L Normal 136 - 145 [facility] Comment on above: Performed By: #### 2 04889 #### [facility],[address] [place] [address] 19553 Urea nitrogen [Mass/Vol] 6 mg/dL Low 7 - 18 [facility] Comment on above: Performed By: #### 2 01576 #### [facility],[address] [place] [address] 70066 ANAHI BY IFA SCREEN [CCL]on ANAHI Titer 1:640 Normal [facility] Comment on above: Performed By: #### 2 74218 #### [address] [address] Nuclear Ab IF (S) [Titer] Positive Abnormal Negative [facility] Comment on above: Result Comment: Anti -nuclear antibody test is used as an aid in diagnosis of systemic autoimmune diseases. Where positive and clinically warranted, follow-up using disease-specific testing is recommended. Low positive titers are not uncommon with advanced age, certain chronic infections, and malignancies among others. Test methodology: Indirect fluorescence immunoassay (IFA) using HEp-2 cells. Performed By: #### 2 48095 #### [facility],[address] [place] [address]9823 FACTOR V LEIDEN/PCR [CCL]on 05-16-2024 FV Leiden Report Factor V Leiden PCR Normal [facility] Comment on above: Result Comment: [facility] Accession Number: [id number] Result: NEGATIVE Interpretation: The DNA sample is negative for the c.1601G>A variant (legacy name R506Q) in the Factor V (F5) gene. This variant is commonly known as Factor V Leiden. This result is not associated with an increased risk of thromboembolic disease. The Factor V Leiden assay will not detect individuals with activated protein C resistance who do not have the c.1601G>A variant (less than 5% of those with activated protein C resistance). These individuals may be identified by ordering the functional assay for Activated Protein C Resistance. Thromboembolic disease is a multifactorial disorder, and other causes are not excluded by this result. Methodology: Isolated genomic DNA from the patient's blood specimen is evaluated for the c.1601G>A (p.[id number]) variant of the F5 gene [RefSeq NM_000130.4; GRCh38/hg38] by multiplex polymerase chain reaction (PCR) followed by melting curve analysis. Limitations: This assay is designed to detect the c.1601G>A variant in the F5 gene. Uncommon variants or single nucleotide polymorphisms may affect binding of probes and may rarely result in false negative, false positive or indeterminate results. This assay does not detect other disease-associated rare variants on F5 or other causes of thromboembolic disease. Disclaimer: This test was developed and its performance characteristics determined by [facility]'s Pathology and Laboratory Medicine Department. It has not been cleared or approved by the FDA. [facility]'s Pathology and Laboratory Medicine Department is regulated under CLIA as certified to perform high-complexity testing. This test is used for clinical purposes. It should not be regarded as investigational or for research. Testing and interpretation performed at [facility], [facility] [place] [address]. CLIA Number: [id number] References: 1) Adele R, Mary G, Cameron P. The genetics of venous thromboembolism. A meta-analysis involving approximately 120,000 cases and 180,000 controls. Thromb Haemost 2009;102(2):360-70. 2) Inherited Thrombophilias in . ACOG Practice Bulletin.No.197.[employer]. Obstet Gynecol 2018;132:e18-34. 3) Maribell HERRON. Factor V Leiden Thrombophilia. Cecilia Med.2011;13(1):1-16. 4) Pharmacogenomics summary [email or web address] As reviewed by Carla Shaw, PhD, [place] [address] [address] [place] [address] Bo Vazquez III, M.D. [id number] Performed By: #### 2 80836 #### [facility],[address] [place] [address] 61808 RHEUMATOID FACTOR [CCL]on Rheumatoid Factor 43 IU/mL High <16 [facility] Comment on above: Result Comment: [facility] [address] [place] [address] Bo Vazquez III, M.D. [id number] Performed By: #### 2 84793 #### [facility],[address] [place] [address] 09771 CYCLIC CITRULLINATED PEP AB IGG [CCL]on 05-13-2024 CCP ANTIBODY IGGQUALITATIVE Negative Normal Negative [facility] Comment on above: Performed By: #### 2 13275 #### [address] [address] CCP Antibody, IgG <15 Normal <20 [facility] Comment on above: Result Comment: This test is used as aid in diagnosis of Rheumatoid arthritis (RA). A negative result cannot rule out RA where clinically suspected. Clinical correlation is required. The following results were obtained with an [employer] QUANTA Lite CCP IgG SARAVANAN. Cyclic Citrullinated Peptide IgG values obtained with different manufacturers' assay methods may not be used interchangeably. The magnitude of the reported IgG levels cannot be correlated to an endpoint titer. [facility] [address] [place] [address] Bo Vazquez III, M.D. [id number] Performed By: #### 2 21089 #### [facility],[address] [place] [address] 94772 ANAHI BY IFA SCREENon 05-12-20 24 Nuclear Ab pattern (S) [Interp] Nuclear fine speckled Normal [facility] Comment on above: Order Comment: Speci men Type: BLOOD SPECIMEN Ordering Facility: [facility] Address: [address] [place] [address] Performed By: #### 1 1572-5, ANAIFS #### [facility] CLIA [id number] [address] [place] [address] [place] Nuclear Ab Ql (S) Positive Abnormal Negative [facility] Comment on above: Order Comment: Speci men Type: BLOOD SPECIMEN Ordering Facility: [facility] Address: [address] [place] [address] Result Comment: Anti -nuclear antibody test is used as an aid in diagnosis of systemic autoimmune diseases. Where positive and clinically warranted, follow-up using disease-specific testing is recommended. Low positive titers are not uncommon with advanced age, certain chronic infections, and malignancies among others. Test methodology: Indirect fluorescence immunoassay (IFA) using HEp-2 cells. 1:640 Performed By: #### 1 1572-5, ABBY #### [facility] CLIA [id number] [address] [place] [address] [place] C-REACTIVE PROTEINon 024 CRP [Mass/Vol] mg/L Normal 0.00 - 0.90 [facility] Comment on above: Performed By: #### 2 93491 #### [facility],[address] [place] [address] CBC + DIFFon 05-12-2024 Baso # 0.01 x10EE3/UL Normal 0.00 - 0.10 [facility] Comment on above: Performed By: #### 2 88572 #### [facility],[address] [place] [address] Basophils/100 WBC (Bld) 0.3 % Normal 0.0 - 2.0 [facility] Comment on above: Performed By: #### 2 89680 #### [facility],[address] [place] [address] CBC + DIFF Normal [facility] Comment on above: Result Comment: CBC- COMPLETE BLOOD COUNT Performed By: #### 2 69758 #### [facility],[address] [place] [address] EO # 0.15 x10EE3/UL Normal 0.00 - 0.50 [facility] Comment on above: Performed By: #### 2 01624 #### [facility],[address] [place] [address] 41609 Eosinophils/100 WBC (Bld) 3.6 % Normal 0.0 - 7.0 [facility] Comment on above: Performed By: #### 2 94737 #### [facility],[address] [place] [address] Erythrocyte distribution width (RBC) [Ratio] 13.3 % Normal 12.0 - 15.6 [facility] Comment on above: Performed By: #### 2 71706 #### [facility],[address] [place] [address] Hematocrit (Bld) [Volume fraction] 40.7 % Normal 34.0 - 46.0 [facility] Comment on above: Performed By: #### 2 42609 #### [facility],[address] [place] [address] Hemoglobin (Bld) [Mass/Vol] 13.5 g/dL Normal 12.0 - 16.0 [facility] Comment on above: Performed By: #### 2 47467 #### [facility],[address] [place] [address] 64935 Lymph # 1.15 x10EE3/UL Normal 0.80 - 2.80 [facility] Comment on above: Performed By: #### 2 58759 #### [facility],[address] [place], [place] [address] Lymphocytes/100 WBC (Bld) 27.1 % Normal 20.0 - 45.0 [facility] Comment on above: Performed By: #### 2 33041 #### [facility],[address] [place], [place] [address] MANUAL DIFF N/A Normal [facility] Comment on above: Performed By: #### 2 57871 #### [facility],[address] [place] [address] MCH (RBC) [Entitic mass] 30 pg Normal 27 - 33 [facility] Comment on above: Performed By: #### 2 99859 #### [facility],[address] [place] [address] MCHC 33 X10 3 Normal 32 - 36 [facility] Comment on above: Performed By: #### 2 72481 #### [facility],[address] [place] [address] MCV (RBC) [Entitic vol] 90 fL Normal 80 - 99 [facility] Comment on above: Performed By: #### 2 81013 #### [place] [address] [place] # 0.22 x10EE3/UL Normal 0.20 - 1.00 [facility] Comment on above: Performed By: #### 2 38396 #### [facility],[address] [place] [address] MONOS % 5.1 % Normal 0.0 - 10.0 [facility] Comment on above: Performed By: #### 2 99729 #### [facility],[address] [place] [address] Morphology Jeff (Bld) [Interp] N/A Normal [facility] Comment on above: Performed By: #### 2 41552 #### [facility],[address] [place] [address] Neut # 2.70 x10EE3/UL Normal 1.50 - 7.10 [facility] Comment on above: Performed By: #### 2 78993 #### [place] [address] Neutrophils/100 WBC (Bld) 63.9 % Normal 46.0 - 76.0 [facility] Comment on above: Performed By: #### 2 19850 #### [place] [address] PLATELET 189 x10EE3/UL Normal 150 - 450 [facility] Comment on above: Performed By: #### 2 64168 #### [facility],[address] [place] [address]70[address] Platelet mean volume (Bld) [Entitic vol] 10.4 fL Normal 6.6 - 10.5 [facility] Comment on above: Result Comment: AUTO MATED DIFFERENTIAL Performed By: #### 2 82282 #### [facility],[address] [place] [address] 42144 RBC 4.50 x 10EE6/UL Normal 4.10 - 5.30 [facility] Comment on above: Performed By: #### 2 04511 #### [facility],[address] [place] [address] 25673 WBC 4.2 x 10EE3/UL Low 4.5 - 10.8 [facility] Comment on above: Performed By: #### 2 22770 #### [facility],[address] [place] [address] 09353 CMP with eGFRon 05-12-2024 AGE 29 years Normal [facility] Comment on above: Performed By: #### 2 46426 #### [facility],[address] [place] [address] 95956 Albumin [Mass/Vol] 4.6 g/dL Normal 3.4 - 5.0 [facility] Comment on above: Performed By: #### 2 66419 #### [facility],[address] [place] [address] 57265 Albumin/Globulin [Mass ratio] 1.0 {ratio} Normal 0.9 - 1.6 [facility] Comment on above: Performed By: #### 2 94737 #### [facility],[address] [place] [address] 39230 ALK PHOS 38 U/L Low 46 - 116 [facility] Comment on above: Performed By: #### 2 06511 #### [facility],[address] [place] [address] 35506 ALT [Catalytic activity/Vol] 17 U/L Normal 16 - 63 [facility] Comment on above: Performed By: #### 2 82209 #### [facility],[address] [place] [address] 40642 Anion gap [Moles/Vol] 17 mmol/L Normal 10 - 20 [facility] Comment on above: Performed By: #### 2 77780 #### [facility],[address] [place] [address] 00247 AST [Catalytic activity/Vol] 13 U/L Normal 13 - 39 [facility] Comment on above: Performed By: #### 2 19348 #### [facility],[address] [place], [place] [address] B/C RATIO 14 ratio Normal 0 - 30 [facility] Comment on above: Performed By: #### 2 17479 #### [facility],[address] [place] [address] 26133 Bilirubin [Mass/Vol] 0.6 mg/dL Normal 0.2 - 1.0 [facility] Comment on above: Performed By: #### 2 35399 #### [facility],[address] [place] [address] 65071 Calcium [Mass/Vol] 9.1 mg/dL Normal 8.5 - 10.1 [facility] Comment on above: Performed By: #### 2 59098 #### [facility],[address] [place] [address] 01971 Chloride [Moles/Vol] 104 mmol/L Normal 98 - 107 [facility] Comment on above: Performed By: #### 2 87490 #### [facility],[address] [place] [address] 54403 CMP with eGFR Normal [facility] Comment on above: Result Comment: COMP REHENSIVE METABOLIC PANEL Performed By: #### 2 58041 #### [facility],[address] [place] [address] 17231 CO2 [Moles/Vol] 23.4 mmol/L Normal 21.0 - 32.0 [facility] Comment on above: Performed By: #### 2 11930 #### [facility],[address] [place] [address] 54815 Creatinine [Mass/Vol] 0.86 mg/dL Normal 0.55 - 1.02 [facility] Comment on above: Performed By: #### 2 76798 #### [facility],[address] [place] [address] 70751 GFR/1.73 sq M.predicted among non-blacks MDRD (S/P/Bld) [Vol rate/Area] mL/min/{1.73_m2} Normal 60 - 999 [facility] Comment on above: Performed By: #### 2 86506 #### [facility],[address] [place] [address] 30562 Result Comment: ACCO RDING TO THE NATIONAL KIDNEY DISEASE EDUCATION PROGRAM(NKDE), A NORMAL eGFR IS A VALUE GREATER THAN OR EQUAL TO 60 ML/MIN/1.73 SQ METERS. CHRONIC KIDNEY DISEASE: <60mL/MIN/1.73 SQ METERS KIDNEY FAILURE: <15mL/MIN/1.73 SQ METERS THIS TEST SHOULD ONLY BE USED FOR PATIENTS 18 YEARS OF AGE AND OLDER. Globulin (S) [Mass/Vol] 4.5 g/dL High 1.5 - 3.8 [facility] Comment on above: Performed By: #### 2 75812 #### [facility],[address] [place] [address] 17972 Glucose [Mass/Vol] 106 mg/dL Normal 74 - 106 [facility] Comment on above: Performed By: #### 2 54644 #### [facility],[address] [place] [address] 88748 Potassium [Moles/Vol] 3.7 mmol/L Normal 3.5 - 5.1 [facility] Comment on above: Performed By: #### 2 40658 #### [facility],[address] [place] [address] 76552 Protein [Mass/Vol] 9.1 g/dL High 6.4 - 8.2 [facility] Comment on above: Performed By: #### 2 54977 #### [facility],[address] [place] [address] 35121 Sodium [Moles/Vol] 141 mmol/L Normal 136 - 145 [facility] Comment on above: Performed By: #### 2 19829 #### [facility],[address] [place] [address] 17069 Urea nitrogen [Mass/Vol] 12 mg/dL Normal 7 - 18 [facility] Comment on above: Performed By: #### 2 69184 #### [facility],[address] [place] [address] 82080 Cyclic citrullinated peptide [facility] [place] [facility]24 CCP ANTIBODY IGG QUALITATIVE Negative Normal Negative [facility] Comment on above: Order Comment: Speci [facility] Type: BLOOD SPECIMEN Ordering Facility: [facility] Address: [address] [place] [address] Performed By: #### 3 3935-8 #### [facility] CLIA [id number] [address] [place] [address] STATES OF [facility] FACTOR V LEIDEN/PCRon 2023 FACTOR V LEIDEN PCR REPORT Normal [facility] Comment on above: Order Comment: Speci [facility] Type: BLOOD SPECIMEN Ordering Facility: [facility] Address: [address] [place] [address] Result Comment: Fact or V Leiden PCR Laboratory Accession Number: [id number] Result: NEGATIVE Interpretation: The DNA sample is negative for the c.1601G>A variant (legacy name R506Q) in the Factor V (F5) gene. This variant is commonly known as Factor V Leiden. This result is not associated with an increased risk of thromboembolic disease. The Factor V Leiden assay will not detect individuals with activated protein C resistance who do not have the c.1601G>A variant (less than 5% of those with activated protein C resistance). These individuals may be identified by ordering the functional assay for Activated Protein C Resistance. Thromboembolic disease is a multifactorial disorder, and other causes are not excluded by this result. Methodology: Isolated genomic DNA from the patient's blood specimen is evaluated for the c.1601G>A (p.[id number]) variant of the F5 gene [RefSeq [id number]; GRCh38/hg38] by multiplex polymerase chain reaction (PCR) followed by melting curve analysis. Limitations: This assay is designed to detect the c.1601G>A variant in the F5 gene. Uncommon variants or single nucleotide polymorphisms may affect binding of probes and may rarely result in false negative, false positive or indeterminate results. This assay does not detect other disease-associated rare variants on F5 or other causes of thromboembolic disease. Disclaimer: This test was developed and its performance characteristics determined by [facility]'s Pathology and Laboratory Medicine Department. It has not been cleared or approved by the FDA. [facility]'s [facility]ology [facility] Medicine Department is regulated under CLIA as certified to perform high-complexity testing. This test is used for clinical purposes. It should not be regarded as investigational or for research. Testing and interpretation performed at [facility], [address] [place] [address]. CLIA Number: [id number] References: 1) Adele R, Mary G, Cameron P. The genetics of venous thromboembolism. A meta-analysis involving approximately 120,000 cases and 180,000 controls. Thromb Haemost 2009;102(2):360-70. 2) Inherited Thrombophilias in . ACOG Practice Bulletin.No.197.[place] [employer]. Obstet Gynecol 2018;132:e18-34. 3) Maribell HERRON. Factor V Leiden Thrombophilia. Cecilia Med.2011;13(1):1-16. 4) Pharmacogenomics summary [email or web address] As reviewed by Carla Shaw, PhD, HCLD Performed By: #### F JOJO #### [facility] CLIA [id number] [address] [place] [address] [place] Rheumatoid fact SerPl-aCncon 05-12-2024 Rheumatoid factor Qn 43 [IU]/mL High <16 [facility] Comment on above: Order Comment: Speci men Type: BLOOD SPECIMEN Ordering Facility: [facility] Address: [address] [place] [address] Performed By: #### 1 1572-5, ABBY #### [facility] CLIA [id number] [address] [place] [address] [place] SEDRATEon 05-12-2024 SEDRATE 26 mm/hr Normal 0 - 30 [facility] Comment on above: Performed By: #### 2 75289 #### [facility],[address] [place] [address] 02801 T4-FREE (FREE THYROXINE)on 0 05-12-2024 Free T4 [Mass/Vol] 0.91 ng/dL Normal 0.76 - 1.46 [facility] Comment on above: Result Comment: P otential of falsely elevated results when biotin concentrations are > 10 ng/mL. Performed By: #### 2 33900 #### [facility],[address] [place] [address] 66898 TSHon 05-12-2024 TSH Qn 1.88 m[IU]/L Normal 0.35 - 3.74 [facility] Comment on above: Performed By: #### 2 79293 #### [facility],[address] [place] [address] 03459 cCP IgG SerPl-aCncon 024 Cyclic citrullinated peptide IgG Qn <15 Normal <20 [facility] Comment on above: Order Comment: Speci men Type: BLOOD SPECIMEN Ordering Facility: [facility] Address: [address] [place] [address] Performed By: #### 3 3935-8 #### [facility] CLIA [id number] [address] [place] [id number] [address] [place] Vital Signs Date Time Vital Sign Value Performing Clinician Facility 05-11-2025 16:30-0400 Body temperature 98.1 [degF] Ayneli Ungerer PRODUCTION GEAR CUTTER[employer]C Work Phone: [facility] 05-11-2025 16:30-0400 Diastolic blood pressure 82 mm[Hg] Yaneli Ungerer [employer]ODUCTION GE[employer] C[employer]TER[employer]C Work Phone: [facility] 05-11-2025 16:30-0400 Heart rate 78 /min Yaneli Ungerer [employer]ODUCTION [employer]TER[employer] Work Phone: [facility] 05-11-2025 16:30-0400 Respiratory rate 16 /min Yaneli Ungerer [employer]ODUCTION GEAR C[employer]TER[employer]C Work Phone: [facility] 05-11-2025 16:30-0400 SaO2% (BldA) [Mass fraction] 99 % Yaneli Ungerer [employer]ODUCTION [employer]AR C[employer]TER[employer]C Work Phone: [facility] 05-11-2025 16:30-0400 Systolic blood pressure 118 mm[Hg] Yaneli Ungerer [employer]ODUCTION GEAR C[employer]TER[employer]C Work Phone: [facility] 05-11-2025 10:31-0400 Body height 170.18 cm Yaneli Ungerer [employer]ODUCTION [employer] C[employer]TER[employer]C Work Phone: [facility] 05-11-2025 10:31-0400 Body mass index (BMI) [Ratio] 25 kg/m2 Yaneli Ungerer [employer]ODUCTION [employer] C[employer]TER[employer]C Work Phone: [facility] 05-11-2025 10:31-0400 Body weight 72.6 kg Yaneli Ungerer [employer]ODUCTION GE[employer] C[employer]TER[employer]C Work Phone: [facility] 03-08-2025 14:17-0400 Body temperature 98.2 [degF] Yaneli Ungerer [employer]ODUCTION GEAR C[employer]TER[employer]C Work Phone: [facility] 03-08-2025 14:17-0400 Body weight 70.76 kg Yaneli Ungerer [employer]ODUCTION [employer] C[employer]TER[employer]C Work Phone: [facility] 03-08-2025 14:17-0400 Diastolic blood pressure 83 mm[Hg] Yaneli Ungerer [employer]ODUCTION GE[employer] C[employer]TER[employer]C Work Phone: [facility] 03-08-2025 14:17-0400 Heart rate 69 /min Yaneli Ungerer [employer]ODUCTION [employer] C[employer]C Work Phone: [facility] 03-08-2025 14:17-0400 Respiratory rate 14 /min Yaneli Ungerer [employer]ODUCTION [employer] C[employer]TER[employer]C Work Phone: [facility] 03-08-2025 14:17-0400 SaO2% (BldA) [Mass fraction] 100 % Yaneli Ungerer [employer]ODUCTION [employer] C[employer]TER[employer]C Work Phone: [facility] 03-08-2025 14:17-0400 Systolic blood pressure 117 mm[Hg] Yaneli Ungerer PRODUCTION [employer] C[employer]TER[employer]C Work Phone: [facility] 02-01-2025 12:40-0400 Body temperature 98.4 [degF] Yaneli Ungerer [employer]ODUCTION [employer] C[employer]TER[employer]C Work Phone: [facility] 02-01-2025 12:40-0400 Body weight 69.85 kg Yaneli Ungerer [employer]ODUCTION [employer] C[employer]TER[employer]C Work Phone: [facility] 02-01-2025 12:40-0400 Diastolic blood pressure 87 mm[Hg] Yaneli Ungerer [employer]ODUCTION [employer] C[employer]C Work Phone: [facility] 02-01-2025 12:40-0400 Heart rate 69 /min Yaneli Ungerer [employer]ODUCTION [employer] C[employer]C Work Phone: [facility] 02-01-2025 12:40-0400 Respiratory rate 14 /min Yaneli Ungerer [employer]ODUCTION [employer] C[employer]TER[employer]C Work Phone: [facility] 02-01-2025 12:40-0400 SaO2% (BldA) [Mass fraction] 99 % Yaneli Ungerer [employer]ODUCTION [employer] C[employer]TER[employer]C Work Phone: [facility] 02-01-2025 12:40-0400 Systolic blood pressure 131 mm[Hg] Yaneli Ungerer [employer]ODUCTION [employer] C[employer]TER[employer]C Work Phone: [facility] 12-15-2024 07:52-0400 Body mass index (BMI) [Ratio] 24.74 kg/m2 [facility] ASBESTOS B[employer]KE LINING FINISHER.LINEN FOLDER Work Phone: [facility] 12-15-2024 07:52-0400 Body temperature 97.3 [degF] [facility] ASBESTOS B[employer]KE LINING FINISHER.LINEN FOLDER Work Phone: [facility] 12-15-2024 07:52-0400 Body weight 69 kg [facility] ASBESTOS B[employer]KE LINING FINISHER.LINEN FOLDER Work Phone: [facility] 12-15-2024 07:52-0400 Diastolic blood pressure 86 mm[Hg] [facility] ASBE[employer]OS B[employer]KE LINING FINISHER.LINEN FOLDER Work Phone: [facility] Comment on above: checked BP x 2 12-15-2024 07:52-0400 Heart rate 74 /min [facility] ASBESTOS BRAKE LINING FINISHER.LINEN FOLDER Work Phone: [facility] 12-15-2024 07:52-0400 Respiratory rate 18 /min [facility] [employer]BE[employer]OS B[employer]KE LINING FINISHER.LINEN FOLDER Work Phone: [facility] 12-15-2024 07:52-0400 SaO2% (BldA) [Mass fraction] 100 % [facility] [employer]BE[employer] B[employer]KE LINING FINISHER.LINEN FOLDER Work Phone: [facility] 12-15-2024 07:52-0400 Systolic blood pressure 129 mm[Hg] [facility] ASBESTOS B[employer]KE LINING FINISHER.LINEN FOLDER Work Phone: [facility] Comment on above: checked BP x 2 11-09-2024 10:18-0400 Body temperature 98.4 [degF] PRODUCTION GEAR CUTTER. Yaneli Bowers PRODUCTION GEAR CUTTER-C Work Phone: [facility] 11-09-2024 10:18-0400 Body weight 69.39 kg PRODUCTION GEAR CUTTER. Yaneli Bowers PRODUCTION GEAR CUTTER-C Work Phone: [facility] 11-09-2024 10:18-0400 Diastolic blood pressure 81 mm[Hg] PRODUCTION GEAR CUTTER. Yaneli Ocampoerer PRODUCTION GEAR CUTTER-C Work Phone: [facility] 11-09-2024 10:18-0400 Heart rate 85 /min PRODUCTION GEAR CUTTER. Yaneli Ungerer PRODUCTION GEAR CUTTER-C Work Phone: [facility] 11-09-2024 10:18-0400 Respiratory rate 16 /min PRODUCTION GEAR CUTTER. Yaneli Ocampoerer PRODUCTION GEAR CUTTER-C Work Phone: [facility] 11-09-2024 10:18-0400 SaO2% (BldA) [Mass fraction] 100 % PRODUCTION GEAR CUTTER. Yaneli Ungerer PRODUCTION GEAR CUTTER-C Work Phone: [facility] 11-09-2024 10:18-0400 Systolic blood pressure 118 mm[Hg] PRODUCTION GEAR CUTTER. Yaneli Ocampoerer PRODUCTION GEAR CUTTER-C Work Phone: [facility] 10-05-2024 13:47-0500 Body weight 66.86 kg Melisa Falls DO Work Phone: [facility] 10-05-2024 13:47-0500 Diastolic blood pressure 88 mm[Hg] Melisa Falls DO Work Phone: [facility] 10-05-2024 13:47-0500 Heart rate 78 /min Melisa Falls DO Work Phone: [facility] 10-05-2024 13:47-0500 Systolic blood pressure 134 mm[Hg] Melisa Falls DO Work Phone: [facility] 07-07-2024 12:13-0500 Body mass index (BMI) [Ratio] 23.2 kg/m2 Yaneli Winter [employer]BE[employer] B[employer]KE LINING FINISHER.LINEN FOLDER Work Phone: [facility] 07-07-2024 12:13-0500 Body temperature 98.1 [degF] Yaneli Winter [employer]BE[employer]OS B[employer]KE LINING FINISHER.LINEN FOLDER Work Phone: [facility] 07-07-2024 12:13-0500 Body weight 64.7 kg Yaneli Winter [employer]BE[employer]OS B[employer]KE LINING FINISHER.LINEN FOLDER Work Phone: [facility] 07-07-2024 12:13-0500 Diastolic blood pressure 97 mm[Hg] Yaneli Winter ASBE[employer]OS BRAKE LINING FINISHER.LINEN FOLDER Work Phone: [facility] 07-07-2024 12:13-0500 Heart rate 77 /min Yaneli Winter ASBESTOS BRAKE LINING FINISHER.LINEN FOLDER Work Phone: [facility] 07-07-2024 12:13-0500 Respiratory rate 18 /min Yaneli Winter ASBESTOS BRAKE LINING FINISHER.LINEN FOLDER Work Phone: [facility] 07-07-2024 12:13-0500 SaO2% (BldA) [Mass fraction] 98 % Yaneli Winter ASBESTOS BRAKE LINING FINISHER.LINEN FOLDER Work Phone: [facility] 07-07-2024 12:13-0500 Systolic blood pressure 147 mm[Hg] Yaneli Winter ASBESTOS BRAKE LINING FINISHER.LINEN FOLDER Work Phone: [facility] Encounters Encounter Date Encounter Type Care Provider Facility Start: 06-01-2025 End: 06-01-2025 [facility] Start: 05-30-2025 [facility]counter [facility]ced[facility] Start: 05-15-2025 ambulatory Noreen Cordova Facility:[facility] Start: 05-15-2025 End: 05-15-2025 ambulatory Noreen Cordova Facility:[facility] Start: 05-11-2025 ambulatory Andres Gomesey Facility:[facility] Start: 05-11-2025 Non-patient / Non-visit Dr. Andres horan MD -[facility] Start: 05-11-2025 End: 05-11-2025 Admission to same day surgery center Dr. Andres Valentin MD -[facility] Start: 05-11-2025 End: 05-11-2025 ambulatory Yaneli Bowers PRODUCTION GEAR CUTTER-C Work Phone: -[facility] Start: 03-08-2025 End: 03-08-2025 Patient encounter procedure Noreen COMBS -[facility] Work Phone: Start: 03-08-2025 End: 03-08-2025 ambulatory Yanelipeace Hancockr PRODUCTION GEAR CUTTER-C Work Phone: -[facility] Start: 02-14-2025 ambulatory [facility] Facility :[facility] Start: 02-10-2025 Non-patient / Non-visit Dr. Andres horan MD -[facility] Start: 02-10-2025 End: 02-10-2025 ambulatory Yaneli Bowers PRODUCTION GEAR CUTTER-C Work Phone: -Cardiovascular Services Start: 02-10-2025 End: 02-10-2025 Patient encounter procedure Noreen COMBS -Cardiovascular Services Work Phone: Start: 02-10-2025 End: 02-10-2025 ambulatory [facility] Facility:[facility] Start: 02-01-2025 End: 02-01-2025 Patient encounter procedure Noreen COMBS -[facility] Work Phone: Start: 02-01-2025 End: 02-01-2025 ambulatory Yaneli Bowers PRODUCTION GEAR CUTTER-C Work Phone: [facility] Work Phone: Start: 01-19-2025 End: 01-19-2025 ambulatory Yaneli Hancockr PRODUCTION GEAR CUTTER-C Work Phone: [facility] Work Phone: Start: 01-19-2025 End: 01-19-2025 Patient encounter procedure [facility] PRODUCTION GEAR CUTTER-C -Laboratory Kathrine Ramirez Start: 01-19-2025 End: 01-19-2025 ambulatory [facility] Facility:[facility] Start: 12-15-2024 End: 12-15-2024 Office outpatient visit 25 minutes Pedrito Sanders APRN.LINEN FOLDER Work Phone: [facility] Comment on above: Bacterial conjunctiv itis (Primary Dx) Start: 12-15-2024 ambulatory YANELI BOWERS Facil ity:[facility] Start: 11-16-2024 End: 11-16-2024 ambulatory PRODUCTION GEAR CUTTER. Yaneli Hancockr PRODUCTION GEAR CUTTER-C Work Phone: [facility] Work Phone: Start: 11-16-2024 End: 11-16-2024 Patient encounter procedure Erna COMBS -Laboratory, Specimen Work Phone: Start: 11-16-2024 End: 11-16-2024 Patient encounter procedure Erna COMBS -[facility] Work Phone: Start: 11-16-2024 End: 11-16-2024 ambulatory Yaneli Ungerer Facility:[facility] Start: 11-16-2024 End: 11-16-2024 ambulatory Yaneli Ungerer Facility:[facility] Start: 11-09-2024 End: 11-09-2024 Patient encounter procedure Noreen COMBS -[facility] Work Phone: Start: 11-09-2024 End: 11-09-2024 ambulatory Yaneli Ungerer Facility:[facility] Start: 10-10-2024 ambulatory [facility] Start: 10-05-2024 End: 10-05-2024 Office outpatient new 45 minutes Yaneli Ungerer LINEN FOLDER Work Phone: [facility] Comment on above: ANAHI positive (Primar y Dx); Raynaud's disease without gangrene; Rheumatoid factor positive; Leukopenia, unspecified type Start: 10-05-2024 End: 10-05-2024 ambulatory YANELI UNGERER [facility] Start: 08-08-2024 ambulatory Yaneli Ungerer Facilit y:[facility] Start: 07-07-2024 End: 07-07-2024 ambulatory YANELI D UNGERER Facility:[facility] Start: 07-07-2024 End: 07-07-2024 Patient encounter procedure Yaneli Winter ASBESTOS BRAKE LINING FINISHER.LINEN FOLDER Work Phone: [facility] Comment on above: URI, acute (Primary Dx); Exposure to pneumonia; Acute cough Start: 06-22-2024 End: 06-22-2024 ambulatory Yaneli Ungerer Facility:[facility] Start: 06-06-2024 End: 06-06-2024 Emergency department patient visit [place] HODGE [facility] Start: 05-24-2024 End: 05-24-2024 ambulatory YANELI DEGROOT [facility] Start: 05-12-2024 End: 05-12-2024 ambulatory YANELI DEGROOT [facility] Procedures Date Procedure Procedure Detail Performing Clinician Start: 05-11-2025 Estimated creatinine clearance Yaneli orozco NP Work Phone: Start: 01-19-2025 Liquid based cervical cytology screening Yaneli Bowers NPHammad Work Phone: Comment on above: NEGATIVE FOR INTRAEPITHELIAL LESION OR M ALIGNANCY.REACTIVE CELLULAR CHANGES AND/OR REPAIR ARE PRESENT. This liquid based Th inPrep(R) pap test was screened withthe use of an image guided system. Start: 01-19-2025 Procedure Yaneli CHAPARRO Work Phone: Comment on above: Test Ordered: [id number] NuSwab Vaginitis us (VG+)Test(s) 347920- Atopobium vaginae; 742402- BVAB 2;108009- Megasphaera 1was developed and its performance characteristicsdetermined by [facility]. It has not been cleared or approvedby the Food and Drug Administration.Test(s) 902172-Dzmdzkw albicans, WILMA; 411349-Vbhsmsl glabrata, NAAwas developed and its performance characteristicsdetermined by [facility]. It has not been cleared or approvedby the Food and Drug Administration. Atopobium vaginae Low - 0 Score =G Reference Range: . BVAB 2 Low - 0 Score =G Reference Range: . Megasphaera 1 Low - 0 Score =G Reference Range: .Calculate total score by adding the 3 individual bacterialvaginosis (BV) marker scores together. Total score isinterpreted as follows:Total score 0-1: Indicates the absence of BV.Total score 2: Indeterminate for BV. Additional clinical data should be evaluated to establish a diagnosis.Total score 3-6: Indicates the presence of BV.Gena albicans, WILMA Negative =G Reference Range: NegativeCandida glabrata, WILMA Negative =G Reference Range: NegativeTrich vag by WILMA Negative =G Reference Range: NegativeChlamydia trachomatis, WILMA Negative =G Reference Range: NegativeNeisseria gonorrhoeae, WILMA Negative =G Reference Range: NegativePerformed at: =G - [facility]17 [address]Kiran [address] [id number] Director: Velia Babcock MD, Phone: [phone] at: - [facility] [id number] [place], [place] [id number] Director: Caio Mosley PhD, Phone: [phone] Start: 06-06-2024 Urinalysis [place] HODGE Comment on above: Result Comment: URINALYSIS Performed By: #### [id number] #### [facility],[address] [place] [id number] Plan of Treatment Date Care Activity Detail Author Start: 05-15-2025 Non-patient / Non-visit Non-patient / Non-visit -[facility] Start: 05-15-2025 Patient encounter procedure Registered Clinical -Cardiovascular Services Work Phone: Start: 05-11-2025 Patient discharge [facility] Start: 05-11-2025 Destructive procedur e of vein Endovenous Laser Ablation (Right) [facility] Start: 04-17-2025 Influenza vaccination Influenz a Vaccine (Season Ended) [facility] Start: 02-07-2025 End: 02-07-2025 Patient encounter procedure 02/07/2025 11:50 AM EDT Office Visit [facility] [address] [facility] [place] [address] Melisa Graf, DO [address] [place] [phone] [facility] Start: 01-19-[address] [facility] Start: 01-19-[address] [facility] Start: 04-17-2024 Covid-19 Vaccine ( season) Covid-19 Vaccine ( season) [facility] Start: 04-17-2024 Influenza vaccination Influenza Vacc ine (#1) [facility] Start: 2023 Screening for malign ant neoplasm of cervix [facility] Start: 03-29-2022 Tetanus vaccination Tetanus: Every 1 0yrs [facility] Start: 03-29-2022 Urine microalbumin profile DTaP,Tdap,Td Vaccine (2 - Td or Tdap) [facility] Start: 08-06-2018 Screening for malign ant neoplasm of cervix Cervical Cancer Screening [facility] Start: 2014 Screening for malign ant neoplasm of cervix Pap Smear [facility] Start: 01-22-2012 Hepatitis B Vaccine (1 of 3 - 19+ 3-dose series) Hepatitis B Vaccine (1 of 3 - 19+ 3-dose series) [facility] Start: 01-22-2012 Pneumococcal vaccination Pneum ococcal Vaccine (1 of 2 - PCV) [facility] Start: 2011 Anxiety Screening Anxiety Screening [facility] Start: 2011 Depression Screening Depression Scre ening [facility] Start: 2011 Hepatitis C screening Hepatitis C Sc reening [facility] Start: 01-22-2008 HIV screening HIV Screening [facility] Start: 2005 Depression screening using PHQ-9 (Patient Health Questionnaire 9) score Depression Screening/Follow-Up (PHQ-2/9) [facility] Start: 1999 Pneumococcal vaccination Pneum ococcal Vaccine (1 of 2 - PCV) [facility] Start: 01-22-1996 History and physical examination, annual for health maintenance Wellness Visit [facility] End: 10-05-2025 Anti-cyclic citrullinated peptide antibody level CCP Antibody Lab Routine Rheumatoid factor positive 1 Occurrences starting 10/05/2024 until 10/05/2025 [facility] Comment on above: 1 Occurrences starti ng 10/05/2024 until 10/05/2025 End: 10-05-2025 C reactive protein [Mass/volume] in Serum or Plasma CRP, Inflammation Lab Routine Raynaud's disease without gangrene ANAHI positive 1 Occurrences starting 10/05/2024 until 10/05/2025 [facility] Comment on above: 1 Occurrences starti ng 10/05/2024 until 10/05/2025 End: 10-05-2025 C4 complement assay C4 Complement Lab Routine Raynaud's disease without gangrene 1 Occurrences starting 10/05/2024 until 10/05/2025 [facility] Comment on above: 1 Occurrences starti ng 10/05/2024 until 10/05/2025 End: 10-05-2025 C>3< complement assay C3 Complement Lab Routine Raynaud's disease without gangrene 1 Occurrences starting 10/05/2024 until 10/05/2025 [facility] Comment on above: 1 Occurrences starti ng 10/05/2024 until 10/05/2025 End: 10-05-2025 Chromatin Antibodies Chromatin Antibodies Lab Routine Raynaud's disease without gangrene ANAHI positive 1 Occurrences starting 10/05/2024 until 10/05/2025 [facility] Comment on above: 1 Occurrences starti ng 10/05/2024 until 10/05/2025 End: 10-05-2025 Complete blood count with white cell differential, manual CBC and Differential Lab Routine ANAHI positive Leukopenia, unspecified type 1 Occurrences starting 10/05/2024 until 10/05/2025 [facility] Work Phone: Comment on above: 1 Occurrences starti ng 10/05/2024 until 10/05/2025 Cytology report of Cervical or vaginal smear or scraping Cyto stain.thin prep [facility] End: 10-05-2025 Erythrocyte sedimentation rate Sedimentation Rate Lab Routine Raynaud's disease without gangrene ANAHI positive 1 Occurrences starting 10/05/2024 until 10/05/2025 [facility] Comment on above: 1 Occurrences starti ng 10/05/2024 until 10/05/2025 End: 10-05-2025 Extractable nuclear antigen antibody screening test YARI Screen (Ro52,Ro60,SSB,SM,TECHNOLOGIST INFECTIOUS DISEASE,S CL-70,JO1) Lab Routine Raynaud's disease without gangrene ANAHI positive 1 Occurrences starting 10/05/2024 until 10/05/2025 [facility] Comment on above: 1 Occurrences starti ng 10/05/2024 until 10/05/2025 End: 10-05-2025 Miscellaneous Lab Test Miscellaneous Lab Test Lab Routine Raynaud's disease without gangrene ANAHI positive 1 Occurrences starting 10/05/2024 until 10/05/2025 [facility] Comment on above: 1 Occurrences starti ng 10/05/2024 until 10/05/2025 Path report.final Dx Spec [facility] End: 10-05-2025 Protein/Creatinine [Ratio] in Urine Protein / Creatinine Ratio, Urine Lab Routine Raynaud's disease without gangrene ANAHI positive 1 Occurrences starting 10/05/2024 until 10/05/2025 [facility] Comment on above: 1 Occurrences starti ng 10/05/2024 until 10/05/2025 End: 10-05-2025 Rheumatoid factor, quantitative Rheumatoid factor Lab Routine Rheumatoid factor positive 1 Occurrences starting 10/05/2024 until 10/05/2025 [facility] Comment on above: 1 Occurrences starti ng 10/05/2024 until 10/05/2025 End: 10-05-2025 Urinalysis Urinalysis Lab Routine Raynaud's disease without gangrene ANAHI positive 1 Occurrences starting 10/05/2024 until 10/05/2025 [facility] Comment on above: 1 Occurrences starti ng 10/05/2024 until 10/05/2025 US.doppler Lower extremity vein [facility] Immunizations Immunization Date Immunization Notes Care Provider Lupe ricci 03-29-2012 tetanus toxoid, redu negar diphtheria toxoid, and acellular pertussis vaccine, adsorbed Yaneli Winter ASBESTOS BRAKE LINING FINISHER.LINEN FOLDER Work Phone: [facility] 06-26-2011 influenza virus vacc ine, unspecified formulation Yaneli Winter ASBESTOS BRAKE LINING FINISHER.LINEN FOLDER Work Phone: [facility] Payers Date Payer Category Payer Self-pay 2022 Medicaid [id number] 2020 Medicaid (Managed Care) [facility] MEDICAID [id number] 2017 Unknown [id number] 1993 Unknown [id number] 2.16.840.1.807938.3.579.2. 651 1993 Unknown [id number] 2.16.840.1.299823.3.579.2. 651 1993 Unknown [id number] 2.16.840.1.245073.3.579.2. 651 1993 Unknown [id number] 2.16.840.1.710433.3.579.2. 903 1993 Unknown [id number] 2.16840.1.138457.3.579.2. 903 Unknown [id number] 2.16840.1.542920.3.579.2. 462 Unknown [id number] 2.840.1.716354.3.579.2. 462 Unknown [id number] 2.840.1.821434.3.579.2. 462 Unknown [id number] 2.840.1.261240.3.579.2. 462 Unknown [id number] 2.16840.1.868001.3.579.2. 462 Unknown [id number] 2.16840.1.751242.3.579.2. 462 Unknown [id number] 2.840.1.387410.3.579.2. 462 Unknown [id number] 2.16840.1.557656.3.579.2. 462 Unknown [id number] 2.840.1.020068.3.579.2. 462 Unknown [id number] 2.16840.1.586509.3.579.2. 462 Unknown [id number] 2.16840.1.894064.3.579.2. 462 Unknown [id number] 2.16840.1.493538.3.579.2. 462 Unknown [id number] 2.16.840.1.527751.3.579.2. 462 Unknown [id number] 2.16.840.1.114336.3.579.2. 462 Unknown [id number] 2.16.840.1.889062.3.579.2. 462 Unknown [id number] 2.16.840.1.486916.3.579.2. 462 Social History Date Type Detail Facility Start: 06-12-2010 Tobacco smoking stat us KYIS Smokes tobacco daily [facility] Start: 06-12-2010 End: 06-12-2011 History of tobacco use Cigarette Smoker [facility] Start: 07-07-2024 Tobacco use and exposure Smokeless tobacco non-user [facility] Start: 07-07-2024 End: 12-15-2024 Alcoholic beverage intake Current non-drinker of alcohol (finding) [facility] Start: 06-17-2024 End: 07-07-2024 History of Social function [facility] Start: 06-17-2024 End: 07-07-2024 Tobacco use [address] [facility] National Score (1-10 0), lower number is lower risk [address] [facility] Start: 1995 Sex assigned at Not on file C [facility] smoking consumption unknown [facility] Start: 06-22-2024 End: 05-02-2025 Tobacco smoking status NHIS Ex-smoker (finding) [facility] Start: 01-23-2020 Cigarettes Cigarettes [facility] Start: 11-22-2024 Sex Female (finding) [facility] Start: 1995 Sex Assigned At Female [facility] Goals Date Patient Goal Desired Activity /State Mental Status Date Assessment Result Facility 05-11-2025 Cognitive function Voice/Name [facility] Work Phone: Clinical Notes 06-06-2024 to 05-11-2025 Note Date & Type Note Facility 05-11-2025 Consult note [facility] 05-11-2025 Consult note Note Date/Time May 11, 2025 4:51pm [facility] Medical Records Department [address] [place] [address] Anesthesia Postop Eval I 05/11/25 1449 MR#: [id number] Acct: [id number] Name: BULMARO BLAIR Rep #:[id number] : 1995 30 From: Rubén PRIETO PCP: So Reed NP-C Status:REG S DC Y Race: C Location: [place] [address] Anesthesia: Postop Eval I Current Vital Signs Temperature: 98.3 F Pulse Rate: 74 Blood Pressure: 134/88 Respiratory Rate: 16 Pulse Ox: 100 Assessment Airway patent: Yes Spontaneous unlabored respirations: Yes nausea: No Vomiting: No Anesthesia Complication: No Fluid Hydration Crystalloid volume administer (ml): 1,200 Total IV fluid infused: 1,200 Progress Note Anesthesia document: Postop Eval 1 completed: Yes 05/11/25 144 <Electronically signed by Rubén Cline CRNA> Date _ Rubén Cline CRNA Cosigner Signature: Date CC: ~ Signed [facility] Work Phone: 1(330) 623-477309-25-2025 History and physical note Author Andres Valentin [facility] Note Date/Time May 11, 2025 2:29pm [facility] Medical Records Department [address] [place] [address] History & Physical Exam 05/11/25 1427 MR#: [id number] Acct: [id number] Name: BULMARO BLAIR Rep #:[id number] : 1995 30 From: Andres Valentin MD PCP: So Reed NP-C Status:REG S DC Location: [place] [address] HPI - General HPI Narrative BULMARO BLAIR, is a 30 F who presents with painful varicose veins of the right lower extremity refractory to compression tx. She has GSV reflux throughout and a dilated SFJ. [facility] Medical History Wears glasses Wears contact lenses Anxiety Alcohol use Former smoker Leg cramps Vaginal delivery Home Medications ?Medication ?Instructions ?Recorded ?Last Taken ?Type oxycodone 5 mg tablet 5 mg PO Q8H PRN pain 1 day # 3 tabs 05/11/25 Unknown Rx Allergy/AdvReac Type Severity Reaction Status Date / Time No Known Allergies Allergy Verified 05/11/25 10:30 Family History Grandfather Cancer Lung Other Heart disease Myocardial infarction Surgical History Hx of wisdom tooth extraction S/P tubal ligation H/O dilation and curettage Social History adopted: No household members: family housing: house current occupational status: employed current occupation: [employer] Smoking Status: Former smoker Tobacco: How many years used: 5 second hand exposure: Yes alcohol intake: never substance use type: does not use seatbelt use: always do you feel safe at home: Yes additional social history: BF: Kaz WHITNEY Constitutional Constitutional: Denies chills, fever(s), frequent falls, lethargy or weakness Eyes Eyes: Denies blind spots, change in vision or loss of vision ENT HEENT: Denies bleeding gums, hoarseness or sore throat Cardiovascular Cardiovascular: Denies abdominal pain, bluish discoloration of hand/feet, chest pain with activity, claudication, cold extremities, cyanosis, dyspnea on exertion, erythema on extremities, irregular heart rhythm, leg edema, leg ulcers, numbness in extremities or weakness in extremities Respiratory/Chest Respiratory/Chest: Denies cough, excessive phlegm production, shortness of breath at rest, shortness of breath with exertion or wheezing Gastrointestinal Gastrointestinal: Denies anorexia, change in stool character, constipation, diarrhea, melena or rectal bleeding Genitourinary Genitourinary: Denies dysuria or hematuria Musculoskeletal Musculoskeletal: Denies abnormal gait Integumentary Integumentary: Reports other Details: ; Denies erythema, non-healing lesions or wounds Neurologic Neurologic: Denies abnormal speech, focal weakness, headache(s), loss of vision,numbness, paresthesias or sensory deficit Hematologic/Lymphatic Hematologic/Lymphatic: Denies easy bleeding, easy bruising or lymphadenopathy Vital Signs Vital Signs Vital Signs: 05/11/25 10:31 05/11/25 10:31 05/11/25 10:55 Temperature 98.6 F 98.6 F Temperature Source Temporal Pulse Rate 83 83 Respiratory Rate 18 18 Respiratory Pattern Normal Blood Pressure 123/87 H 123/87 H Blood Pressure Mean 99 Blood Pressure Source Monitor Blood Pressure Position Semi-Fowlers Blood Pressure Location Left Arm Pulse Ox 100 100 Oxygen Delivery Method Room Air Room Air Weight Weight: 160 lb 0.889 oz Body Mass Index (BMI) 25.0 Physical Exam Const alert, oriented x3, no apparent distress and healthy appearing General Appearance: cooperative; Negative for combative or lethargic Orientation / Consciousness: awake Exam Limitations: no limitations HEENT Head and Scalp: normocephalic and atraumatic Eyes EOMs intact bilaterally General Eye: normal appearance of both eyes Neck full ROM General: trachea midline Resp normal respiratory effort and no use of accessory muscles Effort and Inspection: Negative for labored, stridor or audible wheezes Cardio regular rate and regular rhythm Back/Spine Cervical Spine: cervical ROM normal Extremity full ROM, normal capillary refill and no clubbing, cyanosis or edema Skin no rashes or lesions noted and no wounds Neuro oriented x3, CN's II-XII intact bilaterally, no focal motor deficits and no sensory deficits noted Psych thought process normal, cooperative, affect normal, speech normal and activity/motor behavior normal Results Lab / Micro Data 05/11/25 10:25 05/11/25 10:25 Labs: Laboratory Results - last 24 hr 05/11/25 10:25: WBC 3.6 L, RBC 4.34, Hgb 13.3, Hct 39.4, MCV 90.8, MCH 30.6, MCHC 33.8, RDW Std Deviation 40.5, RDW Coeff of Yolanda 12.3, Plt Count 203, MPV 10.7, Sodium 141, Potassium 3.8, Chloride 107, Carbon Dioxide 22.5, Anion Gap 12, BUN 9, Creatinine 0.75, Estim Creat Clear Calc 104.72, Est GFR (MDRD) Non-Af108, BUN/Creatinine Ratio 11.8, Glucose 88, Calcium 9.4 Assessment & Plan Assessment/Plan (1) Symptomatic varicose veins: QUALIFIERS: Laterality: right Qualified Code(s): I83.891 - Varicose veins of right lower extremity with other complications PLAN: -with pain -SFJ ligation, GSV thermal ablation 05/11/25 1429 <Electronically signed by Andres Valentin MD> Cosigner Signature (if applicable): CC: PRODUCTION GEAR CUTTERaSntiagoC So Reed; Dr. Andres Valentin MD~ Signed [facility] Work Phone: 1(391) 152-912609-25-2025 Discharge summary Author Andres Valentin [facility] Note Date/Time May 11, 2025 2:27pm [facility] Medical Records Department [address] [place] [address] Instructions for Home/Discharge Instructions 05/11/25 1424 MR#: [id number] Acct: [id number] Name: BULMARO BLAIR Rep #:[id number] : 1995 30 From: Andres Valentin MD PCP: SHANKAR Plummer Status:REG S DC Discharge Instructions Diet Discharge Diet: No restrictions Activity May shower in (days): 2 Lifting Restrictions: do not lift > 20 lbs for 14 days Additional Activity Instructions:: do not submerge incision for 14 days Dressing / Incision Call your doctor if your incision/area has: Sudden Increased Bleeding, IncreasedPain/ Swelling, Increased Redness and Foul Smelling Discharge Remove Dressing in: 2 days Cleanse incision/area with: Soap & Water Additional Dressing/Incision Instructions:: re-apply karyn wrap during the day for14 days Follow Up Care Test Results: Test results from this visit will be discussed in further detail at your follow- up appointment, if applicable. Discharge Plan Admission Attending Provider: Andres Valentin Primary Care Provider: So Reed Instructions Print Language: Citizen Of [place] Discharge Orders/Prescriptions Prescriptions: New oxycodone 5 mg tablet 5 mg PO Q8H PRN (Reason: pain) 1 Days Qty: 3 0RF Referrals / Follow Up: So Reed NP-C [Primary Care Provider, Family Practice] Disposition Disposition (needs filled in before D/C Order can be placed): Home, Self Care 05/11/25 1427<Electronically signed by Andres Valentin MD>Andres Valentin MD CC: SHANKAR Reed ~ Signed [facility] Work Phone: 1(816) 600-358709-25-2025 Consult note [facility] Medical Records Department [address] [place] [address] Anesthesia Postop Eval II 05/11/25 1615 MR#: [id number] Acct: [id number] Name: BULMARO BLAIR Rep #:[id number] : 1995 30 From: Sara Cueva RNA PCP: SHANKAR Plummer Status:REG S DC Y Race: C Location: [place] [address] Anesthesia Postop Eval I Sum Postop Eval Completion status Anesthesia document: Postop Eval 1 completed: Yes Anesthesia Postop Eval I Summary Anesthesia Postop Eval I Summary: Anesthesia Postop Eval I: Assessment Summary Airway patent Yes 05/11/25 14:49 SENIOR [email or web address].[email or web address] Spontaneous unlabored Yes 05/11/25 14:49 SENIOR [email or web address].TNES respirations Mental status nausea No 05/11/25 14:49 SENIOR [email or web address].TNES Vomiting No 05/11/25 14:49 SENIOR [email or web address].TNES Anesthesia Postop Eval I: Fluid Summary Crystalloid volume administer 1,200 05/11/25 14:49 SENIOR [email or web address].TNES (ml) Colloids volume administered ( ml) Blood Product volume administered (ml) Total IV fluid infused 1,200 05/11/25 14:49 SENIOR [email or web address].TNES Anesthesia Postop Eval I: Summary Notes Anesthesia Complication No 05/11/25 14:49 SENIOR [email or web address].TNES Anesthesia Complication Comment: Post-operative progress note Anesthesia: Postop Eval II Evaluation Mental status: Awake and Calm Pain Level: 0 nausea: No Vomiting: No Complications Anesthesia Complication: No 05/11/25 1616 SENIOR MERCHANDISER> Date _ Sara Carson CRNA Cosigner Signature: Date CC: ~ Signed [facility]09-25-2025 Procedure note [facility] Medical Records Department [address] [place] [address] Operative Report 05/11/25 1608 MR#: [id number] Acct: [id number] Name: BULMARO BLAIR Rep #:[id number] : 1995 30 From: Andres Valentin MD PCP: SHANKAR Plummer Status:REG S DC Location: [place] [address] Operative Report (Standard) Operative Information Date of Procedure: 05/11/25 Pre-Operative Diagnosis: Varicose veins with pain of the right lower extremity Post-Operative Diagnosis: Same Surgery/Procedure Performed: Ligation right saphenofemoral junction Radiofrequency ablation right great saphenous vein ham marker: Yes Inhalation Therapy Teacher: Adenike Bucio Tasks completed by registered nurse first assistant: Opening, Closing, Opening & closing and Retracting Type of Anesthesia: General RN Documented Start/Stop Times: Operation Date: 05/11/25 12:00 Case Time Into Pre-Op 05/11/25 10:06 Out of Pre-Op 05/11/25 12:39 Into Recovery 05/11/25 14:44 Into Phase II Recovery 05/11/25 15:48 Out of Recovery 05/11/25 15:48 Procedure Start Time: 13:30 Procedure Stop Time: 14:15 Select all DRAINS/GRAFTS/IMPLANTS that apply: None Estimated Blood Loss: 4 Specimen collected: No Description of surgery: HPI: Patient is a 30-year-old female with painful varicose veins of the right lower extremity. These are refractory to compression garments and venous duplexrevealed reflux throughout the great saphenous vein in addition to an enlarged saphenofemoral junction. She presents now for saphenofemoral ligation with radiofrequency ablation of the great saphenous vein to the knee. Description of procedure: Upon obtaining informed consent and verification correct patient procedure site the patient was taken to the [facility] where she wasplaced under general anesthesia. She was then positioned prepped and draped in usual sterile fashion time was performed. Ultrasound was used to evaluate the great saphenous vein from the proximal calf to the saphenofemoral junction. Thevesselobserved to be small caliber from the distal thigh to the proximal calf but with no significant tortuosity. There were 2 large caliber accessory saphenous veins that were dilated in the mid and distal thigh. Oblique incisionwas then made over the saphenofemoral junction and Bovie used to dissect down tothe subcutaneous tissue then self-retaining retractors put in position. Furtherdissection was carried down to the foot the great saphenous vein was visualized and sharp dissection was then used to dissect free the vessel and adjacent branches. Sidebranches were ligated with silk ties and divided and a right angle used to this vessel loop around the saphenofemoral junction. Next under ultrasound guidance the great saphenous vein in the distal thigh was accessed with a micropuncture needle wire. This then exchanged for the 7 Divehi ablationsheath which was advanced without resistance. The radiofrequency ablation probewas then advanced through the sheath under ultrasound guidance to the saphenofemoral junction. The saphenofemoral junction was then clamped at the confluence with the common femoral vein with an atraumatic clamp and distally with a vessel loop. The vessel was then dividedand each and oversewn with 5-0 Prolene in running fashion. After pulling the suture line clamps were released and satisfactory hemostasis was observed. Next tumescent solution was infused in the softtissue surrounding the great saphenous vein from the access site to the saphenofemoral junction. The ablation probe was then activated sequentiallyalong the length of the treatment zone down to the access site. The sheath and ablation probe were then withdrawn manage pressure held at the access site untilhemostasis was observed. Within the incision the tissue was inspected for hemostasis and thenclosed with 2-0 Vicryl, 3-0 Vicryl, 4 Monocryl and Dermabondfor the skin. Dry sterile dressing and Karyn wrap were then applied the patient was taken to the recovery room with anticipated discharge to home. Surgical Findings: See above Complications Complications: No 05/11/25 1614 Cosigner Signature (if applicable): CC: SHANKAR Reed; Dr. Andres Valentin MD~ Signed [facility]09-25-2025 History and physical note [facility] Medical Records Department [address] [place] [address] History & Physical Exam 05/11/25 1427 MR#: [id number] Acct: [id number] Name: BULMARO BLAIR Rep #:[id number] : 1995 30 From: Andres Valentin MD PCP: SHANKAR Plummer Status:REG S DC Location: [place] [address] HPI - General HPI Narrative BULMARO BLAIR, is a 30 F who presents with painful varicose veins of the right lower extremity refractory to compression tx. She has GSV reflux throughout and a dilated SFJ. [facility] Medical History Wears glasses Wears contact lenses Anxiety Alcohol use Former smoker Leg cramps Vaginal delivery Home Medications ?Medication ?Instructions ?Recorded ?Last Taken ?Type oxycodone 5 mg tablet 5 mg PO Q8H PRN pain 1 day # 3 tabs 05/11/25 Unknown Rx Allergy/AdvReac Type Severity Reaction Status Date / Time No Known Allergies Allergy Verified 05/11/25 10:30 Family History Grandfather Cancer Lung Other Heart disease Myocardial infarction Surgical History Hx of wisdom tooth extraction S/P tubal ligation H/O dilation and curettage Social History adopted: No household members: family housing: house current occupational status: employed current occupation: [employer] Smoking Status: Former smoker Tobacco: How many years used: 5 second hand exposure: Yes alcohol intake: never substance use type: does not use seatbelt use: always do you feel safe at home: Yes additional social history: BF: Kaz CHELO Constitutional Constitutional: Denies chills, fever(s), frequent falls, lethargy or weakness Eyes Eyes: Denies blind spots, change in vision or loss of vision ENT HEENT: Denies bleeding gums, hoarseness or sore throat Cardiovascular Cardiovascular: Denies abdominal pain, bluish discoloration of hand/feet, chest pain with activity,claudication, cold extremities, cyanosis, dyspnea on exertion, erythema on extremities, irregular heart rhythm, leg edema, leg ulcers, numbness in extremities or weakness in extremities Respiratory/Chest Respiratory/Chest: Denies cough, excessive phlegm production, shortness of breath at rest, shortness of breath with exertion or wheezing Gastrointestinal Gastrointestinal: Denies anorexia, change in stool character, constipation, diarrhea, melena or rectal bleeding Genitourinary Genitourinary: Denies dysuria or hematuria Musculoskeletal Musculoskeletal: Denies abnormal gait Integumentary Integumentary: Reports other Details: ; Denies erythema, non-healing lesions or wounds Neurologic Neurologic: Denies abnormal speech, focal weakness, headache(s), loss of vision,numbness, paresthesias or sensory deficit Hematologic/Lymphatic Hematologic/Lymphatic: Denies easy bleeding, easy bruising or lymphadenopathy Vital Signs Vital Signs Vital Signs: 05/11/25 10:31 05/11/25 10:31 05/11/25 10:55 Temperature 98.6 F 98.6 F Temperature Source Temporal Pulse Rate 83 83 Respiratory Rate 18 18 Respiratory Pattern Normal Blood Pressure 123/87 H 123/87 H Blood Pressure Mean 99 Blood Pressure Source Monitor Blood Pressure Position Semi-Fowlers Blood Pressure Location Left Arm Pulse Ox 100 100 Oxygen Delivery Method Room Air Room Air Weight Weight: 160 lb 0.889 oz Body Mass Index (BMI) 25.0 Physical Exam Const alert, oriented x3, no apparent distress and healthy appearing General Appearance: cooperative; Negative for combative or lethargic Orientation / Consciousness: awake Exam Limitations: no limitations HEENT Head and Scalp: normocephalic and atraumatic Eyes EOMs intact bilaterally General Eye: normal appearance of both eyes Neck full ROM General: trachea midline Resp normal respiratory effort and no use of accessory muscles Effort and Inspection: Negative for labored, stridor or audible wheezes Cardio regular rate and regular rhythm Back/Spine Cervical Spine: cervical ROM normal Extremity full ROM, normal capillary refill and no clubbing, cyanosis or edema Skin no rashes or lesions noted and no wounds Neuro oriented x3, CN's II-XII intact bilaterally, no focal motor deficits and no sensory deficits noted Psych thought process normal, cooperative, affect normal, speech normal and activity/motor behavior normal Results Lab / Micro Data 05/11/25 10:25 05/11/25 10:25 Labs: Laboratory Results - last 24 hr 05/11/25 10:25: WBC 3.6 L, RBC 4.34, Hgb 13.3, Hct 39.4, MCV 90.8, MCH 30.6, MCHC 33.8, RDW Std Deviation 40.5, RDW Coeff of Yolanda 12.3, Plt Count 203, MPV 10.7, Sodium 141, Potassium 3.8, Chloride 107, Carbon Dioxide 22.5, Anion Gap 12, BUN 9, Creatinine 0.75, Estim Creat Clear Calc 104.72, Est GFR (MDRD) Non- Af108, BUN/Creatinine Ratio 11.8, Glucose 88, Calcium 9.4 Assessment & Plan Assessment/Plan (1) Symptomatic varicose veins: QUALIFIERS: Laterality: right Qualified Code(s): I83.891 - Varicose veins of right lower extremity with other complications PLAN: -with pain -SFJ ligation, GSV thermal ablation 05/11/25 1429 Cosigner Signature (if applicable): CC: SHANKAR Reed; Dr. Andres Valentin MD~ Signed [facility]09-25-2025 Discharge summary [facility] Medical Records Department [address] [place] [id number] Instructions for Home/Discharge Instructions 05/11/25 1424 MR#: [id number] Acct: [id number] Name: BULMARO BLAIR Rep #:[id number] : 1995 30 From: Andres Valentin MD PCP: SHANKAR Plummer Status:REG S DC Discharge Instructions Diet Discharge Diet: No restrictions Activity May shower in (days): 2 Lifting Restrictions: do not lift > 20 lbs for 14 days Additional Activity Instructions:: do not submerge incision for 14 days Dressing / Incision Call your doctor if your incision/area has: Sudden Increased Bleeding, IncreasedPain/ Swelling, Increased Redness and Foul Smelling Discharge Remove Dressing in: 2 days Cleanse incision/area with: Soap & Water Additional Dressing/Incision Instructions:: re-apply karyn wrap during the day for14 days Follow Up Care Test Results: Test results from this visit will be discussed in further detail at your follow- up appointment, if applicable. Discharge Plan Admission Attending Provider: Andres Valentin Primary Care Provider: So Reed Instructions Print Language: Citizen Of [place] Discharge Orders/Prescriptions Prescriptions: New oxycodone 5 mg tablet 5 mg PO Q8H PRN (Reason: pain) 1 Days Qty: 3 0RF Referrals / Follow Up: So Reed NP-C [Primary Care Provider, Family Practice] Disposition Disposition (needs filled in before D/C Order can be placed): Home, Self Care 05/11/25 1427Andres Valentin MD CC: RUBINAC So Reed ~ Signed [facility]09-25-2025 [facility] Medical Records Department [address] [place] [address] History Physical Exam 05/11/25 1427 MR#: [id number] Acct: [id number] Name: BULMARO BLAIR Rep #: [id number] : 1995 30 From: Andres Valentin MD PCP: SHANKAR Plummer Status:REG [facility] Location: [place] [address] HPI - General HPI Narrative BULMARO BLAIR, is a 30 F who presents with painful varicose veins of the right lower extremity refractory to compression tx. She has GSV reflux throughout and a dilated SFJ. [facility] Medical History Wears glasses Wears contact lenses Anxiety Alcohol use Former smoker Leg cramps Vaginal delivery Home Medications ???Medication ???Instructions ???Recorded ???Last Taken ???Type oxycodone 5 mg tablet 5 mg PO Q8H PRN pain 1 day #3 tabs 05/11/25 Unknown Rx Allergy/AdvReac Type Severity Reaction Status Date / Time No Known Allergies Allergy Verified 05/11/25 10:30 Family History Grandfather Cancer Lung Other Heart disease Myocardial infarction Surgical History Hx of wisdom tooth extraction S/P tubal ligation H/O dilation and curettage Social History adopted: No household members: family housing: house current occupational status: employed current occupation: [employer] Smoking Status: Former smoker Tobacco: How many years used: 5 second hand exposure: Yes alcohol intake: never substance use type: does not use seatbelt use: always do you feel safe at home: Yes additional social history: BF: Kaz WHITNEY Constitutional Constitutional: Denies chills, fever(s), frequent falls, lethargy or weakness Eyes Eyes: Denies blind spots, change in vision or loss of vision ENT HEENT: Denies bleeding gums, hoarseness or sore throat Cardiovascular Cardiovascular: Denies abdominal pain, bluish discoloration of hand/feet, chest pain with activity, claudication, cold extremities, cyanosis, dyspnea on exertion, erythema on extremities, irregular heart rhythm, leg edema, leg ulcers, numbness in extremities or weakness in extremities Respiratory/Chest Respiratory/Chest: Denies cough, excessive phlegm production, shortness of breath at rest, shortness of breath with exertion or wheezing Gastrointestinal Gastrointestinal: Denies anorexia, change in stool character, constipation, diarrhea, melena or rectal bleeding Genitourinary Genitourinary: Denies dysuria or hematuria Musculoskeletal Musculoskeletal: Denies abnormal gait Integumentary Integumentary: Reports other Details: ; Denies erythema, non-healing lesions or wounds Neurologic Neurologic: Denies abnormal speech, focal weakness, headache(s), loss of vision, numbness, paresthesias or sensory deficit Hematologic/Lymphatic Hematologic/Lymphatic: Denies easy bleeding, easy bruising or lymphadenopathy Vital Signs Vital Signs Vital Signs: 05/11/25 10:31 05/11/25 10:31 05/11/25 10:55 Temperature 98.6 F 98.6 F Temperature Source Temporal Pulse Rate 83 83 Respiratory Rate 18 18 Respiratory Pattern Normal Blood Pressure 123/87 H 123/87 H Blood Pressure Mean 99 Blood Pressure Source Monitor Blood Pressure Position Semi-Fowlers Blood Pressure Location Left Arm Pulse Ox 100 100 Oxygen Delivery Method Room Air Room Air Weight Weight: 160 lb 0.889 oz Body Mass Index (BMI) 25.0 Physical Exam Const alert, oriented x3, no apparent distress and healthy appearing General Appearance: cooperative; Negative for combative or lethargic Orientation / Consciousness: awake Exam Limitations: no limitations HEENT Head and Scalp: normocephalic and atraumatic Eyes EOMs intact bilaterally General Eye: normal appearance of both eyes Neck full ROM General: trachea midline Resp normal respiratory effort and no use of accessory muscles Effort and Inspection: Negative for labored, stridor or audible wheezes Cardio regular rate and regular rhythm Back/Spine Cervical Spine: cervical ROM normal Extremity full ROM, normal capillary refill and no clubbing, cyanosis or edema Skin no rashes or lesions noted and no wounds Neuro oriented x3, CN's II-XII intact bilaterally, no focal motor deficits and no sensory deficits noted Psych thought process normal, cooperative, affect normal, speech normal and activity/motor behavior normal Results Lab / Micro Data 05/11/25 10:25 05/11/25 10:25 Labs: Laboratory Results - last 24 hr 05/11/25 10:25: WBC 3.6 L, RBC 4.34, Hgb 13.3, Hct 39.4, MCV 90.8, MCH 30.6, MCHC 33.8, RDW Std Deviation 40.5, RDW Coeff of Yolanda 12.3, Plt Count 203, MPV 10. (more content not included)...[facility]09-25-2025 Consult note Author Shankar Rudd [facility] Note Date/Time May 11, 2025 10:55am [facility] Medical Records Department [address] [place] [address] Pre-Anesthesia Evaluation 05/11/25 1049 MR#: [id number] Acct: [id number] Name: BULMARO BLAIR Rep #:[id number] : 1995 30 From: Shankar Rudd MD PCP: SHANKAR Plummer Status:REG S DC Y Race: C Location: [place] [address] ASA Classification* ASA Classification ASA Classification: 1 Assessment & Plan Anesthesia* Anesthesia Assessment Anesthesia Assessment: Discussed sedation and/or anesthesia options, risks, benefits, and alternatives with patient/parents/legal guardian/POA. Questions invited. The patient/parents/legal guardian/POA seems to understand and agrees to proceedwith anesthesia plan. Reviewed the physical assessment, medical history, allergy history and patient home medications list prior to surgery/procedure/anesthetic and documented any changes. Performed airway and anesthesia risk assessments. Anesthesia Type Anesthesia Type: General History Source History Obtained from:: Patient and Chart Anesthesia Focused Assessment* Temperature: 98.6 F Pulse Rate: 83 Blood Pressure: 123/87 Respiratory Rate: 18 Pulse Ox: 100 Oxygen Delivery Method: Room Air Airway Assessment Mouth opens: >3 cm Mallampati Score: III Teeth Condition: Missing (Patient has a couple missing teeth. Rest are tight.) Neck Range of motion (ROM): Full ROM Labs Anesthesia Preop lab: CBC WBC, (4.4-11.0) 3.6 K/mm3 L Today, 10:25 RBC, (4.2-5.4) 4.34 M/mm3 Today, 10:25 Hgb, (12.0-15.0) 13.3 g/dL Today, 10:25 Hct, (37-47) 39.4 % Today, 10: Plt Count, (150-450) 203 K/mm3 Today, 10:25 CHEMISTRY Potassium, (3.5-5.1) 3.6 mmol/L 05/18/24, 10: Sodium, (136-145) 141 mmol/L 05/18/24, 10: BUN, (7-18) 12 mg/dL 05/18/24, 10: Creatinine, (0.55-1.02) 0.74 mg/dL 05/18/24, 10: Glucose, (74-106) 97 mg/dL 05/18/24, 10: TSH, (0.358-3.74) 1.11 uIU/mL 09/24/16, 16:57 COAG Urine Test Negative Negative 05/18/24, 11:10 Pre-Assessment Diagnosis/Proposed Procedure Planned Operative Procedure(s): RIGHT SFJ LIGATION AND RIGHT SAPHENOUS VEIN ABLATION Anesthesia History Anesthesia History - photograph finisher: Anesthesia History - photograph finisher Hx Hospitalization No 05/02/25 09:14 Any Problems With Anesthesia No 05/02/25 09:14 Cholinesterase deficiency No 05/02/25 09:14 You/Your Family Experience No 05/02/25 09:14 fever (hyperthermia) with Relationship Recent Exposure to Contagious No 05/11/25 10:31 Disease Does patient have nerve No 05/02/25 09:14 stimulator Patient instructed to have device shut off --Does patient have Pacemaker No 05/11/25 10:31 or ICD? When Was Last Pacemaker Check QUESTION #4 FULL TEXT: You/Your Family Experience fever (hyperthermia) with Anesthesia Last Oral Intake Last Oral intake: Last Oral Intake NPO since 04:30 05/11/25 10:31 Meds taken in AM with sips of water? Meds patient instructed to take am of surgery Any additional information?: Yes NPO since: 05:30 (Patient water at 5:30 AM.) Meds taken in AM with sips of water?: No PONV PONV - photograph finisher: PONV - photograph finisher Female Yes 05/02/25 09:14 HX of Motion Sickness No 05/02/25 09:14 HX of N/V After Surgery No 05/02/25 09:14 Non-Smoker Yes 05/02/25 09:14 Duration of Surgery greater Yes 05/02/25 09:14 than 60 minutes Number of Risk Factors 3 05/02/25 09:14 PONV Score Moderate Risk 05/02/25 09:14 Height & Weight Height & Weight: Anesthesia: Height & Weight Height 5 ft 7 in 05/11/25 10:31 Weight: 72.6 kg 05/11/25 10:31 Body Mass Index (BMI) 25.0 05/11/25 10:31 Respiratory Assessment Respiratory Assessment - photograph finisher: Respiratory Tract Infection Hx - photograph finisher Hx Respiratory Tract Infection No 05/02/25 09:14 STOP Sleep Apnea STOP Sleep Apnea - photograph finisher: STOP Sleep Apnea - photograph finisher Hx Hypertension No 05/02/25 09:14 Hx Sleep Apnea No 05/02/25 09:14 CPAP BIPAP Do you snore loudly (louder Yes 05/02/25 09:14 than talking or can be heard Do you often feel tired/ No 05/02/25 09:14 fatigued/ sleepy during daytime? Has anyone observed you stop No 05/02/25 09:14 breathing during sleep? STOP Results Negative 05/02/25 09:14 QUESTION #5 FULL TEXT : Do you snore loudly (louder than talking or can be heard through closed doors)? 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 Specify any problems Hx of Preganancy in last 3 No 05/02/25 09:14 Months Nurse Filling Out Transfusion DSCHRIBER 05/02/25 09:14 & Questions: Date: 05/02/25 05/02/25 09:14 Time: 09:14 05/02/25 09:14 Patient unable to answer at this time (ie. confused, unrespo /Reproduction History /Reproductive History - photograph finisher: /Reproductive Hx- photograph finisher Hx Now No 05/02/25 09:14 Gestational Age (in weeks): EDC: Hx Hx Para Hx Section SAB No 05/02/25 09:14 Active Medications Active Medications: Current Medications Generic Name Dose Route Start Last Admin Trade Name Freq PRN Reason Stop Dose Admin Cefazolin Sodium 2 gm/ Sodium 110 mls @ 200 mls/hr 05/11/25 12:00 Chloride IV 05/11/25 12:32 INTRAOP ONE Lactated Ringer's 1,000 mls @ 15 mls/hr 05/11/25 10:15 05/11/25 10:34 IV 15 mls/hr .Q48H RUSSEL Administration PFSH Medical History Wears glasses Wears contact lenses Anxiety Alcohol use Former smoker Leg cramps Vaginal delivery Home Medications ?Medication ?Instructions ?Recorded ?Last Taken ?Type NK 02/01/25 Unknown History Allergy/AdvReac Type Severity Reaction Status Date / Time No Known Allergies Allergy Verified 05/11/25 10:30 Family History Grandfather Cancer Lung Other Heart disease Myocardial infarction Surgical History Hx of wisdom tooth extraction S/P tubal ligation H/O dilation and curettage Social History adopted: No household members: family housing: house current occupational status: employed current occupation: [employer] Smoking Status: Former smoker Tobacco: How many years used: 5 second hand exposure: Yes alcohol intake: never substance use type: does not use seatbelt use: always do you feel safe at home: Yes additional social history: BF: Kaz Review of Systems (Anesthesia) ROS Narrative System reviewed and no additional complaints, except as documented. 05/11/25 1055 <Electronically signed by Shankar grier MD> Date _ Shankar Rudd MD Cosigner Signature: Date CC: ~ Signed [facility] Work Phone: 1(729) 274-320909-25-2025 Consult note [facility] Medical Records Department [address] [place] [address] Pre-Anesthesia Evaluation 05/11/25 1049 MR#: [id number] Acct: [id number] Name: BULMARO BLAIR Rep #:[id number] : 1995 30 From: Shankar Rudd MD PCP: SHANKAR Plummer Status:REG S DC Y Race: C Location: [place] [address] ASA Classification* ASA Classification ASA Classification: 1 Assessment & Plan Anesthesia* Anesthesia Assessment Anesthesia Assessment: Discussed sedation and/or anesthesia options, risks, benefits, and alternatives with patient/parents/legal guardian/POA. Questions invited. The patient/parents/legal guardian/POA seems to understand and agrees to proceedwith anesthesia plan. Reviewed the physical assessment, medical history, allergy history and patient home medications list prior to surgery/procedure/anesthetic and documented any changes. Performed airway and anesthesia risk assessments. Anesthesia Type Anesthesia Type: General History Source History Obtained from:: Patient and Chart Anesthesia Focused Assessment* Temperature: 98.6 F Pulse Rate: 83 Blood Pressure: 123/87 Respiratory Rate: 18 Pulse Ox: 100 Oxygen Delivery Method: Room Air Airway Assessment Mouth opens: >3 cm Mallampati Score: III Teeth Condition: Missing (Patient has a couple missing teeth. Rest are tight.) Neck Range of motion (ROM): Full ROM Labs Anesthesia Preop lab: CBC WBC, (4.4-11.0) 3.6 K/mm3 L Today, 10:25 RBC, (4.2-5.4) 4.34 M/mm3 Today, 10:25 Hgb, (12.0-15.0) 13.3 g/dL Today, 10:25 Hct, (37-47) 39.4 % Today, 10:25 Plt Count, (150-450) 203 K/mm3 Today, 10:25 CHEMISTRY Potassium, (3.5-5.1) 3.6 mmol/L 05/18/24, 10: Sodium, (136-145) 141 mmol/L 05/18/24, 10: BUN, (7-18) 12 mg/dL 05/18/24, 10: Creatinine, (0.55-1.02) 0.74 mg/dL 05/18/24, 10: Glucose, (74-106) 97 mg/dL 05/18/24, 10: TSH, (0.358-3.74) 1.11 uIU/mL 09/24/16, 16:57 COAG Urine Test Negative Negative 05/18/24, 11:10 Pre-Assessment Diagnosis/Proposed Procedure Planned Operative Procedure(s): RIGHT SFJ LIGATION AND RIGHT SAPHENOUS VEIN ABLATION Anesthesia History Anesthesia History - photograph finisher: Anesthesia History - photograph finisher Hx Hospitalization No 05/02/25 09:14 Any Problems With Anesthesia No 05/02/25 09:14 Cholinesterase deficiency No 05/02/25 09:14 You/Your Family Experience No 05/02/25 09:14 fever (hyperthermia) with Relationship Recent Exposure to Contagious No 05/11/25 10:31 Disease Does patient have nerve No 05/02/25 09:14 stimulator Patient instructed to have device shut off --Does patient have Pacemaker No 05/11/25 10:31 or ICD? When Was Last Pacemaker Check QUESTION #4 FULL TEXT: You/Your Family Experience fever (hyperthermia) with Anesthesia Last Oral Intake Last Oral intake: Last Oral Intake NPO since 04:30 05/11/25 10:31 Meds taken in AM with sips of water? Meds patient instructed to take am of surgery Any additional information?: Yes NPO since: 05:30 (Patient water at 5:30 AM.) Meds taken in AM withsips of water?: No PONV PONV - photograph finisher: PONV - photograph finisher Female Yes 05/02/25 09:14 HX of Motion Sickness No 05/02/25 09:14 HX of N/V After Surgery No 05/02/25 09:14 Non-Smoker Yes 05/02/25 09:14 Duration of Surgery greater Yes 05/02/25 09:14 than 60 minutes Number of Risk Factors 3 05/02/25 09:14 PONV Score Moderate Risk 05/02/25 09:14 Height & Weight Height & Weight: Anesthesia: Height & Weight Height 5 ft 7 in 05/11/25 10:31 Weight: 72.6 kg 05/11/25 10:31 Body Mass Index (BMI) 25.0 05/11/25 10:31 Respiratory Assessment Respiratory Assessment - photograph finisher: Respiratory Tract Infection Hx - photograph finisher Hx Respiratory Tract Infection No 05/02/25 09:14 STOP Sleep Apnea STOP Sleep Apnea - photograph finisher: STOP Sleep Apnea - photograph finisher Hx Hypertension No 05/02/25 09:14 Hx Sleep Apnea No 05/02/25 09:14 CPAP BIPAP Do you snore loudly (louder Yes 05/02/25 09:14 than talking or can be heard Do you often feel tired/ No 05/02/25 09:14 fatigued/ sleepy during daytime? Has anyone observed you stop No 05/02/25 09:14 breathing during sleep? STOP Results Negative 05/02/25 09:14 QUESTION #5 FULL TEXT : Do you snore loudly (louder than talking or can be heard through closeddoors)? 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 Specify any problems Hx of Preganancy in last 3 No 05/02/25 09:14 Months Nurse Filling Out Transfusion DSCHRIBER 05/02/25 09:14 & Questions: Date: 05/02/25 05/02/25 09:14 Time: 09:14 05/02/25 09:14 Patient unable to answer at this time (ie. confused, unrespo /Reproduction History /Reproductive History - photograph finisher: /Reproductive Hx- photograph finisher Hx Now No 05/02/25 09:14 Gestational Age (in weeks): EDC: Hx Hx Para Hx Section SAB No 05/02/25 09:14 Active Medications Active Medications: Current Medications Generic Name Dose Route Start Last Admin Trade Name Freq PRN Reason Stop Dose Admin Cefazolin Sodium 2 gm/ Sodium 110 mls @ 200 mls/hr 05/11/25 12:00 Chloride IV 05/11/25 12:32 INTRAOP ONE Lactated Ringer's 1,000 mls @ 15 mls/hr 05/11/25 10:15 05/11/25 10:34 IV 15 mls/hr .Q48H RUSSEL Administration PFSH Medical History Wears glasses Wears contact lenses Anxiety Alcohol use Former smoker Leg cramps Vaginal delivery Home Medications ?Medication ?Instructions ?Recorded ?Last Taken ?Type NK 02/01/25 Unknown History Allergy/AdvReac Type Severity Reaction Status Date / Time No Known Allergies Allergy Verified 05/11/25 10:30 Family History Grandfather Cancer Lung Other Heart disease Myocardial infarction Surgical History Hx of wisdom tooth extraction S/P tubal ligation H/O dilation and curettage Social History adopted: No household members: family housing: house current occupational status: employed current occupation: [employer] Smoking Status: Former smoker Tobacco: How many years used: 5 second hand exposure: Yes alcohol intake: never substance use type: does not use seatbelt use: always do you feel safe at home: Yes additional social history: BF: [place] Review of Systems (Anesthesia) ROS Narrative System reviewed and no additional complaints, except as documented. 05/11/25 1055 cherrie MONREAL> Date _ Shankar Rudd MD Cosigner Signature: Date CC: ~ Signed [facility]06-18-2025 Evaluation note* Diagnosis Onset Date Resolution Status Admit Date Symptomatic varicose veins acute February 01, 2025 12:32pm Symptomatic varicose veins acute March 08, 2025 1:41pm Symptomatic varicose veins acute May 11, 2025 9:56am [facility] Work Phone: 1(164) 548-763605-01-2025 NoteHNO ID: [id number] Author: PEDRITO SANDERS APRN.LINEN FOLDER Service: ? Author Type: Nurse Practitioner Type: Progress Notes Filed: 12/15/2024 08:06 Note Text: [facility] Bulmaro Blair is a 29 year old female. [...] of care. This note was generated using [employer] software. It may contain errors in wording, punctuation, or spelling. Pedrito Sanders APRN.LINEN FOLDER History and Record Review Clinical information obtained from an independent historian. History obtained from or confirmed by: parent. External record(s) reviewed: prior outpatient record. Disposition The patient was discharged. OTC Medications were advised: [facility] History of Present illness Narrative* Pedrito Sanders APRN.LINEN FOLDER - 12/15/2024 8:01 AM EDT [facility] Subjective Bulmaro Blair is a 29 year old female. [...] ear discharge, ear pain, rhinorrhea, sinus pressure, sinuspain, sneezing, sore throat and trouble swallowing. Eyes: [...] Objective BP 129/86 Pulse 74 Temp 36.3 C (97.3 F) Resp 18 Wt 69 kg (152 lb 1.9 oz) LMP 12/07/2024 (Approximate) SpO2 100% No BMI 24.74 kg/m Physical Exam Constitutional: Appearance: Normal appearance. HENT: [...] No edema or erythema. No pain with movement.Normal range of motion. Lymphadenopathy: Cervical: No cervical [...] stable for discharge. Plan of care was dis cussed with patient. Patient verbalizes understanding and agrees to plan of care. This note was generated using [employer] software. It may contain errors in wording, punctuation, or spelling. Pedrito Sanders APRN.BLANCA History and Record Review Clinical information obtained from an independent historian. History obtained from or confirmed by:parent. External record(s) reviewed: prior outpatient record. Disposition The patient was discharged. OTC Medications were advised: [facility]* Diagnosis Onset Date Resolution Status Admit Date Symptomatic varicose veins acute November 09, 2024 10:13am Abnormal bowel sounds acute Nov 9:10am [facility] Work Phone: 1(866) 439-532203-26-2025 Evaluation note* Diagnosis Onset Date Resolution Status Admit Date Symptomatic varicose veins acute November 09, 2024 10:13am Abnormal bowel sounds acute Nov 9:10am Symptomatic varicose veins acute February 01, 2025 12:32pm [facility] Work Phone: 1(109) 399-328902-19-2025 NoteRHEUMATOLOGY NEW PATIENT VISIT Patient Name: Bulmaro Blair : 1995 Medical Record: [id number] PCP: Yaneli Bowers, BLANCA Referring provider: Yaneli Bowers REASON FOR REFERRAL Raynaud's, positive ANAHI, positive rheumatoid factor ASSESSMENT AND PLAN Bulmaro Blair is a 29 y.o. female who [...] me with any questions or concerns. Melisa Graf DO [facility] Rheumatology [address] [place] [address] O: [phone] F: [phone] The above recommendations were discussed with the patient who understands and agrees with the plan. Portions of this note were created with [employer] Dictation Software. Every effort was made to proofread, but sound-alike errors may occasionally occur. Please contact me for any clarification of note contents. My ongoing relationship with Bulmaro Blair requires continued responsibility and cognitive effort of being the focal point for all services related to chronic condition(s). HPI/ROS Bulmaro Blair is a 29 y.o. female with who was referred by Yaneli Bowers for evaluation of Raynaud's, positive ANAHI, positive [...] to finger digits/active Raynaud's AUTHENTICATED BY MELISA GRAF, ON 10/05/2024 15:05:[address] [place], [place] [address]4502-19-2025 History of Present illness Narrative* Melisa Graf, DO - 10/05/2024 2:00 PM EST Images from the original note were not included. RHEUMATOLOGY NEW PATIENT VISIT Patient Name: Bulmaro Blair : 1995 Medical Record: [id number] PCP: Yaneli Bowers CNP Referring provider: Yaneli Bowers REASON FOR REFERRAL Raynaud's, positive ANAHI, positive rheumatoid factor ASSESSMENT AND PLAN Bulmaro Blair is a 29 y.o. female who is being seen for evaluation of Raynaud's, positive ANAHI, positive rheumatoid factor. Raynaud's Positive ANAHI (1: 640-no pattern reported) Positive rheumatoid factor I suspect that her Raynaud's is likely primary as a started when she was a teenager. Aside from Raynaud's, she is relatively asymptomatic. She has very mild leukopenia noted on her referral labs. Shedenies recurrent rashes, denies arthralgias, denies history of [...] me with any questions or concerns. Melisa Graf DO [facility]umat[facility] [address] [place] [address] O: [phone] F: [phone] The above recommendations were discussed with the patient who understands and agrees with the plan. Portions of this note were created with [employer]. Every effort was made to proofread, but sound-alike errors may occasionally occur. Please contact me for any clarification of note contents. My ongoing relationship with Bulmaro Blair requires continued responsibility and cognitive effort of being the focal point for all services related to chronic condition(s). HPI/ROS Bulmaro Blair is a 29 y.o. female with who was referred by Yaneli Bowers for evaluation of Raynaud's, positive ANAHI, positive [...] she had Raynaud's, her PCP checked additional bloodwork. She denies any joint pain. She denies [...] hands. Dusky appearance to finger digits/active Raynaud's * Joanna Cedillo LPN - 10/05/2024 1:48 PM EST RHEUMATOLOGY NEW PATIENT INTAKE: Have you ever been diagnosed with the following? [] Psoriasis [] Crohn s disease [] Ulcerative Colitis [] Inflammatory eye disease (uveitis, scleritis, episcleritis, iritis) Have you or do you experience any of the following? [x] Color changes in your fingers in the cold (Raynaud s) [] Increased thickening of your skin [] Recurrent rash (other than sunburn) when you go into the sun [] A single finger or toe swelling like a sausage [] Fluid around your heart [] Fluid around your lungs [] Miscarriage (if applicable) [] Blood clots REVIEW OF SYSTEMS Constitutional:?? []Fever []Fatigue []Unexpected weight loss Eyes:?? []Change in visual acuity []Dry eyes []Redness HENT:? []Oral/nasal ulcers []Dry mouth []Difficulty swallowing Cardiovascular:?? []Chest pain []Palpitations []Edema Respiratory:?? []Cough []Shortness of breath GI:?? []Abdominal pain []Diarrhea []Constipation []Bloody stools : []Dysuria []Hematuria Musculoskeletal: []Joint pain []Joint swelling Integument:?? []Rash []Hair loss Neurologic:?? []Headache []Dizziness Psychiatric:?? []Depression [x]Anxiety Endocrine:?? []Polydipsia []Polyuria Lymphatic:?? []Swollen glands Allergic/Immunologic: []Seasonal allergies []Frequent infections FAMILY HISTORY Does anyone in your family have a rheumatologic condition (rheumatoid arthritis, psoriatic arthritis, lupus, Sjogren s for example) or skin psoriasis? []Yes [x]No If yes, please list family member and condition: SOCIAL HISTORY Occupation: Do you smoke cigarettes or cigars? []Yes []No [x]Previously Please list how long you have smoked and how much per day if applicable: Quit in 2018 Do you drink alcohol? []Yes [x]No Please list how much per week if applicable: Do you use marijuana, cocaine, heroin, or any other substances? []Yes [x]No Please list if applicable No show/cancellation policy provided to patient [x]Yes []Patient declined documented in this [id number] NoteHNO ID: [id number] Author: YANELI WINTER APRN.LINEN FOLDER Service: ? Author Type: Nurse Practitioner Type: Progress Notes Filed: 07/07/2024 15:24 Note Text: This note was created using [employer]. Subjective Bulmaro Blair is a 29 year old female. 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 No specialized language instructor was used. Cough This is a new [...] Grandmother Diabetes Paternal Grandfather Heart Maternal Aunt GA at 33 Social History Tobacco Use Smoking [...] No discharge. Left eye: No discharge. Extraocular Movem (more content not included)...[facility] 07-07-[facility]24 History of Present illness Narrative* Yaneli Winter, THANH.[facility] - 07/07/2024 12:15 PM EST This note was created using Cyst[employer] Research Foundationriter. Subjective Bulmaro Blair is a 29 year old female. 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 No specialized language instructor was used. Cough This is a new [...] 0.25-35 mg-mcg per tablet Take 1 tablet bymouth once daily. (Patient not taking: Reported on 07/07/2024) FAMILY HISTORY Problem Relation Age of Onset Stroke Maternal Grandmother age 60 Hypertension Maternal Grandmother Diabetes Paternal Grandfather Heart Maternal Aunt GA at 33 Social History Tobacco Use Smoking [...] Objective BP 147/97 Pulse 77 Temp 36.7 C (98.1 F) Resp 18 Wt 64.7 kg (142 lb 10.2 oz) LMP 05/30/2015 SpO2 98% BMI 23.20 kg/m Physical Exam Vitals and nursing note reviewed. [...] Zithromax F/u with PCP for continued sx Yaneli Winter APRN.LINEN FOLDER [facility] NoteDischarge Instructions Discharge Summary [address] [address] [id number] 06/06/2024 Patient: BULMARO BLAIR Sex: Female : 1995 Age: 29y Thank you for visiting [facility]. You have been evaluated today by Nj Hodge M.D. for the following condition(s): Principal Diagnosis Vomiting with nausea. Diarrhea INSTRUCTIONS Prescription Medications: Medications prescribed: Protonix, Ondansetron ODT. OTC Medications: Take Imodium AD according to label instructions. Available over the counter. Follow-up: Follow up with your healthcare provider in two days. Call for an appointment. Sabi Bowers. You have been given the following additional information: Diarrhea with Uncertain Cause (Adult) Patient Signature 1 of 7 Discharge Instructions Facility Life Skills Coordinator Date/Time General Instructions with ExitWriter [address] [address] [id number] 06/06/2024 Patient: BULMARO BLAIR Sex: Female : 1995 Age: 29y Thank you for visiting [facility]. You have been evaluated today by Nj [...] it. The results of a stool sample testmay take up to 2 days. The healthcare [...] cramping, and pain worse. If taking medicines: [id number] nausea and diarrhea medicines are generally OK [...] with soap and water and using alcohol-based mother helper is the best way to prevent the [...] Keep uncooked meats away from cooked and cfyan-ke-rur foods. 4 of 7 Discharge Instructions Use a food thermometer when cooking. Cook poultry to at least 165F (74 (more content not included)...[facility] Author Sara Carson [facility] Note Date/Time May 11, 2025 4:16pm [facility] Medical Records Department [address] [place] [address] Anesthesia Postop Eval II 05/11/255 MR#: [id number] Acct: [id number] Name: BULMARO BLAIR Rep #:[id number] : 1995 30 From: Sara Cueva RNA PCP: SHANKAR Plummer Status:REG S DC Y Race: C Location: [place] [address] Anesthesia Postop Eval I Sum Postop Eval Completion status Anesthesia document: Postop Eval 1 completed: Yes Anesthesia Postop Eval I Summary Anesthesia Postop Eval I Summary: Anesthesia Postop Eval I: Assessment Summary Airway patent Yes 05/11/25 14:49 SENIOR MERCHANDISER.TNES Spontaneous unlabored Yes 05/11/25 14:49 SENIOR MERCHANDISER.TNES respirations Mental status nausea No 05/11/25 14:49 SENIOR MERCHANDISER.TNES Vomiting No 05/11/25 14:49 SENIOR MERCHANDISER.TNES Anesthesia Postop Eval I: Fluid Summary Crystalloid volume administer 1,200 05/11/25 14:49 SENIOR MERCHANDISER.TNES (ml) Colloids volume administered ( ml) Blood Product volume administered (ml) Total IV fluid infused 1,200 05/11/25 14:49 SENIOR MERCHANDISER.TNES Anesthesia Postop Eval I: Summary Notes Anesthesia Complication No 05/11/25 14:49 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* Diagnosis ANAHI positive- Primary Raynaud's disease without gangrene Rheumatoid factor positive Other and unspecified nonspecific immunological findings Leukopenia, unspecified type [facility] Diagnosis Bacterial conjunctivitis- Primary Other conjunctivitis [facility] (narrative)No reason for referral information availableWChildren's Hospital of [facility] Work Phone: Reason for visit Narrative* Evaluate and Treat (Routine) - Closed Specialty Diagnoses / Procedures Referred By Elie t Referred To Contact Rheumatology Diagnoses Raynaud's disease without gangrene Rheumatoid factor positive Yaneli Bowers, LINEN FOLDER [address] [place] [address] Phone: tel: fax: Melisa Graf, DO [address] [place] [phone] Phone: tel: fax: Referral ID Status Reason Start Date Expiration Date Visits Re quested Visits Authorized Closed 05/31/2024 05/31/2025 1 1 [facility] Summary Purpose Family History No Family History Records Found Relationship Condition Age at Onset Recorded Date/T corrina grandfather Malignant neoplasm Unknown Relationship Condition Age at Onset Recorded Date/T corrina Not Specified Cardiac disease Unknown Myocardial infarction Unknown grandfather Malignant neoplasm Unknown Advance Directives No Advanced Directives Records Found Advance Directive Response Recorded Date/ Time Advance Directives No January 22 0 6:23am Advance Directive Response Recorded Date/ Time Do you have a Healthcare Power of Credit Control Administrator? No May 02, 2025 9:14am Advance Directives No January 22 0 6:23am Chief Complaint and Reason for Visit Chief Complaint Admit Date 3-4 M FU November 09, 2024 10: 13am Bowel sounds November 16, 2024 9:10 am INT ORDER November 16, 2024 10:1 3am Reason for Visit Admit Date Symptomatic varicose veins November 09, 2 025 10:13am Abnormal bowel sounds November 16, 2024 9: 10am Chief Complaint Admit Date 3-4 M FU November 09, 2024 10: 13am Bowel sounds November 16, 2024 9:10 am INT ORDER November 16, 2024 10:1 3am Discuss surgery February 01, 2025 12:3 2pm Chief Complaint Admit Date 3-4 M FU November 09, 2024 10: 13am Bowel sounds November 16, 2024 9:10 am INT ORDER November 16, 2024 10:1 3am Discuss surgery February 01, 2025 12:3 2pm RIGHT LOWER EXT PVD February 10, 2025 12:5 2pm Reason for Visit Admit Date Symptomatic varicose veins November 09, 2 025 10:13am Abnormal bowel sounds November 16, 2024 9: 10am Symptomatic varicose veins February 01 12:32pm Chief Complaint Admit Date 3-4 M FU November 09, 2024 10: 13am Bowel sounds November 16, 2024 9:10 am INT ORDER November 16, 2024 10:1 3am Discuss surgery February 01, 2025 12:3 2pm RIGHT LOWER EXT PVD February 10, 2025 12:5 2pm Discuss Results March 08, 2025 1:41 pm Chief Complaint Admit Date Discuss surgery February 01, 2025 12:3 2pm RIGHT LOWER EXT PVD February 10, 2025 12:5 2pm Discuss Results March 08, 2025 1:41 pm SFJ Ligation and Saphenous Vein Rad Apr 9:56am SFJ Ligation and Saphenous Vein Rad Apr emb2024 2:27pm Varicose veins of unspecified lower extr emity with May 15, 2025 9:21am Reason for Visit Admit Date Symptomatic varicose veins February 01 12:32pm Symptomatic varicose veins March 08 1:41pm Symptomatic varicose veins April 9:56am Additional Source Comments INFORMATION SOURCE (unrecogn ized section and content) DATE CREATED AUTHOR 06/07/2024 Sriramkassidy Shepardsean [facility] DATE CREATED AUTHOR AUTHOR'S ORGANIZ ATION 10/13/2024 [facility] DATE CREATED AUTHOR AUTHOR'S ORGANIZ ATION 11/11/2024 [facility] DATE CREATED AUTHOR AUTHOR'S ORGANIZ ATION 12/19/2024 [facility] DATE CREATED AUTHOR AUTHOR'S ORGANIZ ATION 06/03/2025 [facility] Source Comments (unrecognize d section and content) In the event this informatio n is protected by the Federal Confidentiality of Alcohol and Drug Abuse Patient Records regulations: The Federal rules restrict any use of the information to criminally investigate or prosecute any alcohol or drug abuse patient.[facility] the event this information is protected by the Federal Confidentiality of Alcohol and Drug Abuse Patient Records regulations: The Federal rules restrict any use of the information to criminally investigate or prosecute any alcohol or drug abuse patient.[facility] Reason for Visit (unrecogniz ed section and content) Reason Comments Cough Chest congestion, jolene dyaches, fatigue x3 days, pneumonia exposure Reason Comments Eye Problem Left eye issue, pain and drainage, x last night R eye starting Care Teams (unrecognized sec tion and content) [employer] Relationship Specialty Start Date End Date Yaneli Bowers CNP [address] [place] [address] PCP - General Family Medicine 07/07/24 [employer] Relationship Specialty Start Date End Date Shelbie Bowersica BLANCA [address] [place] [address] PCP - General Nurse Practitioner 10/05/24 Team Status: Active Member Role Status Dates No Primary Care Physician Family Provider Active PRODUCTION GEAR CUTTERGiovanna Bowers , PRODUCTION GEAR CUTTER-C Primary Care Provider Activ e Team Status: Inactive Member Role Status Dates PRODUCTION GEAR CUTTER. Yaneli Bowers , PRODUCTION GEAR CUTTER-C Primary Care Provider Activ e Start: November 09, 2024 End: November 09, 2024 PRODUCTION GEAR CUTTERGiovanna Bowers , PRODUCTION GEAR CUTTER-C Referring Provider Active Start: November 09, 2024 End: November 09, 2024 LAURYN Whatley Attending Provider Active Star t: November 09, 2024 End: November 09, 2024 Team Status: Inactive Member Role Status Dates PRODUCTION GEAR CUTTERGiovanna Bowers , PRODUCTION GEAR CUTTER-C Primary Care Provider Activ e Start: November 16, 2024 End: November 16, 2024 PRODUCTION GEAR CUTTERGiovanna Bowers , PRODUCTION GEAR CUTTER-C Referring Provider Active Start: November 16, 2024 End: November 16, 2024 LAURYN Tinoco Attending Provider Active Start: November 16, 2024 End: November 16, 2024 Team Status: Inactive Member Role Status Dates PRODUCTION GEAR CUTTERGiovanna Yanelimamie Bowers , PRODUCTION GEAR CUTTER-C Primary Care Provider Activ e Start: November 16, 2024 End: November 16, 2024 LAURYN Tinoco Attending Provider Active Start: November 16, 2024 End: November 16, 2024 LAURYN Tinoco Referring Provider Active Start: November 16, 2024 End: November 16, 2024 Team Status: Active Member Role Status Dates No Primary Care Physician Family Provider Active Yaneli Bowers , PRODUCTION GEAR CUTTER-C Primary Care Provider Active Team Status: Inactive Member Role Status Dates Yaneli Bowers , PRODUCTION GEAR CUTTER-C Primary Care Provider Active Start: November 09, 2024 End: November 09, 2024 Yaneli Bowers , PRODUCTION GEAR CUTTER-C Referring Provider Active Start: November 09, 2024 End: November 09, 2024 LAURYN Whatley Attending Provider Active Star t: November 09, 2024 End: November 09, 2024 Team Status: Inactive Member Role Status Dates Yaneli Bowers , PRODUCTION GEAR CUTTER-C Primary Care Provider Active Start: November 16, 2024 End: November 16, 2024 Yaneli Bowers , PRODUCTION GEAR CUTTER-C Referring Provider Active Start: November 16, 2024 End: November 16, 2024 LAURYN Tinoco Attending Provider Active Start: November 16, 2024 End: November 16, 2024 Team Status: Inactive Member Role Status Dates Yaneli Bowers , PRODUCTION GEAR CUTTER-C Primary Care Provider Active Start: November 16, 2024 End: November 16, 2024 LAURYN Tinoco Attending Provider Active Start: November 16, 2024 End: November 16, 2024 LAURYN Tinoco Referring Provider Active Start: November 16, 2024 End: November 16, 2024 Team Status: Inactive Member Role Status Dates Yaneli Bowers PRODUCTION GEAR CUTTER-C Primary Care Provider Active Start: January 19, 2025 End: January 19, 2025 So Reed PRODUCTION GEAR CUTTER-C Attending Provider Active Start: January 19, 2025 End: January 19, 2025 Team Status: Active Member Role Status Dates No Primary Care Physician Family Provider Active So Reed PRODUCTION GEAR CUTTER-C Primary Care Provider Active Team Status: Inactive Member Role Status Dates LAURYN Whatley Attending Provider Active Star t: February 01, 2025 End: February 01, 2025 So Reed , PRODUCTION GEAR CUTTER-C Primary Care Provider Active Start: February 01, 2025 End: February 01, 2025 So Reed , PRODUCTION GEAR CUTTER-C Referring Provider Active Start: February 01, 2025 End: February 01, 2025 Team Status: Active Member Role/Relationship Status Dates So Reed , PRODUCTION GEAR CUTTER-C Primary Care Provider Active Team Status: Inactive Member Role/Relationship Status Dates Yaneli Bowers PRODUCTION GEAR CUTTER-C Primary Care Provider Active Start: November 09, 2024 End: November 09, 2024 Yaneli Bowers , PRODUCTION GEAR CUTTER-C Referring Provider Active Start: November 09, 2024 End: November 09, 2024 LAURYN Whatley Attending Provider Active Star t: November 09, 2024 End: November 09, 2024 Team Status: Inactive Member Role/Relationship Status Dates Yaneli Bowers , PRODUCTION GEAR CUTTER-C Primary Care Provider Active Start: November 16, 2024 End: November 16, 2024 Yaneli Bowers PRODUCTION GEAR CUTTER-C Referring Provider Active Start: November 16, 2024 End: November 16, 2024 LAURYN Tinoco Attending Provider Active Start: November 16, 2024 End: November 16, 2024 Team Status: Inactive Member Role/Relationship Status Dates Yaneli Bowers PRODUCTION GEAR CUTTER-C Primary Care Provider Active Start: November 16, 2024 End: November 16, 2024 LAURYN Tinoco Attending Provider Active Start: November 16, 2024 End: November 16, 2024 LAURYN Tinoco Referring Provider Active Start: November 16, 2024 End: November 16, 2024 Team Status: Inactive Member Role/Relationship Status Dates Yaneli Bowers PRODUCTION GEAR C[employer]TER-C Primary Care Provider Active Start: January 19, 2025 End: January 19, 2025 So Reed PRODUCTION GEAR CUTTER-C Attending Provider Active Start: January 19, 2025 End: January 19, 2025 Team Status: Inactive Member Role/Relationship Status Dates LAURYN Whatley Attending Provider Active Star t: February 01, 2025 End: February 01, 2025 So Reed PRODUCTION GEAR CUTTER-C Primary Care Provider Active Start: February 01, 2025 End: February 01, 2025 So Reed PRODUCTION GEAR CUTTER-C Referring Provider Active Start: February 01, 2025 End: February 01, 2025 Team Status: Inactive Member Role/Relationship Status Dates So Reed PRODUCTION GEAR CUTTER-C Primary Care Provider Active Start: February 10, 2025 End: February 10, 2025 LAURYN Whatley Attending Provider Active Star t: February 10, 2025 End: February 10, 2025 LAURYN Whatley Referring Provider Active Star t: February 10, 2025 End: February 10, 2025 Team Status: Active Member Role/Relationship Status Dates So Reed PRODUCTION GEAR CUTTER-C Primary Care Provider Active Start: February 10, 2025 Dr. Andres Valentin MD Attending Provider Active S tart: February 10, 2025 Team Status: Active Member Role/Relationship Status Dates So Reed PRODUCTION GEAR CUTTER-C Primary Care Provider Active Start: February 10, 2025 Dr. Andres Valentin MD Attending Provider Active S tart: February 10, 2025 LAURYN Whatley Referring Provider Active Star t: February 10, 2025 Team Status: Inactive Member Role/Relationship Status Dates So Reed PRODUCTION GEAR CUTTER-C Primary Care Provider Active Start: March 08, 2025 End: March 08, 2025 So Reed PRODUCTION GEAR CUTTER-C Referring Provider Active Start: March 08, 2025 End: March 08, 2025 LAURYN Whatley Attending Provider Active Star t: March 08, 2025 End: March 08, 2025 Team Status: Active Member Role/Relationship Status Dates So Reed PRODUCTION GEAR CUTTER-C Primary care physician Active Team Status: Inactive Member Role/Relationship Status Dates Yaneli Bowers PRODUCTION GEAR CUTTER-C Primary care physician Active Start: January 19, 2025 End: January 19, 2025 So Reed NP-C Attending physician Active Start: January 19, 2025 End: January 19, 2025 Team Status: Inactive Member Role/Relationship Status Dates LAURYN Whatley Attending physician Active Sta rt: February 01, 2025 End: February 01, 2025 So Reed PRODUCTION GEAR CUTTER-C Primary care physician Active Start: February 01, 2025 End: February 01, 2025 So Reed NP-C Referring Provider Active Start: February 01, 2025 End: February 01, 2025 Team Status: Inactive Member Role/Relationship Status Dates So Reed NP-C Primary care physician Active Start: February 10, 2025 End: February 10, 2025 LAURYN Whatley Attending physician Active Sta rt: February 10, 2025 End: February 10, 2025 LAURYN Whatley Referring Provider Active Star t: February 10, 2025 End: February 10, 2025 Team Status: Active Member Role/Relationship Status Dates So Reed NP-C Primary care physician Active Start: February 10, 2025 Dr. Andres Valentin MD Attending physician Active Start: February 10, 2025 LAURYN Whatley Referring Provider Active Star t: February 10, 2025 Team Status: Inactive Member Role/Relationship Status Dates So Reed PRODUCTION GEAR CUTTER-C Primary care physician Active Start: March 08, 2025 End: March 08, 2025 So Reed PRODUCTION GEAR CUTTER-C Referring Provider Active Start: March 08, 2025 End: March 08, 2025 LAURYN Whatley Attending physician Active Sta rt: March 08, 2025 End: March 08, 2025 Team Status: Inactive Member Role/Relationship Status Dates SHANKAR Plummer Primary care physician Active Start: May 11, 2025 End: May 11, 2025 Dr. Andres Valentin MD Attending physician Active Start: May 11, 2025 End: May 11, 2025 Dr. Andres Valentin MD Referring Provider Active S tart: May 11, 2025 End: May 11, 2025 Team Status: Active Member Role/Relationship Status Dates SHANKAR Plummer Primary care physician Active Start: May 11, 2025 Dr. Andres Valentin MD Attending physician Active Start: May 11, 2025 Dr. Andres Valentin MD Referring Provider Active S tart: May 11, 2025 Dr. Andres Valentin MD Nurse Practitioner Active S tart: May 11, 2025 Team Status: Active Member Role/Relationship Status Dates SHANKAR Plummer Primary care physician Active Start: May 15, 2025 LAURYN Whatley Attending physician Active Sta rt: May 15, 2025 LAURYN Whatley Referring Provider Active Star t: May 15, 2025 Team Status: Active Member Role/Relationship Status Dates SHANKAR Plummer Primary care physician Active Start: May 15, 2025 Dr. Andres Valentin MD Attending physician Active Start: May 15, 2025 Goals (unrecognized section and content) Goals may be documented in a n alternate sectionGoals may be documented in an alternate sectionGoals may be documented in an alternate sectionGoals may be documented in an alternate sectionGoals may be documented in an alternate section FOR RECORDS PERTAINING TO PATIENTS WHO ARE OR HAVE BEEN ENROLLED IN A CHEMICAL DEPENDENCY/SUBSTANCEABUSE PROGRAM, SOME INFORMATION MAY BE OMITTED. This clinical summary was aggregated from multiple sources. Caution should be exercised in using it in the provision of clinical care. This summary normalizes information from multiple sources, and as a consequence, information in this document may materially change the coding, format and clinical context of patient data. In addition, data may be omitted in some cases. CLINICAL DECISIONS SHOULD BE BASED ON THE PRIMARY CLINICAL RECORDS. [employer] provides no warranty or guarantee of the accuracy or completeness of information in this document.
== END | disposition home or self-care (01) ==
LOC: CVS 14:26
PROVIDERS: PCP Nurse Practitioner Family; Referring Provider Surgery Trauma Surgery; Visit Provider Surgery Trauma Surgery
DX: I83.891 Varicose veins of right lower extremity with other complications (principal)
CPT/HCPCS: 93971